=== PATIENT | female | born 1985 | race Two or more races ===

== ENCOUNTER 2017-01-25 22:26 | Emergency (ER) | payer OTHER ==
[2017-01-25 22:37] VITALS: BP 131/90
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
--- NOTE | 2017-01-26 09:15 | CR ---
Chest and left ribs: Frontal view of the chest was obtained as well as 2 views of the left ribs. Comparison: No previous study. Heart size and mediastinum are normal. Lungs are clear. No discrete rib abnormality is appreciated. Impression: 1. Nothing acute is seen on frontal chest x-ray. 2. No discrete left-sided rib abnormality is appreciated. Diagnostic code #1
== END 2017-01-26 00:55 | disposition home or self-care (01) ==
LOC: JD.ED 22:26
DX: S50.812A Abrasion of left forearm, initial encounter (principal); S29.9XXA Unspecified injury of thorax, initial encounter; V29.9XXA Motorcycle rider (driver) (passenger) injured in unspecified traffic accident, initial encounter; Y92.410 Unspecified street and highway as the place of occurrence of the external cause; F17.210 Nicotine dependence, cigarettes, uncomplicated; Z98.890 Other specified postprocedural states; Z88.0 Allergy status to penicillin; Z88.1 Allergy status to other antibiotic agents; Z88.5 Allergy status to narcotic agent
CPT/HCPCS: 71101-26-LT; 71101-LT; 99283; 99284

== ENCOUNTER 2018-04-10 22:02 | Emergency (ER) | payer SELFPAY ==
[2018-04-10 22:18] VITALS: BP 123/107
== END 2018-04-10 23:38 | disposition left against medical advice (07) ==
LOC: JD.ED 22:02
DX: Z53.21 Procedure and treatment not carried out due to patient leaving prior to being seen by health care provider (principal)
CPT/HCPCS: 36415; 80053; 83690; 84703; 85007; 85027; G0480

== ENCOUNTER 2018-12-23 12:37 | Emergency (ER) | payer BC ==
[2018-12-23 12:48] VITALS: BP 158/98
[2018-12-23] MEDS ORDERED: Ibuprofen 800 MG Tab PO ONE (13:00)
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
== END 2018-12-23 13:35 | disposition home or self-care (01) ==
LOC: JD.ED 12:37
DX: S83.412A Sprain of medial collateral ligament of left knee, initial encounter (principal); Z88.1 Allergy status to other antibiotic agents; Z88.0 Allergy status to penicillin; Z79.899 Other long term (current) drug therapy; Y04.0XXA Assault by unarmed brawl or fight, initial encounter
CPT/HCPCS: 99283; A9270; 99282

== ENCOUNTER 2019-02-18 15:30 | Emergency (ER) | payer BC ==
[2019-02-18] MEDS ORDERED: Ondansetron 4 MG/2 ML SDV IVPUSH ONE (16:03)
[2019-02-18] MEDS ORDERED: HYDROmorphone 1 MG/ML Syringe IVPUSH STA (16:03)
[2019-02-18 16:09] VITALS: BP 153/96
--- NOTE | 2019-02-18 16:10 | EDM.PDOC ---
ED HPI GENERAL MEDICAL PROBLEM - General Chief Complaint: Abdominal Pain Stated Complaint: LOWER ABD PAIN Time Seen by Provider: 02/18/19 15:51 Source of Information: Reports: Patient, RN Notes Reviewed History Limitations: Reports: No Limitations - History of Present Illness INITIAL COMMENTS - FREE TEXT/NARRATIVE: Patient is a 33-year-old female who presents to the ED for evaluation of lower abdominal pain. The patient notes that this pain started yesterday after dinner , however she did have diarrhea starting Monday. She states that she had more nausea/vomiting/diarrhea yesterday. She states that this turned into a stinging/burning pain yesterday. The patient states she vomited one time last night and once again this morning. She did go to see her doctor, Carly Person, and Dr. Person was concerned that she may have appendicitis, so she was sent here for further evaluation. Patient has not taken anything for pain, and would currently rates this at an 8 out of 10 today. She notes that even walking makes the pain hurt worse. The patient does not believe that she be as she just finished up her menstrual cycle. The patient notes that she does still retain her appendix. She states the last time she ate anything was roughly 10 AM this morning, and the last time she drank anything was around 2 PM this afternoon. The patient denies any other vaginal discharge or urinary symptoms. The patient states that she last had a normal bowel movement on Monday before the diarrhea. She states she is a sometime smoker, and she uses alcohol on the weekends. Right Lower Abdominal Pain Score (Numeric/FACES): 8 - Related Data Allergies Allergy/AdvReac Type Severity Reaction Status Date / Time amoxicillin Allergy Cannot Verified 02/18/19 15:46 Remember guaifenesin [From Robitussin] Allergy Cannot Verified 02/18/19 15:46 Remember Penicillins Allergy Cannot Verified 02/18/19 15:46 Remember tramadol Allergy Itching Verified 02/18/19 15:46 Home Meds: Home Meds Ranitidine [Zantac] 150 mg PO DAILY 04/10/18 [History] Ibuprofen [Motrin] 800 mg PO TID PRN 5 Days #30 tablet 12/23/18 [Rx] Dicyclomine [Bentyl] 20 mg PO QID #28 tablet 02/18/19 [Rx] Past Medical History - Past Health History Medical/Surgical History: Denies Medical/Surgical History Gastrointestinal History: Reports: Other (See Below) Other Gastrointestinal History: inguinal hernia Genitourinary History: Reports: Renal Calculus 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 , Neurological History: Reports: Migraines - Infectious Disease History Infectious Disease History: Reports: Meningitis, MRSA Other Infectious Disease History: MRSA in 2004, in blood stream - Past Surgical History HEENT Surgical History: Reports: Adenoidectomy, Tonsillectomy GI Surgical History: Reports: Hernia, Inguinal, Hernia Repair/Other Social & Family History - Family History Family Medical History: Noncontributory - Tobacco Use Smoking Status *Q: Current Every Day Smoker Years of Tobacco use: 20 Packs/Tins Daily: 0.3 Second Hand Smoke Exposure: No - Caffeine Use Caffeine Use: Reports: Energy Drinks - Recreational Drug Use Recreational Drug Use: No ED ROS GENERAL - Review of Systems Review Of Systems: See Below Constitutional: Denies: Fever, Chills HEENT: Reports: No Symptoms Respiratory: Reports: No Symptoms Cardiovascular: Reports: No Symptoms Endocrine: Reports: No Symptoms GI/Abdominal: Reports: Abdominal Pain (umbilical, RLQ), Diarrhea, Nausea, Vomiting : Denies: Discharge, Dysuria, Frequency, Urgency Musculoskeletal: Reports: No Symptoms Skin: Reports: No Symptoms Neurological: Reports: No Symptoms Psychiatric: Reports: No Symptoms Hematologic/Lymphatic: Reports: No Symptoms Immunologic: Reports: No Symptoms ED EXAM, GI/ABD - Physical Exam Exam: See Below Exam Limited By: No Limitations General Appearance: Alert, WD/WN, No Apparent Distress, Mild Distress (pt appears to be in pain at time of initial eval) Eyes: Bilateral: Normal Appearance Throat/Mouth: Normal Inspection, Normal Lips, Normal Teeth, Normal Gums, Normal Oropharynx, Normal Voice, No Airway Compromise Head: Atraumatic, Normocephalic Respiratory/Chest: No Respiratory Distress, Lungs Clear, Normal Breath Sounds, No Accessory Muscle Use, Chest Non-Tender Cardiovascular: Normal Peripheral Pulses, Regular Rate, Rhythm, No Murmur GI/Abdominal Exam: Normal Bowel Sounds, Soft, No Distention, No Mass, Rebound ( RLQ), Tender (RLQ and around umbilicus) Extremities: Normal Inspection, Normal Capillary Refill Neurological: Alert, Oriented, Normal Cognition, Normal Gait, No Motor/Sensory Deficits Psychiatric: Normal Affect, Normal Mood Skin Exam: Warm, Dry, Intact, Normal Color, No Rash Course - Vital Signs Last Recorded V/S: Last Vital Signs Temp 97.1 F 02/18/19 15:47 Pulse 88 02/18/19 15:47 Resp 20 02/18/19 15:47 BP 153/96 H 02/18/19 15:47 Pulse Ox 99 02/18/19 15:47 - Orders/Labs/Meds Orders: Active Orders 24 hr Category Date Time Status Peripheral IV Care [RC] . DIRECTED Care 02/18/19 16:04 Active Peripheral IV Insertion Adult [OM.PC] Routine Oth 02/18/19 16:04 Ordered Labs: Laboratory Tests 02/18/19 02/18/19 02/18/19 Range/Units 16:15 16:15 16:15 WBC 10.62 H (3.98-10.04) K/mm3 RBC 5.11 (3.98-5.22) M/mm3 Hgb 14.2 (11.2-15.7) gm/L Hct 42.5 (34.1-44.9) % MCV 83.2 (79.4-94.8) fl MCH 27.8 (25.6-32.2) pg MCHC 33.4 (32.2-35.5) g/dl RDW Std Deviation 44.4 (36.4-46.3) fL Plt Count 276 (182-369) K/mm3 MPV 10.2 (9.4-12.3) fl Neutrophils % (Manual) 70 H (40-60) % Band Neutrophils % 0 (0-10) % Lymphocytes % (Manual) 20 (20-40) % Atypical Lymphs % 0 % Monocytes % (Manual) 5 (2-10) % Eosinophils % (Manual) 4 (0.7-5.8) % Basophils % (Manual) 1 (0.1-1.2) Platelet Estimate Adequate RBC Morph Comment Normal Sodium 137 (136-145) mEq/L Potassium 4.0 (3.5-5.1) mEq/L Chloride 104 (98-107) mEq/L Carbon Dioxide 21 (21-32) mEq/L Anion Gap 16.0 H (5-15) BUN 13 (7-18) mg/dL Creatinine 0.8 (0.55-1.02) mg/dL Est Cr Clr Drug Dosing 90.00 mL/min Estimated GFR (MDRD) > 60 (>60) mL/min BUN/Creatinine Ratio 16.3 (14-18) Glucose 104 (74-106) mg/dL Calcium 9.0 (8.5-10.1) mg/dL Total Bilirubin 0.5 (0.2-1.0) mg/dL AST 161 H (15-37) U/L ALT 233 H (14-59) U/L Alkaline Phosphatase 143 H (46-116) U/L C-Reactive Protein (<1.0) mg/dL Total Protein 8.0 (6.4-8.2) g/dl Albumin 3.9 (3.4-5.0) g/dl Globulin 4.1 gm/dL Albumin/Globulin Ratio 1.0 (1-2) Lipase 78 (73-393) U/L HCG, Qual (NEGATIVE) Urine Color Yellow (Yellow) Urine Appearance Clear (Clear) Urine pH 6.0 (5.0-8.0) Ur Specific [place] > or = 1.030 (1.005-1.030) Urine Protein Trace H (Negative) Urine Glucose (UA) Negative (Negative) Urine Ketones Negative (Negative) Urine Occult Blood 2+ H (Negative) Urine Nitrite Negative (Negative) Urine Bilirubin Negative (Negative) Urine Urobilinogen 0.2 (0.2-1.0) Ur Leukocyte Esterase Negative (Negative) Urine RBC 0-5 (0-5) /hpf Urine WBC 0-5 (0-5) /hpf Ur Squamous Epith Cells 0-5 (0-5) /hpf Urine Bacteria Few (FEW) /hpf Urine Mucus Moderate H (FEW) /hpf 02/18/19 02/18/19 Range/Units 16:15 16:15 WBC (3.98-10.04) K/mm3 RBC (3.98-5.22) M/mm3 Hgb (11.2-15.7) gm/L Hct (34.1-44.9) % MCV (79.4-94.8) fl MCH (25.6-32.2) pg MCHC (32.2-35.5) g/dl RDW Std Deviation (36.4-46.3) fL Plt Count (182-369) K/mm3 MPV (9.4-12.3) fl Neutrophils % (Manual) (40-60) % Band Neutrophils % (0-10) % Lymphocytes % (Manual) (20-40) % Atypical Lymphs % % Monocytes % (Manual) (2-10) % Eosinophils % (Manual) (0.7-5.8) % Basophils % (Manual) (0.1-1.2) Platelet Estimate RBC Morph Comment Sodium (136-145) mEq/L Potassium (3.5-5.1) mEq/L Chloride (98-107) mEq/L Carbon Dioxide (21-32) mEq/L Anion Gap (5-15) BUN (7-18) mg/dL Creatinine (0.55-1.02) mg/dL Est Cr Clr Drug Dosing mL/min Estimated GFR (MDRD) (>60) mL/min BUN/Creatinine Ratio (14-18) Glucose (74-106) mg/dL Calcium (8.5-10.1) mg/dL Total Bilirubin (0.2-1.0) mg/dL AST (15-37) U/L ALT (14-59) U/L Alkaline Phosphatase (46-116) U/L C-Reactive Protein 1.1 H* (<1.0) mg/dL Total Protein (6.4-8.2) g/dl Albumin (3.4-5.0) g/dl Globulin gm/dL Albumin/Globulin Ratio (1-2) Lipase (73-393) U/L HCG, Qual Negative (NEGATIVE) Urine Color (Yellow) Urine Appearance (Clear) Urine pH (5.0-8.0) Ur Specific [place] (1.005-1.030) Urine Protein (Negative) Urine Glucose (UA) (Negative) Urine Ketones (Negative) Urine Occult Blood (Negative) Urine Nitrite (Negative) Urine Bilirubin (Negative) Urine Urobilinogen (0.2-1.0) Ur Leukocyte Esterase (Negative) Urine RBC (0-5) /hpf Urine WBC (0-5) /hpf Ur Squamous Epith Cells (0-5) /hpf Urine Bacteria (FEW) /hpf Urine Mucus (FEW) /hpf Meds: Medications Discontinued Medications Generic Name Dose Route Start Last Admin Trade Name Freq PRN Reason Stop Dose Admin Diatrizoate Meglum/Diatrizoate Sod 60 ml 02/18/19 17:20 02/18/19 17:43 Gastrografin 37% PO 02/18/19 17:21 60 ml ONETIME ONE Administration Hydromorphone HCl 1 mg 02/18/19 16:03 02/18/19 16:17 Dilaudid IVPUSH 02/18/19 16:04 1 mg ONETIME STA Administration Sodium Chloride 1,000 mls @ 999 mls/hr 02/18/19 16:15 02/18/19 16:17 Normal Saline IV 999 mls/hr ASDIRECTED LAURI Administration Iohexol 100 ml 02/18/19 17:21 02/18/19 17:44 Omnipaque-300 IVPUSH 02/18/19 17:22 100 ml ONETIME ONE Administration Ondansetron HCl 4 mg 02/18/19 16:03 02/18/19 16:17 Zofran IVPUSH 02/18/19 16:04 4 mg ONETIME ONE Administration Sodium Chloride 10 ml 02/18/19 16:04 02/18/19 17:44 Saline Flush FLUSH 10 ml ASDIRECTED PRN Administration Keep Vein Open - Re-Assessments/Exams Free Text/Narrative Re-Assessment/Exam: 02/18/19 16:12 Patient presents to the ED for evaluation of lower abdominal pain. She was previously evaluated by Dr. Carly Person, and she raised suspicion for appendicitis. The patient is mostly tender around her umbilicus and her right lower quadrant. I have ordered a CBC, CMP, lipase, serum qualitative hCG, CRP, UA, IV fluids, 1 mg IV Dilaudid, 4 mg Zofran, and an abdomen and pelvis CT with contrast for further evaluation of her symptoms today. 02/18/19 18:[address] and labs are done, her labs are essentially within normal limits her CRP is mildly elevated at 1.1 today. Her CBC is within normal limits. Her CT is read as fatty infiltration within the liver, other incidental findings but nothing acute is appreciated. She does not have appendicitis at this ED visit. Of note there was an increased amount of stool in her colon as well. Have recommended to the patient that she obtain some MiraLAX, and possibly magnesium citrate for a bowel cleanout, however the oral contrast will also help with a good cleanout. Departure - Departure Time of Disposition: 18:31 Disposition: Home, Self-Care 01 Condition: Fair Clinical Impression: Abdominal pain Qualifiers: Abdominal location: right lower quadrant Qualified Code(s): R10.31 - Right lower quadrant pain Constipation Qualifiers: Constipation type: unspecified constipation type Qualified Code(s): K59.00 - Constipation, unspecified - Discharge Information *PRESCRIPTION DRUG MONITORING PROGRAM REVIEWED*: No *COPY OF PRESCRIPTION DRUG MONITORING REPORT IN PATIENT SANAZ: No Prescriptions: Dicyclomine [Bentyl] 20 mg PO QID #28 tablet Instructions: Constipation, Adult, [id number]ufq, Abdominal Pain, Adult, Easy-to -Read Referrals: Carly Person MD [Primary Care Provider] - Forms: ED Department Discharge Additional Instructions: You have been evaluated in the ED today for your abdominal pain. Your lab work and CT were not suggestive of appendicitis at this time, it did show a fairly large amount of stool in your colon. Recommend that you obtain some MiraLAX, and mix this with Gatorade to soften your stool, and you may also take magnesium citrate to help pass the stool. If he wished to take the magnesium citrate, please obtain a bottle from any retail pharmacy or [employer], drink one half bottle wait one hour if no results repeat for the next half bottle. You may also increase her oral fluid intake as this will help constipation as well. Please take the dicyclomine, 4 times daily for abdominal cramping associated with constipation. This has been electronically prescribed to the [place] pharmacy located in the [facility] Please return to the ED if your symptoms should change or worsen. - My Orders Last 24 Hours: My Active Orders 02/18/19 16:04 Peripheral IV Care [RC] . DIRECTED Peripheral IV Insertion Adult [OM.PC] Routine - Assessment/Plan Last 24 Hours: My Active Orders 02/18/19 16:04 Peripheral IV Care [RC] . DIRECTED Peripheral IV Insertion Adult [OM.PC] Routine
[2019-02-18] MEDS ORDERED: Sodium Chloride 0.9% 1,000 ML IV SCH (16:15)
[2019-02-18] MEDS: Sodium Chloride 0.9% 10 ML Syringe FLUSH PRN ×2 (16:17→17:44)
[2019-02-18] MEDS ORDERED: Diatrizoate Meglumine/Diatrizoate Sodium 37% 120 ML Bottle PO ONE (17:20)
[2019-02-18] MEDS ORDERED: Iohexol 647 MG/ML 100 ML Bottle IVPUSH ONE (17:21)
--- NOTE | 2019-02-18 18:06 | CT ---
CT abdomen and pelvis Technique: Multiple axial sections were obtained from above the dome of the diaphragm inferiorly through the pubic symphysis. Intravenous and oral contrast was utilized. Delayed images were obtained through the bladder. Comparison: Prior CT abdomen and pelvis exam of 09/23/16. Findings: Small portion of the visualized lung bases are clear. Diffuse fatty infiltration is noted throughout the liver. Spleen appears normal. Adrenal glands show no nodule. Pancreas is within normal limits. Gallbladder contains no calcified gallstones. Kidneys show symmetric contrast enhancement without hydronephrosis or mass. Aorta shows no aneurysm. No retroperitoneal adenopathy or mesenteric abnormalities are seen. Appendix is seen which is normal in size. No pelvic mass or adenopathy is seen. No free fluid or inflammatory change is seen. No abdominal wall hernia is seen. Delayed images shows contrast within the distal ureters and within the bladder. Bone window settings were reviewed which shows a mild anterior wedge deformity within L1 which is stable from prior CT exam. Impression: 1. Fatty infiltration within the liver. 2. Other incidental findings. Nothing acute is appreciated. Diagnostic code #2
== END 2019-02-18 18:40 | disposition home or self-care (01) ==
LOC: JD.ED 15:30
DX: K59.00 Constipation, unspecified (principal); F17.210 Nicotine dependence, cigarettes, uncomplicated; Z79.899 Other long term (current) drug therapy; Z88.0 Allergy status to penicillin; Z88.6 Allergy status to analgesic agent; Z88.1 Allergy status to other antibiotic agents
CPT/HCPCS: 36415; 74177; 80053; 81001; 83690; 84703; 85007; 85027; 86140; 96361; 96374; 96375; 99284; J1170; J2405; J7040; Q9963; Q9967

== ENCOUNTER 2019-03-17 00:38 | Observation (INO) | payer BC, MEDICAID ==
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
[2019-03-17] MEDS ORDERED: Ibuprofen 600 MG Tab PO ONE (02:17)
[2019-03-17] MEDS ORDERED: Ibuprofen 600 MG Tab PO PRN (07:59)
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
[2019-03-17] MEDS: traMADol 50 MG Tab PO PRN ×2 (14:51→20:41)
[2019-03-17] MEDS: Ketorolac 30 MG/ML SDV IV PRN ×2 (15:13→21:40)
--- NOTE | 2019-03-17 19:35 | CR ---
Chest: Two views of the chest are obtained. Comparison: Prior chest x-ray of 01/25/17. Heart size and mediastinum are normal. Lungs are clear. Slight anterior wedging is noted at the thoracolumbar junction. This finding is noted on prior CT exam of 02/18/19 and is stable. Minimal scoliosis is noted. Impression: 1. Findings as noted above which are stable. 2. Nothing acute is appreciated. Diagnostic code #2
--- NOTE | 2019-03-17 19:35 | CR ---
Left elbow: Four views of the left elbow were obtained. Comparison: No previous study. Joint spaces are preserved. No acute fracture, dislocation or other bony abnormality is seen. Impression: 1. No abnormality is seen on left elbow study. Diagnostic code #1
--- NOTE | 2019-03-17 19:35 | CR ---
Left ankle: Four views of the left ankle were obtained. Comparison: No previous study. Small avulsion fracture is noted off the tip of the medial malleolus. Ankle mortise is symmetric. No additional fracture or other bony abnormality is identified. Impression: 1. Small avulsion fracture off the tip of the medial malleolus. Diagnostic code #3
[2019-03-18] MEDS: traMADol 50 MG Tab PO PRN ×2 (02:25→08:27)
[2019-03-18] MEDS: Ketorolac 30 MG/ML SDV IV PRN (04:21)
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
[2019-03-18 08:27] VITALS: BP 111/78
[2019-03-18] MEDS ORDERED: Enoxaparin 40 MG/0.4 ML Syringe SUBCUT SCH (09:00)
[2019-03-18] MEDS ORDERED: Famotidine 20 MG Tab PO SCH (21:00)
== END 2019-03-18 09:37 | disposition home or self-care (01) ==
LOC: JD.ED 00:38 → EEVIPCON 00:38 → JD.MS 06:42 → UNDOADMOB 06:47 → INTOOBSV 06:47 → OBSVTOIN 06:47
PROVIDERS: ADMIT Pediatrics; ATTEND Pediatrics
DX: S82.52XA Displaced fracture of medial malleolus of left tibia, initial encounter for closed fracture (principal); S00.83XA Contusion of other part of head, initial encounter; S10.83XA Contusion of other specified part of neck, initial encounter; S20.212A Contusion of left front wall of thorax, initial encounter; S20.211A Contusion of right front wall of thorax, initial encounter; K21.9 Gastro-esophageal reflux disease without esophagitis; R51 Headache; I10 Essential (primary) hypertension; F17.210 Nicotine dependence, cigarettes, uncomplicated; Y04.2XXA Assault by strike against or bumped into by another person, initial encounter; Z88.0 Allergy status to penicillin; Z88.8 Allergy status to other drugs, medicaments and biological substances; Z88.5 Allergy status to narcotic agent; Z79.899 Other long term (current) drug therapy
CPT/HCPCS: 36415; 71046; 73080; 73610; 80053; 80306; 84484; 85025; 86140; 87070; 87641; 93005; 96372; 96374; 96376; 99285; A9270; G0378; G0480; J1650; J1885; 29515; 99283

== ENCOUNTER 2019-07-31 15:40 | Emergency (ER) | payer BC, MEDICAID ==
[2019-07-31 16:04] VITALS: BP 139/84; PULSE 102
[2019-07-31] MEDS ORDERED: Sodium Chloride 0.9% 10 ML Syringe FLUSH PRN (16:33)
[2019-07-31] MEDS ORDERED: Sodium Chloride 0.9% 1,000 ML IV ONE (16:38)
[2019-07-31] MEDS ORDERED: HYDROmorphone 1 MG/ML Syringe IVPUSH ONE ×2 (16:39→19:24)
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
[2019-07-31] MEDS ORDERED: Metoclopramide 10 MG/2 ML SDV IVPUSH ONE (17:04)
[2019-07-31] MEDS ORDERED: Diatrizoate Meglumine/Diatrizoate Sodium 37% 120 ML Bottle PO ONE (17:06)
[2019-07-31] MEDS ORDERED: Iopamidol 612 MG/ML 100 ML Bottle IVPUSH ONE (17:06)
[2019-07-31] MEDS ORDERED: Pantoprazole 40 MG Vial IVPUSH ONE (17:20)
[2019-07-31] MEDS ORDERED: FLU Vacc QS2019-20(6MOS+)/PF 60 MCG/0.5 ML SYRINGE IM ONE (18:00)
[2019-07-31] MEDS ORDERED: Magnesium Citrate Solution 296 ML Bottle PO ONE (19:04)
--- NOTE | 2019-08-01 10:51 | CT ---
CT abdomen and pelvis Technique: Multiple axial sections were obtained from above the dome of the diaphragm inferiorly through the pubic symphysis. Intravenous and oral contrast was utilized. Comparison: Prior CT abdomen and pelvis exam of 02/18/19. Findings: Visualized lung bases show nothing acute. Fatty infiltration is seen within the liver. No focal abnormality is seen within the liver other than focal amount of fat next to the ligamentum teres fissure which is normal. Spleen appears within normal limits. Adrenal glands show no nodule. Pancreas is within normal limits. Gallbladder contains no calcified gallstones. Pancreas is within normal limits. Kidneys show symmetric contrast enhancement without hydronephrosis or mass. Aorta shows no aneurysm. No retroperitoneal adenopathy or mesenteric abnormalities are seen. No pelvic mass or adenopathy is noted. Appendix is visualized and is normal in size. No free fluid or inflammatory change is seen. Delayed images show contrast within the bladder. Bone window settings were reviewed which show a mild compression deformity with anterior wedging within L1. This appears stable from prior CT exam. Impression: 1. Fatty infiltration within the liver. 2. Other findings believed to be incidental. 3. Nothing acute is appreciated on CT study of the abdomen and pelvis. Diagnostic code #2 I agree with preliminary report from [facility], finalized on 07/31/19, 7:50 PM Central Time
== END 2019-07-31 19:48 | disposition home or self-care (01) ==
LOC: JD.ED 15:40
DX: R16.0 Hepatomegaly, not elsewhere classified (principal); K59.00 Constipation, unspecified; I10 Essential (primary) hypertension; F17.210 Nicotine dependence, cigarettes, uncomplicated; E66.9 Obesity, unspecified; Z68.38 Body mass index [BMI] 38.0-38.9, adult; Z88.8 Allergy status to other drugs, medicaments and biological substances; Z88.0 Allergy status to penicillin; Z88.5 Allergy status to narcotic agent; Z98.51 Tubal ligation status; Z23 Encounter for immunization
CPT/HCPCS: 74177; 90471; 90686; 96361; 96374; 96375; 96376; 99284; A9270; C9113; J1170; J2765; J7040; Q9963; Q9967; G0008

== ENCOUNTER → 2019-09-11 | Day surgery (SDC) | payer BC, MEDICAID ==
[~2019-09-11] MED LIST: Lactated Ringers 1,000 ML IV SCH; Lidocaine 1% 4 ML ONE; Lidocaine 1%/Sod Bicarbonate in NS 8.4% 1 ML Syringe IDERM PRN; Propofol 200 MG/20 ML SDV ONE; Sodium Chloride 0.9% 10 ML Syringe FLUSH PRN; fentaNYL 100 MCG/2 ML SDV ONE
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
--- NOTE | 2019-09-11 12:14 | PCM.PRNOTE ---
- Free Text/Narrative Note: Operative Report Date of Procedure: September 11, 2019 Pre Op Diagnosis: Abdominal pain, hematemesis, hematochezia Post-Op Diagnosis: Same Operative Procedures: 1. EGD with biopsy 2. Colonoscopy to the cecum with biopsy Primary Surgeon: Devi Rubio MD Seo Consultant: Matthieu Person MS 3 Anesthesia Provider: Sudhir Wilson CRNA Anesthesia Technique: MAC IV Fluid Replacement, Intraop: 1000cc crystalloid Output, Urine Amount: 0cc EBL in mLs: 0cc Findings: 1. Gastritis 2. Esophagitis 3. Hiatal hernia 4. Bile reflux 5. Proctitis 6. Colon polyps Specimens: 1. Gastric antrum for H. pylori 2. GE junction 3. Descending colon polyp 2 4. Transverse colon polyp 4 5. Descending colon polyp 6. Proctitis 7. Rectal polyp Drain/Tubes: None Indication: The patient is an 34-year-old lady who presented to the clinic with findings of hematemesis and hematochezia. The patient reported symptoms of terminal pain in addition. The patient was consented for a diagnostic EGD and colonoscopy. Risks of bleeding, and perforation were discussed, and the patient agreed to the risks and wished to proceed. Description of the procedure: The patient was taken back to the endoscopy suite, and placed in the left lateral decubitus position. A bite block was placed. The patient was sedated with MAC anesthesia. The Olympus video endoscope was inserted into the oropharynx and guided under direct vision into the esophagus, stomach, and duodenum. The gastric antrum was inspected and cold biopsy forceps were used to take tissue samples for H. pylori. The duodenal bulb and second portion of the duodenum were unremarkable. The scope was withdrawn to the stomach and retroflexed. There was bilious fluid noted pooling in the stomach. There was erythema consistent with gastritis throughout the stomach. No erosions or ulcers were noted. The scope was withdrawn to the esophagus. A this point we noted a small (approximately 1 cm) sliding hiatal hernia. No Barretts esophagus changes were noted. The GE junction did have an irregular appearance more consistent with esophagitis. This was biopsied with cold biopsy forceps. The endoscope was then withdrawn Next, anorectal examination was performed. No lesions, masses or hemorrhoids were noted externally or on palpation. The scope was placed into the rectum and advanced to cecum. Upon reaching the cecum, and the patients cecum was entered. There was mild tortuosity of the colon requiring the patient to be placed in supine position for portion of the procedure as well as manual pressure applied to the abdomen. The ileocecal valve was well visualized and the appendiceal orifice identified. At this point, the scope was slowly withdrawn, paying attention to the mucosa. The patient had good bowel prep, 85 -90% of the mucosa was visible. Multiple polyps were noted. There were 2 flat polyps noted in the ascending colon measuring 2-3 mm. These were removed using cold biopsy forceps. A 6 mm semi-pedunculated polyp was found in the proximal transverse colon was removed using the snare. 2 additional flat polyps measuring 2-3 mm were found in the transverse colon and removed with cold biopsy forceps the distal transverse colon also contained a 4 mm semi- pedunculated polyp removed with hot snare. A 3 mm semi-pedunculated polyp was noted in the descending colon and removed with cold biopsy forceps In the rectum , scope was retroflexed and some hemorrhoidal tissue was noted. There was evidence of petechia throughout the distal rectum. Biopsies were taken of the mucosa using cold biopsy forceps. We also noted scattered 1-2 mm flat polyps. One of these was removed in the rectum using cold biopsy forceps. The scope was removed. The patient tolerated the procedure very well. Complications: None apparent Condition: The patient was transported to PACU in stable condition. We'll the patient continue on PPI therapy. Follow-up in 2 weeks Devi Rubio MD General Surgery
--- NOTE | 2019-09-11 12:19 | PCM.OPNOTE ---
- General Post-Op/Procedure Note Date of Surgery/Procedure: 09/11/19 Operative Procedure(s): 1. EGD. 2. Colonoscopy Findings: 1. Gastritis 2. Esophagitis 3. Hiatal hernia 4. Proctitis 5. 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 Gastric antrum for H. pylori 2. GE junction 3. Descending colon polyp 2 4. Transverse colon polyp 4 5. Descending colon polyp 6. Proctitis 7. Rectal polyp Fluid Replacement, Intraop: 1,000 Output, Urine Amount: 0 EBL in mLs: 0 Complications: None apparent Condition: Good
--- NOTE | 2019-09-11 12:29 | PCM.POSTAN ---
POST ANESTHESIA ASSESSMENT - MENTAL STATUS Mental Status: Alert, Disoriented - VITAL SIGNS Vital Signs: Last Vital Signs Temp 36.2 C 09/11/19 10:05 Pulse 100 09/11/19 10:05 Resp 16 09/11/19 10:05 BP 119/76 09/11/19 10:05 Pulse Ox 95 09/11/19 10:05 - RESPIRATORY Respiratory Status: Respiratory Rate WNL, Airway Patent, O2 Saturation Stable ( 2L NC O2) - CARDIOVASCULAR CV Status: Pulse Rate WNL, Blood Pressure Stable - GASTROINTESTINAL Free Text/Narrative:: Abdominal pain related to gas retention. - POST OP HYDRATION Hydration Status: Adequate & Stable - OBSERVATIONS Free Text/Narrative:: No complications. No concerns at this time.
--- NOTE | 2019-09-11 12:43 | PCM48HPAN ---
Post Anesthesia Note - EVALUATION WITHIN 48HRS OF ANESTHETIC Vital Signs in Normal Range: Yes Patient Participated in Evaluation: Yes Respiratory Function Stable: Yes Airway Patent: Yes Cardiovascular Function Stable: Yes Hydration Status Stable: Yes Pain Control Satisfactory: Yes Nausea and Vomiting Control Satisfactory: Yes Mental Status Recovered: Yes Vital Signs: Last Vital Signs Temp 36.2 C 09/11/19 10:05 Pulse 100 09/11/19 10:05 Resp 16 09/11/19 10:05 BP 119/76 09/11/19 10:05 Pulse Ox 95 09/11/19 10:05 - COMMENTS/OBSERVATIONS Free Text/Narrative:: Patient recovering well. No complications. No concerns at this time.
[2019-09-11 13:14] VITALS: BP 125/82; PULSE 94
== END | disposition home or self-care (01) ==
LOC: JD.SDS 09:59
PROVIDERS: ATTEND Surgery
DX: K21.0 Gastro-esophageal reflux disease with esophagitis (principal); K29.71 Gastritis, unspecified, with bleeding; K44.9 Diaphragmatic hernia without obstruction or gangrene; K62.89 Other specified diseases of anus and rectum; K64.8 Other hemorrhoids; D12.2 Benign neoplasm of ascending colon; D12.3 Benign neoplasm of transverse colon; K63.5 Polyp of colon; K62.1 Rectal polyp; K92.1 Melena; I10 Essential (primary) hypertension; F17.210 Nicotine dependence, cigarettes, uncomplicated; Z88.0 Allergy status to penicillin; Z88.8 Allergy status to other drugs, medicaments and biological substances
CPT/HCPCS: 43239; 45380; 45385; J2001; J2704; J3010; J7120; 00813

== ENCOUNTER 2019-09-19 20:26 | Emergency (ER) | payer BC, MEDICAID ==
[2019-09-19 20:36] VITALS: BP 148/100; PULSE 103
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
[2019-09-19] MEDS ORDERED: Alum Hydrox/Mag Hydrox/Simeth 30 ML, Lidocaine 2% 15 ML PO ONE ×2 (21:15)
[2019-09-19] MEDS ORDERED: Ondansetron 4 MG Tab.DIS PO ONE (22:08)
[2019-09-19] MEDS ORDERED: HYDROmorphone 1 MG/ML Syringe IM ONE (22:22)
== END 2019-09-19 23:45 | disposition home or self-care (01) ==
LOC: JD.ED 20:26
DX: R10.13 Epigastric pain (principal); I10 Essential (primary) hypertension; F17.210 Nicotine dependence, cigarettes, uncomplicated; Z88.0 Allergy status to penicillin; Z88.8 Allergy status to other drugs, medicaments and biological substances
CPT/HCPCS: 36415; 80053; 83690; 85007; 85027; 96372; 99284; A9270; J1170; 99283

== ENCOUNTER 2019-10-22 11:43 | Emergency (ER) | payer BC, MEDICAID ==
[2019-10-22 11:57] VITALS: BP 136/93; PULSE 111
[2019-10-22] MEDS ORDERED: Codeine/Promethazine 10-6.25 MG/5 ML Syrup 5 ML UD Cup PO ONE (12:21)
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
--- NOTE | 2019-10-22 15:21 | CR ---
Chest: Two views of the chest were obtained. Comparison: Prior chest x-ray of 03/17/19. Heart size and mediastinum are normal. Lungs are clear. Bony structures are unremarkable. Impression: 1. Nothing acute is seen on two-view chest x-ray. Diagnostic code #1 This report was dictated in [place] Standard Time
== END 2019-10-22 14:13 | disposition home or self-care (01) ==
LOC: JD.ED 11:43
DX: J40 Bronchitis, not specified as acute or chronic (principal); I10 Essential (primary) hypertension; Z88.1 Allergy status to other antibiotic agents; Z88.0 Allergy status to penicillin; Z88.8 Allergy status to other drugs, medicaments and biological substances
CPT/HCPCS: 71046; 87804; 99285; A9270; 99283

== ENCOUNTER 2019-11-06 06:02 | Emergency (ER) | payer BC, MEDICAID ==
[2019-11-06 06:13] VITALS: BP 154/94; PULSE 118
[2019-11-06] MEDS ORDERED: Ondansetron 4 MG/2 ML SDV IVPUSH ONE (06:40)
[2019-11-06] MEDS ORDERED: HYDROmorphone 1 MG/ML Syringe IVPUSH ONE (06:43)
[2019-11-06] MEDS ORDERED: Sodium Chloride 0.9% 1,000 ML IV SCH (06:45)
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
[2019-11-06] MEDS: Sodium Chloride 0.9% 10 ML Syringe FLUSH PRN ×2 (06:53→08:11)
[2019-11-06] MEDS ORDERED: HYDROmorphone 0.5 MG/0.5 ML Syringe IVPUSH ONE (08:01)
[2019-11-06] MEDS ORDERED: Metoclopramide 10 MG/2 ML SDV IVPUSH ONE (08:01)
[2019-11-06] MEDS ORDERED: Lactated Ringers 1,000 ML IV SCH (08:30)
--- NOTE | 2019-11-06 09:07 | US ---
Limited abdominal ultrasound: Multiple real-time images of the upper right abdomen were obtained. Technologist's note: Difficult exam due to body habitus and patient difficulty breathing Liver is echogenic most likely due to fatty infiltration. Hypoechoic area is seen next to the gallbladder compatible with focal fatty sparing. No discrete abnormality is seen within the right kidney. Right kidney shows no hydronephrosis. Right kidney length is 13.2 cm. Gallbladder contains no shadowing gallstones. No gallbladder wall thickening is seen. No biliary duct dilatation is noted. Pancreas is mostly obscured from bowel gas. Visualized portions show no discrete abnormality. Impression: 1. Fatty infiltration within the liver with mild focal fatty sparing next to the gallbladder. 2. No additional abnormality is appreciated on right upper quadrant abdominal ultrasound. Diagnostic code #2 This report was dictated in [place] Standard Time
--- NOTE | 2019-11-06 09:48 | CR ---
Abdomen: Supine and upright views of the abdomen were obtained. Several loops of slightly prominent gas-filled small bowel are seen within the abdomen. No free air is identified. Calcification is noted within the left pelvis compatible with phlebolith. Bony structures appear within normal limits for the patient's age. Impression: 1. Several slightly prominent gas-filled loops of small bowel. Difficult at this time to exclude developing small bowel obstruction although findings may also represent gastroenteritis. Please correlate with the patient's symptoms. 2. Other findings believed to be incidental as noted above. Diagnostic code #3 This report was dictated in [place] Standard Time
== END 2019-11-06 11:41 | disposition home or self-care (01) ==
LOC: JD.ED 06:02
DX: K76.0 Fatty (change of) liver, not elsewhere classified (principal); R10.10 Upper abdominal pain, unspecified; R11.2 Nausea with vomiting, unspecified; I10 Essential (primary) hypertension; Z88.0 Allergy status to penicillin; Z88.8 Allergy status to other drugs, medicaments and biological substances; Z87.891 Personal history of nicotine dependence
CPT/HCPCS: 36415; 74019; 76705; 80053; 82140; 83690; 85025; 96361; 96374; 96375; 96376; 99284; J1170; J2405; J2765; J7030; J7120

== ENCOUNTER 2019-11-08 04:15 | Emergency (ER) | payer BC, MEDICAID ==
[2019-11-08 04:27] VITALS: BP 124/76; PULSE 114
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
[2019-11-08] MEDS ORDERED: Lactated Ringers 500 ML IV ONE (05:03)
[2019-11-08] MEDS ORDERED: HYDROmorphone 0.5 MG/0.5 ML Syringe IVPUSH ONE (05:03)
[2019-11-08] MEDS ORDERED: Ondansetron 4 MG/2 ML SDV IVPUSH ONE (05:03)
[2019-11-08] MEDS ORDERED: Lactated Ringers 1,000 ML IV SCH (05:15)
--- NOTE | 2019-11-08 07:15 | CT ---
CT abdomen and pelvis Technique: Multiple axial sections were obtained from above the dome of the diaphragm inferiorly through the pubic symphysis. Intravenous and oral contrast was utilized. Comparison: Previous limited right upper quadrant abdominal ultrasound 11/06/[address] abdomen and pelvis study of 08/21/19. Findings: Diffuse fatty infiltration is seen throughout the liver. Liver is also enlarged. Vague low density is seen next to the gallbladder most likely representing focal fatty sparing. Gallbladder shows no calcified gallstones. Visualized lung bases show nothing acute. Spleen appears within normal limits. Adrenal glands show no nodule. Kidneys show symmetric contrast enhancement without hydronephrosis or mass. Pancreas shows no abnormality. Aorta shows no aneurysm. No retroperitoneal adenopathy is seen. Mild diverticulosis is noted within the sigmoid colon without inflammatory change of diverticulitis. No free fluid or other inflammatory change is appreciated. Appendix not visualized with certainty. No bowel dilatation is seen. Bone window settings were reviewed which shows a mild anterior wedge deformity within the superior endplate of L1. This appears stable from previous exam. Impression: 1. Fatty infiltration within the liver with focal fatty sparing next of the gallbladder. Mild hepatomegaly also noted. 2. No acute abnormality is appreciated on CT study of the abdomen and pelvis. No etiology is identified to explain the patient's right lower quadrant abdominal pain. Diagnostic code #2 This report was dictated in [place] Standard Time
[2019-11-08] MEDS ORDERED: Acetaminophen/HYDROcodone 325-5 MG Tab PO ONE (08:22)
== END 2019-11-08 08:46 | disposition home or self-care (01) ==
LOC: JD.ED 04:15
DX: R10.31 Right lower quadrant pain (principal); R11.0 Nausea; I10 Essential (primary) hypertension; Z88.0 Allergy status to penicillin; Z88.8 Allergy status to other drugs, medicaments and biological substances
CPT/HCPCS: 36415; 74177; 80053; 81003; 83690; 84703; 85025; 96361; 96374; 96375; 99284; A9270; J1170; J2405; J7120

== ENCOUNTER 2019-11-20 07:03 | Emergency (ER) | payer BC, MEDICAID ==
[2019-11-20] MEDS ORDERED: Sodium Chloride 0.9% 10 ML Syringe FLUSH PRN (07:23)
[2019-11-20] MEDS ORDERED: Pantoprazole 40 MG Vial IVPUSH ONE (07:24)
[2019-11-20] MEDS ORDERED: Ondansetron 4 MG/2 ML SDV IVPUSH ONE ×2 (07:24→09:58)
[2019-11-20] MEDS ORDERED: HYDROmorphone 0.5 MG/0.5 ML Syringe IVPUSH ONE ×2 (07:24→08:56)
[2019-11-20] MEDS ORDERED: Sodium Chloride 0.9% 1,000 ML IV SCH ×2 (07:30→09:00)
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
[2019-11-20] MEDS ORDERED: Pantoprazole 80 MG in Sodium Chloride 0.9% 100 ML IV SCH (07:45)
[2019-11-20] MEDS: Potassium Chloride 10 MEQ in Premix Bag 1 BAG IV SCH ×2 (08:42→09:33)
[2019-11-20] MEDS ORDERED: Octreotide 500 MCG in Sodium Chloride 0.9% 499 ML IV SCH (08:45)
[2019-11-20] MEDS ORDERED: Ondansetron 4 MG/2 ML SDV ONE (09:59)
[2019-11-20 12:01] VITALS: BP 130/87; PULSE 112
== END 2019-11-20 10:00 ==
LOC: JD.ED 07:03
DX: K92.2 Gastrointestinal hemorrhage, unspecified (principal); I10 Essential (primary) hypertension; Z88.0 Allergy status to penicillin; Z88.8 Allergy status to other drugs, medicaments and biological substances
CPT/HCPCS: 36415; 80053; 82140; 82977; 85025; 86850; 86900; 86901; 96365; 96366; 96368; 96375; 96376; 99285; C9113; J1170; J2354; J2405; J3480; J7030; J7040; J7050

== ENCOUNTER 2019-12-10 15:52 | Emergency (ER) | payer BC, MEDICAID ==
[2019-12-10] MEDS ORDERED: HYDROmorphone 1 MG/ML Syringe IVPUSH ONE ×2 (18:16→21:00)
[2019-12-10] MEDS ORDERED: Sodium Chloride 0.9% 10 ML Syringe FLUSH PRN ×2 (18:16→19:26)
[2019-12-10] MEDS ORDERED: Metoclopramide 10 MG/2 ML SDV IVPUSH ONE (18:16)
[2019-12-10] MEDS ORDERED: Sodium Chloride 0.9% 1,000 ML IV ONE ×2 (18:17→22:08)
[2019-12-10] MEDS ORDERED: Alum Hydrox/Mag Hydrox/Simeth 30 ML, Lidocaine 2% 15 ML PO ONE ×2 (18:40)
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
[2019-12-10] MEDS ORDERED: Iopamidol 612 MG/ML 100 ML Bottle IVPUSH ONE (19:26)
[2019-12-10] MEDS ORDERED: Diatrizoate Meglumine/Diatrizoate Sodium 37% 120 ML Bottle PO ONE (19:26)
--- NOTE | 2019-12-10 20:43 | CT ---
CT abdomen and pelvis Technique: Multiple axial sections were obtained from above the dome of the diaphragm inferiorly to the pubic symphysis. Intravenous contrast and oral contrast has been given. Comparison: Prior CT abdomen and pelvis exam of 11/08/19. Findings: Visualized lung bases show nothing acute. Liver is enlarged and shows diffuse fatty infiltration. Focal fatty sparing is noted next to the gallbladder. Spleen is also mildly enlarged with length 15.5 cm. Spleen size is enlarged from previous exam of uncertain etiology. Small hiatal hernia is seen with gastroesophageal reflux of contrast. Adrenal glands show no nodule. Pancreas shows no discrete abnormality. Kidneys show symmetric contrast enhancement without hydronephrosis or mass. Aorta shows no aneurysm. Gallbladder is mildly distended showing no calcified gallstones. No retroperitoneal adenopathy is seen. No mesenteric abnormalities are appreciated. No pelvic mass or adenopathy is seen. Appendix is seen which is normal in size. No pelvic mass or adenopathy is seen. Bone window settings were reviewed which shows a mild anterior wedge deformity of L1 which appears stable from previous exam. No acute osseous finding is seen. Small fat-containing umbilical hernia is noted. Impression: 1. Increasing spleen size from prior study of uncertain etiology. In size currently measures 15.5 cm in length. 2. Diffuse fatty infiltration throughout the liver with hepatomegaly. Focal fatty sparing next to the gallbladder. 3. Other findings as noted above. Nothing acute is appreciated. Diagnostic code #3 Study was dictated in [place] Standard Time
[2019-12-10] MEDS ORDERED: Pantoprazole 40 MG Vial IVPUSH ONE (21:57)
[2019-12-10] MEDS ORDERED: Sucralfate 1 GM Tab PO ONE (21:57)
[2019-12-10] MEDS ORDERED: Lactulose Soln 10 GM/15 ML 30 ML UD Cup PO ONE (21:57)
[2019-12-10] MEDS ORDERED: Cefepime 2 GM in Premix Bag 1 BAG IV SCH (22:15)
[2019-12-10] MEDS ORDERED: metroNIDAZOLE/Normal Saline 500 MG in Premix Bag 1 BAG IV SCH (22:15)
[2019-12-10] MEDS: Metoclopramide 10 MG/2 ML SDV IVPUSH SCH (22:34)
[2019-12-10] MEDS ORDERED: Cefepime 2 GM Vial ONE (23:11)
[2019-12-10] MEDS ORDERED: Cefepime 50 ML ONE (23:12)
[2019-12-10] MEDS ORDERED: Sodium Chloride 0.9% 100 ML ONE (23:14)
[2019-12-10] MEDS ORDERED: Cefepime 2 GM Vial IV ONE (23:18)
[2019-12-10] MEDS: HYDROmorphone 1 MG/ML Syringe IVPUSH SCH (23:44)
[2019-12-11] MEDS: HYDROmorphone 1 MG/ML Syringe IVPUSH SCH ×4 (02:50→12:10)
[2019-12-11] MEDS: Metoclopramide 10 MG/2 ML SDV IVPUSH SCH ×2 (05:40→12:06)
[2019-12-11] MEDS ORDERED: Alum Hydrox/Mag Hydrox/Simeth 30 ML, Lidocaine 2% 15 ML PO ONE ×2 (11:09)
[2019-12-11] MEDS ORDERED: metroNIDAZOLE/Normal Saline 500 MG in Premix Bag 1 BAG IV SCH (13:00)
[2019-12-11] MEDS ORDERED: HYDROmorphone 1 MG/ML Syringe IVPUSH PRN (13:03)
[2019-12-11] MEDS ORDERED: Ondansetron 4 MG/2 ML SDV IVPUSH ONE (14:30)
[2019-12-11 14:41] VITALS: BP 111/75; PULSE 99
== END 2019-12-11 16:40 | disposition home or self-care (01) ==
LOC: JD.ED 15:52
DX: K81.0 Acute cholecystitis (principal); K72.00 Acute and subacute hepatic failure without coma; I10 Essential (primary) hypertension; Z88.1 Allergy status to other antibiotic agents; Z88.0 Allergy status to penicillin; Z88.8 Allergy status to other drugs, medicaments and biological substances; Z79.899 Other long term (current) drug therapy
CPT/HCPCS: 36415; 74177; 80053; 80307; 81001; 82977; 83690; 83735; 85025; 85610; 85730; 86140; 87641; 96361; 96365; 96367; 96375; 96376; 99284; A9270; C9113; J0692; J1170; J2405; J2765; J3490; J7030; J7050; Q9963; Q9967

== ENCOUNTER 2020-05-08 19:07 | Emergency (ER) | payer BC, MEDICAID ==
[2020-05-08 19:17] VITALS: BP 135/82; PULSE 87
[2020-05-08] MEDS ORDERED: HYDROmorphone 1 MG/ML Syringe IVPUSH STA (19:32)
[2020-05-08] MEDS ORDERED: Ondansetron 4 MG/2 ML SDV IVPUSH ONE (19:32)
[2020-05-08] MEDS ORDERED: Sodium Chloride 0.9% 1,000 ML IV SCH (19:45)
[2020-05-08] MEDS ORDERED: Alum Hydrox/Mag Hydrox/Simeth 30 ML, Lidocaine 2% 15 ML PO STA ×2 (19:47)
[2020-05-08] MEDS ORDERED: Pantoprazole 40 MG Vial IVPUSH ONE (19:47)
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
[2020-05-08] MEDS ORDERED: Iopamidol 612 MG/ML 100 ML Bottle IVPUSH ONE (20:13)
[2020-05-08] MEDS ORDERED: Sodium Chloride 0.9% 10 ML Syringe FLUSH PRN (20:13)
[2020-05-08] MEDS ORDERED: Diatrizoate Meglumine/Diatrizoate Sodium 37% 120 ML Bottle PO ONE (20:13)
--- NOTE | 2020-05-08 21:05 | CT ---
CT abdomen and pelvis Technique: Multiple axial sections were obtained from above the dome of the diaphragm inferiorly through the pubic symphysis. Intravenous and oral contrast was utilized. Delayed images were obtained through the bladder. Comparison: Prior CT abdomen and pelvis study of 09/10/16. Findings: Visualized lung bases show nothing acute. Liver contains no focal parenchymal abnormality. Spleen appears within normal limits. Adrenal glands show no nodule. Kidneys show symmetric contrast enhancement without hydronephrosis or mass. Pancreas shows no discrete abnormality. Prior cholecystectomy is noted with surgical clips being seen. Aorta shows no aneurysm. No retroperitoneal adenopathy is seen. No mesenteric abnormalities are seen. No pelvic mass or adenopathy is seen. No free fluid is seen. Appendix is seen which is normal in size. No inflammatory change is seen. Delayed images shows contrast within the distal ureters as well as within the bladder. No bowel dilatation is seen. Small amount of contrast is noted within the distal esophagus compatible with mild reflux. Bone window settings were reviewed which shows a slight superior endplate concavity and anterior wedge deformity of L1 which is stable from prior exam and therefore old. Impression: 1. Nothing acute is appreciated on CT study of the abdomen and pelvis. Other findings as noted above. Appendix appears normal. Diagnostic code #2 This report was dictated in MDT
[2020-05-08] MEDS ORDERED: Magnesium Sulfate/Water 2 GM in Premix Bag 1 BAG IV ONE (21:10)
[2020-05-08] MEDS ORDERED: Potassium Chloride 20 MEQ Tab.ER PO ONE (23:09)
== END 2020-05-08 23:29 | disposition home or self-care (01) ==
LOC: JD.ED 19:07
DX: K29.70 Gastritis, unspecified, without bleeding (principal); F10.20 Alcohol dependence, uncomplicated; K21.9 Gastro-esophageal reflux disease without esophagitis; F17.210 Nicotine dependence, cigarettes, uncomplicated; Z88.8 Allergy status to other drugs, medicaments and biological substances; Z88.0 Allergy status to penicillin; Z88.1 Allergy status to other antibiotic agents; Z88.5 Allergy status to narcotic agent; Z79.899 Other long term (current) drug therapy
CPT/HCPCS: 36415; 74177; 80053; 81001; 81025; 83690; 83735; 85007; 85027; 85610; 85730; 96361; 96365; 96366; 96375; 99284; A9270; C9113; J1170; J2405; J3475; J7030; Q9963; Q9967

== ENCOUNTER 2020-05-29 07:39 | Emergency (ER) | payer BC, MEDICAID ==
[2020-05-29 07:53] VITALS: BP 141/75; PULSE 106
[2020-05-29] MEDS ORDERED: Sodium Chloride 0.9% 10 ML Syringe FLUSH PRN (08:11)
[2020-05-29] MEDS ORDERED: Ondansetron 4 MG/2 ML SDV IVPUSH ONE ×2 (08:12→12:58)
[2020-05-29] MEDS ORDERED: Pantoprazole 40 MG Vial IVPUSH ONE ×2 (08:12→12:58)
[2020-05-29] MEDS ORDERED: Sodium Chloride 0.9% 1,000 ML IV SCH (08:15)
[2020-05-29] MEDS ORDERED: HYDROmorphone 0.5 MG/0.5 ML Syringe IVPUSH ONE ×2 (08:27→10:13)
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
[2020-05-29] MEDS ORDERED: Lactated Ringers 1,000 ML IV ONE (10:13)
[2020-05-29] MEDS ORDERED: Potassium Chloride 10 MEQ in Premix Bag 1 BAG IV SCH ×4 (10:45)
[2020-05-29] MEDS ORDERED: Metoclopramide 10 MG/2 ML SDV IVPUSH ONE (11:55)
== END 2020-05-29 14:20 | disposition home or self-care (01) ==
LOC: JD.ED 07:39
DX: E87.6 Hypokalemia (principal); R11.10 Vomiting, unspecified; R10.10 Upper abdominal pain, unspecified; F10.120 Alcohol abuse with intoxication, uncomplicated; I10 Essential (primary) hypertension; K21.9 Gastro-esophageal reflux disease without esophagitis; E66.9 Obesity, unspecified; Z68.28 Body mass index [BMI] 28.0-28.9, adult; F17.210 Nicotine dependence, cigarettes, uncomplicated; Z79.899 Other long term (current) drug therapy; Z98.890 Other specified postprocedural states; Z88.0 Allergy status to penicillin; Z88.1 Allergy status to other antibiotic agents; Z88.5 Allergy status to narcotic agent; Z88.8 Allergy status to other drugs, medicaments and biological substances
CPT/HCPCS: 36415; 80053; 80307; 83690; 85025; 85610; 86850; 86900; 86901; 96361; 96365; 96366; 96375; 96376; 99284; C9113; J1170; J2405; J2765; J3480; J7030; J7120

== ENCOUNTER 2020-06-15 17:49 | Emergency (ER) | payer BC ==
[2020-06-15 18:14] VITALS: BP 130/91; PULSE 96
[2020-06-15] MEDS ORDERED: Sodium Chloride 0.9% 10 ML Syringe FLUSH PRN (18:55)
[2020-06-15] MEDS ORDERED: Ondansetron 4 MG/2 ML SDV IVPUSH ONE (18:55)
[2020-06-15] MEDS ORDERED: HYDROmorphone 0.5 MG/0.5 ML Syringe IVPUSH ONE ×2 (18:56→20:37)
[2020-06-15] MEDS ORDERED: Sodium Chloride 0.9% 1,000 ML IV STA (18:57)
--- NOTE | 2020-06-15 18:59 | CR ---
Chest: 2 views of the chest were obtained. Comparison: Prior chest x-ray of 10/22/19. Heart size is mildly enlarged. Lungs are clear with no acute parenchymal change. Compression deformity noted within the lumbar spine which appears similar to prior study. Bony structures otherwise are within normal limits for the patient's age. Surgical clips are seen within the upper abdomen. Impression: 1. Findings as noted above. 2. Nothing acute is appreciated. Diagnostic code #3 This report was dictated in MDT
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
== END 2020-06-15 21:10 | disposition home or self-care (01) ==
LOC: JD.ED 17:49
DX: S00.511A Abrasion of lip, initial encounter (principal); R06.02 Shortness of breath; M54.9 Dorsalgia, unspecified; R10.816 Epigastric abdominal tenderness; I10 Essential (primary) hypertension; K21.9 Gastro-esophageal reflux disease without esophagitis; E66.9 Obesity, unspecified; Z88.5 Allergy status to narcotic agent; Z88.0 Allergy status to penicillin; Z88.1 Allergy status to other antibiotic agents; Z79.899 Other long term (current) drug therapy; Z68.28 Body mass index [BMI] 28.0-28.9, adult; Y04.0XXA Assault by unarmed brawl or fight, initial encounter
CPT/HCPCS: 36415; 71046; 80053; 85025; 87635; 96361; 96374; 96375; 96376; 99285; J1170; J2405; J7030; U0002

== ENCOUNTER 2020-07-20 21:50 | Emergency (ER) | payer BC ==
[2020-07-20 22:09] VITALS: BP 128/90; PULSE 138
[2020-07-20] MEDS ORDERED: HYDROmorphone 1 MG/ML Syringe IVPUSH STA (22:49)
[2020-07-20] MEDS ORDERED: Ondansetron 4 MG/2 ML SDV IVPUSH ONE ×2 (22:49→23:53)
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
[2020-07-20] MEDS ORDERED: Sodium Chloride 0.9% 1,000 ML IV SCH (23:00)
[2020-07-20] MEDS ORDERED: Sodium Chloride 0.9% 1,000 ML IV ONE (23:49)
[2020-07-20] MEDS ORDERED: HYDROmorphone 0.5 MG/0.5 ML Syringe IVPUSH ONE (23:53)
[2020-07-21] MEDS ORDERED: Potassium Chloride 20 MEQ Tab.ER PO ONE (03:18)
--- NOTE | 2020-08-10 13:54 | CT ---
"PROCEDURE INFORMATION: Exam: CT Abdomen And Pelvis With Contrast Exam date and time: 07/21/2020 1:00 AM Age: 35 years old Clinical indication: Localized; Right lower quadrant (rlq); Patient HX: Rlq abdominal pain TECHNIQUE: Imaging protocol: Computed tomography of the abdomen and pelvis with intravenous contrast. Radiation optimization: All CT scans at this facility use at least one of these dose optimization techniques: automated exposure control; mA and/or kV adjustment per patient size (includes targeted exams where dose is matched to clinical indication); or iterative reconstruction. Other contrast: Oral; COMPARISON: CT Abdomen Pelvis w Cont 05/08/2020 8:21 PM FINDINGS: Liver: No mass. Gallbladder and bile ducts: Cholecystectomy. No intrahepatic biliary ductal dilatation, common duct minimally prominent, a nonspecific finding. Pancreas: Minimal nonspecific stranding adjacent to the pancreatic head. No ductal dilatation or mass. Spleen: Normal. No splenomegaly. Adrenal glands: Normal. No mass. Kidneys and ureters: Normal. No hydronephrosis. Stomach and bowel: No obstruction. Possible minimal bowel wall thickening in the descending duodenum. Appendix: The appendix is not discretely identified but there is no acute appendicitis. Intraperitoneal space: Unremarkable. No free air. No significant fluid collection. Vasculature: No abdominal aortic aneurysm. Lymph nodes: No significant adenopathy. Urinary bladder: Unremarkable as visualized. Reproductive: Unremarkable as visualized. IN [facility] | Final Radiology Report CONFIDENTIALITY STATEMENT This report is intended only for use by the referring physician, and only in accordance with law. If you received this in error, call [phone]. Page 2 of 2 Bones/joints: No acute findings. Old L1 compression deformity. Soft tissues: Unremarkable. Other findings: . IMPRESSION: Findings consistent with minimal pancreatitis or duodenitis. Correlate with laboratory examinations. Thank you for allowing us to participate in the care of your patient. Dictated and Authenticated by: Edgar Reardon MD 08/10/2020 2:18 PM Central Time (US & Con) [facility]"
== END 2020-07-21 04:21 | disposition home or self-care (01) ==
LOC: JD.ED 21:50
DX: F10.220 Alcohol dependence with intoxication, uncomplicated (principal); E87.6 Hypokalemia; F50.81 Binge eating disorder; K21.9 Gastro-esophageal reflux disease without esophagitis; K70.30 Alcoholic cirrhosis of liver without ascites; D69.6 Thrombocytopenia, unspecified; R79.89 Other specified abnormal findings of blood chemistry; R74.01 Elevation of levels of liver transaminase levels; R74.8 Abnormal levels of other serum enzymes; F17.210 Nicotine dependence, cigarettes, uncomplicated; Z88.0 Allergy status to penicillin; Z88.1 Allergy status to other antibiotic agents; Z88.6 Allergy status to analgesic agent; Z90.49 Acquired absence of other specified parts of digestive tract; Z79.899 Other long term (current) drug therapy; Y90.0 Blood alcohol level of less than 20 mg/100 ml
CPT/HCPCS: 36415; 74177; 80053; 80306; 80307; 81001; 81025; 83690; 85007; 85027; 96374; 96375; 96376; 99285; A9270; J1170; J2405; J7030; 99284

== ENCOUNTER 2020-08-31 20:32 | Emergency (ER) | payer BC ==
[2020-08-31 20:54] VITALS: BP 133/106; PULSE 120
[2020-08-31] MEDS ORDERED: HYDROmorphone 1 MG/ML Syringe IM ONE (21:09)
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
== END 2020-08-31 21:25 | disposition home or self-care (01) ==
LOC: JD.ED 20:32
DX: H66.91 Otitis media, unspecified, right ear (principal); H60.501 Unspecified acute noninfective otitis externa, right ear; I10 Essential (primary) hypertension; F17.210 Nicotine dependence, cigarettes, uncomplicated; E66.9 Obesity, unspecified; Z68.33 Body mass index [BMI] 33.0-33.9, adult; Z88.8 Allergy status to other drugs, medicaments and biological substances; Z88.1 Allergy status to other antibiotic agents; Z88.0 Allergy status to penicillin; Z88.5 Allergy status to narcotic agent
CPT/HCPCS: 96372; 99282; J1170

== ENCOUNTER 2020-09-03 02:38 | Emergency (ER) | payer BC ==
[2020-09-03 02:49] VITALS: BP 143/87; PULSE 95
[2020-09-03] MEDS ORDERED: Sodium Chloride 0.9% 10 ML Syringe FLUSH PRN (03:04)
[2020-09-03] MEDS ORDERED: Ondansetron 4 MG/2 ML SDV IVPUSH ONE (03:05)
[2020-09-03] MEDS ORDERED: HYDROmorphone 1 MG/ML Syringe IVPUSH ONE (03:05)
[2020-09-03] MEDS ORDERED: Sodium Chloride 0.9% 1,000 ML IV SCH (03:15)
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
[2020-09-03] MEDS ORDERED: HYDROmorphone 0.5 MG/0.5 ML Syringe IVPUSH ONE (04:17)
== END 2020-09-03 04:40 | disposition home or self-care (01) ==
LOC: JD.ED 02:38
DX: R10.10 Upper abdominal pain, unspecified (principal); E87.6 Hypokalemia; R11.2 Nausea with vomiting, unspecified; I10 Essential (primary) hypertension; K21.9 Gastro-esophageal reflux disease without esophagitis; E66.9 Obesity, unspecified; F17.210 Nicotine dependence, cigarettes, uncomplicated; Z88.8 Allergy status to other drugs, medicaments and biological substances; Z88.0 Allergy status to penicillin; Z88.5 Allergy status to narcotic agent; Z79.899 Other long term (current) drug therapy
CPT/HCPCS: 36415; 80053; 83690; 85025; 96374; 96375; 96376; 99284; J1170; J2405; J7030

== ENCOUNTER 2020-09-03 09:58 | Emergency (ER) | payer BC ==
[2020-09-03] MEDS ORDERED: Potassium Chloride 10 MEQ in Premix Bag 1 BAG IV ONE (10:47)
[2020-09-03] MEDS ORDERED: HYDROmorphone 0.5 MG/0.5 ML Syringe IVPUSH ONE ×3 (10:47→14:29)
[2020-09-03] MEDS ORDERED: Ondansetron 4 MG/2 ML SDV IVPUSH ONE (10:47)
[2020-09-03] MEDS ORDERED: Sodium Chloride 0.9% 10 ML Syringe FLUSH PRN (10:47)
[2020-09-03] MEDS ORDERED: Famotidine 20 MG/2 ML SDV IVPUSH ONE (10:47)
[2020-09-03] MEDS ORDERED: Sodium Chloride 0.9% 1,000 ML IV SCH (11:00)
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
[2020-09-03] MEDS ORDERED: Metoclopramide 10 MG/2 ML SDV IVPUSH ONE (12:40)
[2020-09-03] MEDS ORDERED: Dextrose 5%-Lact Ringers w/KCl 1,000 ML IV SCH (13:15)
[2020-09-03 14:46] VITALS: BP 118/76; PULSE 94
== END 2020-09-03 15:17 | disposition home or self-care (01) ==
LOC: JD.ED 09:58
DX: R10.31 Right lower quadrant pain (principal); R11.10 Vomiting, unspecified; I10 Essential (primary) hypertension; K21.9 Gastro-esophageal reflux disease without esophagitis; E66.9 Obesity, unspecified; F17.210 Nicotine dependence, cigarettes, uncomplicated; Z68.28 Body mass index [BMI] 28.0-28.9, adult; Z88.0 Allergy status to penicillin; Z88.1 Allergy status to other antibiotic agents; Z88.5 Allergy status to narcotic agent; Z79.899 Other long term (current) drug therapy
CPT/HCPCS: 81001; 96374; 96375; 96376; 99284; J1170; J2405; J2765; J3480; J3490; J7030

== ENCOUNTER 2020-09-09 19:04 | Emergency (ER) | payer BC ==
[2020-09-09 19:41] VITALS: BP 129/83; PULSE 114
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
== END 2020-09-09 20:33 ==
LOC: JD.ED 19:04
DX: Z53.21 Procedure and treatment not carried out due to patient leaving prior to being seen by health care provider (principal)

== ENCOUNTER 2020-09-10 11:00 | Emergency (ER) | payer BC ==
[2020-09-10 11:21] VITALS: BP 142/76; PULSE 107
[2020-09-10] MEDS ORDERED: Acetaminophen/HYDROcodone 325-5 MG Tab PO ONE (11:49)
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
--- NOTE | 2020-09-10 14:05 | CR ---
Chest: Portable view of the chest was obtained. Comparison: Prior chest x-ray of 06/15/20. Findings: Heart and mediastinum: Heart and mediastinum are within normal limits for portable technique. Lungs: Lungs are clear with no acute parenchymal change. No pleural thickening is seen. Osseous: No discrete osseous abnormality is appreciated. Impression: 1. Nothing acute is seen on portable chest x-ray. Diagnostic code #1
== END 2020-09-10 14:14 | disposition home or self-care (01) ==
LOC: JD.ED 11:00
DX: R07.89 Other chest pain (principal); M79.602 Pain in left arm; I10 Essential (primary) hypertension; K21.9 Gastro-esophageal reflux disease without esophagitis; E66.9 Obesity, unspecified; Z68.26 Body mass index [BMI] 26.0-26.9, adult; Z88.8 Allergy status to other drugs, medicaments and biological substances; Z88.1 Allergy status to other antibiotic agents; Z88.0 Allergy status to penicillin; Z88.5 Allergy status to narcotic agent; Z79.899 Other long term (current) drug therapy
CPT/HCPCS: 36415; 71045; 80053; 84484; 85025; 93005; 99285; A9270; 93010; 99284

== ENCOUNTER 2020-11-27 01:42 | Emergency (ER) | payer BC ==
[2020-11-27 01:55] VITALS: BP 139/84; PULSE 101
== END 2020-11-27 02:26 ==
LOC: JD.ED 01:42
DX: Z53.21 Procedure and treatment not carried out due to patient leaving prior to being seen by health care provider (principal)

== ENCOUNTER 2020-11-28 10:37 | Emergency (ER) | payer BC, MEDICAID ==
[2020-11-28 10:58] VITALS: BP 133/79; PULSE 100
[2020-11-28] MEDS ORDERED: Sodium Chloride 0.9% 10 ML Syringe FLUSH PRN (11:14)
[2020-11-28] MEDS ORDERED: Ondansetron 4 MG/2 ML SDV IVPUSH ONE (11:16)
[2020-11-28] MEDS ORDERED: HYDROmorphone 0.5 MG/0.5 ML Syringe IVPUSH ONE (11:16)
[2020-11-28] MEDS ORDERED: Sodium Chloride 0.9% 1,000 ML IV ONE (11:17)
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
--- NOTE | 2020-11-29 10:23 | CT ---
CT cervical spine Technique: Multiple axial sections were obtained from above C1 inferiorly to the mid T4 level. Reconstructed coronal and sagittal images were obtained. Findings: Vertebral body heights and disc spaces are maintained. Vertebral bodies and posterior arches are intact. No bony central or bony neural foraminal stenosis is seen. Visualized lung apices are clear. No acute fracture is seen. No abnormal subluxation is appreciated. Impression: 1. Nothing acute is appreciated on CT study of the cervical spine. Diagnostic code #1 I agree with preliminary report from [facility], finalized on 11/28/20, 1:24 PM INFORMATICS SPEC
--- NOTE | 2020-11-29 11:42 | CT ---
CT chest Technique: Multiple axial sections through the chest were obtained. Intravenous contrast was not utilized. Reconstructed coronal and sagittal images were obtained. Comparison: Prior chest x-ray of 09/10/20. Findings: Thoracic aorta shows no aneurysm. Mediastinum and hilar regions show no adenopathy. No pericardial thickening is seen. Upper abdomen shows surgical clips from prior cholecystectomy. Lungs show no acute parenchymal change. No pleural effusions or pneumothorax is appreciated. Slight anterior wedging is seen within the superior endplate of L1 which is most likely old. Slight osteophytes are seen anteriorly. No definite acute osseous abnormality is otherwise seen. Impression: 1. Anterior wedging of L1 which is most likely old. 2. Nothing acute is appreciated on noncontrast CT study of the chest. 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
== END 2020-11-28 13:10 | disposition home or self-care (01) ==
LOC: JD.ED 10:37
DX: S00.11XA Contusion of right eyelid and periocular area, initial encounter (principal); R11.2 Nausea with vomiting, unspecified; I10 Essential (primary) hypertension; E66.9 Obesity, unspecified; Z68.30 Body mass index [BMI] 30.0-30.9, adult; Z79.899 Other long term (current) drug therapy; Y04.0XXA Assault by unarmed brawl or fight, initial encounter
CPT/HCPCS: 36415; 71250; 72125; 80053; 85025; 96374; 96375; 99285; J1170; J2405; J7030; 99284

== ENCOUNTER 2020-12-13 16:13 | Emergency (ER) | payer BC ==
[2020-12-13 16:33] VITALS: BP 134/83; PULSE 88
[2020-12-13] MEDS ORDERED: Sodium Chloride 0.9% 10 ML Syringe FLUSH PRN (16:51)
[2020-12-13] MEDS ORDERED: Sodium Chloride 0.9% 1,000 ML IV STA (16:52)
[2020-12-13] MEDS ORDERED: Dicyclomine 10 MG Cap PO ONE (16:52)
[2020-12-13] MEDS ORDERED: Ondansetron 4 MG/2 ML SDV IVPUSH ONE (16:52)
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
== END 2020-12-13 18:28 | disposition home or self-care (01) ==
LOC: JD.ED 16:13
DX: A08.4 Viral intestinal infection, unspecified (principal); I10 Essential (primary) hypertension; K21.9 Gastro-esophageal reflux disease without esophagitis; E66.9 Obesity, unspecified; Z68.29 Body mass index [BMI] 29.0-29.9, adult; Z88.8 Allergy status to other drugs, medicaments and biological substances; Z88.0 Allergy status to penicillin; Z88.5 Allergy status to narcotic agent; Z79.899 Other long term (current) drug therapy; Z72.0 Tobacco use
CPT/HCPCS: 36415; 80053; 83690; 85025; 86140; 96374; 99284; A9270; J2405; J7030; 99283

== ENCOUNTER 2021-01-25 11:30 | Emergency (ER) | payer BC ==
[2021-01-25] MEDS ORDERED: HYDROmorphone 0.5 MG/0.5 ML Syringe IVPUSH ONE (13:27)
[2021-01-25] MEDS ORDERED: Ondansetron 4 MG/2 ML SDV IVPUSH ONE (13:28)
[2021-01-25] MEDS ORDERED: Pantoprazole 40 MG Vial IVPUSH ONE (13:29)
[2021-01-25] MEDS ORDERED: Dextrose 5%-0.9% NaCl 1,000 ML IV SCH (13:30)
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
--- NOTE | 2021-01-25 14:24 | CT ---
CT abdomen and pelvis Technique: Multiple axial sections were obtained from above the dome of the diaphragm inferiorly through the pubic symphysis. Intravenous and oral contrast was not utilized. Reconstructed coronal and sagittal images were obtained. Comparison: Prior CT abdomen and pelvis exam of 05/08/20. Visualized lung bases show nothing acute. Surgical clips are noted from prior cholecystectomy. Liver shows no focal parenchymal abnormality. Spleen measures at the upper limits of normal at 13.2 cm. Adrenal glands show no nodule. Pancreas appears within normal limits. Kidneys show no abnormal calcifications. No hydronephrosis is seen. No ureteral stone is appreciated. Abdominal aorta shows no aneurysm. No retroperitoneal adenopathy or mesenteric abnormalities are seen. Appendix is not definitely visualized. No pelvic mass or adenopathy is seen. No free fluid or inflammatory change is appreciated. Bone window settings were reviewed which show a slight compression deformity within L1. This is stable from prior exam. No acute osseous abnormality is appreciated. Impression: 1. Previous cholecystectomy. 2. Spleen measures at the upper limits of normal at 13.2 cm. 3. Nothing acute is appreciated on noncontrast CT study of the abdomen and pelvis. Diagnostic code #2
[2021-01-25] MEDS ORDERED: HYDROmorphone 1 MG/ML Syringe IVPUSH ONE (15:22)
[2021-01-25 17:31] VITALS: BP 115/70; PULSE 106
== END 2021-01-25 17:30 | disposition home or self-care (01) ==
LOC: JD.ED 11:30
DX: K29.20 Alcoholic gastritis without bleeding (principal); K76.6 Portal hypertension; I85.10 Secondary esophageal varices without bleeding; K70.30 Alcoholic cirrhosis of liver without ascites; I10 Essential (primary) hypertension; K21.9 Gastro-esophageal reflux disease without esophagitis; E66.9 Obesity, unspecified; Z68.31 Body mass index [BMI] 31.0-31.9, adult; Z79.899 Other long term (current) drug therapy; Z88.8 Allergy status to other drugs, medicaments and biological substances; Z88.0 Allergy status to penicillin; Z88.5 Allergy status to narcotic agent
CPT/HCPCS: 36415; 74176; 80053; 80307; 82977; 83690; 83735; 85025; 85610; 85730; 96374; 96375; 96376; 99284; C9113; J1170; J2405; J7042

== ENCOUNTER 2021-02-05 07:17 | Emergency (ER) | payer BC ==
[2021-02-05] MEDS ORDERED: Pantoprazole 40 MG Vial IVPUSH ONE (07:40)
[2021-02-05] MEDS ORDERED: Metoclopramide 10 MG/2 ML SDV IVPUSH ONE (07:40)
[2021-02-05] MEDS ORDERED: HYDROmorphone 0.5 MG/0.5 ML Syringe IVPUSH ONE (07:42)
[2021-02-05] MEDS ORDERED: Dextrose 5%-0.9% NaCl 1,000 ML IV SCH (07:45)
--- NOTE | 2021-02-05 07:47 | EDM.PDOC ---
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 85 mg of MiraLAX powder in the ED which should get your bowels working within the next 3 to 8 hours and usually end up with 2 or 3 bowel movements. You should still take your second dose of lactulose tonight. Follow-up with sprue cutting press operator in [place] next week on as planned for upper GI endoscopy to check on the lining of the stomach and the first part of the small bowel and your esophagus. Sepsis Event Note (ED) - Evaluation Sepsis Screening Result: No Definite Risk - Focused Exam Vital Signs: Vital Signs Temp Pulse Resp BP Pulse Ox 02/05/21 10:12 75 130/76 97 02/05/21 08:32 75 148/89 H 95 02/05/21 07:27 36.8 C 88 12 148/92 H 100
[2021-02-05] MEDS ORDERED: Iopamidol 612 MG/ML 50 ML SDV IVPUSH ONE (07:53)
[2021-02-05] MEDS ORDERED: Sodium Chloride 0.9% 10 ML Syringe FLUSH PRN (07:53)
[2021-02-05] MEDS ORDERED: Iopamidol 612 MG/ML 100 ML Bottle IVPUSH ONE (07:53)
--- NOTE | 2021-02-05 08:32 | CT ---
CT abdomen and pelvis Technique: Multiple axial sections were obtained from above the dome of the diaphragm inferiorly through the pubic symphysis. Intravenous contrast was utilized. No oral contrast has been given. Comparison: Prior noncontrast CT study of 01/25/21. Findings: Visualized lung bases show nothing acute. Liver shows irregular fatty infiltration. Spleen size measures proximally 13.9 cm which is believed to be stable from prior study. Kidneys show symmetric contrast enhancement with no hydronephrosis or mass being seen. Pancreas shows no discrete abnormality. Surgical clips are seen from prior cholecystectomy. Abdominal aorta shows no aneurysm. No retroperitoneal adenopathy or mesenteric abnormalities are appreciated. No pelvic mass or adenopathy is appreciated. Appendix is not definitely visualized. No free fluid or inflammatory change is seen. Bone window settings were reviewed which show a slight anterior wedge deformity within L1 which is stable from prior CT exam. Impression: 1. Prior cholecystectomy. 2. Spleen is slightly enlarged at 13.9 cm believed to be stable from prior study when allowing for differences in measurement. 3. Irregular fatty infiltration within the liver. 4. No acute abnormality is otherwise seen. Diagnostic code #2
[2021-02-05 08:33] VITALS: PULSE 75
[2021-02-05] MEDS ORDERED: Polyethylene Glycol 3350 Powder 17 GM Packet PO ONE (09:15)
[2021-02-05] MEDS ORDERED: Dicyclomine 10 MG Cap PO ONE (10:11)
[2021-02-05 10:15] VITALS: BP 130/76
== END 2021-02-05 10:24 | disposition home or self-care (01) ==
LOC: JD.ED 07:17
DX: K92.0 Hematemesis (principal); K29.21 Alcoholic gastritis with bleeding; K70.30 Alcoholic cirrhosis of liver without ascites; I10 Essential (primary) hypertension; K21.9 Gastro-esophageal reflux disease without esophagitis; E66.9 Obesity, unspecified; Z72.0 Tobacco use; Z68.29 Body mass index [BMI] 29.0-29.9, adult; Z88.8 Allergy status to other drugs, medicaments and biological substances; Z88.0 Allergy status to penicillin; Z88.5 Allergy status to narcotic agent; Z79.899 Other long term (current) drug therapy
CPT/HCPCS: 36415; 74177; 80053; 80306; 80307; 81001; 82977; 83690; 83735; 85025; 85610; 85730; 86140; 86850; 86900; 86901; 96374; 96375; 99284; A9270; C9113; J1170; J2765; J7042; Q9967

== ENCOUNTER 2021-02-22 21:07 | Emergency (ER) | payer BC ==
[2021-02-22 21:27] VITALS: BP 123/93; PULSE 108
[2021-02-22] MEDS ORDERED: Ondansetron 4 MG/2 ML SDV IVPUSH ONE (22:35)
[2021-02-22] MEDS ORDERED: HYDROmorphone 1 MG/ML Syringe IVPUSH STA (22:35)
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
[2021-02-22] MEDS ORDERED: Sodium Chloride 0.9% 1,000 ML IV SCH (22:45)
[2021-02-23] MEDS ORDERED: Magnesium Sulfate/Water 2 GM in Premix Bag 1 BAG IV ONE (00:29)
[2021-02-23] MEDS ORDERED: Magnesium Sulfate/Water 2 GM/50 ML BAG ONE (00:58)
--- NOTE | 2021-02-23 06:56 | CT ---
CT abdomen and pelvis Technique: Multiple axial sections were obtained from above the dome of the diaphragm inferiorly through the pubic symphysis. Intravenous and oral contrast was utilized. Reconstructed coronal and sagittal images were obtained. Delayed images were also obtained through the abdomen and pelvis. Comparison: Prior CT abdomen and pelvis exam of 02/05/21. Findings: Slight atelectasis is likely present within the right lung base. Liver shows no focal parenchymal abnormality. Liver is slightly irregular in surface contour suspicious for early cirrhosis. Spleen size is enlarged on the reconstructed coronal images with AP dimension being 14.9 cm which is minimally increased from prior exam. Mild varicocele is seen around the spleen. Adrenal gland shows no nodules. Pancreas shows no discrete abnormality. Surgical clips are noted from prior cholecystectomy. Kidneys show symmetric contrast enhancement. Contrast excretion is noted into both ureters and the bladder. No ureteral dilatation is seen. Abdominal aorta shows no aneurysm. Minimal lymph nodes are seen scattered within the retroperitoneum which are felt to be within normal limits. Appendix is seen which is normal in size. No pelvic mass or adenopathy is appreciated. Bones window settings were reviewed which show a slight compression deformity within L1 which appears chronic. Impression: 1. Liver is suspicious for cirrhosis. Slight increased size of the spleen as noted above. Mild varicoceles are seen around the spleen. 2. Prior cholecystectomy. 3. Nothing acute is otherwise seen on CT study of the abdomen and pelvis. Diagnostic code #3 I agree with preliminary report from [facility], finalized on , 2:45 AM CDT, code 1
== END 2021-02-23 03:52 | disposition home or self-care (01) ==
LOC: JD.ED 21:07
DX: K70.30 Alcoholic cirrhosis of liver without ascites (principal); F10.229 Alcohol dependence with intoxication, unspecified; Y90.0 Blood alcohol level of less than 20 mg/100 ml; F15.10 Other stimulant abuse, uncomplicated; E83.42 Hypomagnesemia; I10 Essential (primary) hypertension; E66.9 Obesity, unspecified; Z68.30 Body mass index [BMI] 30.0-30.9, adult; K21.9 Gastro-esophageal reflux disease without esophagitis; Z79.899 Other long term (current) drug therapy; Z90.49 Acquired absence of other specified parts of digestive tract; Z72.0 Tobacco use; Z88.0 Allergy status to penicillin; Z88.5 Allergy status to narcotic agent; Z88.8 Allergy status to other drugs, medicaments and biological substances
CPT/HCPCS: 36415; 74177; 80053; 80306; 80307; 81001; 81025; 83690; 83735; 85007; 85027; 96365; 96366; 96375; 99284; J1170; J2405; J3475; J7030

== ENCOUNTER 2021-02-25 04:59 | Inpatient (IN) | payer BC ==
[2021-02-25] MEDS ORDERED: LORazepam 1 MG Tab PO ONE ×2 (05:50→13:20)
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
[2021-02-25] MEDS ORDERED: LORazepam 2 MG/ML SDV IM STA (05:55)
[2021-02-25] MEDS ORDERED: LORazepam 2 MG/ML SDV ONE (05:57)
[2021-02-25 06:58] LABS: ACETAMINOPHEN 0 ug/mL (10-30)
--- NOTE | 2021-02-25 07:41 | CR ---
Right first toe: 3 views centered to the right first toe were obtained. Comparison: No prior toe or foot exam is available. Joint spaces are preserved. Minimal cystic change is seen within the MTP joint which is most likely due to mild degenerative change. No acute fracture, dislocation or other bony abnormality is appreciated. Impression: 1. Minimal degenerative change. 2. No acute abnormality is appreciated on right first toe study. Diagnostic code #2
--- NOTE | 2021-02-25 10:01 | CR ---
Chest: Portable view of the chest was obtained. Comparison: Prior chest x-ray of 09/10/20. Heart is felt to be slightly enlarged. Poor inspiratory effort is seen. Slight bibasilar atelectasis is noted. Bony structures are grossly intact. Impression: 1. Heart is slightly enlarged. Difficult to exclude small pericardial effusion. 2. Mild bibasilar atelectasis with poor inspiratory effort. 3. Nothing acute is otherwise seen. Diagnostic code #3
[2021-02-25] MEDS ORDERED: Ketorolac 30 MG/ML SDV IVPUSH SCH (12:15)
[2021-02-25] MEDS ORDERED: Ketorolac 30 MG/ML SDV IM ONE (12:17)
[2021-02-25] MEDS ORDERED: LORazepam 2 MG/ML SDV IVPUSH ONE (15:32)
[2021-02-25] MEDS ORDERED: LORazepam 0.5 MG Tab PO ONE (16:15)
[2021-02-25] MEDS ORDERED: Sodium Chloride 0.9% 10 ML Syringe FLUSH PRN (17:58)
[2021-02-25] MEDS ORDERED: Multivitamin Tab PO ONE (17:58)
[2021-02-25] MEDS: Folic Acid 1 MG Tab PO SCH (19:05)
[2021-02-25] MEDS: Thiamine 100 MG Tab PO SCH (19:05)
[2021-02-25] MEDS: Pantoprazole 40 MG Tab.CR PO SCH (19:05)
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
[2021-02-25] MEDS ORDERED: Magnesium Oxide 400 MG Tab PO ONE (19:15)
[2021-02-25] MEDS: Acetaminophen/HYDROcodone 325-5 MG Tab PO PRN (19:42)
[2021-02-25] MEDS: chlordiazePOXIDE 25 MG Cap PO SCH (20:00)
[2021-02-26] MEDS: Acetaminophen/HYDROcodone 325-5 MG Tab PO PRN ×5 (01:40→20:10)
[2021-02-26] MEDS: chlordiazePOXIDE 25 MG Cap PO SCH ×3 (08:07→20:15)
[2021-02-26] MEDS: Pantoprazole 40 MG Tab.CR PO SCH (08:07)
[2021-02-26] MEDS: Folic Acid 1 MG Tab PO SCH (08:07)
[2021-02-26] MEDS: Thiamine 100 MG Tab PO SCH (08:08)
--- NOTE | 2021-02-26 09:18 | PCM.PN ---
<Paul Singh - Last Filed: 02/26/21 14:17> - General Info Date of Service: 02/26/21 Admission Dx/Problem (Free Text): Admission Diagnosis/Problem Admission Diagnosis/Problem Suicidal ideation Functional Status: Reports: Tolerating Diet, Ambulating, Urinating. Denies: Pain Controlled (Reports 10/10 lower back pain but looks comfortable and has difficulty keeping eyes open while talking with me ), New Symptoms - Review of Systems General: Reports: Weakness, Fatigue, Malaise. Denies: Fever, Chills HEENT: Reports: No Symptoms. Denies: Headaches, Sore Throat Pulmonary: Reports: No Symptoms. Denies: Shortness of Breath, Cough, Sputum, Wheezing Cardiovascular: Reports: No Symptoms. Denies: Chest Pain, Palpitations, Dyspnea on Exertion, Edema Gastrointestinal: Reports: No Symptoms. Denies: Abdominal Pain, Constipation, Diarrhea, Nausea, Vomiting Genitourinary: Reports: No Symptoms. Denies: Pain Musculoskeletal: Reports: Back Pain (lower ) Skin: Reports: No Symptoms. Denies: Cyanosis Neurological: Reports: No Symptoms. Denies: Confusion, Numbness, Pre-Existing Deficit, Tingling, Trouble Speaking, Difficulty Walking, Weakness, Gait Disturbance Psychiatric: Denies: Confusion, Mood Lability, Agitation, Cravings, Hallucinations, Suicidal Ideation, Homicidal Ideation - Patient Data Vitals - Most Recent: Last Vital Signs Temp 97.2 F 02/26/21 08:04 Pulse 73 02/26/21 08:04 Resp 16 02/26/21 08:04 BP 120/74 02/26/21 08:04 Pulse Ox 96 02/26/21 08:04 Weight - Most Recent: 78.653 kg I&O - Last 24 Hours: Intake & Output 02/25/21 02/26/21 02/26/21 22:59 06:59 14:59 Intake Total 1000 Balance 1000 Lab Results Last 24 Hours: Laboratory Results - last 24 hr 02/25/21 02/25/21 02/25/21 Range/Units 06:09 06:09 18:22 D-Dimer, Quantitative 1.34 H (0.19-0.50) mg/L Magnesium 1.5 L (1.8-2.4) mg/dL C-Reactive Protein 1.4 H* (<1.0) mg/dL Med Orders - Current: Current Medications Hydrocodone Bitart/Acetaminophen (Acetaminophen/Hydrocodone 325-5 Mg Tab) 1 tab PO Q4H PRN PRN Reason: Pain Last Admin: 02/26/21 05:40 Dose: 1 tab Documented by: Chlordiazepoxide HCl (Chlordiazepoxide 25 Mg Cap) 25 mg PO QID [facility] Last Admin: 02/26/21 08:07 Dose: 25 mg Documented by: Folic Acid (Folic Acid 1 Mg Tab) 1 mg PO DAILY LA[facility] Stop: 02/27/21 09:01 Last Admin: 02/26/21 08:07 Dose: 1 mg Documented by: Pantoprazole Sodium (Pantoprazole 40 Mg Tab.Cr) 40 mg PO DAILY [facility] Last Admin: 02/26/21 08:07 Dose: 40 mg Documented by: Sodium Chloride (Sodium Chloride 0.9% 10 Ml Syringe) 10 ml FLUSH ASDIRECTED PRN PRN Reason: Keep Vein Open Thiamine HCl (Thiamine 100 Mg Tab) 100 mg PO DAILY [facility] Last Admin: 02/26/21 08:08 Dose: 100 mg Documented by: Discontinued Medications Ketorolac Tromethamine (Ketorolac 30 Mg/Ml Sdv) 20 mg IVPUSH ONETIME LAURI Ketorolac Tromethamine (Ketorolac 30 Mg/Ml Sdv) 30 mg IM ONETIME ONE Stop: 02/25/21 12:18 Last Admin: 02/25/21 12:33 Dose: 30 mg Documented by: Lorazepam (Lorazepam 1 Mg Tab) 1 mg PO ONETIME ONE Stop: 02/25/21 05:51 Last Admin: 02/25/21 06:00 Dose: Not Given Documented by: Lorazepam (Lorazepam 2 Mg/Ml Sdv) 1 mg IM ONETIME STA Stop: 02/25/21 05:56 Last Admin: 02/25/21 05:59 Dose: 1 mg Documented by: Lorazepam (Lorazepam 2 Mg/Ml Sdv) Confirm Administered Dose 2 mg .ROUTE .STK-MED ONE Stop: 02/25/21 05:58 Last Admin: 02/25/21 06:09 Dose: Not Given Documented by: Lorazepam (Lorazepam 1 Mg Tab) 1 mg PO ONETIME ONE Stop: 02/25/21 13:21 Last Admin: 02/25/21 13:24 Dose: 1 mg Documented by: Lorazepam (Lorazepam 2 Mg/Ml Sdv) 0.5 mg IVPUSH ONETIME ONE Stop: 02/25/21 15:33 Last Admin: 02/25/21 16:48 Dose: Not Given Documented by: Lorazepam (Lorazepam 0.5 Mg Tab) 0.5 mg PO ONETIME ONE Stop: 02/25/21 16:16 Last Admin: 02/25/21 16:21 Dose: 0.5 mg Documented by: Magnesium Oxide (Magnesium Oxide 400 Mg Tab) 400 mg PO ONETIME ONE Stop: 02/25/21 19:16 Last Admin: 02/25/21 19:42 Dose: 400 mg Documented by: Multivitamins/Minerals/Vitamin C (Multivitamin Tab) 1 tab PO ONETIME ONE Stop: 02/25/21 17:59 Last Admin: 02/25/21 19:04 Dose: 1 tab Documented by: - Exam Quality Assessment: No: Supplemental Oxygen, Urine Catheter, DVT Prophylaxis (Not indicated ) General: Alert, Oriented, Cooperative, No Acute Distress, Sedated HEENT: Pupils Equal, Pupils Reactive, Mucous Membr. Moist/[place] Neck: Supple, Trachea Midline Lungs: Clear to Auscultation, Normal Respiratory Effort Cardiovascular: Regular Rate, Regular Rhythm GI/Abdominal Exam: Normal Bowel Sounds, Soft, Non-Tender, No Distention (Female) Exam: Deferred Back Exam: Normal Inspection, Full Range of Motion Extremities: Normal Inspection, Normal Range of Motion, Non-Tender, No Pedal Edema, Normal Capillary Refill Peripheral Pulses: 2+: Radial (L), Radial (R), Dorsalis Pedis (L), Dorsalis P blu (R) Skin: Warm, Dry, Intact, Ecchymosis (Scattered ) Neurological: No New Focal Deficit Psy/Mental Status: Alert, Normal Affect, Normal Mood - Patient Data Lab Results Last 24 hrs: Laboratory Results - last 24 hr 02/25/21 02/25/21 02/25/21 Range/Units 06:09 06:09 18:22 D-Dimer, Quantitative 1.34 H (0.19-0.50) mg/L Magnesium 1.5 L (1.8-2.4) mg/dL C-Reactive Protein 1.4 H* (<1.0) mg/dL Result Diagrams: 02/25/21 06:09 05/21/21 10:41 Sepsis Event Note - Evaluation Sepsis Screening Result: No Definite Risk - Focused Exam Vital Signs: Vital Signs Temp Pulse Resp BP Pulse Ox 02/26/21 08:04 97.2 F 73 16 120/74 96 02/26/21 04:00 97.2 F 80 16 115/70 99 02/25/21 21:58 97.6 F 83 14 131/64 99 - Problem List & Annotations (1) History of esophageal varices SNOMED Code(s): 26616577464402609 Code(s): Z87.19 - PERSONAL HISTORY OF OTHER DISEASES OF THE DIGESTIVE SYSTEM Status: Chronic Priority: Medium Current Visit: No (2) HTN (hypertension) SNOMED Code(s): 94147567 Code(s): I10 - ESSENTIAL (PRIMARY) HYPERTENSION Status: Chronic Priority: Low Current Visit: No Qualifiers: Hypertension type: unspecified Qualified Code(s): I10 - Essential (primary) hypertension (3) GERD (gastroesophageal reflux disease) SNOMED Code(s): 815919518 Code(s): K21.9 - GASTRO-ESOPHAGEAL REFLUX DISEASE WITHOUT ESOPHAGITIS Status: Chronic Priority: Medium Current Visit: No Qualifiers: Esophagitis presence: with esophagitis Esophagitis bleeding: unspecified whether hemorrhage Qualified Code(s): K21.00 - Gastro-esophageal reflux disease with esophagitis, without bleeding (4) History of GI bleed SNOMED Code(s): 042600178 Code(s): Z87.19 - PERSONAL HISTORY OF OTHER DISEASES OF THE DIGESTIVE SYSTEM Status: Chronic Priority: Medium Current Visit: No (5) History of tubal ligation SNOMED Code(s): 336870467, 231423611 Code(s): Z98.51 - TUBAL LIGATION STATUS Status: Chronic Priority: Low Current Visit: No (6) History of MRSA infection SNOMED Code(s): 359863952, 893830172 Code(s): Z86.14 - PERSONAL HISTORY OF METHICILLIN RESIS STAPH INFECTION Status: Chronic Priority: Low Current Visit: No (7) History of COVID-19 SNOMED Code(s): 688313452492734038, 776360688480223690 Code(s): Z86.16 - PERSONAL HISTORY OF COVID-19 Status: Chronic Priority: High Current Visit: Yes (8) Lab test positive for detection of COVID-19 virus SNOMED Code(s): 2855539717591013 Code(s): U07.1 - COVID-19 Status: Acute Priority: High Current Visit: Yes (9) Anemia SNOMED Code(s): 012938482 Code(s): D64.9 - ANEMIA, UNSPECIFIED Status: Chronic Priority: Medium Current Visit: Yes Qualifiers: Anemia type: iron deficiency Iron deficiency anemia type: unspecified iron deficiency Qualified Code(s): D50.9 - Iron deficiency anemia, unspecified (10) Alcohol abuse SNOMED Code(s): 51225598 Code(s): F10.10 - ALCOHOL ABUSE, UNCOMPLICATED Status: Chronic Priority: High Current Visit: Yes Annotation/Comment:: monitor for ETOH withdraw pt will receive thiamine, folate and multivitamin (11) Depression SNOMED Code(s): 51468100 Code(s): F32.9 - MAJOR DEPRESSIVE DISORDER, SINGLE EPISODE, UNSPECIFIED Status: Chronic Priority: High Current Visit: Yes Qualifiers: Depression Type: other depression Qualified Code(s): F32.89 - Other spe cified depressive episodes (12) Alcoholic cirrhosis SNOMED Code(s): 707596596 Code(s): K70.30 - ALCOHOLIC CIRRHOSIS OF LIVER WITHOUT ASCITES Status: Chronic Priority: Medium Current Visit: Yes Qualifiers: Ascites presence: unspecified Qualified Code(s): K70.30 - Alcoholic cirrhosis of liver without ascites (13) Fatty liver SNOMED Code(s): 356263461 Code(s): K76.0 - FATTY (CHANGE OF) LIVER, NOT ELSEWHERE CLASSIFIED Status: Chronic Priority: Medium Current Visit: Yes (14) Hypokalemia SNOMED Code(s): 66814471 Code(s): E87.6 - HYPOKALEMIA Status: Acute Priority: High Current Visit: Yes (15) Hypomagnesemia SNOMED Code(s): 095770938 Code(s): E83.42 - HYPOMAGNESEMIA Status: Acute Priority: High Current Visit: Yes (16) Alcohol intoxication SNOMED Code(s): 32072439 Code(s): F10.929 - ALCOHOL USE, UNSPECIFIED WITH INTOXICATION, UNSPECIFIED Status: Acute Priority: High Current Visit: Yes Qualifiers: Complication of substance-induced condition: with unspecified complication Qualified Code(s): F10.929 - Alcohol use, unspecified with intoxication, unspecified (17) Suicidal ideation SNOMED Code(s): 7623889 Code(s): R45.851 - SUICIDAL IDEATIONS Status: Acute Priority: High Current Visit: Yes Annotation/Comment:: Admit under observation status 1: 1 suicide precautions mental health to follow in am. Pt has an incidental covid 19 positive PCR without any signs and symptoms of infection. (18) Elevated d-dimer SNOMED Code(s): 501118939 Code(s): R79.89 - OTHER SPECIFIED ABNORMAL FINDINGS OF BLOOD CHEMISTRY Status: Acute Priority: Medium Current Visit: Yes (19) Elevated AST (SGOT) SNOMED Code(s): 214643353 Code(s): R74.01 - ELEVATION OF LEVELS OF LIVER TRANSAMINASE LEVELS Status: Chronic Priority: Low Current Visit: Yes (20) Elevated alkaline phosphatase level SNOMED Code(s): 508062563 Code(s): R74.8 - ABNORMAL LEVELS OF OTHER SERUM ENZYMES Status: Chronic Priority: Low Current Visit: Yes (21) Hyperbilirubinemia SNOMED Code(s): 58374814 Code(s): E80.6 - OTHER DISORDERS OF BILIRUBIN METABOLISM Status: Chronic Priority: Low Current Visit: Yes (22) Hypoalbuminemia SNOMED Code(s): 589470302 Code(s): E88.09 - OTH DISORDERS OF PLASMA-PROTEIN METABOLISM, NEC Status: Chronic Priority: Medium Current Visit: Yes (23) Marijuana use SNOMED Code(s): 497812176 Code(s): F12.90 - CANNABIS USE, UNSPECIFIED, UNCOMPLICATED Status: Chronic Priority: Medium Current Visit: Yes (24) Polysubstance abuse SNOMED Code(s): 008353639 Code(s): F19.10 - OTHER PSYCHOACTIVE SUBSTANCE ABUSE, UNCOMPLICATED Status: Chronic Priority: High Current Visit: Yes (25) Chronic back pain SNOMED Code(s): 288397826 Code(s): M54.9 - DORSALGIA, UNSPECIFIED; G89.29 - OTHER CHRONIC PAIN Status: Chronic Priority: Medium Current Visit: No Qualifiers: Back pain location: low back pain Back pain laterality: unspecified Sciatica presence: unspecified whether sciatica present Qualified Code(s): M54.5 - Low back pain; G89.29 - Other chronic pain (26) Smokes tobacco daily SNOMED Code(s): 010404166 Code(s): F17.200 - NICOTINE DEPENDENCE, UNSPECIFIED, UNCOMPLICATED Status: Chronic Priority: Medium Current Visit: Yes - Problem List Review Problem List Initiated/Reviewed/Updated: Yes - Assessment Assessment:: 02/26/2021 * Patient remains in ICU with suicide precautions and one-to-one nursing. Airborne and contact isolation remain in place. * Patient continues to report 10 out of 10 back pain although patient looks comf ortable in room. * Patient denies any current suicidal ideations. * Dr. Koch consulted today for chronic EtOH use and suicidal ideations. * Labs today: * Sodium 141. * Potassium 3.5. * Chloride 108. * Carbon oxide 24. * Anion gap 12.5. * BUN 8, creatinine 0.9, GFR greater than 60. * Glucose 103. * Calcium 7.6. * Magnesium 1.5. * Will supplement potassium and magnesium. * CIWA score has been 0-1. Will increase the duration of checks to every 4 hours. Discussed with nursing ability to increase frequency if needed. * Reviewed home medications. We will continue chronic potassium and magnesium supplementation tomorrow. * Patient is quite sedated. Will decrease Librium to BID and Zearing to Q6hr. * Plan for discharge Monday to [facility] pending continued improvement and bed availability. - Plan Plan:: Alcohol abuse Depression Alcohol intoxication Marijuana use Polysubstance abuse Suicidal ideation Daily smoker * 1:1 care * Suicide precautions * Patient admits to methamphetamine and marijuana abuse * History of failed outpatient treatment. Was reportedly in detox center in [place] for sometime. * Dr. Koch psychiatric consultation * consultation * CIWA protocol * Scheduled Librium * Daily folic acid x3 doses total * Daily thiamine supplementation * Plan for placement once discharged * Nicotine patches * Cessation counseling * Offer nicotine patches at discharge History of MRSA infection History of COVID-19 Lab test positive for detection of COVID-19 virus * No active signs of COVID-19 infection - CXR negative, Has received 2 doses of vaccine several months ago and reportedly had COVID * Will not initiate COVID treatment * Continue Isolation (airborne/contact precautions) per hospital protocol HTN (hypertension) * Reportedly "white coat syndrome" * Not on any home BP meds * Monitor vital signs - BP has been well controlled GERD (gastroesophageal reflux disease) History of esophageal varices History of GI bleed * Protonix daily * No acute concerns * Monitor Hypokalemia Hypomagnesemia Hypoalbuminemia * Acute on chronic * Supplement magnesium and potassium today and then resume home supplementation tomorrow * Monitor labs * Patient Support Partner consult Alcoholic cirrhosis Fatty liver Elevated AST (SGOT) Elevated alkaline phosphatase level Hyperbilirubinemia * Currently stable when compared to prior labs * Monitor daily lab * Caution with Tylenol * Counseled on importance of stopping ETOH use History of tubal ligation * No acute concerns Anemia * Acute on chronic * Continue home iron supplementation * Monitor labs * Currently on menses Elevated d-dimer * No acute respiratory symptoms or concerns for clotting. No leg pain, swelling, or signs of DVT. * Continue to monitor Chronic back pain * Pain medications as ordered * Heating pad PRN Code status: Full Code PCP: Dr. Person DVT prophylaxis: VTE score 0 with history of ETOH abuse, esophageal varices requiring banding - not indicated Social: Patient resides with Disposition: Patient admitted to ICU as MSP status for continued monitoring due to suicidal ideations and alcohol intoxication. Monitoring for signs of detox. Likely discharge on Monday pending continued improvement. <Tien Corona - Last Filed: 02/26/21 15:19> - Patient Data Vitals - Most Recent: Last Vital Signs Temp 36.1 C 02/26/21 14:07 Pulse 72 02/26/21 14:07 Resp 16 02/26/21 14:07 BP 106/55 L 02/26/21 14:07 Pulse Ox 97 02/26/21 14:07 I&O - Last 24 Hours: Intake & Output 02/26/21 02/26/21 02/26/21 06:59 14:59 22:59 Intake Total 1000 Balance 1000 Lab Results Last 24 Hours: Laboratory Results - last 24 hr 02/25/21 02/26/21 Range/Units 18:22 10:41 Sodium 141 (136-145) mEq/L Potassium 3.5 (3.5-5.1) mEq/L Chloride 108 H (98-107) mEq/L Carbon Dioxide 24 (21-32) mEq/L Anion Gap 12.5 (5-15) BUN 8 (7-18) mg/dL Creatinine 0.6 (0.55-1.02) mg/dL Est Cr Clr Drug Dosing 114.29 mL/min Estimated GFR (MDRD) > 60 (>60) mL/min BUN/Creatinine Ratio 13.3 L (14-18) Glucose 103 H (70-99) mg/dL Calcium 7.6 L (8.5-10.1) mg/dL Magnesium 1.5 L 1.5 L (1.8-2.4) mg/dL Med Orders - Current: Current Medications Acetaminophen (Acetaminophen 325 Mg Tab) 650 mg PO Q4H PRN PRN Reason: Pain (Mild 1-3)/fever Hydrocodone Bitart/Acetaminophen (Acetaminophen/Hydrocodone 325-5 Mg Tab) 1 tab PO Q6H PRN PRN Reason: Pain Chlordiazepoxide HCl (Chlordiazepoxide 25 Mg Cap) 25 mg PO BID [facility] Folic Acid (Folic Acid 1 Mg Tab) 1 mg PO DAILY [facility] Stop: 02/27/21 09:01 Last Admin: 02/26/21 08:07 Dose: 1 mg Documented by: Promethazine HCl 12.5 mg/ (Sodium Chloride) 50.5 mls @ 100 mls/hr IV Q6H PRN PRN Reason: Nausea/Vomiting Last Admin: 02/26/21 11:32 Dose: 100 mls/hr Documented by: Lorazepam (Lorazepam 2 Mg/Ml Sdv) 0 mg IVPUSH ASDIRECTED PRN; Protocol PRN Reason: withdrawl Magnesium Oxide (Magnesium Oxide 400 Mg Tab) 200 mg PO DAILY [facility] Miscellaneous Information (Remove Patch) 0 ea TRDERM Q24H [facility] Nicotine (Nicotine 14 Mg/24 Hr Patch) 14 mg TRDERM Q24H [facility] Last Admin: 02/26/21 12:43 Dose: 14 mg Documented by: Pantoprazole Sodium (Pantoprazole 40 Mg Tab.Cr) 40 mg PO DAILY [facility] Last Admin: 02/26/21 08:07 Dose: 40 mg Documented by: Potassium Chloride (Potassium Chloride 20 Meq Tab.Er) 40 meq PO BID [facility] Stop: 02/26/21 21:01 Last Admin: 02/26/21 11:32 Dose: 40 meq Documented by: Potassium Chloride (Potassium Chloride 20 Meq Tab.Er) 20 meq PO DAILY [facility] Sodium Chloride (Sodium Chloride 0.9% 10 Ml Syringe) 10 ml FLUSH ASDIRECTED PRN PRN Reason: Keep Vein Open Thiamine HCl (Thiamine 100 Mg Tab) 100 mg PO DAILY [facility] Last Admin: 02/26/21 08:08 Dose: 100 mg Documented by: Discontinued Medications Hydrocodone Bitart/Acetaminophen (Acetaminophen/Hydrocodone 325-5 Mg Tab) 1 tab PO Q4H PRN PRN Reason: Pain Last Admin: 02/26/21 14:01 Dose: 1 tab Documented by: Chlordiazepoxide HCl (Chlordiazepoxide 25 Mg Cap) 25 mg PO QID [facility] Last Admin: 02/26/21 12:43 Dose: 25 mg Documented by: Magnesium Sulfate 4 gm/ Premix 50 mls @ 12.5 mls/hr IV ONETIME ONE Stop: 02/26/21 15:17 Last Admin: 02/26/21 11:32 Dose: 12.5 mls/hr Documented by: Ketorolac Tromethamine (Ketorolac 30 Mg/Ml Sdv) 20 mg IVPUSH ONETIME [facility] Ketorolac Tromethamine (Ketorolac 30 Mg/Ml Sdv) 30 mg IM ONETIME ONE Stop: 02/25/21 12:18 Last Admin: 02/25/21 12:33 Dose: 30 mg Documented by: Lorazepam (Lorazepam 1 Mg Tab) 1 mg PO ONETIME ONE Stop: 02/25/21 05:51 Last Admin: 02/25/21 06:00 Dose: Not Given Documented by: Lorazepam (Lorazepam 2 Mg/Ml Sdv) 1 mg IM ONETIME STA Stop: 02/25/21 05:56 Last Admin: 02/25/21 05:59 Dose: 1 mg Documented by: Lorazepam (Lorazepam 2 Mg/Ml Sdv) Confirm Administered Dose 2 mg .ROUTE .STK-MED ONE Stop: 02/25/21 05:58 Last Admin: 02/25/21 06:09 Dose: Not Given Documented by: Lorazepam (Lorazepam 1 Mg Tab) 1 mg PO ONETIME ONE Stop: 02/25/21 13:21 Last Admin: 02/25/21 13:24 Dose: 1 mg Documented by: Lorazepam (Lorazepam 2 Mg/Ml Sdv) 0.5 mg IVPUSH ONETIME ONE Stop: 02/25/21 15:33 Last Admin: 02/25/21 16:48 Dose: Not Given Documented by: Lorazepam (Lorazepam 0.5 Mg Tab) 0.5 mg PO ONETIME ONE Stop: 02/25/21 16:16 Last Admin: 02/25/21 16:21 Dose: 0.5 mg Documented by: Magnesium Oxide (Magnesium Oxide 400 Mg Tab) 400 mg PO ONETIME ONE Stop: 02/25/21 19:16 Last Admin: 02/25/21 19:42 Dose: 400 mg Documented by: Multivitamins/Minerals/Vitamin C (Multivitamin Tab) 1 tab PO ONETIME ONE Stop: 02/25/21 17:59 Last Admin: 02/25/21 19:04 Dose: 1 tab Documented by: - Patient Data Lab Results Last 24 hrs: Laboratory Results - last 24 hr 02/25/21 02/26/21 Range/Units 18:22 10:41 Sodium 141 (136-145) mEq/L Potassium 3.5 (3.5-5.1) mEq/L Chloride 108 H (98-107) mEq/L Carbon Dioxide 24 (21-32) mEq/L Anion Gap 12.5 (5-15) BUN 8 (7-18) mg/dL Creatinine 0.6 (0.55-1.02) mg/dL Est Cr Clr Drug Dosing 114.29 mL/min Estimated GFR (MDRD) > 60 (>60) mL/min BUN/Creatinine Ratio 13.3 L (14-18) Glucose 103 H (70-99) mg/dL Calcium 7.6 L (8.5-10.1) mg/dL Magnesium 1.5 L 1.5 L (1.8-2.4) mg/dL Result Diagrams: 02/25/21 06:09 02/26/21 10:41 Sepsis Event Note - Focused Exam Vital Signs: Vital Signs Temp Pulse Resp BP Pulse Ox 02/26/21 14:07 36.1 C 72 16 106/55 L 97 02/26/21 08:04 36.2 C 73 16 120/74 96 02/26/21 04:00 36.2 C 80 16 115/70 99 - Assessment Assessment:: I have seen and evaluated the patient independently of Paul Singh PA-C, I have discussed the case with him. I have reviewed and agree with the assessment and plan. Please see orders.
[2021-02-26] MEDS ORDERED: Magnesium Sulfate/Water 4 GM in Premix Bag 1 BAG IV ONE (11:18)
[2021-02-26] MEDS ORDERED: Acetaminophen 325 MG Tab PO PRN (11:21)
[2021-02-26] MEDS: Potassium Chloride 20 MEQ Tab.ER PO SCH ×2 (11:32→20:09)
[2021-02-26] MEDS: Promethazine 12.5 MG in Sodium Chloride 0.9% 50 ML IV PRN ×2 (11:32→20:31)
[2021-02-26] MEDS: Nicotine 14 MG/24 Hr Patch TRDERM SCH (12:43)
[2021-02-27] MEDS: Acetaminophen/HYDROcodone 325-5 MG Tab PO PRN ×4 (02:08→20:15)
[2021-02-27] MEDS: LORazepam 2 MG/ML SDV IVPUSH PRN ×5 (02:09→19:43)
--- NOTE | 2021-02-27 07:09 | PCM.PN ---
- General Info Date of Service: 02/27/21 Admission Dx/Problem (Free Text): Admission Diagnosis/Problem Admission Diagnosis/Problem Suicidal ideation Subjective Update: The patient is a 36-year-old lady who was admitted to acute hospitalization on February 25, 2021 due to acute alcohol intoxication as well as suicidal ideation. The patient had been kept on telemetry and monitored for acute withdrawal symptoms. The patient today says that she has severe pain and has been wanting narcotic medication for this. Patient says that she has tremors. Interestingly, the patient had COVID-19 in October 2020 and subsequent vaccination. Her rapid test was positive for COVID-19. The patient has denied any respiratory symptoms. She has been tolerating diet. Functional Status: Reports: Pain Controlled, Tolerating Diet - Review of Systems General: Reports: No Symptoms HEENT: Reports: No Symptoms Pulmonary: Reports: No Symptoms Cardiovascular: Reports: No Symptoms Gastrointestinal: Reports: No Symptoms Genitourinary: Reports: No Symptoms Musculoskeletal: Reports: No Symptoms Skin: Reports: No Symptoms Neurological: Reports: Tremors Psychiatric: Reports: No Symptoms - Patient Data Vitals - Most Recent: Last Vital Signs Temp 36.3 C 02/27/21 04:00 Pulse 72 02/26/21 14:07 Resp 14 02/27/21 04:00 BP 105/64 02/27/21 04:00 Pulse Ox 98 02/27/21 04:00 Weight - Most Recent: 80.739 kg I&O - Last 24 Hours: Intake & Output 02/26/21 02/27/21 02/27/21 22:59 06:59 14:59 Intake Total 1415 1000 Balance 1415 1000 Lab Results Last 24 Hours: Laboratory Results - last 24 hr 02/26/21 02/27/21 02/27/21 Range/Units 10:41 05:49 05:50 WBC 4.48 (3.98-10.04) K/mm3 RBC 3.74 L (3.98-5.22) M/mm3 Hgb 9.7 L (11.2-15.7) gm/dl Hct 31.5 L (34.1-44.9) % MCV 84.2 (79.4-94.8) fl MCH 25.9 (25.6-32.2) pg MCHC 30.8 L (32.2-35.5) g/dl RDW Std Deviation 59.0 H (36.4-46.3) fL Plt Count 131 L (182-369) K/mm3 MPV 9.7 (9.4-12.3) fl Neut % (Auto) 47.3 (34.0-71.1) % Lymph % (Auto) 35.0 (19.3-51.7) % Clay % (Auto) 9.8 (4.7-12.5) % Eos % (Auto) 6.3 H (0.7-5.8) Baso % (Auto) 1.6 H (0.1-1.2) % Neut # (Auto) 2.12 (1.56-6.13) K/mm3 Lymph # (Auto) 1.57 (1.18-3.74) K/mm3 Clay # (Auto) 0.44 H (0.24-0.36) K/mm3 Eos # (Auto) 0.28 (0.04-0.36) K/mm3 Baso # (Auto) 0.07 (0.01-0.08) K/mm3 Sodium 141 (136-145) mEq/L Potassium 3.5 (3.5-5.1) mEq/L Chloride 108 H (98-107) mEq/L Carbon Dioxide 24 (21-32) mEq/L Anion Gap 12.5 (5-15) BUN 8 (7-18) mg/dL Creatinine 0.6 (0.55-1.02) mg/dL Est Cr Clr Drug Dosing 114.29 mL/min Estimated GFR (MDRD) > 60 (>60) mL/min BUN/Creatinine Ratio 13.3 L (14-18) Glucose 103 H (70-99) mg/dL POC Glucose 84 (70-99) mg/dL Calcium 7.6 L (8.5-10.1) mg/dL Magnesium 1.5 L (1.8-2.4) mg/dL Total Bilirubin (0.2-1.0) mg/dL AST (15-37) U/L ALT (14-59) U/L Alkaline Phosphatase (46-116) U/L Total Protein (6.4-8.2) g/dl Albumin (3.4-5.0) g/dl Globulin gm/dL Albumin/Globulin Ratio (1-2) 05// Range/Units 05:50 WBC (3.98-10.04) K/mm3 RBC (3.98-5.22) M/mm3 Hgb (11.2-15.7) gm/dl Hct (34.1-44.9) % MCV (79.4-94.8) fl MCH (25.6-32.2) pg MCHC (32.2-35.5) g/dl RDW Std Deviation (36.4-46.3) fL Plt Count (182-369) K/mm3 MPV (9.4-12.3) fl Neut % (Auto) (34.0-71.1) % Lymph % (Auto) (19.3-51.7) % Clay % (Auto) (4.7-12.5) % Eos % (Auto) (0.7-5.8) Baso % (Auto) (0.1-1.2) % Neut # (Auto) (1.56-6.13) K/mm3 Lymph # (Auto) (1.18-3.74) K/mm3 Clay # (Auto) (0.24-0.36) K/mm3 Eos # (Auto) (0.04-0.36) K/mm3 Baso # (Auto) (0.01-0.08) K/mm3 Sodium 141 (136-145) mEq/L Potassium 4.4 (3.5-5.1) mEq/L Chloride 110 H (98-107) mEq/L Carbon Dioxide 23 (21-32) mEq/L Anion Gap 12.4 (5-15) BUN 8 (7-18) mg/dL Creatinine 0.6 (0.55-1.02) mg/dL Est Cr Clr Drug Dosing 114.29 mL/min Estimated GFR (MDRD) > 60 (>60) mL/min BUN/Creatinine Ratio 13.3 L (14-18) Glucose 90 (70-99) mg/dL POC Glucose (70-99) mg/dL Calcium 7.6 L (8.5-10.1) mg/dL Magnesium 1.8 (1.8-2.4) mg/dL Total Bilirubin 1.3 H (0.2-1.0) mg/dL AST 90 H (15-37) U/L ALT 43 (14-59) U/L Alkaline Phosphatase 255 H (46-116) U/L Total Protein 6.1 L (6.4-8.2) g/dl Albumin 2.5 L (3.4-5.0) g/dl Globulin 3.6 gm/dL Albumin/Globulin Ratio 0.7 L (1-2) Med Orders - Current: Current Medications Acetaminophen (Acetaminophen 325 Mg Tab) 650 mg PO Q4H PRN PRN Reason: Pain (Mild 1-3)/fever Hydrocodone Bitart/Acetaminophen (Acetaminophen/Hydrocodone 325-5 Mg Tab) 1 tab PO Q6H PRN PRN Reason: Pain Last Admin: 02/27/21 02:08 Dose: 1 tab Documented by: Chlordiazepoxide HCl (Chlordiazepoxide 25 Mg Cap) 25 mg PO BID [facility] Last Admin: 02/26/21 20:15 Dose: 25 mg Documented by: Folic Acid (Folic Acid 1 Mg Tab) 1 mg PO DAILY [facility] Stop: 02/27/21 09:01 Last Admin: 02/26/21 08:07 Dose: 1 mg Documented by: Promethazine HCl 12.5 mg/ (Sodium Chloride) 50.5 mls @ 100 mls/hr IV Q6H PRN PRN Reason: Nausea/Vomiting Last Admin: 02/26/21 20:31 Dose: 100 mls/hr Documented by: Lorazepam (Lorazepam 2 Mg/Ml Sdv) 0 mg IVPUSH ASDIRECTED PRN; Protocol PRN Reason: withdrawl Last Admin: 02/27/21 06:15 Dose: 1 mg Documented by: Magnesium Oxide (Magnesium Oxide 400 Mg Tab) 200 mg PO DAILY [facility] Miscellaneous Information (Remove Patch) 0 ea TRDERM Q24H [facility] Nicotine (Nicotine 14 Mg/24 Hr Patch) 14 mg TRDERM Q24H [facility] Last Admin: 02/26/21 12:43 Dose: 14 mg Documented by: Pantoprazole Sodium (Pantoprazole 40 Mg Tab.Cr) 40 mg PO DAILY [facility] Last Admin: 02/26/21 08:07 Dose: 40 mg Documented by: Potassium Chloride (Potassium Chloride 20 Meq Tab.Er) 20 meq PO DAILY [facility] Sodium Chloride (Sodium Chloride 0.9% 10 Ml Syringe) 10 ml FLUSH ASDIRECTED PRN PRN Reason: Keep Vein Open Last Admin: 02/26/21 20:35 Dose: 10 ml Documented by: Thiamine HCl (Thiamine 100 Mg Tab) 100 mg PO DAILY [facility] Last Admin: 02/26/21 08:08 Dose: 100 mg Documented by: Discontinued Medications Hydrocodone Bitart/Acetaminophen (Acetaminophen/Hydrocodone 325-5 Mg Tab) 1 tab PO Q4H PRN PRN Reason: Pain Last Admin: 02/26/21 14:01 Dose: 1 tab Documented by: Chlordiazepoxide HCl (Chlordiazepoxide 25 Mg Cap) 25 mg PO QID [facility] Last Admin: 02/26/21 12:43 Dose: 25 mg Documented by: Magnesium Sulfate 4 gm/ Premix 50 mls @ 12.5 mls/hr IV ONETIME ONE Stop: 02/26/21 15:17 Last Admin: 02/26/21 11:32 Dose: 12.5 mls/hr Documented by: Ketorolac Tromethamine (Ketorolac 30 Mg/Ml Sdv) 20 mg IVPUSH ONETIME [facility] Ketorolac Tromethamine (Ketorolac 30 Mg/Ml Sdv) 30 mg IM ONETIME ONE Stop: 02/25/21 12:18 Last Admin: 02/25/21 12:33 Dose: 30 mg Documented by: Lorazepam (Lorazepam 1 Mg Tab) 1 mg PO ONETIME ONE Stop: 02/25/21 05:51 Last Admin: 02/25/21 06:00 Dose: Not Given Documented by: Lorazepam (Lorazepam 2 Mg/Ml Sdv) 1 mg IM ONETIME STA Stop: 02/25/21 05:56 Last Admin: 02/25/21 05:59 Dose: 1 mg Documented by: Lorazepam (Lorazepam 2 Mg/Ml Sdv) Confirm Administered Dose 2 mg .ROUTE .STK-MED ONE Stop: 02/25/21 05:58 Last Admin: 02/25/21 06:09 Dose: Not Given Documented by: Lorazepam (Lorazepam 1 Mg Tab) 1 mg PO ONETIME ONE Stop: 02/25/21 13:21 Last Admin: 02/25/21 13:24 Dose: 1 mg Documented by: Lorazepam (Lorazepam 2 Mg/Ml Sdv) 0.5 mg IVPUSH ONETIME ONE Stop: 02/25/21 15:33 Last Admin: 02/25/21 16:48 Dose: Not Given Documented by: Lorazepam (Lorazepam 0.5 Mg Tab) 0.5 mg PO ONETIME ONE Stop: 02/25/21 16:16 Last Admin: 02/25/21 16:21 Dose: 0.5 mg Documented by: Magnesium Oxide (Magnesium Oxide 400 Mg Tab) 400 mg PO ONETIME ONE Stop: 02/25/21 19:16 Last Admin: 02/25/21 19:42 Dose: 400 mg Documented by: Multivitamins/Minerals/Vitamin C (Multivitamin Tab) 1 tab PO ONETIME ONE Stop: 02/25/21 17:59 Last Admin: 02/25/21 19:04 Dose: 1 tab Documented by: Potassium Chloride (Potassium Chloride 20 Meq Tab.Er) 40 meq PO BID [facility] Stop: 02/26/21 21:01 Last Admin: 02/26/21 20:09 Dose: 40 meq Documented by: - Exam Quality Assessment: DVT Prophylaxis. No: Supplemental Oxygen, Central Line/PICC General: Alert, Oriented, Cooperative HEENT: Pupils Equal, Pupils Reactive, EOMI. No: Mucous Membr. Moist/[place] (Dry) Neck: Supple, Trachea Midline Lungs: Clear to Auscultation, Normal Respiratory Effort Cardiovascular: Regular Rate, Murmurs (III/ systolic left sternal borders) GI/Abdominal Exam: Normal Bowel Sounds, Soft, No Distention (Female) Exam: Deferred Back Exam: Normal Inspection, Full Range of Motion Extremities: Normal Inspection, No Pedal Edema Skin: Warm, Dry, Intact Wound/Incisions: Healing Well Neurological: No New Focal Deficit Psy/Mental Status: Alert, Normal Affect, Normal Mood - Patient Data Lab Results Last 24 hrs: Laboratory Results - last 24 hr 02/26/21 02/27/21 02/27/21 Range/Units 10:41 05:49 05:50 WBC 4.48 (3.98-10.04) K/mm3 RBC 3.74 L (3.98-5.22) M/mm3 Hgb 9.7 L (11.2-15.7) gm/dl Hct 31.5 L (34.1-44.9) % MCV 84.2 (79.4-94.8) fl MCH 25.9 (25.6-32.2) pg MCHC 30.8 L (32.2-35.5) g/dl RDW Std Deviation 59.0 H (36.4-46.3) fL Plt Count 131 L (182-369) K/mm3 MPV 9.7 (9.4-12.3) fl Neut % (Auto) 47.3 (34.0-71.1) % Lymph % (Auto) 35.0 (19.3-51.7) % Clay % (Auto) 9.8 (4.7-12.5) % Eos % (Auto) 6.3 H (0.7-5.8) Baso % (Auto) 1.6 H (0.1-1.2) % Neut # (Auto) 2.12 (1.56-6.13) K/mm3 Lymph # (Auto) 1.57 (1.18-3.74) K/mm3 Clay # (Auto) 0.44 H (0.24-0.36) K/mm3 Eos # (Auto) 0.28 (0.04-0.36) K/mm3 Baso # (Auto) 0.07 (0.01-0.08) K/mm3 Sodium 141 (136-145) mEq/L Potassium 3.5 (3.5-5.1) mEq/L Chloride 108 H (98-107) mEq/L Carbon Dioxide 24 (21-32) mEq/L Anion Gap 12.5 (5-15) BUN 8 (7-18) mg/dL Creatinine 0.6 (0.55-1.02) mg/dL Est Cr Clr Drug Dosing 114.29 mL/min Estimated GFR (MDRD) > 60 (>60) mL/min BUN/Creatinine Ratio 13.3 L (14-18) Glucose 103 H (70-99) mg/dL POC Glucose 84 (70-99) mg/dL Calcium 7.6 L (8.5-10.1) mg/dL Magnesium 1.5 L (1.8-2.4) mg/dL Total Bilirubin (0.2-1.0) mg/dL AST (15-37) U/L ALT (14-59) U/L Alkaline Phosphatase (46-116) U/L Total Protein (6.4-8.2) g/dl Albumin (3.4-5.0) g/dl Globulin gm/dL Albumin/Globulin Ratio (1-2) 05/22/21 Range/Units 05:50 WBC (3.98-10.04) K/mm3 RBC (3.98-5.22) M/mm3 Hgb (11.2-15.7) gm/dl Hct (34.1-44.9) % MCV (79.4-94.8) fl MCH (25.6-32.2) pg MCHC (32.2-35.5) g/dl RDW Std Deviation (36.4-46.3) fL Plt Count (182-369) K/mm3 MPV (9.4-12.3) fl Neut % (Auto) (34.0-71.1) % Lymph % (Auto) (19.3-51.7) % Clay % (Auto) (4.7-12.5) % Eos % (Auto) (0.7-5.8) Baso % (Auto) (0.1-1.2) % Neut # (Auto) (1.56-6.13) K/mm3 Lymph # (Auto) (1.18-3.74) K/mm3 Clay # (Auto) (0.24-0.36) K/mm3 Eos # (Auto) (0.04-0.36) K/mm3 Baso # (Auto) (0.01-0.08) K/mm3 Sodium 141 (136-145) mEq/L Potassium 4.4 (3.5-5.1) mEq/L Chloride 110 H (98-107) mEq/L Carbon Dioxide 23 (21-32) mEq/L Anion Gap 12.4 (5-15) BUN 8 (7-18) mg/dL Creatinine 0.6 (0.55-1.02) mg/dL Est Cr Clr Drug Dosing 114.29 mL/min Estimated GFR (MDRD) > 60 (>60) mL/min BUN/Creatinine Ratio 13.3 L (14-18) Glucose 90 (70-99) mg/dL POC Glucose (70-99) mg/dL Calcium 7.6 L (8.5-10.1) mg/dL Magnesium 1.8 (1.8-2.4) mg/dL Total Bilirubin 1.3 H (0.2-1.0) mg/dL AST 90 H (15-37) U/L ALT 43 (14-59) U/L Alkaline Phosphatase 255 H (46-116) U/L Total Protein 6.1 L (6.4-8.2) g/dl Albumin 2.5 L (3.4-5.0) g/dl Globulin 3.6 gm/dL Albumin/Globulin Ratio 0.7 L (1-2) Result Diagrams: 02/27/21 05:50 02/27/21 05:50 Sepsis Event Note - Evaluation Sepsis Screening Result: No Definite Risk - Focused Exam Vital Signs: Vital Signs Temp Resp BP Pulse Ox 02/27/21 04:00 36.3 C 14 105/64 98 02/26/21 20:54 36.4 C 14 115/65 100 - Problem List & Annotations (1) Alcohol withdrawal SNOMED Code(s): 270348476 Code(s): F10.239 - ALCOHOL DEPENDENCE WITH WITHDRAWAL, UNSPECIFIED Status: Acute Priority: High Current Visit: Yes Qualifiers: Complication of substance-induced condition: uncomplicated Qualified Code(s): F10.230 - Alcohol dependence with withdrawal, uncomplicated (2) Alcohol dependency SNOMED Code(s): 31531068 Code(s): F10.20 - ALCOHOL DEPENDENCE, UNCOMPLICATED Status: Chronic Priority: Medium Current Visit: Yes Qualifiers: Substance use status: with intoxication Complication of substance-induced condition: uncomplicated Qualified Code(s): F10.220 - Alcohol dependence with intoxication, uncomplicated (3) Hypokalemia SNOMED Code(s): 60229820 Code(s): E87.6 - HYPOKALEMIA Status: Resolved Priority: High Current Visit: Yes (4) Hypomagnesemia SNOMED Code(s): 783274706 Code(s): E83.42 - HYPOMAGNESEMIA Status: Resolved Priority: High Current Visit: Yes - Problem List Review Problem List Initiated/Reviewed/Updated: Yes - Assessment Assessment:: I have seen and evaluated the patient independently of Paul Singh PA-C, I have discussed the case with him. I have reviewed and agree with the assessment and plan. Please see orders. - Plan Plan:: Alcohol abuse Depression Alcohol intoxication Marijuana use Polysubstance abuse Suicidal ideation Daily smoker * 1:1 care * Suicide precautions * Patient admits to methamphetamine and marijuana abuse * History of failed outpatient treatment. Was reportedly in detox center in [place] for sometime. * Dr. Koch psychiatric consultation * consultation * [facility] protocol * Scheduled Librium * Daily folic acid x3 doses total * Daily thiamine supplementation * Plan for placement once discharged * Nicotine patches * Cessation counseling * Offer nicotine patches at discharge History of MRSA infection History of COVID-19 Lab test positive for detection of COVID-19 virus * No active signs of COVID-19 infection - CXR negative, Has received 2 doses of vaccine several months ago and reportedly had COVID * Will not initiate COVID treatment * Continue Isolation (airborne/contact precautions) per hospital protocol HTN (hypertension) * Reportedly "white coat syndrome" * Not on any home BP meds * Monitor vital signs - BP has been well controlled GERD (gastroesophageal reflux disease) History of esophageal varices History of GI bleed * Protonix daily * No acute concerns * Monitor Hypokalemia Hypomagnesemia Hypoalbuminemia * Acute on chronic * Supplement magnesium and potassium today and then resume home supplementation tomorrow * Monitor labs * [employer] consult Alcoholic cirrhosis Fatty liver Elevated AST (SGOT) Elevated alkaline phosphatase level Hyperbilirubinemia * Currently stable when compared to prior labs * Monitor daily lab * Caution with Tylenol * Counseled on importance of stopping ETOH use History of tubal ligation * No acute concerns Anemia * Acute on chronic * Continue home iron supplementation * Monitor labs * Currently on menses Elevated d-dimer * No acute respiratory symptoms or concerns for clotting. No leg pain, swelling, or signs of DVT. * Continue to monitor Chronic back pain * Pain medications as ordered * Heating pad PRN Code status: Full Code PCP: Dr. Person DVT prophylaxis: VTE score 0 with history of ETOH abuse, esophageal varices requiring banding - not indicated Social: Patient resides with Disposition: Patient admitted to ICU as MSP status for continued monitoring due to suicidal ideations and alcohol intoxication. Monitoring for signs of detox. Likely discharge on Monday pending continued improvement. 02/27/2021 The patient is a 36-year-old lady who will be retained in hospitalization secondary to alcohol withdrawal. The patient is currently under [facility] protocol with Ativan. The patient is having some tremors and she is currently in danger zone for withdrawal activity. Patient's magnesium and hypokalemia have been resolved. Repeat laboratory studies have been ordered. She will continue with a regular diet as tolerated. I have encouraged patient to ambulate to help with her lower back pain as opposed to narcotic medications. The patient is scheduled to have a consultation with Dr. Koch psychiatry via telemedicine today. I recommend strongly that the patient have inpatient treatment for her acute alcohol issues. She is noted to have cirrhosis with a history of esop hageal bleeding. Because of the patient's past history I suspect that the patient's prospects for continued sobriety are poor.
[2021-02-27] MEDS: Enoxaparin 30 MG/0.3 ML Syringe SUBCUT SCH (08:01)
[2021-02-27] MEDS: Folic Acid 1 MG Tab PO SCH (08:02)
[2021-02-27] MEDS: Magnesium Oxide 400 MG Tab PO SCH (08:02)
[2021-02-27] MEDS: Thiamine 100 MG Tab PO SCH (08:02)
[2021-02-27] MEDS: chlordiazePOXIDE 25 MG Cap PO SCH ×2 (08:02→20:16)
[2021-02-27] MEDS: Potassium Chloride 20 MEQ Tab.ER PO SCH (08:03)
[2021-02-27] MEDS: Pantoprazole 40 MG Tab.CR PO SCH (08:03)
[2021-02-27] MEDS: Nicotine 14 MG/24 Hr Patch TRDERM SCH (11:50)
[2021-02-27] MEDS: Promethazine 12.5 MG in Sodium Chloride 0.9% 50 ML IV PRN ×2 (11:51→22:35)
[2021-02-27] MEDS: Topiramate 25 MG Tab PO SCH (20:17)
[2021-02-28] MEDS: Acetaminophen/HYDROcodone 325-5 MG Tab PO PRN ×2 (02:01→08:07)
--- NOTE | 2021-02-28 07:01 | PCM.PN ---
- General Info Date of Service: 02/28/21 Admission Dx/Problem (Free Text): Admission Diagnosis/Problem Admission Diagnosis/Problem Suicidal ideation Subjective Update: The patient is a 36-year-old lady who was admitted to acute hospitalization secondary to alcohol intoxication and suicidal ideation. The patient was admitted and observed for problems associated with alcohol withdrawal. The patient is still showing high CIWA scores and the concern for continued w ithdrawal is high. The patient has said that she wants to follow as an outpatient for her alcohol treatment and she wants to call her and she has decided to go home AGAINST MEDICAL ADVICE. The patient has been tolerating her diet. Functional Status: Reports: Pain Controlled, Tolerating Diet - Review of Systems General: Reports: No Symptoms HEENT: Reports: No Symptoms Pulmonary: Reports: No Symptoms Cardiovascular: Reports: No Symptoms Gastrointestinal: Reports: No Symptoms Genitourinary: Reports: No Symptoms Musculoskeletal: Reports: No Symptoms Skin: Reports: No Symptoms Neurological: Reports: No Symptoms Psychiatric: Reports: No Symptoms - Patient Data Vitals - Most Recent: Last Vital Signs Temp 36.4 C 02/28/21 04:00 Pulse 93 02/27/21 19:51 Resp 16 02/28/21 04:00 BP 119/75 02/28/21 04:00 Pulse Ox 97 02/28/21 04:00 Weight - Most Recent: 81.193 kg I&O - Last 24 Hours: Intake & Output 02/27/21 02/28/21 02/28/21 22:59 06:59 14:59 Intake Total 1200 1660 Balance 1200 1660 Med Orders - Current: Current Medications Acetaminophen (Acetaminophen 325 Mg Tab) 650 mg PO Q4H PRN PRN Reason: Pain (Mild 1-3)/fever Hydrocodone Bitart/Acetaminophen (Acetaminophen/Hydrocodone 325-5 Mg Tab) 1 tab PO Q6H PRN PRN Reason: Pain Last Admin: 02/28/21 02:01 Dose: 1 tab Documented by: Chlordiazepoxide HCl (Chlordiazepoxide 25 Mg Cap) 25 mg PO BID [facility] Last Admin: 02/27/21 20:16 Dose: 25 mg Documented by: Enoxaparin Sodium (Enoxaparin 30 Mg/0.3 Ml Syringe) 30 mg SUBCUT Q24H [facility] Last Admin: 02/27/21 08:01 Dose: 30 mg Documented by: Fluoxetine HCl (Fluoxetine 10 Mg Cap) 10 mg PO DAILY [facility] Promethazine HCl 12.5 mg/ (Sodium Chloride) 50.5 mls @ 100 mls/hr IV Q6H PRN PRN Reason: Nausea/Vomiting Last Admin: 02/27/21 22:35 Dose: 100 mls/hr Documented by: Lorazepam (Lorazepam 2 Mg/Ml Sdv) 0 mg IVPUSH ASDIRECTED PRN; Protocol PRN Reason: withdrawl Last Admin: 02/27/21 19:43 Dose: 1 mg Documented by: Magnesium Oxide (Magnesium Oxide 400 Mg Tab) 200 mg PO DAILY [facility] Last Admin: 02/27/21 08:02 Dose: 200 mg Documented by: Miscellaneous Information (Remove Patch) 0 ea TRDERM Q24H [facility] Last Admin: 02/27/21 11:51 Dose: 1 ea Documented by: Nicotine (Nicotine 14 Mg/24 Hr Patch) 14 mg TRDERM Q24H [facility] Last Admin: 02/27/21 11:50 Dose: 14 mg Documented by: Pantoprazole Sodium (Pantoprazole 40 Mg Tab.Cr) 40 mg PO DAILY [facility] Last Admin: 02/27/21 08:03 Dose: 40 mg Documented by: Potassium Chloride (Potassium Chloride 20 Meq Tab.Er) 20 meq PO DAILY [facility] Last Admin: 02/27/21 08:03 Dose: 20 meq Documented by: Sodium Chloride (Sodium Chloride 0.9% 10 Ml Syringe) 10 ml FLUSH ASDIRECTED PRN PRN Reason: Keep Vein Open Last Admin: 02/26/21 20:35 Dose: 10 ml Documented by: Thiamine HCl (Thiamine 100 Mg Tab) 100 mg PO DAILY [facility] Last Admin: 02/27/21 08:02 Dose: 100 mg Documented by: Topiramate (Topiramate 25 Mg Tab) 25 mg PO BID [facility] Last Admin: 02/27/21 20:17 Dose: 25 mg Documented by: Discontinued Medications Hydrocodone Bitart/Acetaminophen (Acetaminophen/Hydrocodone 325-5 Mg Tab) 1 tab PO Q4H PRN PRN Reason: Pain Last Admin: 02/26/21 14:01 Dose: 1 tab Documented by: Chlordiazepoxide HCl (Chlordiazepoxide 25 Mg Cap) 25 mg PO QID [facility] Last Admin: 02/26/21 12:43 Dose: 25 mg Documented by: Folic Acid (Folic Acid 1 Mg Tab) 1 mg PO DAILY [facility] Stop: 02/27/21 09:01 Last Admin: 02/27/21 08:02 Dose: 1 mg Documented by: Magnesium Sulfate 4 gm/ Premix 50 mls @ 12.5 mls/hr IV ONETIME ONE Stop: 02/26/21 15:17 Last Admin: 02/26/21 11:32 Dose: 12.5 mls/hr Documented by: Ketorolac Tromethamine (Ketorolac 30 Mg/Ml Sdv) 20 mg IVPUSH ONETIME [facility] Ketorolac Tromethamine (Ketorolac 30 Mg/Ml Sdv) 30 mg IM ONETIME ONE Stop: 02/25/21 12:18 Last Admin: 02/25/21 12:33 Dose: 30 mg Documented by: Lorazepam (Lorazepam 1 Mg Tab) 1 mg PO ONETIME ONE Stop: 02/25/21 05:51 Last Admin: 02/25/21 06:00 Dose: Not Given Documented by: Lorazepam (Lorazepam 2 Mg/Ml Sdv) 1 mg IM ONETIME [facility] Stop: 02/25/21 05:56 Last Admin: 02/25/21 05:59 Dose: 1 mg Documented by: Lorazepam (Lorazepam 2 Mg/Ml Sdv) Confirm Administered Dose 2 mg .ROUTE .STK-MED ONE Stop: 02/25/21 05:58 Last Admin: 02/25/21 06:09 Dose: Not Given Documented by: Lorazepam (Lorazepam 1 Mg Tab) 1 mg PO ONETIME ONE Stop: 02/25/21 13:21 Last Admin: 02/25/21 13:24 Dose: 1 mg Documented by: Lorazepam (Lorazepam 2 Mg/Ml Sdv) 0.5 mg IVPUSH ONETIME ONE Stop: 02/25/21 15:33 Last Admin: 02/25/21 16:48 Dose: Not Given Documented by: Lorazepam (Lorazepam 0.5 Mg Tab) 0.5 mg PO ONETIME ONE Stop: 02/25/21 16:16 Last Admin: 02/25/21 16:21 Dose: 0.5 mg Documented by: Magnesium Oxide (Magnesium Oxide 400 Mg Tab) 400 mg PO ONETIME ONE Stop: 02/25/21 19:16 Last Admin: 02/25/21 19:42 Dose: 400 mg Documented by: Multivitamins/Minerals/Vitamin C (Multivitamin Tab) 1 tab PO ONETIME ONE Stop: 02/25/21 17:59 Last Admin: 02/25/21 19:04 Dose: 1 tab Documented by: Potassium Chloride (Potassium Chloride 20 Meq Tab.Er) 40 meq PO BID [facility] Stop: 02/26/21 21:01 Last Admin: 02/26/21 20:09 Dose: 40 meq Documented by: - Exam Quality Assessment: No: Supplemental Oxygen General: Alert, Oriented, Cooperative HEENT: Pupils Equal, Pupils Reactive Neck: Supple, Trachea Midline Lungs: Clear to Auscultation, Normal Respiratory Effort Cardiovascular: Regular Rate, Regular Rhythm GI/Abdominal Exam: Normal Bowel Sounds, Soft, Non-Tender, No Distention (Female) Exam: Deferred Back Exam: Normal Inspection, Full Range of Motion Extremities: Normal Inspection, Normal Range of Motion, No Pedal Edema Skin: Warm, Dry, Intact Neurological: No New Focal Deficit Psy/Mental Status: Alert, Normal Affect, Normal Mood - Patient Data Result Diagrams: 02/28/21 06:58 02/28/21 06:58 Sepsis Event Note - Evaluation Sepsis Screening Result: No Definite Risk - Focused Exam Vital Signs: Vital Signs Temp Pulse Resp BP Pulse Ox 02/28/21 04:00 36.4 C 16 119/75 97 02/27/21 19:51 36.7 C 93 14 118/65 95 - Problem List & Annotations (1) Alcohol withdrawal SNOMED Code(s): 820555501 Code(s): F10.239 - ALCOHOL DEPENDENCE WITH WITHDRAWAL, UNSPECIFIED Status: Acute Priority: High Qualifiers: Complication of substance-induced condition: uncomplicated Qualified Code(s): F10.230 - Alcohol dependence with withdrawal, uncomplicated (2) Alcohol dependency SNOMED Code(s): 17478325 Code(s): F10.20 - ALCOHOL DEPENDENCE, UNCOMPLICATED Status: Chronic Priority: Medium Qualifiers: Substance use status: with intoxication Complication of substance-induced condition: uncomplicated Qualified Code(s): F10.220 - Alcohol dependence with intoxication, uncomplicated (3) Hypokalemia SNOMED Code(s): 24662003 Code(s): E87.6 - HYPOKALEMIA Status: Resolved Priority: High (4) Hypomagnesemia SNOMED Code(s): 178101380 Code(s): E83.42 - HYPOMAGNESEMIA Status: Resolved Priority: High - Problem List Review Problem List Initiated/Reviewed/Updated: Yes - My Orders Last 24 Hours: My Active Orders 02/27/21 09:00 Enoxaparin [Lovenox] 30 mg SUBCUT Q24H 02/27/21 16:30 Consult to Spiritual Care [CONS] Routine 02/27/21 16:32 Communication Order [RC] ROUTINE 02/27/21 21:00 Topiramate [Topamax] 25 mg PO BID 02/28/21 09:00 FLUoxetine [PROzac] 10 mg PO DAILY - Assessment Assessment:: I have seen and evaluated the patient independently of Paul Singh PA-C, I have discussed the case with him. I have reviewed and agree with the assessment and plan. Please see orders. - Plan Plan:: Alcohol abuse Depression Alcohol intoxication Marijuana use Polysubstance abuse Suicidal ideation Daily smoker * 1:1 care * Suicide precautions * Patient admits to methamphetamine and marijuana abuse * History of failed outpatient treatment. Was reportedly in detox center in [place] for sometime. * Dr. Koch psychiatric consultation * SW consultation * [facility] protocol * Scheduled Librium * Daily folic acid x3 doses total * Daily thiamine supplementation * Plan for placement once discharged * Nicotine patches * Cessation counseling * Offer nicotine patches at discharge History of MRSA infection History of COVID-19 Lab test positive for detection of COVID-19 virus * No active signs of COVID-19 infection - CXR negative, Has received 2 doses of vaccine several months ago and reportedly had COVID * Will not initiate COVID treatment * Continue Isolation (airborne/contact precautions) per hospital protocol HTN (hypertension) * Reportedly "white coat syndrome" * Not on any home BP meds * Monitor vital signs - BP has been well controlled GERD (gastroesophageal reflux disease) History of esophageal varices History of GI bleed * Protonix daily * No acute concerns * Monitor Hypokalemia Hypomagnesemia Hypoalbuminemia * Acute on chronic * Supplement magnesium and potassium today and then resume home supplementation tomorrow * Monitor labs * Electrotype Servicer consult Alcoholic cirrhosis Fatty liver Elevated AST (SGOT) Elevated alkaline phosphatase level Hyperbilirubinemia * Currently stable when compared to prior labs * Monitor daily lab * Caution with Tylenol * Counseled on importance of stopping ETOH use History of tubal ligation * No acute concerns Anemia * Acute on chronic * Continue home iron supplementation * Monitor labs * Currently on menses Elevated d-dimer * No acute respiratory symptoms or concerns for clotting. No leg pain, swelling, or signs of DVT. * Continue to monitor Chronic back pain * Pain medications as ordered * Heating pad PRN Code status: Full Code PCP: Dr. Person DVT prophylaxis: VTE score 0 with history of ETOH abuse, esophageal varices requiring banding - not indicated Social: Patient resides with Disposition: Patient admitted to ICU as MSP status for continued monitoring due to suicidal ideations and alcohol intoxication. Monitoring for signs of detox. Likely discharge on Monday pending continued improvement. 02/27/2021 The patient is a 36-year-old lady who will be retained in hospitalization secondary to alcohol withdrawal. The patient is currently under CIWA protocol with Ativan. The patient is having some tremors and she is currently in danger zone for withdrawal activity. Patient's magnesium and hypokalemia have been r esolved. Repeat laboratory studies have been ordered. She will continue with a regular diet as tolerated. I have encouraged patient to ambulate to help with her lower back pain as opposed to narcotic medications. The patient is scheduled to have a consultation with Dr. Koch psychiatry via telemedicine today. I recommend strongly that the patient have inpatient treatment for her acute alcohol issues. She is noted to have cirrhosis with a history of esophageal bleeding. Because of the patient's past history I suspect that the patient's prospects for continued sobriety are poor. 02/28/2021 The patient is a 36-year-old lady who is decided to leave AGAINST MEDICAL ADVICE. She had been evaluated via telemedicine by Dr. Koch, psychiatry. She was started on new medications to help with her depression and her anger issues. The patient had been recommended for intensive inpatient therapy to help her recover from alcohol dependency. I had a discussion with the patient with nurse present and relayed my recommendations. The patient has still decided to sign out AGAINST MEDICAL ADVICE. Based on the patient's previous history of alcohol abuse and dependency along with cirrhosis and esophageal bleeding and her multiple episodes of intoxication that her prospects of maintaining any sobriety are poor at this time. The patient has denied any suicidal ideation or intention at this time.
[2021-02-28] MEDS: Thiamine 100 MG Tab PO SCH (08:31)
[2021-02-28] MEDS: Magnesium Oxide 400 MG Tab PO SCH (08:31)
[2021-02-28] MEDS: Potassium Chloride 20 MEQ Tab.ER PO SCH (08:31)
[2021-02-28] MEDS: Topiramate 25 MG Tab PO SCH (08:32)
[2021-02-28] MEDS: chlordiazePOXIDE 25 MG Cap PO SCH (08:32)
[2021-02-28] MEDS: Pantoprazole 40 MG Tab.CR PO SCH (08:32)
[2021-02-28] MEDS: LORazepam 2 MG/ML SDV IVPUSH PRN (08:35)
[2021-02-28] MEDS: Enoxaparin 30 MG/0.3 ML Syringe SUBCUT SCH (08:43)
[2021-02-28] MEDS ORDERED: FLUoxetine 10 MG Cap PO SCH (09:00)
[2021-02-28 10:18] VITALS: BP 129/72; PULSE 79
--- NOTE | 2021-03-01 09:06 | PCM.DCSUM1 ---
Discharge Summary - Hospital Course Free Text/Narrative:: Admitted for acute alcohol withdrawal symptoms Diagnosis: Stroke: No - Discharge Data Discharge Date: 02/28/21 Discharge Disposition: Against Medical Advice 07 Condition: Fair - Referral to Home Health Primary Care Physician: Carly Person MD - Discharge Diagnosis/Problem(s) (1) Alcohol withdrawal SNOMED Code(s): 140319156 ICD Code: F10.239 - ALCOHOL DEPENDENCE WITH WITHDRAWAL, UNSPECIFIED Status: Acute Priority: High Qualifiers: Complication of substance-induced condition: uncomplicated Qualified Code(s): F10.230 - Alcohol dependence with withdrawal, uncomplicated (2) Alcohol dependency SNOMED Code(s): 24221149 ICD Code: F10.20 - ALCOHOL DEPENDENCE, UNCOMPLICATED Status: Chronic Priority: Medium Qualifiers: Substance use status: with intoxication Complication of substance-induced condition: uncomplicated Qualified Code(s): F10.220 - Alcohol dependence with intoxication, uncomplicated (3) Hypokalemia SNOMED Code(s): 50864413 ICD Code: E87.6 - HYPOKALEMIA Status: Resolved Priority: High (4) Hypomagnesemia SNOMED Code(s): 943120892 ICD Code: E83.42 - HYPOMAGNESEMIA Status: Resolved Priority: High - Patient Summary/Data Consults: Consultations 02/26/21 10:25 Consult to Case Management/Yarn Sorter [CONS] Routine 02/26/21 10:26 Consult to Physician [CONS] Routine 02/26/21 11:53 Consult to Food Chemist [CONS] Routine 02/27/21 16:30 Consult to Spiritual Care [CONS] Routine Hospital Course: The patient is a 36-year-old lady who was admitted to acute hospitalization secondary to alcohol intoxication and suicidal ideation. The patient was admitted and observed for problems associated with alcohol withdrawal. She reports that she thinks she can stop drinking on her own. The patient is still showing high CIWA scores and the concern for continued withdrawal is high. Overall, because of the patient's past history as well as refusal to go to inpatient rehabilitation the patient's prospects for continued sobriety are considered to be poor. The patient has said that she wants to follow as an outpatient for her alcohol treatment and she wants to call her and she has decided to go home AGAINST MEDICAL ADVICE. - Discharge Plan *PRESCRIPTION DRUG MONITORING PROGRAM REVIEWED*: No *COPY OF PRESCRIPTION DRUG MONITORING REPORT IN PATIENT SANAZ: No Home Medications: Home Meds Iron,Carbonyl/Ascorbic Acid [Iron 100-Vitamin C Tablet] 325 mg PO DAILY 12/10/19 [History] Pantoprazole [ProTONIX] 40 mg PO DAILY 12/10/19 [History] Potassium Chloride 20 meq PO DAILY 12/10/19 [History] Thiamine [Vitamin B-1] 1 tab PO DAILY 07/20/20 [History] Folic Acid 40 mg PO DAILY 01/25/21 [History] Magnesium Amino Acid Chelate [Magnesium] 200 mg PO DAILY 01/25/21 [History] Promethazine [Phenergan] 25 mg PO TID PRN 01/25/21 [History] Dicyclomine [Bentyl] 20 mg PO Q6H PRN #15 tablet 02/05/21 [Rx] Ondansetron [Zofran] 4 mg BUCCAL Q6H PRN #12 tab 02/05/21 [Rx] Patient Handouts: Steps to Quit Smoking Forms: ED Department Discharge Referrals: Carly Person MD [Primary Care Provider] - - Discharge Summary/Plan Comment DC Time >30 min.: Yes - Patient Data Vitals - Most Recent: Last Vital Signs Temp 36.3 C 02/28/21 09:30 Pulse 79 02/28/21 09:30 Resp 18 02/28/21 09:30 BP 129/72 02/28/21 09:30 Pulse Ox 99 02/28/21 09:30 Weight - Most Recent: 81.193 kg Med Orders - Current: Current Medications Discontinued Medications Acetaminophen (Acetaminophen 325 Mg Tab) 650 mg PO Q4H PRN PRN Reason: Pain (Mild 1-3)/fever Hydrocodone Bitart/Acetaminophen (Acetaminophen/Hydrocodone 325-5 Mg Tab) 1 tab PO Q4H PRN PRN Reason: Pain Last Admin: 02/26/21 14:01 Dose: 1 tab Documented by: Hydrocodone Bitart/Acetaminophen (Acetaminophen/Hydrocodone 325-5 Mg Tab) 1 tab PO Q6H PRN PRN Reason: Pain Last Admin: 02/28/21 08:07 Dose: 1 tab Documented by: Chlordiazepoxide HCl (Chlordiazepoxide 25 Mg Cap) 25 mg PO QID [facility] Last Admin: 02/26/21 12:43 Dose: 25 mg Documented by: Chlordiazepoxide HCl (Chlordiazepoxide 25 Mg Cap) 25 mg PO BID [facility] Last Admin: 02/28/21 08:32 Dose: 25 mg Documented by: Enoxaparin Sodium (Enoxaparin 30 Mg/0.3 Ml Syringe) 30 mg SUBCUT Q24H [facility] Last Admin: 02/28/21 08:43 Dose: 30 mg Documented by: Fluoxetine HCl (Fluoxetine 10 Mg Cap) 10 mg PO DAILY [facility] Last Admin: 02/28/21 08:31 Dose: 10 mg Documented by: Folic Acid (Folic Acid 1 Mg Tab) 1 mg PO DAILY [facility] Stop: 02/27/21 09:01 Last Admin: 02/27/21 08:02 Dose: 1 mg Documented by: Magnesium Sulfate 4 gm/ Premix 50 mls @ 12.5 mls/hr IV ONETIME ONE Stop: 02/26/21 15:17 Last Admin: 02/26/21 11:32 Dose: 12.5 mls/hr Documented by: Promethazine HCl 12.5 mg/ (Sodium Chloride) 50.5 mls @ 100 mls/hr IV Q6H PRN PRN Reason: Nausea/Vomiting Last Admin: 02/27/21 22:35 Dose: 100 mls/hr Documented by: Ketorolac Tromethamine (Ketorolac 30 Mg/Ml Sdv) 20 mg IVPUSH ONETIME [facility] Ketorolac Tromethamine (Ketorolac 30 Mg/Ml Sdv) 30 mg IM ONETIME ONE Stop: 02/25/21 12:18 Last Admin: 02/25/21 12:33 Dose: 30 mg Documented by: Lorazepam (Lorazepam 1 Mg Tab) 1 mg PO ONETIME ONE Stop: 02/25/21 05:51 Last Admin: 02/25/21 06:00 Dose: Not Given Documented by: Lorazepam (Lorazepam 2 Mg/Ml Sdv) 1 mg IM ONETIME [facility] Stop: 02/25/21 05:56 Last Admin: 02/25/21 05:59 Dose: 1 mg Documented by: Lorazepam (Lorazepam 2 Mg/Ml Sdv) Confirm Administered Dose 2 mg .ROUTE .STK-MED ONE Stop: 02/25/21 05:58 Last Admin: 02/25/21 06:09 Dose: Not Given Documented by: Lorazepam (Lorazepam 1 Mg Tab) 1 mg PO ONETIME ONE Stop: 02/25/21 13:21 Last Admin: 02/25/21 13:24 Dose: 1 mg Documented by: Lorazepam (Lorazepam 2 Mg/Ml Sdv) 0.5 mg IVPUSH ONETIME ONE Stop: 02/25/21 15:33 Last Admin: 02/25/21 16:48 Dose: Not Given Documented by: Lorazepam (Lorazepam 0.5 Mg Tab) 0.5 mg PO ONETIME ONE Stop: 02/25/21 16:16 Last Admin: 02/25/21 16:21 Dose: 0.5 mg Documented by: Lorazepam (Lorazepam 2 Mg/Ml Sdv) 0 mg IVPUSH ASDIRECTED PRN; Protocol PRN Reason: withdrawl Last Admin: 02/28/21 08:35 Dose: 2 mg Documented by: Magnesium Oxide (Magnesium Oxide 400 Mg Tab) 400 mg PO ONETIME ONE Stop: 02/25/21 19:16 Last Admin: 02/25/21 19:42 Dose: 400 mg Documented by: Magnesium Oxide (Magnesium Oxide 400 Mg Tab) 200 mg PO DAILY [facility] Last Admin: 02/28/21 08:31 Dose: 200 mg Documented by: Miscellaneous Information (Remove Patch) 0 ea TRDERM Q24H [facility] Last Admin: 02/27/21 11:51 Dose: 1 ea Documented by: Multivitamins/Minerals/Vitamin C (Multivitamin Tab) 1 tab PO ONETIME ONE Stop: 02/25/21 17:59 Last Admin: 02/25/21 19:04 Dose: 1 tab Documented by: Nicotine (Nicotine 14 Mg/24 Hr Patch) 14 mg TRDERM Q24H [facility] Last Admin: 02/27/21 11:50 Dose: 14 mg Documented by: Pantoprazole Sodium (Pantoprazole 40 Mg Tab.Cr) 40 mg PO DAILY [facility] Last Admin: 02/28/21 08:32 Dose: 40 mg Documented by: Potassium Chloride (Potassium Chloride 20 Meq Tab.Er) 40 meq PO BID [facility] Stop: 02/26/21 21:01 Last Admin: 02/26/21 20:09 Dose: 40 meq Documented by: Potassium Chloride (Potassium Chloride 20 Meq Tab.Er) 20 meq PO DAILY [facility] Last Admin: 02/28/21 08:31 Dose: 20 meq Documented by: Sodium Chloride (Sodium Chloride 0.9% 10 Ml Syringe) 10 ml FLUSH ASDIRECTED PRN PRN Reason: Keep Vein Open Last Admin: 02/26/21 20:35 Dose: 10 ml Documented by: Thiamine HCl (Thiamine 100 Mg Tab) 100 mg PO DAILY [facility] Last Admin: 02/28/21 08:31 Dose: 100 mg Documented by: Topiramate (Topiramate 25 Mg Tab) 25 mg PO BID [facility] Last Admin: 02/28/21 08:32 Dose: 25 mg Documented by:
--- NOTE | 2021-03-03 06:13 | CONS ---
CONSULTING PHYSICIAN: Rajendra Koch MD DATE OF CONSULTATION: 02/27/2021 This is a 60-minute inpatient clinical event. Site where the services are provided, [facility] in [place], [place]. Site where the services are provided from our office is in [facility]. Length of service for this 60-minute inpatient telemedicine event is 60 minutes. IDENTIFICATION: The patient is a 36-year-old female, who was admitted to the inpatient MICU at [facility] in [place], [place] on 02/25/2021. She is seen for psychiatric consultation per the request of staff attending, Dr. Corona and the treatment team. CHIEF COMPLAINT: "I was suicidal. Emotionally and mentally. I have lost so many people. It drained me." HISTORY OF PRESENT ILLNESS: The patient is a 36-year-old female, who reports that she was suicidal and she was stating that she was going to cut her wrists on face of positive cannabis and meth findings as well as a BAL of 0.28, although the patient states that she did not actually go through with the suicide attempt and she is denying any suicidal or homicidal ideation at this point in time. She does endorse symptoms of depression, however, "since October." She states also "I have a lot of anxiety." She does complicate her clinical situation by drinking about 3 days a week per her estimation and she will drink up to "5 shots of [place]" at a time. The patient denies being treated for depression in the past or anxiety and she states that she would be open to trying something to see if that will help her mood and she does state that she knows that she needs to stop drinking because that does not helping the matters. She states she has been to AA in the past and that had helped her. She is denying any psychotic, delusional, or paranoid symptoms. She is cognitively oriented x3 on interview. MEDICATIONS: At time of presentation, none. ALLERGIES: 1. Guanfacine. 2. Penicillin. 3. Amoxicillin. 4. Tramadol. PAST MEDICAL HISTORY: 1. The patient is COVID-19 positive presently and this is in the face of receiving the COVID vaccine and also reporting that she tested positive for COVID in the past. Elevated D-dimer level of 1.34. 2. History of cirrhosis. 3. History of hypertension. 4. History of heart murmur. REVIEW OF SYSTEMS: Aside from immune, hepatic, and cardiovascular, all other major organ systems are negative at this point in time for acute difficulties or complications. FAMILY PSYCHIATRIC AND CD HISTORY: The history reports she has a grandmother, who has a history of dementia. PAST PSYCHIATRIC AND CD HISTORY: The patient denies any previous psychiatric hospitalizations. She does report 1 court-ordered CD treatment in the past, she got a DWI. She attended AA during that period of time and it did help her. She denies any previous suicide attempts or self-injurious behaviors. She reports no eating disorder history. Reports no abuse issues. Staff is reporting that she attested to past diagnosis of IED, but on interview, she is denying any previous psychiatric diagnosis. She denies any past psychiatric medication history. SOCIAL HISTORY: The patient was born and raised in [place], [place]. She is a member of the [employer]. She is the second of 3 siblings and 1 brother and 1 sister. She was raised by her maternal grandmother. Her grandmother was a pole incisor operator and caregiver. Patient's highest level of education is a high school diploma. She has been x1 for 4 years. Her works in [employer]. [place] . She does state that she has children, but the children are not with her at the time. She is trying to get 1 of the children back. She denies any legal difficulties. She is an [employer] in terms of her isaac formation. MENTAL STATUS EXAM: The patient is a 36-year-old female, in no apparent distress. Speech is of regular rate and rhythm. The patient is cognitively oriented x3. Psychomotor activity is within normal limits. There is no abnormal motor movements or tics observed. Gait and station are not observed. This patient was lying in bed during the interview. Mood is depressed and anxious. Affect is consistent with stated mood restricted, but cooperative overall for the purposes of the intake interview. There is no behavioral or stated evidence of acute suicidal or homicidal ideation or acute psychotic, delusional, or paranoid symptoms. Thought processes are organized overall. There are no acute manic symptoms, loose associations evident. Judgment and insight appear unimpaired at this point in time. Motivation for help appears fair to good. VITALS: 106/55, 72, 16, 97 degrees. IMPRESSION: Cropsey I: 1. Alcohol dependence of 10.20. 2. Major depressive disorder, F32.2. 3. Anxiety disorder, not otherwise specified, F41.9. 4. Rule out post-traumatic stress disorder. 5. Rule out bipolar affective disease, mixed type. 6. Cannabis abuse versus dependence. 7. Methamphetamine abuse versus dependence. Cropsey II: None. Cropsey III: 1. COVID positive status in face of receiving COVID vaccine and having tested positive for COVID-19 in the past. 2. History of cirrhosis. 3. History of hypertension. 4. History of heart murmur. Cropsey IV: Severe. Cropsey V: 55. PLAN: 1. Sobriety. 2. Begin trial of Topamax 25 mg b.i.d. for anxiety reduction, mood stability, and seizure prophylaxis in the face of potential alcohol withdrawal. 3. Begin trial of Prozac 10 mg q.a.m. for symptoms of depression. 4. Folic acid supplementation. 5. Thiamine supplementation. 6. Ativan per CIWA protocol. 7. Librium p.r.n. as scheduled. 8. AA rep to visit the patient while on unit. 9. Pastoral guidance. 10.Recommend inpatient CD treatment. The patient is able to maintain sobriety on her own, but from a psychiatric standpoint, the patient appears stable, not a danger to herself or others and may be discharged back to the community after being medically stabilized. 11.Recommended the patient follow up with outpatient psychiatry upon discharge back to community to assess overall function and efficacy of her newly initiated psychiatric medication regimen. 12.We will follow up with the patient on an as-needed basis while she remains on the inpatient MICU at [facility] in [place], [place] .. 13.We will follow up with the patient sooner if any complications in the interim. 14.Crisis plan is in place. TRENT /[id number]
== END 2021-02-28 10:10 | disposition left against medical advice (07) | DRG 770 ==
LOC: JD.ED 04:59 → JD.ICU 18:04
PROVIDERS: ADMIT Hospitalist; ATTEND Hospitalist
PROC: 8E0ZXY6 Isolation (ICD-10-PCS; principal; 2021-02-25)
DX: F10.239 Alcohol dependence with withdrawal, unspecified (principal); F10.220 Alcohol dependence with intoxication, uncomplicated; E87.6 Hypokalemia; E83.42 Hypomagnesemia; R45.851 Suicidal ideations; I10 Essential (primary) hypertension; K21.9 Gastro-esophageal reflux disease without esophagitis; Z87.442 Personal history of urinary calculi; Z86.010 Personal history of colon polyps; D64.9 Anemia, unspecified; Z90.49 Acquired absence of other specified parts of digestive tract; F19.10 Other psychoactive substance abuse, uncomplicated; F32.9 Major depressive disorder, single episode, unspecified; E66.9 Obesity, unspecified; Z68.30 Body mass index [BMI] 30.0-30.9, adult; Z86.16 Personal history of COVID-19; U07.1 COVID-19; E88.09 Other disorders of plasma-protein metabolism, not elsewhere classified; K70.30 Alcoholic cirrhosis of liver without ascites
CPT/HCPCS: 36415; 71045; 71045-26; 73660-26-T5; 73660-T5; 80048; 80053; 80143; 80179; 80306; 80307; 81025; 82947; 83735; 84443; 85007; 85025; 85027; 85379; 86140; 93005; 93010; 96372; 99221; 99233; 99239; 99285; 99285-25; A9270-GY; J1650; J1885; J2060; J2550; J3475; Q3014; U0002

== ENCOUNTER 2021-03-02 02:20 | Emergency (ER) | payer BC ==
[2021-03-02] MEDS ORDERED: Metoclopramide 10 MG/2 ML SDV IVPUSH ONE (02:27)
[2021-03-02 02:28] VITALS: BP 127/85; PULSE 113
[2021-03-02] MEDS ORDERED: LORazepam 2 MG/ML SDV IVPUSH ONE (02:28)
[2021-03-02] MEDS ORDERED: Sodium Chloride 0.9% 1,000 ML IV SCH (02:30)
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
--- NOTE | 2021-03-02 07:59 | CR ---
Left hand: 4 views of the left hand were obtained. Comparison: No prior hand exam is available. No acute fracture, dislocation or other bony abnormality is appreciated. Soft tissue swelling appears to be present dorsally. Impression: 1. Soft tissue swelling. 2. No acute osseous abnormality is appreciated on left hand exam. Diagnostic code #2
--- NOTE | 2021-03-02 07:59 | CT ---
CT cervical spine Comparison: No previous study. Findings: Degenerative change is noted within both temporomandibular joints. Vertebral body heights and disc spaces are maintained. No acute fracture or subluxation is seen. No bony central canal stenosis or neural foraminal stenosis is seen. No acute fracture or other bony abnormality is appreciated. Impression: 1. Degenerative change within both temporomandibular joints. 2. CT study of the cervical spine is otherwise unremarkable. Diagnostic code #2 I agree with preliminary report from [facility] finalized on 03/02/21, 4:56 AM CDT, code 1
--- NOTE | 2021-03-02 08:00 | CT ---
Head CT Technique: Multiple axial sections through the brain were obtained. Intravenous contrast was not utilized. No previous intracranial imaging is available. Findings: Ventricles along with basal cisterns and sulci over the convexities are within normal limits for the patient's age. No abnormal parenchymal densities are seen. No evidence of intracranial hemorrhage. No midline shift or mass-effect is seen. Bone window settings were reviewed. Slight mucosal thickening is seen within the maxillary and ethmoid sinuses which is most likely chronic. No acute abnormality is seen within the mastoid sinuses. No acute calvarial abnormality is appreciated. Impression: 1. Slight sinus findings which are most likely chronic. 2. Nothing acute is identified on noncontrast head CT study. Diagnostic code #2 I agree with preliminary report from [facility] finalized on 03/02/21, 4:54 AM CDT, code 1
--- NOTE | 2021-03-02 08:01 | CT ---
CT lumbar spine Technique: Multiple axial sections were obtained from above the T11 vertebral body inferiorly through the L5-S1 disc. Reconstructed coronal and sagittal images were obtained. Comparison: Reconstructed sagittal views from CT abdomen and pelvis study of 02/23/21. Findings: L1: Mild anterior wedging is seen. This finding is stable from prior CT abdomen and pelvis exam. No acute fracture lines are seen within this vertebral body. Other vertebral body heights are maintained. Disc heights are also preserved. No central canal stenosis or neural foraminal stenosis is seen. Surgical clips are seen from prior cholecystectomy. Impression: 1. Anterior wedging of L1 which is felt to be chronic. 2. Nothing acute is otherwise seen on CT study of the lumbar spine. Diagnostic code #2 I minimally disagree with preliminary report from [facility] finalized on 03/02/21, 4:57 AM CDT, code 2
== END 2021-03-02 08:15 | disposition home or self-care (01) ==
LOC: JD.ED 02:20
DX: S39.012A Strain of muscle, fascia and tendon of lower back, initial encounter (principal); S16.1XXA Strain of muscle, fascia and tendon at neck level, initial encounter; F10.220 Alcohol dependence with intoxication, uncomplicated; S00.03XA Contusion of scalp, initial encounter; I10 Essential (primary) hypertension; K21.9 Gastro-esophageal reflux disease without esophagitis; E66.9 Obesity, unspecified; Z88.8 Allergy status to other drugs, medicaments and biological substances; Z88.0 Allergy status to penicillin; Z88.5 Allergy status to narcotic agent; Z79.899 Other long term (current) drug therapy; Y04.0XXA Assault by unarmed brawl or fight, initial encounter
CPT/HCPCS: 36415; 70450; 72125; 72131; 73130; 80053; 80307; 83690; 83735; 85025; 85610; 85730; 96374; 96375; 99284; J2060; J2765; J7030

== ENCOUNTER 2021-03-17 09:38 | Emergency (ER) | payer BC ==
[2021-03-17 10:03] VITALS: BP 137/81; PULSE 84
[2021-03-17] MEDS ORDERED: Pantoprazole 40 MG Vial IVPUSH ONE (10:23)
[2021-03-17] MEDS ORDERED: Ondansetron 4 MG/2 ML SDV IVPUSH ONE (10:23)
[2021-03-17] MEDS ORDERED: Sodium Chloride 0.9% 1,000 ML IV ONE (10:23)
[2021-03-17] MEDS ORDERED: Sodium Chloride 0.9% 10 ML Syringe FLUSH PRN ×2 (10:23→11:16)
[2021-03-17] MEDS ORDERED: HYDROmorphone 0.5 MG/0.5 ML Syringe IVPUSH ONE ×2 (10:23→11:18)
[2021-03-17] MEDS ORDERED: Diatrizoate Meglumine/Diatrizoate Sodium 37% 120 ML Bottle PO ONE (11:16)
[2021-03-17] MEDS ORDERED: Iopamidol 612 MG/ML 100 ML Bottle IVPUSH ONE (11:16)
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
--- NOTE | 2021-03-17 12:25 | CT ---
CT abdomen and pelvis Technique: Multiple axial sections were obtained from above the dome of the diaphragm inferiorly through the pubic symphysis. Intravenous contrast and oral contrast was utilized. Delayed images were obtained through the bladder. Comparison: Previous CT abdomen and pelvis exam of 02/05/21. Findings: Visualized lung bases show nothing acute. Liver shows slight findings suggesting cirrhosis. There appears to be enhancing varicosities medial to the spleen. Spleen measures at the upper limits of normal at 12.7 cm. Minimal contrast is seen within the distal esophagus compatible with slight reflux. Pancreas shows no discrete abnormality. Surgical clips are noted from prior cholecystectomy. Kidneys show symmetric contrast enhancement without hydronephrosis. No renal mass is seen. Abdominal aorta shows no aneurysm. No retroperitoneal adenopathy or mesenteric abnormalities are seen. No pelvic mass or adenopathy is seen. Appendix is not definitely visualized. Delayed images show contrast within the distal ureters and within the bladder. Bone window settings were reviewed which show no acute osseous finding. Minimal anterior wedging is noted of L1 which appears to be stable. Impression: 1. Probable early cirrhosis with varicosities medial to the spleen. Spleen size measures at the upper limits of normal. These findings are felt to be present on prior exam but are better seen currently due to better contrast enhancement. 2. No other acute abnormality is appreciated on CT study of the abdomen and pelvis. Diagnostic code #3
[2021-03-17] MEDS ORDERED: Sucralfate Suspension 1 GM/10 ML Cup PO ONE (12:32)
== END 2021-03-17 13:08 | disposition home or self-care (01) ==
LOC: JD.ED 09:38
DX: K70.30 Alcoholic cirrhosis of liver without ascites (principal); K29.21 Alcoholic gastritis with bleeding; I10 Essential (primary) hypertension; K21.9 Gastro-esophageal reflux disease without esophagitis; E66.9 Obesity, unspecified; Z68.30 Body mass index [BMI] 30.0-30.9, adult; Z79.899 Other long term (current) drug therapy; Z88.0 Allergy status to penicillin; Z88.8 Allergy status to other drugs, medicaments and biological substances; Z88.5 Allergy status to narcotic agent; Z72.0 Tobacco use
CPT/HCPCS: 36415; 74177; 80053; 80306; 80307; 81003; 82150; 83690; 83735; 85025; 86140; 96374; 96375; 96376; 99284; A9270; C9113; J1170; J2405; J7030; Q9963; Q9967

== ENCOUNTER 2021-03-17 18:30 | Emergency (ER) | payer BC ==
[2021-03-17 18:45] VITALS: BP 132/88; PULSE 87
[2021-03-17] MEDS ORDERED: Metoclopramide 10 MG/2 ML SDV IM ONE (19:53)
--- NOTE | 2021-03-17 19:58 | EDM.PDOC ---
ED HPI GENERAL MEDICAL PROBLEM - General Chief Complaint: Abdominal Pain Stated Complaint: ABDOMINAL PAIN/CHEST PAIN Time Seen by Provider: 03/17/21 19:06 Source of Information: Reports: Patient, Family (), Old Records (ED visit earlier today) History Limitations: Reports: No Limitations - History of Present Illness INITIAL COMMENTS - FREE TEXT/NARRATIVE: Mrs. Pérez is a pleasant 36-year-old woman who, medical records indicate, was seen in this ED earlier today with a complaint of abdominal pain, vomiting, and headache. These are chronic issues for the patient, who has a history of chronic daily alcoholism. She was found to be hemodynamically stable, afebrile, saturating 99% on room air. On examination, she was found to have tenderness to her upper abdomen. Work-up included a CBC, CMP, magnesium level, amylase level, lipase level, CRP, EtOH level, a urinalysis, a urine drug screen, and a CT of the abdomen and pelvis with oral and IV contrast. Her work-up was grossly unremarkable, finding only an alkaline phosphatase level elevated at 270, and benzodiazepines being found in her urine, although she is prescribed lorazepam. The CT scan found evidence for early cirrhosis with varix callosities medial to the spleen and spleen size at the upper limits of normal, also seen on prior CT scans. Of note, the patient has a known history of alcoholic cirrhosis. She was treated with IV Dilaudid, IV Zofran, IV pantoprazole, and oral sucralfate before being discharged home with a prescription for sucralfate. The patient now returns, stating that while she had some relief while in the ED, her symptoms returned. She reports pain radiating up her chest from her epigastrium. She reports having some nausea. She states that she often feels lightheaded when she stands up. She states that the lactulose she is on ordinarily gives her loose bowel movements, and whenever she has oral contrast, that usually gives her diarrhea, however, she states that she has not had a bowel movement today despite having oral contrast earlier today. The patient states that she has been going to [facility], and that she has been sober for about 2 weeks. Here in the ED, the patient is found to be hemodynamically stable, afebrile, saturating 97% on room air. She appears to be comfortable, in no acute distress. The patient denies having a recent fever, chills, sore throat, ear pain, nasal or sinus congestion, cough, dyspnea, chest pain, palpitations, urinary symptoms, recent weight gain or weight loss, recent bloody bowel movements or black bowel movements, recent joint aches, headaches, or rashes. The patient's PCP is Carly Person. Abdominal Pain Score (Numeric/FACES): 10 - Related Data Allergies Allergy/AdvReac Type Severity Reaction Status Date / Time amoxicillin Allergy Severe Cannot Verified 03/17/21 18:45 Remember guaifenesin [From Robitussin] Allergy Severe Airway Verified 03/17/21 18:45 Tightness Penicillins Allergy Severe Anaphylactic Verified 03/17/21 18:45 Shock tramadol AdvReac Severe Tachycardia Verified 03/17/21 18:45 Home Meds: Home Meds Pantoprazole [ProTONIX] 40 mg PO DAILY 12/10/19 [History] Thiamine [Vitamin B-1] 1 tab PO DAILY 07/20/20 [History] Folic Acid 40 mg PO DAILY 01/25/21 [History] Magnesium Amino Acid Chelate [Magnesium] 200 mg PO DAILY 01/25/21 [History] Dicyclomine [Bentyl] 20 mg PO Q6H PRN #15 tablet 02/05/21 [Rx] Ondansetron [Zofran] 4 mg BUCCAL Q6H PRN #12 tab 02/05/21 [Rx] Sucralfate [Carafate] 0.1 gm PO QIDACANDBED #28 cup 03/17/21 [Rx] Past Medical History Gastrointestinal History: Reports: Cirrhosis (alcoholic), Colon Polyp, GERD, GI Bleed (esophageal varicesalcoholic), Hiatal Hernia Genitourinary History: Reports: Renal Calculus [employer] History: Reports: Ectopic , Endometriosis Musculoskeletal History: Reports: Fracture (C3, L1) Psychiatric History: Reports: Addiction (alcohol) Endocrine/Metabolic History: Reports: Obesity/BMI 30+ Hematologic History: Reports: Anemia - Infectious Disease History Infectious Disease History: Reports: MRSA (2004), Novel Coronavirus - Past Surgical History HEENT Surgical History: Reports: Adenoidectomy, Tonsillectomy GI Surgical History: Reports: Cholecystectomy, Colonoscopy, EGD (banding of esophageal varices), Hernia, Inguinal Female Surgical History: Reports: Section, Tubal Ligation Social & Family History - Tobacco Use Tobacco Use Status *Q: Current Every Day Tobacco User Years of Tobacco use: 16 Packs/Tins Daily: 0.5 - Caffeine Use Caffeine Use: Reports: None - Alcohol Use Alcohol Use History: Yes Alcohol Use Frequency: Daily - Recreational Drug Use Recreational Drug Use: Yes Drug Use in Last 12 Months: Yes Recreational Drug Type: Reports: Marijuana/Hashish, Methamphetamine - Living Situation & Occupation Living situation: Reports: , with Spouse Occupation: Unemployed ED ROS GENERAL - Review of Systems Review Of Systems: Comprehensive ROS is negative, except as noted in HPI. ED EXAM, GI/ABD - Physical Exam Exam: See Below Exam Limited By: No Limitations General Appearance: Alert, WD/WN, No Apparent Distress Eyes: Bilateral: Normal Appearance, EOMI Ears: Normal External Exam, Hearing Grossly Normal Nose: Normal Inspection Throat/Mouth: Normal Inspection, Normal Lips, Normal Voice, No Airway Compromise Head: Atraumatic, Normocephalic Neck: Normal Inspection, Full Range of Motion Respiratory/Chest: No Respiratory Distress, Lungs Clear, Normal Breath Sounds, No Accessory Muscle Use Cardiovascular: Normal Peripheral Pulses, Regular Rate, Rhythm, No Edema, No Gallop, No JVD, No Murmur, No Rub GI/Abdominal Exam: Normal Bowel Sounds, Soft, No Organomegaly, No Distention, No Abnormal Bruit, No Mass, Tender (generalized, non-focal) Back Exam: Normal Inspection, Full Range of Motion, NT Extremities: Normal Inspection, Normal Range of Motion, No Pedal Edema, Normal Capillary Refill Neurological: Alert, Oriented, Normal Cognition, No Motor/Sensory Deficits Psychiatric: Normal Affect Skin Exam: Warm, Dry, Intact, Normal Color, No Rash Course - Vital Signs Last Recorded V/S: Last Vital Signs Temp 36.6 C 03/17/21 18:42 Pulse 87 03/17/21 18:42 Resp 18 03/17/21 18:42 BP 132/88 03/17/21 18:42 Pulse Ox 97 03/17/21 18:42 - Orders/Labs/Meds Meds: Medications Discontinued Medications Generic Name Dose Route Start Last Admin Trade Name Freq PRN Reason Stop Dose Admin Metoclopramide HCl 10 mg 03/17/21 19:53 03/17/21 20:12 Metoclopramide 10 Mg/2 Ml Sdv IM 03/17/21 19:54 10 mg ONETIME ONE Administration - Re-Assessments/Exams Free Text/Narrative Re-Assessment/Exam: 03/17/21 19:55 As above, the patient was seen in this ED earlier today for abdominal pain, vomiting, and headache. She had an extensive work-up, all of which was unremarkable. She was discharged home with a prescription for sucralfate. She now returns with continued abdominal pain and reflux symptoms. We discussed a number of issues at length - please see the discharge instructions for a summary. For today's purposes, the patient will be given a single IM injection of Reglan, to help with her nausea. She is to follow-up with Dr. Person, who can arrange for the patient to undergo an EGD and colonoscopy, likely in [place], as she has cirrhosis with esophageal varices. Departure - Departure Time of Disposition: 19:57 Disposition: Home, Self-Care 01 Condition: Good Clinical Impression: Alcoholic cirrhosis, Gastritis, GERD (gastroesophageal reflux disease) - Discharge Information *PRESCRIPTION DRUG MONITORING PROGRAM REVIEWED*: Not Applicable *COPY OF PRESCRIPTION DRUG MONITORING REPORT IN PATIENT SANAZ: Not Applicable Instructions: Cirrhosis Referrals: Carly Person MD [Primary Care Provider] - Forms: ED Department Discharge Additional Instructions: You were seen in the emergency room for continued abdominal pain radiating up into your chest, along with nausea and dry heaves. You were treated with an injection of the antinausea medicine Reglan. A number of issues were discussed: Look into a Mediterranean diet, the healthiest diet in the world, which includes mostly vegetables, with fruits, seeds, nuts, legumes, and seafood, with sparing meats. Extra virgin olive oil is a prominent feature of this diet, which is good for your heart. The increased roughage in your diet is beneficial to your colon, including diverticular disease and the development of colon cancer. Over time, your bowel movements will become more regular. It is perfectly fine for you to eat seeds, nuts, and popcorn with your divertic ular disease, in fact, it is encouraged. Your abdominal pain is most likely due to gastritis caused by erosion of the protective lining of your stomach due to prolonged drinking of alcohol. In order to repair it, it is essential that you strictly abstain from alcohol. You should continue to take pantoprazole. The pain in your chest is most likely due to GERD = acid reflux. There is no way to stop reflux itself, but you can diminish your symptoms by eating small meals more frequently throughout the day, and making sure that you do not eat anything for 2 hours prior to going to bed. Consider elevating the head of your bed a few degrees, as well. The Carafate (sucralfate) that was prescribed for you earlier today is intended to coat your esophagus somewhat to protect against acid. We recommend that you take 1 g 4 times a day, as prescribed. We recommend that you begin exercising by walking, perhaps 1 hour/day. Be aware that exercise may temporarily make your acid reflux symptoms worse, therefore consider taking Carafate (sucralfate) prior to exercising. 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 You are not dehydrated. There is no way to reverse the AV malformations that have already formed in your body, however, you can prevent the condition from getting worse by maintaining strict sobriety. We recommend that you follow-up with your PCP, Dr. Carly Person, at the next available appointment. She can arrange for you to undergo an EGD (scope of the stomach) and colonoscopy, which will likely need to be done in [place], due to your esophageal varices. If any other problems, please do not hesitate to return to the ER. Sepsis Event Note (ED) - Evaluation Sepsis Screening Result: No Definite Risk - Focused Exam Vital Signs: Vital Signs Temp Pulse Resp BP Pulse Ox 03/17/21 18:42 36.6 C 87 18 132/88 97
== END 2021-03-17 20:31 | disposition home or self-care (01) ==
LOC: JD.ED 18:30
DX: K70.30 Alcoholic cirrhosis of liver without ascites (principal); K29.70 Gastritis, unspecified, without bleeding; K21.9 Gastro-esophageal reflux disease without esophagitis; E66.9 Obesity, unspecified; Z68.30 Body mass index [BMI] 30.0-30.9, adult; Z72.0 Tobacco use; Z88.0 Allergy status to penicillin; Z88.5 Allergy status to narcotic agent; Z88.8 Allergy status to other drugs, medicaments and biological substances
CPT/HCPCS: 96372; 99283; J2765

== ENCOUNTER 2021-04-14 08:53 | Emergency (ER) | payer BC ==
[2021-04-14 09:45] VITALS: BP 139/86; PULSE 84
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
[2021-04-14] MEDS ORDERED: HYDROmorphone 0.5 MG/0.5 ML Syringe IVPUSH ONE (09:54)
[2021-04-14] MEDS ORDERED: Metoclopramide 10 MG/2 ML SDV IVPUSH ONE (09:55)
[2021-04-14] MEDS ORDERED: Dextrose 5%-0.9% NaCl 1,000 ML IV SCH (10:00)
[2021-04-14] MEDS ORDERED: Ketorolac 30 MG/ML SDV IVPUSH SCH (10:00)
--- NOTE | 2021-04-14 10:32 | CR ---
Chest: Portable view of the chest was obtained. Comparison: Prior chest x-ray on 02/25/21. Heart size is mildly enlarged. Upper mediastinum is within normal limits. Lungs are clear with no acute parenchymal change. No acute osseous abnormality is appreciated. Impression: 1. Cardiomegaly either real or due to pericardial effusion. 2. Nothing acute is otherwise seen on frontal chest x-ray. Diagnostic code #2
[2021-04-14] MEDS ORDERED: methylPREDNISolone Sodium Succinate 125 MG/2 ML SDV IVPUSH ONE (11:39)
== END 2021-04-14 11:59 | disposition home or self-care (01) ==
LOC: JD.ED 08:53
DX: R07.89 Other chest pain (principal); I10 Essential (primary) hypertension; K21.9 Gastro-esophageal reflux disease without esophagitis; E66.9 Obesity, unspecified; Z86.16 Personal history of COVID-19; Z88.0 Allergy status to penicillin; Z88.5 Allergy status to narcotic agent; Z79.899 Other long term (current) drug therapy; Z68.30 Body mass index [BMI] 30.0-30.9, adult
CPT/HCPCS: 36415; 71045; 80053; 80307; 82553; 83690; 83735; 83880; 84484; 85025; 85610; 85730; 86140; 93005; 96374; 96375; 99285; J1170; J1885; J2765; J2930; J7042; 93010; 99284

== ENCOUNTER 2021-04-26 13:31 | Emergency (ER) | payer BC ==
[2021-04-26 13:50] VITALS: BP 149/97; PULSE 125
== END 2021-04-26 14:45 ==
LOC: JD.ED 13:31
DX: H57.89 Other specified disorders of eye and adnexa (principal); Z53.21 Procedure and treatment not carried out due to patient leaving prior to being seen by health care provider

== ENCOUNTER 2021-04-27 02:53 | Emergency (ER) | payer BC ==
[2021-04-27 03:23] VITALS: BP 129/80; PULSE 91
--- NOTE | 2021-04-27 03:55 | EDM.PDOC ---
ED HPI GENERAL MEDICAL PROBLEM - General Chief Complaint: Respiratory Problem Stated Complaint: CHEST TIGHTNESS Time Seen by Provider: 04/27/21 03:17 Source of Information: Reports: Patient History Limitations: Reports: No Limitations - History of Present Illness INITIAL COMMENTS - FREE TEXT/NARRATIVE: Mrs. Pérez is a pleasant 36-year-old woman who now presents the ED st ating that she developed pain to the right side of her face and neck, extending to her posterior upper right upper extremity yesterday, 04/26/2021. She states that her pain is made better if she turns her head to the left, but worse if she turns her to the right, tilts her chin to her chest, or extends her neck. She denies injury to her neck or arm. She also reports dyspnea if she lies f lat. No prior similar symptoms. The patient states that she came to the ED to be evaluated last night, but left without being seen when she noticed that the ED was busy (of note, the recorded complaint was "Blood in eyes, ears, and nose"). She states that she went home and took 1/4 of 1 tablet of Flexeril around 21:00. She states that the Flexeril did not help, and that she was having difficulty sleeping, therefore came to the ED this morning for evaluation. No prior similar symptoms. Here in the ED tonight, the this morning, the patient is found to be hemodynamically stable, afebrile, saturating 100% on room air. She appears comfortable, in no acute distress. The patient denies having a recent fever, chills, sore throat, ear pain, nasal or sinus congestion, cough, chest pain, palpitations, nausea, vomiting, constipation, diarrhea, abdominal pain, urinary symptoms, recent weight gain or weight loss, recent bloody bowel movements or black bowel movements, recent joint aches, headaches, or rashes. The patient's PCP is Dr. Carly Person. Neck Pain Score (Numeric/FACES): 10 - Related Data Allergies Allergy/AdvReac Type Severity Reaction Status Date / Time amoxicillin Allergy Severe Cannot Verified 04/27/21 03:16 Remember guaifenesin [From Robitussin] Allergy Severe Airway Verified 04/27/21 03:16 Tightness Penicillins Allergy Severe Cannot Verified 04/27/21 03:16 Remember tramadol AdvReac Severe Tachycardia Verified 04/27/21 03:16 Home Meds: Home Meds Pantoprazole [ProTONIX] 40 mg PO DAILY 12/10/19 [History] Thiamine [Vitamin B-1] 1 tab PO DAILY 07/20/20 [History] Folic Acid 40 mg PO DAILY 01/25/21 [History] Magnesium Amino Acid Chelate [Magnesium] 200 mg PO DAILY 01/25/21 [History] Ondansetron [Zofran] 4 mg BUCCAL Q6H PRN #12 tab 02/05/21 [Rx] Sucralfate [Carafate] 0.1 gm PO QIDACANDBED #28 cup 03/17/21 [Rx] oxyCODONE HCl [Roxicodone] 5 mg PO Q6H PRN #12 tablet 04/14/21 [Rx] predniSONE [Prednisone] 20 mg PO BID #18 tablet 04/14/21 [Rx] Past Medical History Gastrointestinal History: Reports: Cirrhosis (alcoholic), Colon Polyp, GERD, GI Bleed (esophageal varices), Hiatal Hernia Genitourinary History: Reports: Renal Calculus 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 , Endometriosis Musculoskeletal History: Reports: Fracture (C3, L1) Psychiatric History: Reports: Addiction (alcohol) Endocrine/Metabolic History: Reports: Obesity/BMI 30+ - Infectious Disease History Infectious Disease History: Reports: MRSA (2004), Novel Coronavirus (Aug 2020) - Past Surgical History HEENT Surgical History: Reports: Adenoidectomy, Tonsillectomy GI Surgical History: Reports: Cholecystectomy, Colonoscopy, EGD (banding of popliteal varices), Hernia, Inguinal Female Surgical History: Reports: Section, Tubal Ligation - Past Imaging History Past Imaging History: Reports: CAT Scan Social & Family History - Tobacco Use Tobacco Use Status *Q: Current Every Day Tobacco User Years of Tobacco use: 16 Packs/Tins Daily: 0.5 - Caffeine Use Caffeine Use: Reports: None - Alcohol Use Alcohol Use History: Yes Alcohol Use Frequency: Daily - Recreational Drug Use Recreational Drug Use: Yes Drug Use in Last 12 Months: Yes Recreational Drug Type: Reports: Marijuana/Hashish, Methamphetamine - Living Situation & Occupation Living situation: Reports: , with Spouse Occupation: Unemployed ED ROS GENERAL - Review of Systems Review Of Systems: Comprehensive ROS is negative, except as noted in HPI. ED EXAM, GENERAL - Physical Exam Exam: See Below Exam Limited By: No Limitations General Appearance: Alert, WD/WN, No Apparent Distress Eye Exam: Bilateral Eye: EOMI, Normal Inspection Ears: Normal External Exam, Hearing Grossly Normal Nose: Normal Inspection Throat/Mouth: Normal Inspection, Normal Lips, Normal Voice, No Airway Compromise Head: Atraumatic, Normocephalic Neck: Limited Range of Motion, Tender Midline, Other (The patient reports increased right face/neck/right upper extremity pain with turning her head to the right, tipping her chin to her chest, or extending her neck. Pain is improved with turning her head to the left. Pain increased with neck compression.) Respiratory/Chest: No Respiratory Distress, Lungs Clear, Normal Breath Sounds, No Accessory Muscle Use. No: Decreased Breath Sounds, Crackles, Rhonchi, Wheezing, Stridor, Prolonged Expiration Cardiovascular: Normal Peripheral Pulses, Regular Rate, Rhythm, No Edema, No Gallop, No JVD, No Murmur, No Rub Peripheral Pulses: 3+: Radial (L), Radial (R) GI/Abdominal: Normal Bowel Sounds, Soft, Non-Tender, No Organomegaly, No Distention, No Abnormal Bruit, No Mass Back Exam: Other (Reproducible tenderness to palpation of the right parascapular musculature) Extremities: Normal Range of Motion, No Pedal Edema, Normal Capillary Refill, Other (Reproducible tenderness to palpation of the upper right arm) Neurological: Alert, Oriented, Normal Cognition, No Motor/Sensory Deficits Psychiatric: Normal Affect Skin Exam: Warm, Dry, Intact, Normal Color, No Rash Course - Vital Signs Last Recorded V/S: Last Vital Signs Temp 36.7 C 04/27/21 03:17 Pulse 91 04/27/21 03:17 Resp 18 04/27/21 03:17 BP 129/80 04/27/21 03:17 Pulse Ox 100 04/27/21 03:17 - Orders/Labs/Meds Orders: Active Orders 24 hr Category Date Time Status Chest 2V [CR] Stat Exams 04/27/21 03:46 Taken FOLIC ACID [CHEM] Stat Lab 04/27/21 04:10 Received VITAMIN B12 [CHEM] Stat Lab 04/27/21 04:10 Received Labs: Laboratory Tests 04/27/21 04/27/21 04/27/21 Range/Units 04:10 04:10 04:10 WBC 8.98 (3.98-10.04) K/mm3 RBC 4.37 (3.98-5.22) M/mm3 Hgb 11.5 (11.2-15.7) gm/dl Hct 36.4 (34.1-44.9) % MCV 83.3 (79.4-94.8) fl MCH 26.3 (25.6-32.2) pg MCHC 31.6 L (32.2-35.5) g/dl RDW Std Deviation 60.8 H (36.4-46.3) fL Plt Count 108 L (182-369) K/mm3 MPV 9.9 (9.4-12.3) fl Neutrophils % (Manual) 55 (40-60) % Band Neutrophils % 0 (0-10) % Lymphocytes % (Manual) 37 (20-40) % Atypical Lymphs % 0 % Monocytes % (Manual) 2 (2-10) % Eosinophils % (Manual) 5 (0.7-5.8) % Basophils % (Manual) 1 (0.1-1.2) Platelet Estimate Decreased Hypochromasia 1+ slight Anisocytosis 1+ slight Ovalocytes 1+ slight D-Dimer, Quantitative 0.84 H (0.19-0.50) mg/L Sodium 142 (136-145) mEq/L Potassium 3.5 (3.5-5.1) mEq/L Chloride 106 (98-107) mEq/L Carbon Dioxide 23 (21-32) mEq/L Anion Gap 16.5 H (5-15) BUN 8 (7-18) mg/dL Creatinine 0.6 (0.55-1.02) mg/dL Est Cr Clr Drug Dosing TNP Estimated GFR (MDRD) > 60 (>60) mL/min BUN/Creatinine Ratio 13.3 L (14-18) Glucose 93 (70-99) mg/dL Calcium 8.3 L (8.5-10.1) mg/dL Magnesium 1.8 (1.8-2.4) mg/dL Total Bilirubin 2.1 H (0.2-1.0) mg/dL AST 97 H (15-37) U/L ALT 50 (14-59) U/L Alkaline Phosphatase 211 H (46-116) U/L NT-Pro-B Natriuret Pep (0-125) pg/mL Total Protein 7.4 (6.4-8.2) g/dl Albumin 3.4 (3.4-5.0) g/dl Globulin 4.0 gm/dL Albumin/Globulin Ratio 0.9 L (1-2) 04/27/21 Range/Units 04:10 WBC (3.98-10.04) K/mm3 RBC (3.98-5.22) M/mm3 Hgb (11.2-15.7) gm/dl Hct (34.1-44.9) % MCV (79.4-94.8) fl MCH (25.6-32.2) pg MCHC (32.2-35.5) g/dl RDW Std Deviation (36.4-46.3) fL Plt Count (182-369) K/mm3 MPV (9.4-12.3) fl Neutrophils % (Manual) (40-60) % Band Neutrophils % (0-10) % Lymphocytes % (Manual) (20-40) % Atypical Lymphs % % Monocytes % (Manual) (2-10) % Eosinophils % (Manual) (0.7-5.8) % Basophils % (Manual) (0.1-1.2) Platelet Estimate Hypochromasia Anisocytosis Ovalocytes D-Dimer, Quantitative (0.19-0.50) mg/L Sodium (136-145) mEq/L Potassium (3.5-5.1) mEq/L Chloride (98-107) mEq/L Carbon Dioxide (21-32) mEq/L Anion Gap (5-15) BUN (7-18) mg/dL Creatinine (0.55-1.02) mg/dL Est Cr Clr Drug Dosing Estimated GFR (MDRD) (>60) mL/min BUN/Creatinine Ratio (14-18) Glucose (70-99) mg/dL Calcium (8.5-10.1) mg/dL Magnesium (1.8-2.4) mg/dL Total Bilirubin (0.2-1.0) mg/dL AST (15-37) U/L ALT (14-59) U/L Alkaline Phosphatase (46-116) U/L NT-Pro-B Natriuret Pep 24 (0-125) pg/mL Total Protein (6.4-8.2) g/dl Albumin (3.4-5.0) g/dl Globulin gm/dL Albumin/Globulin Ratio (1-2) - Re-Assessments/Exams Free Text/Narrative Re-Assessment/Exam: 04/27/21 03:50 As above, the patient reports that she has had pain to the right side of her face and neck, extending to the posterior aspect of the upper most portion of her right upper extremity since yesterday morning. No injury to the area. She states that her pain is better if her head is turned to the left, worse if it is turned to the right, or with her chin tipped to her chest or neck extended. She also reports dyspnea if she lies flat. She took 1/4 of one tablet of cyclobenzaprine around 21:00 last night, which did not help. On examination, she reports tenderness to her cervical spine, but also reports tenderness to palpation of her upper right arm. I suspect that the patient is suffering from right cervical radiculopathy, but she is her own worst enemy by reporting tenderness to her upper right arm, which would not be present with cervical radiculopathy. For today's purposes, I have ordered a work-up that includes numerous blood tests, including a folic acid level and vitamin B12 level, and a chest x-ray. 04/27/21 04:46 Two-view chest radiograph appears to be grossly normal. The cardiac silhouette is within normal limits. No pulmonary vascular congestion. No pleural effusions. No focal infiltrate. No pneumothorax. Formal read per the Radiologist pending. 04/27/21 05:16 Notified by Velvet MUNGUIA that the patient reported that the muscle relaxant that she took last night seemed to have kicked in, and that she was feeling much better. She elected to leave the ED without waiting for her test results or discharge instructions, stating that we could call her with them. Departure - Departure Time of Disposition: 05:16 Disposition: Home, Self-Care 01 Condition: Good Clinical Impression: Neck pain - Discharge Information *PRESCRIPTION DRUG MONITORING PROGRAM REVIEWED*: No *COPY OF PRESCRIPTION DRUG MONITORING REPORT IN PATIENT SANAZ: No Referrals: Carly Person MD [Primary Care Provider] - Forms: ED Department Discharge Sepsis Event Note (ED) - Evaluation Sepsis Screening Result: No Definite Risk - Focused Exam Vital Signs: Vital Signs Temp Pulse Resp BP Pulse Ox 04/27/21 03:17 36.7 C 91 18 129/80 100 - My Orders Last 24 Hours: My Active Orders 04/27/21 03:46 Chest 2V [CR] Stat 04/27/21 04:10 FOLIC ACID [CHEM] Stat VITAMIN B12 [CHEM] Stat - Assessment/Plan Last 24 Hours: My Active Orders 04/27/21 03:46 Chest 2V [CR] Stat 04/27/21 04:10 FOLIC ACID [CHEM] Stat VITAMIN B12 [CHEM] Stat
--- NOTE | 2021-04-27 07:50 | CR ---
Chest: 2 views of the chest were obtained. Comparison: Prior chest x-ray of 04/14/21. Heart size is at the upper limits of normal. Lungs are clear with no acute parenchymal change. Bony structure shows nothing acute. Impression: 1. Heart size at the upper limits of normal. 2. Nothing acute is identified on 2 view chest x-ray. Diagnostic code #2
== END 2021-04-27 05:18 | disposition home or self-care (01) ==
LOC: JD.ED 02:53
DX: M54.2 Cervicalgia (principal); K21.9 Gastro-esophageal reflux disease without esophagitis; E66.9 Obesity, unspecified; Z68.30 Body mass index [BMI] 30.0-30.9, adult; Z79.899 Other long term (current) drug therapy; Z88.8 Allergy status to other drugs, medicaments and biological substances; Z88.5 Allergy status to narcotic agent; Z88.1 Allergy status to other antibiotic agents; Z72.0 Tobacco use
CPT/HCPCS: 36415; 71046; 71046-26; 80053; 82607; 82746; 83735; 83880; 85007; 85027; 85379; 99282; 99283-25

== ENCOUNTER 2021-06-11 06:04 | Emergency (ER) | payer BC ==
[2021-06-11 06:14] VITALS: BP 123/83; PULSE 92
[2021-06-11] MEDS ORDERED: Morphine 4 MG/ML Syringe IVPUSH ONE (06:29)
[2021-06-11] MEDS ORDERED: Sodium Chloride 0.9% 10 ML Syringe FLUSH PRN (06:29)
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
[2021-06-11] MEDS ORDERED: Lactated Ringers 1,000 ML IV SCH (06:45)
[2021-06-11] MEDS ORDERED: Ketorolac 30 MG/ML SDV IVPUSH ONE (08:00)
--- NOTE | 2021-06-11 10:31 | CR ---
Chest: Portable view of the chest was obtained. Comparison: Prior chest x-ray of 04/27/21. Heart size and mediastinum are within normal limits for portable technique. Lungs are clear with no acute parenchymal change. Bony structures show nothing acute. Impression: 1. Nothing acute is seen on portable chest x-ray. Diagnostic code #1
== END 2021-06-11 08:22 | disposition home or self-care (01) ==
LOC: JD.ED 06:04
DX: R07.89 Other chest pain (principal); F10.129 Alcohol abuse with intoxication, unspecified; I10 Essential (primary) hypertension; E66.9 Obesity, unspecified; Z68.21 Body mass index [BMI] 21.0-21.9, adult; Z20.822 Contact with and (suspected) exposure to COVID-19; Z88.0 Allergy status to penicillin; Z88.5 Allergy status to narcotic agent; Z88.8 Allergy status to other drugs, medicaments and biological substances
CPT/HCPCS: 36415; 71045; 80053; 80307; 84484; 85025; 85379; 87040; 87635; 87651; 87804; 93005; 96374; 96375; 99285; J1885; J2270; J7120; 93010; 99284; U0002

== ENCOUNTER 2021-06-28 20:49 | Emergency (ER) | payer BC | END 2021-06-28 20:54 | disposition left against medical advice (07) | LOC: JD.ED 20:49 | DX: R10.9 Unspecified abdominal pain (principal); Z53.21 Procedure and treatment not carried out due to patient leaving prior to being seen by health care provider ==

== ENCOUNTER 2021-08-04 10:46 | Emergency (ER) | payer BC ==
[2021-08-04] MEDS ORDERED: Pantoprazole 40 MG Vial IVPUSH ONE (11:15)
[2021-08-04] MEDS ORDERED: Sodium Chloride 0.9% 10 ML Syringe FLUSH PRN (11:15)
[2021-08-04] MEDS ORDERED: Ondansetron 4 MG/2 ML SDV IVPUSH ONE (11:15)
[2021-08-04] MEDS ORDERED: Sodium Chloride 0.9% 1,000 ML IV STA (11:15)
[2021-08-04] MEDS ORDERED: LORazepam 2 MG/ML SDV IVPUSH ONE (11:16)
[2021-08-04] MEDS ORDERED: HYDROmorphone 0.5 MG/0.5 ML Syringe IVPUSH ONE (11:16)
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
[2021-08-04 13:59] VITALS: BP 115/70; PULSE 110
== END 2021-08-04 13:45 | disposition home or self-care (01) ==
LOC: JD.ED 10:46
DX: K92.2 Gastrointestinal hemorrhage, unspecified (principal); I10 Essential (primary) hypertension; K21.9 Gastro-esophageal reflux disease without esophagitis; E66.9 Obesity, unspecified; Z68.29 Body mass index [BMI] 29.0-29.9, adult; Z72.0 Tobacco use; Z88.8 Allergy status to other drugs, medicaments and biological substances; Z88.0 Allergy status to penicillin; Z88.5 Allergy status to narcotic agent; Z79.899 Other long term (current) drug therapy
CPT/HCPCS: 36415; 80053; 82977; 83690; 85025; 86140; 96374; 96375; 99284; C9113; J1170; J2060; J2405; J7030

== ENCOUNTER 2021-08-04 23:26 | Emergency (ER) | payer BC ==
[2021-08-05 01:00] VITALS: BP 133/82; PULSE 107
[2021-08-05 01:29] LABS: CORONAVIRUS COVID-19 NAA NEGATIVE (NEGATIVE)
[2021-08-05] MEDS ORDERED: Ondansetron 4 MG/2 ML SDV IVPUSH ONE (01:38)
[2021-08-05] MEDS ORDERED: Ondansetron 4 MG Tab.DIS PO ONE (01:48)
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
[2021-08-05] MEDS ORDERED: Nitrofurantoin Monohydrate/Macrocrystalline 100 MG Cap PO ONE (02:34)
== END 2021-08-05 02:45 | disposition home or self-care (01) ==
LOC: JD.ED 23:26
DX: N39.0 Urinary tract infection, site not specified (principal); R11.2 Nausea with vomiting, unspecified; I10 Essential (primary) hypertension; K21.9 Gastro-esophageal reflux disease without esophagitis; E66.9 Obesity, unspecified; Z68.28 Body mass index [BMI] 28.0-28.9, adult; Z79.899 Other long term (current) drug therapy; Z72.0 Tobacco use; Z88.0 Allergy status to penicillin; Z88.8 Allergy status to other drugs, medicaments and biological substances; Z88.5 Allergy status to narcotic agent; Z20.822 Contact with and (suspected) exposure to COVID-19
CPT/HCPCS: 0240U; 36415; 80053; 80307; 81001; 84484; 85025; 93005; 99285; A9270

== ENCOUNTER 2021-09-09 15:24 | Emergency (ER) | payer BC ==
[2021-09-09 16:20] VITALS: BP 140/92; PULSE 114
[2021-09-09] MEDS ORDERED: Ondansetron 4 MG/2 ML SDV IVPUSH ONE (16:22)
[2021-09-09] MEDS ORDERED: Sodium Chloride 0.9% 10 ML Syringe FLUSH PRN (16:22)
[2021-09-09] MEDS ORDERED: Sodium Chloride 0.9% 1,000 ML IV SCH ×2 (16:30→22:05)
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
[2021-09-09] MEDS ORDERED: Lactated Ringers 1,000 ML IV ONE (19:57)
[2021-09-09] MEDS ORDERED: Magnesium Sulfate/Water 2 GM in Premix Bag 1 BAG IV ONE (19:58)
[2021-09-09] MEDS ORDERED: Potassium Chloride 20 MEQ Tab.ER PO ONE (19:59)
[2021-09-09] MEDS ORDERED: Pantoprazole 40 MG Vial IVPUSH ONE (20:01)
[2021-09-09] MEDS: Potassium Chloride 10 MEQ in Premix Bag 1 BAG IV SCH ×3 (20:17→22:45)
[2021-09-09] MEDS ORDERED: cefTRIAXone 1 GM in Sodium Chloride 0.9% 100 ML IV ONE (20:54)
[2021-09-09] MEDS: Sodium Chloride 0.9% 1,000 ML ONE ×2 (21:45→23:57)
[2021-09-09] MEDS ORDERED: Sodium Chloride 0.9% 100 ML ONE (21:45)
[2021-09-09] MEDS ORDERED: Octreotide 500 MCG in Sodium Chloride 0.9% 499 ML IV SCH (21:45)
[2021-09-09] MEDS ORDERED: Morphine 4 MG/ML VIAL IVPUSH ONE (22:30)
[2021-09-09] MEDS ORDERED: Morphine 4 MG/ML Syringe ONE (22:37)
[2021-09-10] MEDS ORDERED: Morphine 4 MG/ML Syringe IVPUSH ONE (00:03)
== END 2021-09-10 00:45 ==
LOC: JD.ED 15:24
DX: K92.2 Gastrointestinal hemorrhage, unspecified (principal); K70.30 Alcoholic cirrhosis of liver without ascites; D50.9 Iron deficiency anemia, unspecified; I10 Essential (primary) hypertension; K21.9 Gastro-esophageal reflux disease without esophagitis; E66.9 Obesity, unspecified; Z68.30 Body mass index [BMI] 30.0-30.9, adult; Z88.0 Allergy status to penicillin; Z88.5 Allergy status to narcotic agent; Z88.8 Allergy status to other drugs, medicaments and biological substances; Z79.899 Other long term (current) drug therapy; Z72.0 Tobacco use; Z20.822 Contact with and (suspected) exposure to COVID-19
CPT/HCPCS: 36415; 80053; 80307; 82140; 82248; 82977; 83690; 83735; 84702; 85025; 85610; 86140; 86850; 86900; 86901; 86922; 87635; 96365; 96366; 96367; 96368; 96375; 96376; 99285; A9270; C9113; J0696; J2270; J2354; J3475; J3480; J7030; J7040; J7120; U0002

== ENCOUNTER 2021-09-15 06:00 | Emergency (ER) | payer BC ==
[2021-09-15 06:20] VITALS: BP 133/69; PULSE 85
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
== END 2021-09-15 07:09 | disposition home or self-care (01) ==
LOC: JD.ED 06:00
DX: R00.2 Palpitations (principal); K21.9 Gastro-esophageal reflux disease without esophagitis; E66.9 Obesity, unspecified; Z87.891 Personal history of nicotine dependence; Z68.31 Body mass index [BMI] 31.0-31.9, adult; Z88.8 Allergy status to other drugs, medicaments and biological substances; Z88.0 Allergy status to penicillin; Z88.5 Allergy status to narcotic agent; Z79.899 Other long term (current) drug therapy
CPT/HCPCS: 93005; 99284-25

== ENCOUNTER 2021-09-22 17:23 | Inpatient (IN) | payer BC, OTHER ==
[2021-09-22] MEDS ORDERED: HYDROmorphone 1 MG/ML Syringe IVPUSH ONE (18:14)
[2021-09-22] MEDS ORDERED: Metoclopramide 10 MG/2 ML SDV IVPUSH ONE (18:14)
[2021-09-22] MEDS ORDERED: Sodium Chloride 0.9% 1,000 ML IV SCH (18:15)
[2021-09-22] MEDS ORDERED: cefTRIAXone 2 GM in Sodium Chloride 0.9% 100 ML IV ONE (18:18)
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
[2021-09-22] MEDS ORDERED: Iopamidol 612 MG/ML 50 ML SDV IVPUSH ONE (20:14)
[2021-09-22] MEDS ORDERED: Iopamidol 612 MG/ML 100 ML Bottle IVPUSH ONE (20:14)
[2021-09-22] MEDS ORDERED: Sodium Chloride 0.9% 10 ML Syringe FLUSH ONE (20:14)
--- NOTE | 2021-09-22 20:51 | CT ---
CT abdomen and pelvis Technique: Multiple axial sections were obtained from above the dome of the diaphragm inferiorly through the pubic symphysis. Intravenous contrast was utilized. Oral contrast has also been given. Delayed images were also obtained through the bladder. Comparison: Prior CT abdomen and pelvis study of 03/17/21. Findings: Visualized lung bases show nothing acute. Liver shows findings of cirrhosis. Surgical clips are noted from prior cholecystectomy. Spleen is enlarged to 15.5 cm. Stable varicosities are seen within the upper abdomen. Adrenal glands show no nodule. Kidneys show symmetric contrast enhancement without hydronephrosis or mass. Abdominal aorta shows no aneurysm. No retroperitoneal adenopathy is seen. No pelvic mass or adenopathy is noted. Appendix is not visualized. Ascites is seen surrounding the liver and spleen and within the paracolic gutters and becoming confluent within the pelvis. Diffuse body wall edema is also noted. Delayed images show contrast within the ureters as well as within the bladder. Bone window settings were reviewed which show mild anterior wedging within L1 which is stable. No acute osseous finding is seen. Impression: 1. Findings of cirrhosis with splenomegaly and varicosities. 2. Ascites is seen which is an interval change from prior exam. 3. Diffuse body wall edema is seen. 4. Other findings believed to be incidental. Diagnostic code #3
[2021-09-22] MEDS ORDERED: HYDROmorphone 0.5 MG/0.5 ML Syringe IVPUSH ONE (22:16)
[2021-09-22] MEDS ORDERED: Lactulose Soln 10 GM/15 ML 30 ML UD Cup PO ONE (22:16)
[2021-09-22] MEDS ORDERED: Pantoprazole 40 MG Tab.CR PO ONE (23:45)
[2021-09-23] MEDS ORDERED: Ondansetron 4 MG/2 ML SDV IVPUSH PRN (00:18)
[2021-09-23] MEDS ORDERED: Sodium Chloride 0.9% 1,000 ML IV SCH (00:30)
[2021-09-23] MEDS: HYDROmorphone 0.5 MG/0.5 ML Syringe IVPUSH PRN (06:47)
--- NOTE | 2021-09-23 07:06 | CR ---
Chest: Portable view of the chest was obtained. Comparison: Prior chest x-ray of 06/11/21. Heart size and mediastinum are within normal limits for portable technique. Lungs show no acute parenchymal change. Bony structures show nothing acute. Impression: 1. Nothing acute is seen on portable chest x-ray. Diagnostic code #1
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
[2021-09-23] MEDS ORDERED: Non-Formulary Medication 1 Each (Oxycodone Hcl [Oxycodone Hcl] 5 MG Capsule) PO PRN (08:07)
[2021-09-23] MEDS ORDERED: Dicyclomine 10 MG Cap PO PRN (08:07)
[2021-09-23] MEDS ORDERED: Ondansetron 4 MG/2 ML SDV IV PRN (08:08)
[2021-09-23] MEDS ORDERED: oxyCODONE 5 MG Tab PO PRN (08:13)
[2021-09-23] MEDS: Meropenem Premix 500 MG in Premix Bag 1 BAG IV SCH ×3 (08:20→20:19)
[2021-09-23] MEDS ORDERED: Potassium Chloride 20 MEQ Tab.ER PO SCH (09:00)
[2021-09-23] MEDS: Albumin 25% 12.5 GM in Premix Bag 1 BAG IV SCH ×8 (09:05→14:43)
[2021-09-23] MEDS: Lactulose Soln 10 GM/15 ML 30 ML UD Cup PO SCH ×2 (09:41→20:19)
[2021-09-23] MEDS: Folic Acid 1 MG Tab PO SCH (09:41)
[2021-09-23] MEDS: Thiamine 100 MG Tab PO SCH (09:41)
[2021-09-23] MEDS: Spironolactone 25 MG Tab PO SCH (09:42)
[2021-09-23] MEDS: Magnesium Oxide 400 MG Tab PO SCH (09:42)
[2021-09-23] MEDS: Pantoprazole 40 MG Tab.CR PO SCH (09:42)
[2021-09-23] MEDS: Multivitamin Tab PO SCH (09:42)
[2021-09-23] MEDS ORDERED: Potassium Chloride 20 MEQ Tab.ER PO ONE (10:00)
[2021-09-23] MEDS ORDERED: Albumin 25% 0 ML ONE (10:50)
[2021-09-23] MEDS ORDERED: Furosemide 40 MG/4 ML VIAL IVPUSH ONE (11:46)
[2021-09-23] MEDS: oxyCODONE 5 MG Tab PO PRN ×2 (15:39→21:53)
[2021-09-23] MEDS: Potassium Chloride 20 MEQ Tab.ER PO SCH (20:19)
[2021-09-23] MEDS: Metoclopramide 10 MG/2 ML SDV IVPUSH PRN (20:20)
[2021-09-23] MEDS ORDERED: Pantoprazole 40 MG Tab.CR PO ONE (22:18)
[2021-09-24] MEDS: Meropenem Premix 500 MG in Premix Bag 1 BAG IV SCH ×4 (02:02→20:11)
[2021-09-24] MEDS: oxyCODONE 5 MG Tab PO PRN ×4 (04:12→22:25)
--- NOTE | 2021-09-24 07:14 | PCM.PN ---
- General Info Date of Service: 09/24/21 Admission Dx/Problem (Free Text): Admission Diagnosis/Problem Admission Diagnosis/Problem Liver failure Functional Status: Reports: Pain Controlled, Tolerating Diet, Ambulating, Urinating. Denies: New Symptoms - Review of Systems General: Reports: No Symptoms. Denies: Fever, Weakness, Fatigue, Malaise, Chills HEENT: Reports: No Symptoms. Denies: Headaches, Sore Throat Pulmonary: Reports: No Symptoms. Denies: Shortness of Breath, Cough, Sputum, Wheezing Cardiovascular: Reports: Dyspnea on Exertion, Edema. Denies: Chest Pain, Palpitations Gastrointestinal: Reports: Abdominal Pain (Upper quadrants ), Hematochezia (Reported by patient). Denies: Constipation, Diarrhea, Nausea, Vomiting Genitourinary: Reports: No Symptoms. Denies: Pain Musculoskeletal: Reports: No Symptoms Skin: Reports: Jaundice. Denies: Cyanosis Neurological: Reports: No Symptoms. Denies: Confusion, Dizziness, Headache, Numbness, Pre-Existing Deficit, Tingling, Difficulty Walking, Weakness, Gait Disturbance Psychiatric: Reports: No Symptoms - Patient Data Vitals - Most Recent: Last Vital Signs Temp 98.4 F 09/24/21 04:16 Pulse 101 H 09/24/21 04:16 Resp 16 09/24/21 04:16 BP 127/63 09/24/21 04:16 Pulse Ox 100 09/24/21 04:16 Weight - Most Recent: 190 lb 6.4 oz I&O - Last 24 Hours: Intake & Output 09/23/21 09/24/21 09/24/21 22:59 06:59 14:59 Intake Total 4410 1100 Output Total 1400 2000 Balance 3010 -900 Lab Results Last 24 Hours: Laboratory Results - last 24 hr 09/23/21 09/23/21 09/23/21 Range/Units 08:04 08:04 08:04 WBC 18.12 H (3.98-10.04) K/mm3 RBC 3.44 L (3.98-5.22) M/mm3 Hgb 10.7 L (11.2-15.7) gm/dl Hct 33.7 L (34.1-44.9) % MCV 98.0 H (79.4-94.8) fl MCH 31.1 (25.6-32.2) pg MCHC 31.8 L (32.2-35.5) g/dl RDW Std Deviation 75.3 H (36.4-46.3) fL Plt Count 108 L (182-369) K/mm3 MPV 9.8 (9.4-12.3) fl Neut % (Auto) 83.7 H (34.0-71.1) % Lymph % (Auto) 6.7 L (19.3-51.7) % [place] % (Auto) 8.2 (4.7-12.5) % Eos % (Auto) 0.4 L (0.7-5.8) Baso % (Auto) 0.2 (0.1-1.2) % Neut # (Auto) 15.15 H (1.56-6.13) K/mm3 Lymph # (Auto) 1.21 (1.18-3.74) K/mm3 [place] # (Auto) 1.49 H (0.24-0.36) K/mm3 Eos # (Auto) 0.08 (0.04-0.36) K/mm3 Baso # (Auto) 0.04 (0.01-0.08) K/mm3 Manual Slide Review Sodium 136 (136-145) mEq/L Potassium 3.4 L (3.5-5.1) mEq/L Chloride 101 (98-107) mEq/L Carbon Dioxide 23 (21-32) mEq/L Anion Gap 15.4 H (5-15) BUN 8 (7-18) mg/dL Creatinine 0.6 (0.55-1.02) mg/dL Est Cr Clr Drug Dosing 111.93 mL/min Estimated GFR (MDRD) > 60 (>60) mL/min BUN/Creatinine Ratio 13.3 L (14-18) Glucose 80 (70-99) mg/dL Calcium 7.8 L (8.5-10.1) mg/dL Phosphorus 2.9 (2.6-4.7) mg/dL Magnesium 2.0 (1.8-2.4) mg/dL Total Bilirubin 26.4 H (0.2-1.0) mg/dL AST 101 H (15-37) U/L ALT 56 (14-59) U/L Alkaline Phosphatase 252 H (46-116) U/L Ammonia (11-32) umol/L C-Reactive Protein 4.3 H* (<1.0) mg/dL Total Protein 5.8 L (6.4-8.2) g/dl Albumin 1.5 L (3.4-5.0) g/dl Globulin 4.3 gm/dL Albumin/Globulin Ratio 0.4 L (1-2) Procalcitonin 0.75 H ng/mL 09/23/21 09/24/21 09/24/21 Range/Units 09:59 05:10 05:10 WBC 12.90 H (3.98-10.04) K/mm3 RBC 2.74 L (3.98-5.22) M/mm3 Hgb 8.4 L D (11.2-15.7) gm/dl Hct 27.8 L (34.1-44.9) % MCV 101.5 H D (79.4-94.8) fl MCH 30.7 (25.6-32.2) pg MCHC 30.2 L (32.2-35.5) g/dl RDW Std Deviation 75.6 H (36.4-46.3) fL Plt Count 84 L (182-369) K/mm3 MPV 10.3 (9.4-12.3) fl Neut % (Auto) 74.7 H (34.0-71.1) % Lymph % (Auto) 12.0 L (19.3-51.7) % [place] % (Auto) 8.7 (4.7-12.5) % Eos % (Auto) 2.6 (0.7-5.8) Baso % (Auto) 0.5 (0.1-1.2) % Neut # (Auto) 9.63 H (1.56-6.13) K/mm3 Lymph # (Auto) 1.55 (1.18-3.74) K/mm3 [place] # (Auto) 1.12 H (0.24-0.36) K/mm3 Eos # (Auto) 0.34 (0.04-0.36) K/mm3 Baso # (Auto) 0.07 (0.01-0.08) K/mm3 Manual Slide Review Abnormal smear Sodium 135 L (136-145) mEq/L Potassium 3.5 (3.5-5.1) mEq/L Chloride 100 (98-107) mEq/L Carbon Dioxide 24 (21-32) mEq/L Anion Gap 14.5 (5-15) BUN 9 (7-18) mg/dL Creatinine 0.6 (0.55-1.02) mg/dL Est Cr Clr Drug Dosing 112.75 mL/min Estimated GFR (MDRD) > 60 (>60) mL/min BUN/Creatinine Ratio 15.0 (14-18) Glucose 105 H (70-99) mg/dL Calcium 7.8 L (8.5-10.1) mg/dL Phosphorus (2.6-4.7) mg/dL Magnesium (1.8-2.4) mg/dL Total Bilirubin 27.5 H (0.2-1.0) mg/dL AST 108 H (15-37) U/L ALT 38 (14-59) U/L Alkaline Phosphatase 187 H (46-116) U/L Ammonia 43 H (11-32) umol/L C-Reactive Protein 3.1 H* (<1.0) mg/dL Total Protein 5.3 L (6.4-8.2) g/dl Albumin 2.4 L (3.4-5.0) g/dl Globulin 2.9 gm/dL Albumin/Globulin Ratio 0.8 L (1-2) Procalcitonin ng/mL Med Orders - Current: Current Medications Dicyclomine HCl (Dicyclomine 10 Mg Cap) 10 mg PO DAILY PRN PRN Reason: abdominal cramp Folic Acid (Folic Acid 1 Mg Tab) 1 mg PO DAILY [facility] Last Admin: 09/23/21 09:41 Dose: 1 mg Documented by: Hydromorphone HCl (Hydromorphone 0.5 Mg/0.5 Ml Syringe) 0.5 mg IVPUSH Q4H PRN PRN Reason: Pain Last Admin: 09/23/21 06:47 Dose: 0.5 mg Documented by: Meropenem/Sodium Chloride 500 (mg/ Premix) 50 mls @ 100 mls/hr IV Q6H [facility] Last Admin: 09/24/21 02:02 Dose: 100 mls/hr Documented by: Albumin Human 12.5 gm/ Premix 50 mls @ 100 mls/hr IV Q1H [facility] Stop: 09/25/21 15:29 Lactulose (Lactulose Soln 10 Gm/15 Ml 30 Ml Ud Cup) 15 gm PO BID [facility] Last Admin: 09/23/21 20:19 Dose: 15 gm Documented by: Magnesium Oxide (Magnesium Oxide 400 Mg Tab) 400 mg PO DAILY [facility] Last Admin: 09/23/21 09:42 Dose: 400 mg Documented by: Metoclopramide HCl (Metoclopramide 10 Mg/2 Ml Sdv) 10 mg IVPUSH Q6H PRN PRN Reason: Nausea Last Admin: 09/23/21 20:20 Dose: 10 mg Documented by: Multivitamins/Minerals/Vitamin C (Multivitamin Tab) 1 tab PO DAILY [facility] Last Admin: 09/23/21 09:42 Dose: 1 tab Documented by: Oxycodone HCl (Oxycodone 5 Mg Tab) 10 mg PO Q6H PRN PRN Reason: Pain (moderate 4-6) Last Admin: 09/24/21 04:12 Dose: 10 mg Documented by: Pantoprazole Sodium (Pantoprazole 40 Mg Tab.Cr) 40 mg PO DAILY [facility] Last Admin: 09/23/21 09:42 Dose: 40 mg Documented by: Potassium Chloride (Potassium Chloride 20 Meq Tab.Er) 40 meq PO BID [facility] Last Admin: 09/23/21 20:19 Dose: 40 meq Documented by: Spironolactone (Spironolactone 25 Mg Tab) 25 mg PO DAILY [facility] Last Admin: 09/23/21 09:42 Dose: 25 mg Documented by: Thiamine HCl (Thiamine 100 Mg Tab) 100 mg PO DAILY [facility] Last Admin: 09/23/21 09:41 Dose: 100 mg Documented by: Discontinued Medications Furosemide (Furosemide 40 Mg/4 Ml Vial) 40 mg IVPUSH NOW ONE Stop: 09/23/21 11:47 Last Admin: 09/23/21 12:50 Dose: 40 mg Documented by: Hydromorphone HCl (Hydromorphone 1 Mg/Ml Syringe) 1 mg IVPUSH ONETIME ONE Stop: 09/22/21 18:15 Last Admin: 09/22/21 18:23 Dose: 1 mg Documented by: Hydromorphone HCl (Hydromorphone 0.5 Mg/0.5 Ml Syringe) 0.5 mg IVPUSH ONETIME ONE Stop: 09/22/21 22:17 Last Admin: 09/22/21 23:46 Dose: 0.5 mg Documented by: Sodium Chloride (Normal Saline) 1,000 mls @ 125 mls/hr IV ASDIRECTED [facility] Last Admin: 09/22/21 18:23 Dose: 125 mls/hr Documented by: Ceftriaxone Sodium 2 gm/ (Sodium Chloride) 100 mls @ 200 mls/hr IV ONETIME ONE Stop: 09/22/21 18:47 Last Admin: 09/22/21 19:21 Dose: 200 mls/hr Documented by: Sodium Chloride (Normal Saline) 1,000 mls @ 75 mls/hr IV ASDIRECTED [facility] Last Admin: 09/23/21 00:26 Dose: 75 mls/hr Documented by: Albumin Human 12.5 gm/ Premix 50 mls @ 100 mls/hr IV Q1H [facility] Stop: 09/23/21 15:59 Last Admin: 09/23/21 14:43 Dose: 100 mls/hr Documented by: Albumin Human (Flexbumin 25%) Confirm Administered Dose 50 mls @ as directed .ROUTE .STK-MED ONE Stop: 09/23/21 10:51 Last Admin: 09/23/21 12:40 Dose: Not Given Documented by: Iopamidol (Iopamidol 612 Mg/Ml 100 Ml Bottle) 100 ml IVPUSH ONETIME ONE Stop: 09/22/21 20:15 Last Admin: 09/22/21 20:54 Dose: 100 ml Documented by: Iopamidol (Iopamidol 612 Mg/Ml 50 Ml Sdv) 50 ml IVPUSH ONETIME ONE Stop: 09/22/21 20:15 Last Admin: 09/22/21 20:54 Dose: 50 ml Documented by: Lactulose (Lactulose Soln 10 Gm/15 Ml 30 Ml Ud Cup) 15 gm PO ONETIME ONE Stop: 09/22/21 22:17 Last Admin: 09/22/21 23:46 Dose: 15 gm Documented by: Metoclopramide HCl (Metoclopramide 10 Mg/2 Ml Sdv) 10 mg IVPUSH ONETIME ONE Stop: 09/22/21 18:15 Last Admin: 09/22/21 18:23 Dose: 10 mg Documented by: Non-Formulary Medication (Oxycodone Hcl [Oxycodone Hcl]) 5 mg PO Q6H PRN PRN Reason: Pain Ondansetron HCl (Ondansetron 4 Mg/2 Ml Sdv) 4 mg IVPUSH Q6H PRN PRN Reason: Nausea Ondansetron HCl (Ondansetron 4 Mg/2 Ml Sdv) 4 mg IV Q6H PRN PRN Reason: Nausea/Vomiting Oxycodone HCl (Oxycodone 5 Mg Tab) 5 mg PO Q6H PRN PRN Reason: Pain (moderate 4-6) Last Admin: 09/23/21 09:41 Dose: 5 mg Documented by: Pantoprazole Sodium (Pantoprazole 40 Mg Tab.Cr) 40 mg PO ONETIME ONE Stop: 09/23/21 22:19 Pantoprazole Sodium (Pantoprazole 40 Mg Tab.Cr) 40 mg PO ONETIME ONE Stop: 09/22/21 23:46 Last Admin: 09/22/21 23:46 Dose: 40 mg Documented by: Potassium Chloride (Potassium Chloride 20 Meq Tab.Er) 20 meq PO BID [facility] Last Admin: 09/23/21 09:42 Dose: 20 meq Documented by: Potassium Chloride (Potassium Chloride 20 Meq Tab.Er) 20 meq PO ONETIME ONE Stop: 09/23/21 10:01 Last Admin: 09/23/21 12:00 Dose: 20 meq Documented by: Sodium Chloride (Sodium Chloride 0.9% 10 Ml Syringe) 10 ml FLUSH ONETIME ONE Stop: 09/22/21 20:15 Last Admin: 09/22/21 20:54 Dose: 10 ml Documented by: - Exam Quality Assessment: DVT Prophylaxis. No: Supplemental Oxygen, Urine Catheter General: Alert, Oriented, Cooperative, No Acute Distress HEENT: Pupils Equal, Pupils Reactive, Mucous Membr. Moist/[place], Scleral Icterus Neck: Supple, Trachea Midline Lungs: Clear to Auscultation, Normal Respiratory Effort Cardiovascular: Regular Rate, Regular Rhythm GI/Abdominal Exam: Normal Bowel Sounds, Soft, Non-Tender, Distended, Tender (Upper quadrants and arround umbilicus ), Hepatomegaly, Splenomegaly (Female) Exam: Deferred Back Exam: Normal Inspection, Full Range of Motion Extremities: Normal Inspection, Normal Range of Motion, Non-Tender, Normal Capillary Refill, Pedal Edema (2-3+ up in the thighs) Skin: Warm, Dry, Intact, Other (Significant jaundice) Neurological: No New Focal Deficit Psy/Mental Status: Alert, Normal Affect, Normal Mood - Patient Data Lab Results Last 24 hrs: Laboratory Results - last 24 hr 09/23/21 09/23/21 09/23/21 Range/Units 08:04 08:04 08:04 WBC 18.12 H (3.98-10.04) K/mm3 RBC 3.44 L (3.98-5.22) M/mm3 Hgb 10.7 L (11.2-15.7) gm/dl Hct 33.7 L (34.1-44.9) % MCV 98.0 H (79.4-94.8) fl MCH 31.1 (25.6-32.2) pg MCHC 31.8 L (32.2-35.5) g/dl RDW Std Deviation 75.3 H (36.4-46.3) fL Plt Count 108 L (182-369) K/mm3 MPV 9.8 (9.4-12.3) fl Neut % (Auto) 83.7 H (34.0-71.1) % Lymph % (Auto) 6.7 L (19.3-51.7) % [place] % (Auto) 8.2 (4.7-12.5) % Eos % (Auto) 0.4 L (0.7-5.8) Baso % (Auto) 0.2 (0.1-1.2) % Neut # (Auto) 15.15 H (1.56-6.13) K/mm3 Lymph # (Auto) 1.21 (1.18-3.74) K/mm3 [place] # (Auto) 1.49 H (0.24-0.36) K/mm3 Eos # (Auto) 0.08 (0.04-0.36) K/mm3 Baso # (Auto) 0.04 (0.01-0.08) K/mm3 Manual Slide Review Sodium 136 (136-145) mEq/L Potassium 3.4 L (3.5-5.1) mEq/L Chloride 101 (98-107) mEq/L Carbon Dioxide 23 (21-32) mEq/L Anion Gap 15.4 H (5-15) BUN 8 (7-18) mg/dL Creatinine 0.6 (0.55-1.02) mg/dL Est Cr Clr Drug Dosing 111.93 mL/min Estimated GFR (MDRD) > 60 (>60) mL/min BUN/Creatinine Ratio 13.3 L (14-18) Glucose 80 (70-99) mg/dL Calcium 7.8 L (8.5-10.1) mg/dL Phosphorus 2.9 (2.6-4.7) mg/dL Magnesium 2.0 (1.8-2.4) mg/dL Total Bilirubin 26.4 H (0.2-1.0) mg/dL AST 101 H (15-37) U/L ALT 56 (14-59) U/L Alkaline Phosphatase 252 H (46-116) U/L Ammonia (11-32) umol/L C-Reactive Protein 4.3 H* (<1.0) mg/dL Total Protein 5.8 L (6.4-8.2) g/dl Albumin 1.5 L (3.4-5.0) g/dl Globulin 4.3 gm/dL Albumin/Globulin Ratio 0.4 L (1-2) Procalcitonin 0.75 H ng/mL 09/23/21 09/24/21 09/24/21 Range/Units 09:59 05:10 05:10 WBC 12.90 H (3.98-10.04) K/mm3 RBC 2.74 L (3.98-5.22) M/mm3 Hgb 8.4 L D (11.2-15.7) gm/dl Hct 27.8 L (34.1-44.9) % MCV 101.5 H D (79.4-94.8) fl MCH 30.7 (25.6-32.2) pg MCHC 30.2 L (32.2-35.5) g/dl RDW Std Deviation 75.6 H (36.4-46.3) fL Plt Count 84 L (182-369) K/mm3 MPV 10.3 (9.4-12.3) fl Neut % (Auto) 74.7 H (34.0-71.1) % Lymph % (Auto) 12.0 L (19.3-51.7) % [place] % (Auto) 8.7 (4.7-12.5) % Eos % (Auto) 2.6 (0.7-5.8) Baso % (Auto) 0.5 (0.1-1.2) % Neut # (Auto) 9.63 H (1.56-6.13) K/mm3 Lymph # (Auto) 1.55 (1.18-3.74) K/mm3 [place] # (Auto) 1.12 H (0.24-0.36) K/mm3 Eos # (Auto) 0.34 (0.04-0.36) K/mm3 Baso # (Auto) 0.07 (0.01-0.08) K/mm3 Manual Slide Review Abnormal smear Sodium 135 L (136-145) mEq/L Potassium 3.5 (3.5-5.1) mEq/L Chloride 100 (98-107) mEq/L Carbon Dioxide 24 (21-32) mEq/L Anion Gap 14.5 (5-15) BUN 9 (7-18) mg/dL Creatinine 0.6 (0.55-1.02) mg/dL Est Cr Clr Drug Dosing 112.75 mL/min Estimated GFR (MDRD) > 60 (>60) mL/min BUN/Creatinine Ratio 15.0 (14-18) Glucose 105 H (70-99) mg/dL Calcium 7.8 L (8.5-10.1) mg/dL Phosphorus (2.6-4.7) mg/dL Magnesium (1.8-2.4) mg/dL Total Bilirubin 27.5 H (0.2-1.0) mg/dL AST 108 H (15-37) U/L ALT 38 (14-59) U/L Alkaline Phosphatase 187 H (46-116) U/L Ammonia 43 H (11-32) umol/L C-Reactive Protein 3.1 H* (<1.0) mg/dL Total Protein 5.3 L (6.4-8.2) g/dl Albumin 2.4 L (3.4-5.0) g/dl Globulin 2.9 gm/dL Albumin/Globulin Ratio 0.8 L (1-2) Procalcitonin ng/mL Result Diagrams: 09/24/21 05:10 09/24/21 05:10 Sepsis Event Note - Evaluation Sepsis Screening Result: No Definite Risk - Focused Exam Vital Signs: Vital Signs Temp Pulse Resp BP Pulse Ox 09/24/21 04:16 98.4 F 101 H 16 127/63 100 09/23/21 23:51 98.8 F 98 14 107/54 L 98 09/23/21 19:32 98.6 F 95 16 118/59 L 100 - Problem List & Annotations (1) History of alcohol abuse SNOMED Code(s): 004147701 Code(s): F10.11 - ALCOHOL ABUSE, IN REMISSION Status: Chronic Priority: Medium Current Visit: No (2) Spontaneous bacterial peritonitis SNOMED Code(s): 46772329 Code(s): K65.2 - SPONTANEOUS BACTERIAL PERITONITIS Status: Suspected Priority: High Current Visit: Yes (3) Abdominal pain SNOMED Code(s): 28449638 Code(s): R10.9 - UNSPECIFIED ABDOMINAL PAIN Status: Acute Priority: High Current Visit: Yes Qualifiers: Abdominal location: generalized Qualified Code(s): R10.84 - Generalized abdominal pain (4) Cirrhosis of liver SNOMED Code(s): 67018106 Code(s): K74.60 - UNSPECIFIED CIRRHOSIS OF LIVER Status: Chronic Priority: High Current Visit: Yes Qualifiers: Hepatic cirrhosis type: alcoholic cirrhosis Ascites presence: with ascites Qualified Code(s): K70.31 - Alcoholic cirrhosis of liver with ascites (5) Obesity (BMI 30-39.9) SNOMED Code(s): 694970349, 223220043 Code(s): E66.9 - OBESITY, UNSPECIFIED Status: Chronic Priority: Low Current Visit: No (6) GERD (gastroesophageal reflux disease) SNOMED Code(s): 624926127 Code(s): K21.9 - GASTRO-ESOPHAGEAL REFLUX DISEASE WITHOUT ESOPHAGITIS Status: Chronic Priority: Medium Current Visit: No Qualifiers: Esophagitis presence: esophagitis presence not specified Qualified Code(s): K21.9 - Gastro-esophageal reflux disease without esophagitis (7) History of COVID-19 SNOMED Code(s): 709555654504570871, 713277956086960270 Code(s): Z86.16 - PERSONAL HISTORY OF COVID-19 Status: Chronic Priority: Low Current Visit: No (8) History of GI bleed SNOMED Code(s): 581741086 Code(s): Z87.19 - PERSONAL HISTORY OF OTHER DISEASES OF THE DIGESTIVE SYSTEM Status: Chronic Priority: Medium Current Visit: No (9) History of MRSA infection SNOMED Code(s): 932164062, 245887456 Code(s): Z86.14 - PERSONAL HISTORY OF METHICILLIN RESIS STAPH INFECTION Status: Chronic Priority: Low Current Visit: No (10) History of esophageal varices SNOMED Code(s): 20677248432011113 Code(s): Z87.19 - PERSONAL HISTORY OF OTHER DISEASES OF THE DIGESTIVE SYSTEM Status: Chronic Priority: Medium Current Visit: No (11) Hyperbilirubinemia SNOMED Code(s): 85401820 Code(s): E80.6 - OTHER DISORDERS OF BILIRUBIN METABOLISM Status: Chronic Priority: High Current Visit: Yes (12) Hypoalbuminemia SNOMED Code(s): 106070346 Code(s): E88.09 - OTH DISORDERS OF PLASMA-PROTEIN METABOLISM, NEC Status: Chronic Priority: High Current Visit: Yes (13) Elevated INR SNOMED Code(s): 633911215 Code(s): R79.1 - ABNORMAL COAGULATION PROFILE Status: Chronic Priority: Medium Current Visit: Yes (14) Pedal edema SNOMED Code(s): 682824804 Code(s): R60.0 - LOCALIZED EDEMA Status: Chronic Priority: Medium Current Visit: Yes - Problem List Review Problem List Initiated/Reviewed/Updated: Yes - My Orders Last 24 Hours: My Active Orders 09/23/21 08:07 Dicyclomine [Bentyl] 10 mg PO DAILY PRN 09/23/21 08:08 Height and Weight [RC] 06 Consult to Salesperson Women'S Dresses [CONS] Routine VTE Pharmacological Contraindications [AST] Per Unit Routine 09/23/21 08:09 Intake and Output [RC] 04,16 Oxygen Therapy [RC] ASDIRECTED Vital Signs [RC] Q6HR 09/23/21 09:00 Folic Acid 1 mg PO DAILY Magnesium Oxide 400 mg PO DAILY Multivitamins [Tab-A-Mable] 1 tab PO DAILY Pantoprazole [ProTONIX] 40 mg PO DAILY Spironolactone [Aldactone] 25 mg PO DAILY Thiamine [Vitamin B-1] 100 mg PO DAILY 09/23/21 11:45 Antiembolic Devices [RC] PER UNIT ROUTINE Elevate Extremity [RC] BID RENZO Hose [Antiembolic Hose] [OM.PC] Routine 09/23/21 13:48 Metoclopramide [Reglan] 10 mg IVPUSH Q6H PRN 09/23/21 15:40 oxyCODONE 10 mg PO Q6H PRN 09/23/21 21:00 Potassium Chloride [Klor-Con M20] 40 meq PO BID 09/25/21 05:11 CBC WITH AUTO DIFF [HEME] AM CMP [COMPREHENSIVE METABOLIC PN,CMP] [CHEM] AM CRP [C-REACTIVE PROTEIN] [CHEM] AM 09/26/21 05:11 CBC WITH AUTO DIFF [HEME] AM CMP [COMPREHENSIVE METABOLIC PN,CMP] [CHEM] AM CRP [C-REACTIVE PROTEIN] [CHEM] AM 09/27/21 05:11 CBC WITH AUTO DIFF [HEME] AM CRP [C-REACTIVE PROTEIN] [CHEM] AM - Assessment Assessment:: 09/24/2021 36-year-old female with a history of severe liver cirrhosis and liver failure admitted to the floor for suspected SBP. She is on meropenem. Blood cultures are pending. Labs today show WBC of 12.9. Hemoglobin 8.4. Platelet 84,000. Neutrophils are 74.7. Slide shows thrombopenia sodium is 135. Potassium 3.5. Chloride 100. Anion gap 14.5. BUN is 9. Creatinine 0.6. GFR greater than 60. Glucose is 105. Calcium 7.8. Bilirubin is up to 27.5. AST is 108. ALT 38. Alkaline phosphatase is 187. CRP is down to 3.1. Albumin is up to 2.4. Pro calcitonin from yesterday was 0.75. We will continue current treatment plans. We will recheck hemoglobin this afternoon. Patient did note some blood in her stool which is not surprising given her elevated INR and history of varicosities. Unknown length of stay at this time. - Plan Plan:: Spontaneous bacterial peritonitis, suspected Abdominal pain Cirrhosis of liver Obesity (BMI 30-39.9) History of alcohol abuse Hyperbilirubinemia Hypoalbuminemia Pedal edema * Given Rocephin 2 g in the EDswitched to meropenem on floor * Albumin as ordered * Lactulose as ordered * Pain medications as ordered * Unfortunately per general surgeon unable to obtain paracentesis. Will monitor * Blood cultures pending * Home medications as ordered * Lasix as ordered * RENZO stockings for pedal edema * Avoid hepatotoxic medications if possible * Daily labs * Dietitian consultation GERD (gastroesophageal reflux disease) * No acute concerns * Continue home Protonix History of COVID-19 * No acute concerns History of GI bleed History of esophageal varices Elevated INR * No acute concerns * Patient is auto anticoagulated * High risk of bleeding * Pharmacological VTE prophylaxis contraindicated History of MRSA infection * No acute concerns * Follow institutional protocol Code status: Full code PCP: Lynn Olivares NP DVT prophylaxis: RENZO martinez (pharmacological prophylaxis contraindicated) Disposition: Patient admitted to the floor for management of suspected SBP. Length of stay likely 4 to 5 days total. Overall patient prognosis is very poor: MELD-Na score of 30 with a 27-32% 90- day mortality risk. TAN-C ACLF score of 42 with a 40.1% 1 year mortality risk.
[2021-09-24] MEDS ORDERED: Furosemide 40 MG/4 ML VIAL IVPUSH ONE (09:31)
[2021-09-24] MEDS: Pantoprazole 40 MG Tab.CR PO SCH (09:33)
[2021-09-24] MEDS: Potassium Chloride 20 MEQ Tab.ER PO SCH ×2 (09:33→20:11)
[2021-09-24] MEDS: Thiamine 100 MG Tab PO SCH (09:33)
[2021-09-24] MEDS: Spironolactone 25 MG Tab PO SCH (09:33)
[2021-09-24] MEDS: Multivitamin Tab PO SCH (09:33)
[2021-09-24] MEDS: Lactulose Soln 10 GM/15 ML 30 ML UD Cup PO SCH ×2 (09:33→20:11)
[2021-09-24] MEDS: Folic Acid 1 MG Tab PO SCH (09:33)
[2021-09-24] MEDS: Magnesium Oxide 400 MG Tab PO SCH (09:34)
[2021-09-24] MEDS ORDERED: Furosemide 40 MG/4 ML VIAL IVPUSH SCH (14:00)
[2021-09-25] MEDS: Meropenem Premix 500 MG in Premix Bag 1 BAG IV SCH ×4 (02:13→20:54)
[2021-09-25] MEDS: oxyCODONE 5 MG Tab PO PRN ×4 (04:30→23:39)
[2021-09-25] MEDS: Furosemide 40 MG/4 ML VIAL IVPUSH SCH ×3 (08:22→20:54)
[2021-09-25] MEDS: Albumin 25% 12.5 GM in Premix Bag 1 BAG IV SCH ×8 (08:23→14:00)
--- NOTE | 2021-09-25 08:53 | PCM.PN ---
- General Info Date of Service: 09/25/21 Admission Dx/Problem (Free Text): Admission Diagnosis/Problem Admission Diagnosis/Problem Liver failure Subjective Update: Patient states that she continues to have abdominal pain just over her umbilicus. Pain is burning in nature. It is moderate to severe. It has not improved with antibiotics. She put me on the speaker phone with her mother today and I explained the patient's condition. I explained to her and her mother that her mortality over the next 90 days is between 20 and 30% and her risk for mortality within 1 year is essentially 50-50. I also explained that we are empirically treating her for spontaneous bacterial peritonitis, but we do not have ascitic fluid for analysis which limits our therapeutic options. I also explained that she has to remain alcohol free to be able to be placed on a liver transplant list. She is currently 2 weeks without alcohol. Finally, I did paint a very bleak picture considering all of the above findings. Patient and her mother voiced understanding and appreciation for the information. No further hematochezia noted. Functional Status: Denies: Pain Controlled - Review of Systems General: Reports: No Symptoms HEENT: Reports: No Symptoms Pulmonary: Reports: No Symptoms Cardiovascular: Reports: No Symptoms Gastrointestinal: Reports: Abdominal Pain, Diarrhea - Patient Data Vitals - Most Recent: Last Vital Signs Temp 98.4 F 09/25/21 04:33 Pulse 98 09/25/21 04:33 Resp 14 09/25/21 04:33 BP 109/61 09/25/21 04:33 Pulse Ox 98 09/25/21 04:33 Weight - Most Recent: 183 lb 3.2 oz I&O - Last 24 Hours: Intake & Output 09/24/21 09/25/21 09/25/21 22:59 06:59 14:59 Intake Total 5075 1100 Output Total 5700 3400 Balance -625 -2300 Lab Results Last 24 Hours: Laboratory Results - last 24 hr 09/24/21 09/25/21 09/25/21 Range/Units 13:21 04:44 04:44 WBC 15.50 H (3.98-10.04) K/mm3 RBC 2.90 L (3.98-5.22) M/mm3 Hgb 9.1 L 9.0 L (11.2-15.7) gm/dl Hct 29.2 L 29.4 L (34.1-44.9) % MCV 101.4 H (79.4-94.8) fl MCH 31.0 (25.6-32.2) pg MCHC 30.6 L (32.2-35.5) g/dl RDW Std Deviation 74.4 H (36.4-46.3) fL Plt Count 91 L (182-369) K/mm3 MPV 9.8 (9.4-12.3) fl Neut % (Auto) 72.2 H (34.0-71.1) % Lymph % (Auto) 13.6 L (19.3-51.7) % [place] % (Auto) 8.8 (4.7-12.5) % Eos % (Auto) 2.7 (0.7-5.8) Baso % (Auto) 1.0 (0.1-1.2) % Neut # (Auto) 11.18 H (1.56-6.13) K/mm3 Lymph # (Auto) 2.11 (1.18-3.74) K/mm3 [place] # (Auto) 1.37 H (0.24-0.36) K/mm3 Eos # (Auto) 0.42 H (0.04-0.36) K/mm3 Baso # (Auto) 0.16 H (0.01-0.08) K/mm3 Manual Slide Review Abnormal smear Sodium 133 L (136-145) mEq/L Potassium 3.9 (3.5-5.1) mEq/L Chloride 99 (98-107) mEq/L Carbon Dioxide 27 (21-32) mEq/L Anion Gap 10.9 (5-15) BUN 11 (7-18) mg/dL Creatinine 0.5 L (0.55-1.02) mg/dL Est Cr Clr Drug Dosing 135.30 mL/min Estimated GFR (MDRD) > 60 (>60) mL/min BUN/Creatinine Ratio 22.0 H (14-18) Glucose 98 (70-99) mg/dL Calcium 7.6 L (8.5-10.1) mg/dL Total Bilirubin 31.7 H (0.2-1.0) mg/dL AST 168 H (15-37) U/L ALT 50 (14-59) U/L Alkaline Phosphatase 209 H (46-116) U/L Ammonia (11-32) umol/L C-Reactive Protein 5.5 H* (<1.0) mg/dL Total Protein 5.7 L (6.4-8.2) g/dl Albumin 2.5 L (3.4-5.0) g/dl Globulin 3.2 gm/dL Albumin/Globulin Ratio 0.8 L (1-2) 09/25/21 Range/Units 04:44 WBC (3.98-10.04) K/mm3 RBC (3.98-5.22) M/mm3 Hgb (11.2-15.7) gm/dl Hct (34.1-44.9) % MCV (79.4-94.8) fl MCH (25.6-32.2) pg MCHC (32.2-35.5) g/dl RDW Std Deviation (36.4-46.3) fL Plt Count (182-369) K/mm3 MPV (9.4-12.3) fl Neut % (Auto) (34.0-71.1) % Lymph % (Auto) (19.3-51.7) % [place] % (Auto) (4.7-12.5) % Eos % (Auto) (0.7-5.8) Baso % (Auto) (0.1-1.2) % Neut # (Auto) (1.56-6.13) K/mm3 Lymph # (Auto) (1.18-3.74) K/mm3 [place] # (Auto) (0.24-0.36) K/mm3 Eos # (Auto) (0.04-0.36) K/mm3 Baso # (Auto) (0.01-0.08) K/mm3 Manual Slide Review Sodium (136-145) mEq/L Potassium (3.5-5.1) mEq/L Chloride (98-107) mEq/L Carbon Dioxide (21-32) mEq/L Anion Gap (5-15) BUN (7-18) mg/dL Creatinine (0.55-1.02) mg/dL Est Cr Clr Drug Dosing mL/min Estimated GFR (MDRD) (>60) mL/min BUN/Creatinine Ratio (14-18) Glucose (70-99) mg/dL Calcium (8.5-10.1) mg/dL Total Bilirubin (0.2-1.0) mg/dL AST (15-37) U/L ALT (14-59) U/L Alkaline Phosphatase (46-116) U/L Ammonia 51 H (11-32) umol/L C-Reactive Protein (<1.0) mg/dL Total Protein (6.4-8.2) g/dl Albumin (3.4-5.0) g/dl Globulin gm/dL Albumin/Globulin Ratio (1-2) Sebastian Results Last 24 Hours: Microbiology 09/22/21 18:50 Blood Culture - Preliminary Blood - Venous Med Orders - Current: Current Medications Dicyclomine HCl (Dicyclomine 10 Mg Cap) 10 mg PO DAILY PRN PRN Reason: abdominal cramp Folic Acid (Folic Acid 1 Mg Tab) 1 mg PO DAILY [facility] Last Admin: 09/24/21 09:33 Dose: 1 mg Documented by: Furosemide (Furosemide 40 Mg/4 Ml Vial) 40 mg IVPUSH BID [facility] Last Admin: 09/25/21 08:49 Dose: Not Given Documented by: Hydromorphone HCl (Hydromorphone 0.5 Mg/0.5 Ml Syringe) 0.5 mg IVPUSH Q4H PRN PRN Reason: Pain Last Admin: 09/23/21 06:47 Dose: 0.5 mg Documented by: Meropenem/Sodium Chloride 500 (mg/ Premix) 50 mls @ 100 mls/hr IV Q6H [facility] Last Admin: 09/25/21 07:42 Dose: 100 mls/hr Documented by: Albumin Human 12.5 gm/ Premix 50 mls @ 100 mls/hr IV Q1H [facility] Stop: 09/25/21 15:29 Last Admin: 09/25/21 08:23 Dose: 100 mls/hr Documented by: Lactulose (Lactulose Soln 10 Gm/15 Ml 30 Ml Ud Cup) 15 gm PO BID [facility] Last Admin: 09/24/21 20:11 Dose: 15 gm Documented by: Magnesium Oxide (Magnesium Oxide 400 Mg Tab) 400 mg PO DAILY [facility] Last Admin: 09/24/21 09:34 Dose: 400 mg Documented by: Metoclopramide HCl (Metoclopramide 10 Mg/2 Ml Sdv) 10 mg IVPUSH Q6H PRN PRN Reason: Nausea Last Admin: 09/23/21 20:20 Dose: 10 mg Documented by: Multivitamins/Minerals/Vitamin C (Multivitamin Tab) 1 tab PO DAILY [facility] Last Admin: 09/24/21 09:33 Dose: 1 tab Documented by: Oxycodone HCl (Oxycodone 5 Mg Tab) 10 mg PO Q6H PRN PRN Reason: Pain (moderate 4-6) Last Admin: 09/25/21 04:30 Dose: 10 mg Documented by: Pantoprazole Sodium (Pantoprazole 40 Mg Tab.Cr) 40 mg PO DAILY [facility] Last Admin: 09/24/21 09:33 Dose: 40 mg Documented by: Potassium Chloride (Potassium Chloride 20 Meq Tab.Er) 40 meq PO BID [facility] Last Admin: 09/24/21 20:11 Dose: 40 meq Documented by: Spironolactone (Spironolactone 100 Mg Tab) 100 mg PO DAILY [facility] Thiamine HCl (Thiamine 100 Mg Tab) 100 mg PO DAILY [facility] Last Admin: 09/24/21 09:33 Dose: 100 mg Documented by: Discontinued Medications Furosemide (Furosemide 40 Mg/4 Ml Vial) 40 mg IVPUSH NOW ONE Stop: 09/24/21 09:32 Last Admin: 09/24/21 10:50 Dose: 40 mg Documented by: Furosemide (Furosemide 40 Mg/4 Ml Vial) 40 mg IVPUSH BIDDIURETIC [facility] Last Admin: 09/24/21 13:12 Dose: 40 mg Documented by: Furosemide (Furosemide 40 Mg/4 Ml Vial) 40 mg IVPUSH NOW ONE Stop: 09/23/21 11:47 Last Admin: 09/23/21 12:50 Dose: 40 mg Documented by: Hydromorphone HCl (Hydromorphone 1 Mg/Ml Syringe) 1 mg IVPUSH ONETIME ONE Stop: 09/22/21 18:15 Last Admin: 09/22/21 18:23 Dose: 1 mg Documented by: Hydromorphone HCl (Hydromorphone 0.5 Mg/0.5 Ml Syringe) 0.5 mg IVPUSH ONETIME ONE Stop: 09/22/21 22:17 Last Admin: 09/22/21 23:46 Dose: 0.5 mg Documented by: Sodium Chloride (Normal Saline) 1,000 mls @ 125 mls/hr IV ASDIRECTED [facility] Last Admin: 09/22/21 18:23 Dose: 125 mls/hr Documented by: Ceftriaxone Sodium 2 gm/ (Sodium Chloride) 100 mls @ 200 mls/hr IV ONETIME ONE Stop: 09/22/21 18:47 Last Admin: 09/22/21 19:21 Dose: 200 mls/hr Documented by: Sodium Chloride (Normal Saline) 1,000 mls @ 75 mls/hr IV ASDIRECTED [facility] Last Admin: 09/23/21 00:26 Dose: 75 mls/hr Documented by: Albumin Human 12.5 gm/ Premix 50 mls @ 100 mls/hr IV Q1H [facility] Stop: 09/23/21 15:59 Last Admin: 09/23/21 14:43 Dose: 100 mls/hr Documented by: Albumin Human (Flexbumin 25%) Confirm Administered Dose 50 mls @ as directed .ROUTE .STK-MED ONE Stop: 09/23/21 10:51 Last Admin: 09/23/21 12:40 Dose: Not Given Documented by: Iopamidol (Iopamidol 612 Mg/Ml 100 Ml Bottle) 100 ml IVPUSH ONETIME ONE Stop: 09/22/21 20:15 Last Admin: 09/22/21 20:54 Dose: 100 ml Documented by: Iopamidol (Iopamidol 612 Mg/Ml 50 Ml Sdv) 50 ml IVPUSH ONETIME ONE Stop: 09/22/21 20:15 Last Admin: 09/22/21 20:54 Dose: 50 ml Documented by: Lactulose (Lactulose Soln 10 Gm/15 Ml 30 Ml Ud Cup) 15 gm PO ONETIME ONE Stop: 09/22/21 22:17 Last Admin: 09/22/21 23:46 Dose: 15 gm Documented by: Metoclopramide HCl (Metoclopramide 10 Mg/2 Ml Sdv) 10 mg IVPUSH ONETIME ONE Stop: 09/22/21 18:15 Last Admin: 09/22/21 18:23 Dose: 10 mg Documented by: Non-Formulary Medication (Oxycodone Hcl [Oxycodone Hcl]) 5 mg PO Q6H PRN PRN Reason: Pain Ondansetron HCl (Ondansetron 4 Mg/2 Ml Sdv) 4 mg IVPUSH Q6H PRN PRN Reason: Nausea Ondansetron HCl (Ondansetron 4 Mg/2 Ml Sdv) 4 mg IV Q6H PRN PRN Reason: Nausea/Vomiting Oxycodone HCl (Oxycodone 5 Mg Tab) 5 mg PO Q6H PRN PRN Reason: Pain (moderate 4-6) Last Admin: 09/23/21 09:41 Dose: 5 mg Documented by: Pantoprazole Sodium (Pantoprazole 40 Mg Tab.Cr) 40 mg PO ONETIME ONE Stop: 09/23/21 22:19 Pantoprazole Sodium (Pantoprazole 40 Mg Tab.Cr) 40 mg PO ONETIME ONE Stop: 09/22/21 23:46 Last Admin: 09/22/21 23:46 Dose: 40 mg Documented by: Potassium Chloride (Potassium Chloride 20 Meq Tab.Er) 20 meq PO BID [facility] Last Admin: 09/23/21 09:42 Dose: 20 meq Documented by: Potassium Chloride (Potassium Chloride 20 Meq Tab.Er) 20 meq PO ONETIME ONE Stop: 09/23/21 10:01 Last Admin: 09/23/21 12:00 Dose: 20 meq Documented by: Sodium Chloride (Sodium Chloride 0.9% 10 Ml Syringe) 10 ml FLUSH ONETIME ONE Stop: 09/22/21 20:15 Last Admin: 09/22/21 20:54 Dose: 10 ml Documented by: Spironolactone (Spironolactone 25 Mg Tab) 25 mg PO DAILY [facility] Last Admin: 09/24/21 09:33 Dose: 25 mg Documented by: - Exam Quality Assessment: No: Supplemental Oxygen General: Alert, Oriented HEENT: Pupils Equal, Mucous Membr. Moist/[place] Neck: Supple Lungs: Clear to Auscultation, Normal Respiratory Effort Cardiovascular: Regular Rate, Regular Rhythm GI/Abdominal Exam: Distended, Tender. No: Guarding, Rigid, Rebound Extremities: Normal Inspection, Normal Range of Motion, No Pedal Edema, Normal Capillary Refill Skin: Warm, Dry, Intact Neurological: No New Focal Deficit Psy/Mental Status: Alert, Normal Affect, Normal Mood - Patient Data Lab Results Last 24 hrs: Laboratory Results - last 24 hr 09/24/21 09/25/21 09/25/21 Range/Units 13:21 04:44 04:44 WBC 15.50 H (3.98-10.04) K/mm3 RBC 2.90 L (3.98-5.22) M/mm3 Hgb 9.1 L 9.0 L (11.2-15.7) gm/dl Hct 29.2 L 29.4 L (34.1-44.9) % MCV 101.4 H (79.4-94.8) fl MCH 31.0 (25.6-32.2) pg MCHC 30.6 L (32.2-35.5) g/dl RDW Std Deviation 74.4 H (36.4-46.3) fL Plt Count 91 L (182-369) K/mm3 MPV 9.8 (9.4-12.3) fl Neut % (Auto) 72.2 H (34.0-71.1) % Lymph % (Auto) 13.6 L (19.3-51.7) % [place] % (Auto) 8.8 (4.7-12.5) % Eos % (Auto) 2.7 (0.7-5.8) Baso % (Auto) 1.0 (0.1-1.2) % Neut # (Auto) 11.18 H (1.56-6.13) K/mm3 Lymph # (Auto) 2.11 (1.18-3.74) K/mm3 [place] # (Auto) 1.37 H (0.24-0.36) K/mm3 Eos # (Auto) 0.42 H (0.04-0.36) K/mm3 Baso # (Auto) 0.16 H (0.01-0.08) K/mm3 Manual Slide Review Abnormal smear Sodium 133 L (136-145) mEq/L Potassium 3.9 (3.5-5.1) mEq/L Chloride 99 (98-107) mEq/L Carbon Dioxide 27 (21-32) mEq/L Anion Gap 10.9 (5-15) BUN 11 (7-18) mg/dL Creatinine 0.5 L (0.55-1.02) mg/dL Est Cr Clr Drug Dosing 135.30 mL/min Estimated GFR (MDRD) > 60 (>60) mL/min BUN/Creatinine Ratio 22.0 H (14-18) Glucose 98 (70-99) mg/dL Calcium 7.6 L (8.5-10.1) mg/dL Total Bilirubin 31.7 H (0.2-1.0) mg/dL AST 168 H (15-37) U/L ALT 50 (14-59) U/L Alkaline Phosphatase 209 H (46-116) U/L Ammonia (11-32) umol/L C-Reactive Protein 5.5 H* (<1.0) mg/dL Total Protein 5.7 L (6.4-8.2) g/dl Albumin 2.5 L (3.4-5.0) g/dl Globulin 3.2 gm/dL Albumin/Globulin Ratio 0.8 L (1-2) 09/25/21 Range/Units 04:44 WBC (3.98-10.04) K/mm3 RBC (3.98-5.22) M/mm3 Hgb (11.2-15.7) gm/dl Hct (34.1-44.9) % MCV (79.4-94.8) fl MCH (25.6-32.2) pg MCHC (32.2-35.5) g/dl RDW Std Deviation (36.4-46.3) fL Plt Count (182-369) K/mm3 MPV (9.4-12.3) fl Neut % (Auto) (34.0-71.1) % Lymph % (Auto) (19.3-51.7) % [place] % (Auto) (4.7-12.5) % Eos % (Auto) (0.7-5.8) Baso % (Auto) (0.1-1.2) % Neut # (Auto) (1.56-6.13) K/mm3 Lymph # (Auto) (1.18-3.74) K/mm3 [place] # (Auto) (0.24-0.36) K/mm3 Eos # (Auto) (0.04-0.36) K/mm3 Baso # (Auto) (0.01-0.08) K/mm3 Manual Slide Review Sodium (136-145) mEq/L Potassium (3.5-5.1) mEq/L Chloride (98-107) mEq/L Carbon Dioxide (21-32) mEq/L Anion Gap (5-15) BUN (7-18) mg/dL Creatinine (0.55-1.02) mg/dL Est Cr Clr Drug Dosing mL/min Estimated GFR (MDRD) (>60) mL/min BUN/Creatinine Ratio (14-18) Glucose (70-99) mg/dL Calcium (8.5-10.1) mg/dL Total Bilirubin (0.2-1.0) mg/dL AST (15-37) U/L ALT (14-59) U/L Alkaline Phosphatase (46-116) U/L Ammonia 51 H (11-32) umol/L C-Reactive Protein (<1.0) mg/dL Total Protein (6.4-8.2) g/dl Albumin (3.4-5.0) g/dl Globulin gm/dL Albumin/Globulin Ratio (1-2) Result Diagrams: 09/25/21 04:44 09/25/21 04:44 Sebastian Results Last 24 hrs: Microbiology 09/22/21 18:50 Blood Culture - Preliminary Blood - Venous Sepsis Event Note - Evaluation Sepsis Screening Result: Severe Sepsis Risk - Focused Exam Vital Signs: Vital Signs Temp Pulse Resp BP Pulse Ox 09/25/21 04:33 98.4 F 98 14 109/61 98 09/24/21 23:52 98.4 F 97 12 106/51 L 97 - Problem List & Annotations (1) Abdominal pain SNOMED Code(s): 80985961 Code(s): R10.9 - UNSPECIFIED ABDOMINAL PAIN Status: Acute Priority: High Current Visit: Yes Qualifiers: Abdominal location: generalized Qualified Code(s): R10.84 - Generalized abdominal pain (2) Liver failure SNOMED Code(s): 08711741 Code(s): K72.90 - HEPATIC FAILURE, UNSPECIFIED WITHOUT COMA Status: Acute Current Visit: Yes Qualifiers: Liver failure chronicity: subacute Hepatic coma status: without hepatic coma Qualified Code(s): K72.00 - Acute and subacute hepatic failure without coma (3) Cirrhosis of liver SNOMED Code(s): 72882342 Code(s): K74.60 - UNSPECIFIED CIRRHOSIS OF LIVER Status: Chronic Priority: High Current Visit: Yes Qualifiers: Hepatic cirrhosis type: alcoholic cirrhosis Ascites presence: with ascites Qualified Code(s): K70.31 - Alcoholic cirrhosis of liver with ascites (4) Elevated INR SNOMED Code(s): 328961129 Code(s): R79.1 - ABNORMAL COAGULATION PROFILE Status: Chronic Priority: Medium Current Visit: Yes (5) Hyperbilirubinemia SNOMED Code(s): 36153619 Code(s): E80.6 - OTHER DISORDERS OF BILIRUBIN METABOLISM Status: Chronic Priority: High Current Visit: Yes (6) Spontaneous bacterial peritonitis SNOMED Code(s): 63772241 Code(s): K65.2 - SPONTANEOUS BACTERIAL PERITONITIS Status: Suspected Priority: High Current Visit: Yes - Problem List Review Problem List Initiated/Reviewed/Updated: Yes - My Orders Last 24 Hours: My Active Orders 09/25/21 04:44 PROCALCITONIN [REF] Routine 09/25/21 08:00 Albumin 25% [Flexbumin 25%] 12.5 gm Premix Bag 1 bag IV Q1H Furosemide [Lasix] 40 mg IVPUSH BID 09/25/21 09:00 Spironolactone [Aldactone] 100 mg PO DAILY - Assessment Assessment:: 09/24/2021 36-year-old female with a history of severe liver cirrhosis and liver failure admitted to the floor for suspected SBP. She is on meropenem. Blood cultures are pending. Labs today show WBC of 12.9. Hemoglobin 8.4. Platelet 84,000. N eutrophils are 74.7. Slide shows thrombopenia sodium is 135. Potassium 3.5. Chloride 100. Anion gap 14.5. BUN is 9. Creatinine 0.6. GFR greater than 60. Glucose is 105. Calcium 7.8. Bilirubin is up to 27.5. AST is 108. ALT 38. Alkaline phosphatase is 187. CRP is down to 3.1. Albumin is up to 2.4. Procalcitonin from yesterday was 0.75. We will continue current treatment plans. We will recheck hemoglobin this afternoon. Patient did note some blood in her stool which is not surprising given her elevated INR and history of varicosities. Unknown length of stay at this time. 09/25/2021 36-year-old female with end-stage liver disease admitted with abdominal pain and suspected SBP. Patient is on meropenem and getting infusions of albumin. Lab work shows an increasing WBC of 15.5 and increasing CRP of 5.5. Procalcitonin was only minimally elevated at 0.75. Renal function continues to be good with a creatinine of 0.5. Patient lost 7 pounds of weight after starting Lasix yesterday. Unfortunately platelets are still low at 91,000. Hemoglobin has been stable at 9.0, up from yesterday's 8.4. Patient's long-term prognosis is very poor and we discussed that today. Her spironolactone will be increased to 100 mg daily. We will follow her potassium closely since she is on potassium supplementation. - Plan Plan:: Spontaneous bacterial peritonitis, suspected Abdominal pain Cirrhosis of liver Obesity (BMI 30-39.9) History of alcohol abuse Hyperbilirubinemia Hypoalbuminemia Pedal edema * Given Rocephin 2 g in the EDswitched to meropenem on floor * Last dose of albumin today * Lactulose as ordered * Pain medications as ordered. Patient states that oxycodone at 10 and 4 are appropriate for her pain. * Unfortunately per general surgeon unable to obtain paracentesis. Will monitor * Blood cultures pending * Home medications as ordered * Lasix as ordered * RENZO stockings for pedal edema * Avoid hepatotoxic medications if possible * Daily labs * Dietitian consultation GERD (gastroesophageal reflux disease) * No acute concerns * Continue home Protonix History of COVID-19 * No acute concerns History of GI bleed History of esophageal varices Elevated INR * No acute concerns * Patient is auto anticoagulated * High risk of bleeding * Pharmacological VTE prophylaxis contraindicated History of MRSA infection * No acute concerns * Follow institutional protocol Code status: Full code PCP: Lynn Olivares NP DVT prophylaxis: RENZO hose (pharmacological prophylaxis contraindicated) Disposition: Patient admitted to the floor for management of suspected SBP. Length of stay likely 4 to 5 days total. Overall patient prognosis is very poor: MELD-Na score of 30 with a 27-32% 90- day mortality risk. TAN-C ACLF score of 42 with a 40.1% 1 year mortality risk.
[2021-09-25] MEDS: Folic Acid 1 MG Tab PO SCH (08:59)
[2021-09-25] MEDS: Thiamine 100 MG Tab PO SCH (08:59)
[2021-09-25] MEDS: Spironolactone 100 MG Tab PO SCH (09:00)
[2021-09-25] MEDS: Potassium Chloride 20 MEQ Tab.ER PO SCH ×2 (09:00→20:54)
[2021-09-25] MEDS: Pantoprazole 40 MG Tab.CR PO SCH (09:00)
[2021-09-25] MEDS: Multivitamin Tab PO SCH (09:00)
[2021-09-25] MEDS: Magnesium Oxide 400 MG Tab PO SCH (09:00)
[2021-09-25] MEDS: Lactulose Soln 10 GM/15 ML 30 ML UD Cup PO SCH ×2 (09:01→20:53)
[2021-09-25] MEDS: Metoclopramide 10 MG/2 ML SDV IVPUSH PRN (13:20)
[2021-09-26] MEDS: Meropenem Premix 500 MG in Premix Bag 1 BAG IV SCH ×4 (02:02→19:51)
[2021-09-26] MEDS: oxyCODONE 5 MG Tab PO PRN ×4 (05:41→22:50)
[2021-09-26] MEDS: Metoclopramide 10 MG/2 ML SDV IVPUSH PRN (07:54)
[2021-09-26] MEDS: HYDROmorphone 0.5 MG/0.5 ML Syringe IVPUSH PRN ×3 (08:08→19:44)
[2021-09-26] MEDS: Spironolactone 100 MG Tab PO SCH (08:31)
[2021-09-26] MEDS: Lactulose Soln 10 GM/15 ML 30 ML UD Cup PO SCH ×3 (08:32→20:02)
[2021-09-26] MEDS: Potassium Chloride 20 MEQ Tab.ER PO SCH ×3 (08:33→20:02)
[2021-09-26] MEDS: Folic Acid 1 MG Tab PO SCH (08:33)
[2021-09-26] MEDS: Magnesium Oxide 400 MG Tab PO SCH (08:33)
[2021-09-26] MEDS: Furosemide 40 MG Tab PO SCH (08:33)
[2021-09-26] MEDS: Thiamine 100 MG Tab PO SCH (08:34)
[2021-09-26] MEDS: Multivitamin Tab PO SCH (08:34)
[2021-09-26] MEDS: Pantoprazole 40 MG Tab.CR PO SCH (08:34)
--- NOTE | 2021-09-26 11:11 | PCM.PN ---
- General Info Date of Service: 09/26/21 Admission Dx/Problem (Free Text): Admission Diagnosis/Problem Admission Diagnosis/Problem Liver failure Subjective Update: Patient continues to complain of abdominal pain. She states it is in the shape of a #7 starting mid epigastrium, going to the left upper quadrant and then over the umbilicus. Pain is more of a burning sensation now. She did have another 1 pound weight loss overnight. Functional Status: Reports: Pain Controlled - Review of Systems General: Reports: No Symptoms HEENT: Reports: No Symptoms Pulmonary: Reports: No Symptoms Cardiovascular: Reports: No Symptoms Gastrointestinal: Reports: Abdominal Pain Musculoskeletal: Reports: No Symptoms Neurological: Reports: No Symptoms Psychiatric: Reports: No Symptoms - Patient Data Vitals - Most Recent: Last Vital Signs Temp 98.2 F 09/26/21 07:38 Pulse 94 09/26/21 07:38 Resp 18 09/26/21 07:38 BP 112/61 09/26/21 07:38 Pulse Ox 100 09/26/21 07:38 Weight - Most Recent: 182 lb 1.6 oz I&O - Last 24 Hours: Intake & Output 09/25/21 09/26/21 09/26/21 22:59 06:59 14:59 Intake Total 2659 1600 Output Total 3500 3275 Balance -841 -1675 Lab Results Last 24 Hours: Laboratory Results - last 24 hr 09/26/21 09/26/21 Range/Units 05:45 05:45 WBC 12.87 H (3.98-10.04) K/mm3 RBC 2.68 L (3.98-5.22) M/mm3 Hgb 8.4 L (11.2-15.7) gm/dl Hct 27.4 L (34.1-44.9) % MCV 102.2 H (79.4-94.8) fl MCH 31.3 (25.6-32.2) pg MCHC 30.7 L (32.2-35.5) g/dl RDW Std Deviation 74.0 H (36.4-46.3) fL Plt Count 85 L (182-369) K/mm3 MPV 10.5 (9.4-12.3) fl Neut % (Auto) 75.4 H (34.0-71.1) % Lymph % (Auto) 13.3 L (19.3-51.7) % Waldo % (Auto) 6.8 (4.7-12.5) % Eos % (Auto) 2.3 (0.7-5.8) Baso % (Auto) 0.7 (0.1-1.2) % Neut # (Auto) 9.70 H (1.56-6.13) K/mm3 Lymph # (Auto) 1.71 (1.18-3.74) K/mm3 Waldo # (Auto) 0.88 H (0.24-0.36) K/mm3 Eos # (Auto) 0.30 (0.04-0.36) K/mm3 Baso # (Auto) 0.09 H (0.01-0.08) K/mm3 Manual Slide Review Abnormal smear Sodium 131 L (136-145) mEq/L Potassium 3.8 (3.5-5.1) mEq/L Chloride 94 L (98-107) mEq/L Carbon Dioxide 28 (21-32) mEq/L Anion Gap 12.8 (5-15) BUN 9 (7-18) mg/dL Creatinine 0.6 (0.55-1.02) mg/dL Est Cr Clr Drug Dosing 112.75 mL/min Estimated GFR (MDRD) > 60 (>60) mL/min BUN/Creatinine Ratio 15.0 (14-18) Glucose 89 (70-99) mg/dL Calcium 7.9 L (8.5-10.1) mg/dL Total Bilirubin 29.5 H (0.2-1.0) mg/dL AST 136 H (15-37) U/L ALT 43 (14-59) U/L Alkaline Phosphatase 191 H (46-116) U/L C-Reactive Protein 4.9 H* (<1.0) mg/dL Total Protein 5.9 L (6.4-8.2) g/dl Albumin 3.1 L (3.4-5.0) g/dl Globulin 2.8 gm/dL Albumin/Globulin Ratio 1.1 (1-2) Med Orders - Current: Current Medications Dicyclomine HCl (Dicyclomine 10 Mg Cap) 10 mg PO DAILY PRN PRN Reason: abdominal cramp Folic Acid (Folic Acid 1 Mg Tab) 1 mg PO DAILY [facility] Last Admin: 09/26/21 08:33 Dose: 1 mg Documented by: Furosemide (Furosemide 40 Mg Tab) 40 mg PO DAILY [facility] Last Admin: 09/26/21 08:33 Dose: 40 mg Documented by: Hydromorphone HCl (Hydromorphone 0.5 Mg/0.5 Ml Syringe) 0.5 mg IVPUSH Q2H PRN PRN Reason: Pain (severe 7-10) Meropenem/Sodium Chloride 500 (mg/ Premix) 50 mls @ 100 mls/hr IV Q6H [facility] Last Admin: 09/26/21 07:59 Dose: 100 mls/hr Documented by: Lactulose (Lactulose Soln 10 Gm/15 Ml 30 Ml Ud Cup) 15 gm PO BID [facility] Last Admin: 09/26/21 08:32 Dose: 15 gm Documented by: Magnesium Oxide (Magnesium Oxide 400 Mg Tab) 400 mg PO DAILY [facility] Last Admin: 09/26/21 08:33 Dose: 400 mg Documented by: Metoclopramide HCl (Metoclopramide 10 Mg/2 Ml Sdv) 10 mg IVPUSH Q6H PRN PRN Reason: Nausea Last Admin: 09/26/21 07:54 Dose: 10 mg Documented by: Multivitamins/Minerals/Vitamin C (Multivitamin Tab) 1 tab PO DAILY [facility] Last Admin: 09/26/21 08:34 Dose: 1 tab Documented by: Oxycodone HCl (Oxycodone 5 Mg Tab) 10 mg PO Q4H PRN PRN Reason: Pain (moderate 4-6) Pantoprazole Sodium (Pantoprazole 40 Mg Tab.Cr) 40 mg PO DAILY [facility] Last Admin: 09/26/21 08:34 Dose: 40 mg Documented by: Potassium Chloride (Potassium Chloride 20 Meq Tab.Er) 40 meq PO BID [facility] Last Admin: 09/26/21 08:33 Dose: 40 meq Documented by: Spironolactone (Spironolactone 100 Mg Tab) 100 mg PO DAILY [facility] Last Admin: 09/26/21 08:31 Dose: 100 mg Documented by: Thiamine HCl (Thiamine 100 Mg Tab) 100 mg PO DAILY [facility] Last Admin: 09/26/21 08:34 Dose: 100 mg Documented by: Discontinued Medications Furosemide (Furosemide 40 Mg/4 Ml Vial) 40 mg IVPUSH NOW ONE Stop: 09/24/21 09:32 Last Admin: 09/24/21 10:50 Dose: 40 mg Documented by: Furosemide (Furosemide 40 Mg/4 Ml Vial) 40 mg IVPUSH BIDDIURETIC [facility] Last Admin: 09/24/21 13:12 Dose: 40 mg Documented by: Furosemide (Furosemide 40 Mg/4 Ml Vial) 40 mg IVPUSH BID [facility] Last Admin: 09/25/21 20:54 Dose: 40 mg Documented by: Furosemide (Furosemide 40 Mg/4 Ml Vial) 40 mg IVPUSH NOW ONE Stop: 09/23/21 11:47 Last Admin: 09/23/21 12:50 Dose: 40 mg Documented by: Hydromorphone HCl (Hydromorphone 1 Mg/Ml Syringe) 1 mg IVPUSH ONETIME ONE Stop: 09/22/21 18:15 Last Admin: 09/22/21 18:23 Dose: 1 mg Documented by: Hydromorphone HCl (Hydromorphone 0.5 Mg/0.5 Ml Syringe) 0.5 mg IVPUSH ONETIME ONE Stop: 09/22/21 22:17 Last Admin: 09/22/21 23:46 Dose: 0.5 mg Documented by: Hydromorphone HCl (Hydromorphone 0.5 Mg/0.5 Ml Syringe) 0.5 mg IVPUSH Q4H PRN PRN Reason: Pain Last Admin: 09/26/21 08:08 Dose: 0.5 mg Documented by: Sodium Chloride (Normal Saline) 1,000 mls @ 125 mls/hr IV ASDIRECTED [facility] Last Admin: 09/22/21 18:23 Dose: 125 mls/hr Documented by: Ceftriaxone Sodium 2 gm/ (Sodium Chloride) 100 mls @ 200 mls/hr IV ONETIME ONE Stop: 09/22/21 18:47 Last Admin: 09/22/21 19:21 Dose: 200 mls/hr Documented by: Sodium Chloride (Normal Saline) 1,000 mls @ 75 mls/hr IV ASDIRECTED [facility] Last Admin: 09/23/21 00:26 Dose: 75 mls/hr Documented by: Albumin Human 12.5 gm/ Premix 50 mls @ 100 mls/hr IV Q1H [facility] Stop: 09/23/21 15:59 Last Admin: 09/23/21 14:43 Dose: 100 mls/hr Documented by: Albumin Human 12.5 gm/ Premix 50 mls @ 100 mls/hr IV Q1H [facility] Stop: 09/25/21 15:29 Last Admin: 09/25/21 14:00 Dose: 100 mls/hr Documented by: Albumin Human (Flexbumin 25%) Confirm Administered Dose 50 mls @ as directed .ROUTE .STK-MED ONE Stop: 09/23/21 10:51 Last Admin: 09/23/21 12:40 Dose: Not Given Documented by: Iopamidol (Iopamidol 612 Mg/Ml 100 Ml Bottle) 100 ml IVPUSH ONETIME ONE Stop: 09/22/21 20:15 Last Admin: 09/22/21 20:54 Dose: 100 ml Documented by: Iopamidol (Iopamidol 612 Mg/Ml 50 Ml Sdv) 50 ml IVPUSH ONETIME ONE Stop: 09/22/21 20:15 Last Admin: 09/22/21 20:54 Dose: 50 ml Documented by: Lactulose (Lactulose Soln 10 Gm/15 Ml 30 Ml Ud Cup) 15 gm PO ONETIME ONE Stop: 09/22/21 22:17 Last Admin: 09/22/21 23:46 Dose: 15 gm Documented by: Metoclopramide HCl (Metoclopramide 10 Mg/2 Ml Sdv) 10 mg IVPUSH ONETIME ONE Stop: 09/22/21 18:15 Last Admin: 09/22/21 18:23 Dose: 10 mg Documented by: Non-Formulary Medication (Oxycodone Hcl [Oxycodone Hcl]) 5 mg PO Q6H PRN PRN Reason: Pain Ondansetron HCl (Ondansetron 4 Mg/2 Ml Sdv) 4 mg IVPUSH Q6H PRN PRN Reason: Nausea Ondansetron HCl (Ondansetron 4 Mg/2 Ml Sdv) 4 mg IV Q6H PRN PRN Reason: Nausea/Vomiting Oxycodone HCl (Oxycodone 5 Mg Tab) 5 mg PO Q6H PRN PRN Reason: Pain (moderate 4-6) Last Admin: 09/23/21 09:41 Dose: 5 mg Documented by: Oxycodone HCl (Oxycodone 5 Mg Tab) 10 mg PO Q6H PRN PRN Reason: Pain (moderate 4-6) Last Admin: 09/26/21 05:41 Dose: 10 mg Documented by: Pantoprazole Sodium (Pantoprazole 40 Mg Tab.Cr) 40 mg PO ONETIME ONE Stop: 09/23/21 22:19 Pantoprazole Sodium (Pantoprazole 40 Mg Tab.Cr) 40 mg PO ONETIME ONE Stop: 09/22/21 23:46 Last Admin: 09/22/21 23:46 Dose: 40 mg Documented by: Potassium Chloride (Potassium Chloride 20 Meq Tab.Er) 20 meq PO BID [facility] Last Admin: 09/23/21 09:42 Dose: 20 meq Documented by: Potassium Chloride (Potassium Chloride 20 Meq Tab.Er) 20 meq PO ONETIME ONE Stop: 09/23/21 10:01 Last Admin: 09/23/21 12:00 Dose: 20 meq Documented by: Sodium Chloride (Sodium Chloride 0.9% 10 Ml Syringe) 10 ml FLUSH ONETIME ONE Stop: 09/22/21 20:15 Last Admin: 09/22/21 20:54 Dose: 10 ml Documented by: Spironolactone (Spironolactone 25 Mg Tab) 25 mg PO DAILY [facility] Last Admin: 09/24/21 09:33 Dose: 25 mg Documented by: - Exam Quality Assessment: No: Supplemental Oxygen General: Alert, Oriented HEENT: Scleral Icterus Neck: Supple Lungs: Clear to Auscultation, Normal Respiratory Effort Cardiovascular: Regular Rate, Regular Rhythm GI/Abdominal Exam: Normal Bowel Sounds, Tender (epigastrium) Extremities: Normal Inspection, No Pedal Edema, Normal Capillary Refill Skin: Warm, Dry, Intact Psy/Mental Status: Alert, Normal Affect, Normal Mood - Patient Data Lab Results Last 24 hrs: Laboratory Results - last 24 hr 09/26/21 09/26/21 Range/Units 05:45 05:45 WBC 12.87 H (3.98-10.04) K/mm3 RBC 2.68 L (3.98-5.22) M/mm3 Hgb 8.4 L (11.2-15.7) gm/dl Hct 27.4 L (34.1-44.9) % MCV 102.2 H (79.4-94.8) fl MCH 31.3 (25.6-32.2) pg MCHC 30.7 L (32.2-35.5) g/dl RDW Std Deviation 74.0 H (36.4-46.3) fL Plt Count 85 L (182-369) K/mm3 MPV 10.5 (9.4-12.3) fl Neut % (Auto) 75.4 H (34.0-71.1) % Lymph % (Auto) 13.3 L (19.3-51.7) % Waldo % (Auto) 6.8 (4.7-12.5) % Eos % (Auto) 2.3 (0.7-5.8) Baso % (Auto) 0.7 (0.1-1.2) % Neut # (Auto) 9.70 H (1.56-6.13) K/mm3 Lymph # (Auto) 1.71 (1.18-3.74) K/mm3 Waldo # (Auto) 0.88 H (0.24-0.36) K/mm3 Eos # (Auto) 0.30 (0.04-0.36) K/mm3 Baso # (Auto) 0.09 H (0.01-0.08) K/mm3 Manual Slide Review Abnormal smear Sodium 131 L (136-145) mEq/L Potassium 3.8 (3.5-5.1) mEq/L Chloride 94 L (98-107) mEq/L Carbon Dioxide 28 (21-32) mEq/L Anion Gap 12.8 (5-15) BUN 9 (7-18) mg/dL Creatinine 0.6 (0.55-1.02) mg/dL Est Cr Clr Drug Dosing 112.75 mL/min Estimated GFR (MDRD) > 60 (>60) mL/min BUN/Creatinine Ratio 15.0 (14-18) Glucose 89 (70-99) mg/dL Calcium 7.9 L (8.5-10.1) mg/dL Total Bilirubin 29.5 H (0.2-1.0) mg/dL AST 136 H (15-37) U/L ALT 43 (14-59) U/L Alkaline Phosphatase 191 H (46-116) U/L C-Reactive Protein 4.9 H* (<1.0) mg/dL Total Protein 5.9 L (6.4-8.2) g/dl Albumin 3.1 L (3.4-5.0) g/dl Globulin 2.8 gm/dL Albumin/Globulin Ratio 1.1 (1-2) Result Diagrams: 09/26/21 05:45 09/26/21 05:45 Sepsis Event Note - Evaluation Sepsis Screening Result: Severe Sepsis Risk - Focused Exam Vital Signs: Vital Signs Temp Pulse Resp BP Pulse Ox 09/26/21 07:38 98.2 F 94 18 112/61 100 09/26/21 04:48 98.4 F 93 14 117/53 L 100 09/26/21 00:03 98.2 F 96 14 104/49 L 100 - Problem List & Annotations (1) Abdominal pain SNOMED Code(s): 18017142 Code(s): R10.9 - UNSPECIFIED ABDOMINAL PAIN Status: Acute Priority: High Current Visit: Yes Qualifiers: Abdominal location: generalized Qualified Code(s): R10.84 - Generalized abdominal pain (2) Liver failure SNOMED Code(s): 50001001 Code(s): K72.90 - HEPATIC FAILURE, UNSPECIFIED WITHOUT COMA Status: Acute Current Visit: Yes Qualifiers: Liver failure chronicity: subacute Hepatic coma status: without hepatic coma Qualified Code(s): K72.00 - Acute and subacute hepatic failure without coma (3) Cirrhosis of liver SNOMED Code(s): 49097150 Code(s): K74.60 - UNSPECIFIED CIRRHOSIS OF LIVER Status: Chronic Priority: High Current Visit: Yes Qualifiers: Hepatic cirrhosis type: alcoholic cirrhosis Ascites presence: with ascites Qualified Code(s): K70.31 - Alcoholic cirrhosis of liver with ascites (4) Elevated INR SNOMED Code(s): 115414683 Code(s): R79.1 - ABNORMAL COAGULATION PROFILE Status: Chronic Priority: Medium Current Visit: Yes (5) Hyperbilirubinemia SNOMED Code(s): 53669240 Code(s): E80.6 - OTHER DISORDERS OF BILIRUBIN METABOLISM Status: Chronic Priority: High Current Visit: Yes (6) Spontaneous bacterial peritonitis SNOMED Code(s): 21929521 Code(s): K65.2 - SPONTANEOUS BACTERIAL PERITONITIS Status: Suspected Priority: High Current Visit: Yes - Problem List Review Problem List Initiated/Reviewed/Updated: Yes - My Orders Last 24 Hours: My Active Orders 09/26/21 09:00 Furosemide [Lasix] 40 mg PO DAILY 09/26/21 10:04 oxyCODONE 10 mg PO Q4H PRN 09/26/21 10:25 HYDROmorphone [Dilaudid] 0.5 mg IVPUSH Q2H PRN - Assessment Assessment:: 09/24/2021 36-year-old female with a history of severe liver cirrhosis and liver failure admitted to the floor for suspected SBP. She is on meropenem. Blood cultures are pending. Labs today show WBC of 12.9. Hemoglobin 8.4. Platelet 84,000. Neutrophils are 74.7. Slide shows thrombopenia sodium is 135. Potassium 3.5. Chloride 100. Anion gap 14.5. BUN is 9. Creatinine 0.6. GFR greater than 60. Glucose is 105. Calcium 7.8. Bilirubin is up to 27.5. AST is 108. ALT 38. Alkaline phosphatase is 187. CRP is down to 3.1. Albumin is up to 2.4. Procalcitonin from yesterday was 0.75. We will continue current treatment plans. We will recheck hemoglobin this afternoon. Patient did note some blood in her stool which is not surprising given her elevated INR and history of jose alfredo icosities. Unknown length of stay at this time. 09/25/2021 36-year-old female with end-stage liver disease admitted with abdominal pain and suspected SBP. Patient is on meropenem and getting infusions of albumin. Lab work shows an increasing WBC of 15.5 and increasing CRP of 5.5. Procalcitonin was only minimally elevated at 0.75. Renal function continues to be good with a creatinine of 0.5. Patient lost 7 pounds of weight after starting Lasix yesterday. Unfortunately platelets are still low at 91,000. Hemoglobin has been stable at 9.0, up from yesterday's 8.4. Patient's long-term prognosis is very poor and we discussed that today. Her spironolactone will be increased to 100 mg daily. We will follow her potassium closely since she is on potassium supplementation. 09/26/2021 36-year-old female with end-stage liver disease with abdominal pain and suspected SBP. On CT of her abdomen at admission she did have splenomegaly whic h could be partly contributing to the pain she is identifying. Ascites was seen surrounding the liver and spleen and within the paracolic gutters which was new finding. She has had an 8 pound weight loss with diuresis. Lasix was switched to 40 mg p.o. in the morning and she continues on her spironolactone at 100 mg daily. She is on meropenem for suspected SBP. Last dose of albumin given yeste rday. No signs of bleeding, but her hemoglobin did drop to 8.4. White count is 12.87 which is down from yesterday. CRP is also come down slightly to 4.9. 09/25's procalcitonin is pending. Bilirubin is 29.5. Renal function continues to be good with an estimated GFR of greater than 60. Patient really has not had any significant changes since admission. - Plan Plan:: Spontaneous bacterial peritonitis, suspected Abdominal pain Cirrhosis of liver Obesity (BMI 30-39.9) History of alcohol abuse Hyperbilirubinemia Hypoalbuminemia Pedal edema * Given Rocephin 2 g in the EDswitched to meropenem on floor * Given 2 doses of albumin 1.5 g/kg * Lactulose as ordered * Pain medications adjusted. Dilaudid 0.5 mg every 2 hours for severe pain and oxycodone 10 mg every 4 hours as needed. * Unfortunately per general surgeon unable to obtain paracentesis. Will monitor * Blood cultures pending * Home medications as ordered * Lasix 40 mg daily * Spironolactone 100 mg daily * RENZO stockings for pedal edema * Avoid hepatotoxic medications if possible * Daily labs * Dietitian consultation GERD (gastroesophageal reflux disease) * No acute concerns * Continue home Protonix History of COVID-19 * No acute concerns History of GI bleed History of esophageal varices Elevated INR * No acute concerns * Patient is auto anticoagulated * High risk of bleeding * Pharmacological VTE prophylaxis contraindicated History of MRSA infection * No acute concerns * Follow institutional protocol Code status: Full code PCP: Lynn Olivares NP DVT prophylaxis: RENZO hose (pharmacological prophylaxis contraindicated) Disposition: Patient admitted to the floor for management of suspected SBP. Length of stay likely 4 to 5 days total. Overall patient prognosis is very poor: MELD-Na score of 30 with a 27-32% 90- day mortality risk. TAN-C ACLF score of 42 with a 40.1% 1 year mortality risk.
[2021-09-27] MEDS: Meropenem Premix 500 MG in Premix Bag 1 BAG IV SCH ×4 (01:10→20:32)
[2021-09-27] MEDS: HYDROmorphone 0.5 MG/0.5 ML Syringe IVPUSH PRN ×5 (01:49→22:25)
[2021-09-27] MEDS: oxyCODONE 5 MG Tab PO PRN ×5 (04:12→20:32)
--- NOTE | 2021-09-27 05:55 | PCM.PN ---
- General Info Date of Service: 09/27/21 Admission Dx/Problem (Free Text): Admission Diagnosis/Problem Admission Diagnosis/Problem Liver failure - Patient Data Vitals - Most Recent: Last Vital Signs Temp 98.4 F 09/27/21 02:14 Pulse 92 09/27/21 02:14 Resp 16 09/27/21 02:14 BP 97/46 L 09/27/21 02:14 Pulse Ox 95 09/27/21 02:14 Weight - Most Recent: 183 lb 12.8 oz I&O - Last 24 Hours: Intake & Output 09/26/21 09/26/21 09/27/21 14:59 22:59 06:59 Intake Total 148 2141 Output Total 3000 1350 Balance -2852 791 Lab Results Last 24 Hours: Laboratory Results - last 24 hr 09/25/21 09/26/21 09/26/21 Range/Units 04:44 05:45 05:45 WBC 12.87 H (3.98-10.04) K/mm3 RBC 2.68 L (3.98-5.22) M/mm3 Hgb 8.4 L (11.2-15.7) gm/dl Hct 27.4 L (34.1-44.9) % MCV 102.2 H (79.4-94.8) fl MCH 31.3 (25.6-32.2) pg MCHC 30.7 L (32.2-35.5) g/dl RDW Std Deviation 74.0 H (36.4-46.3) fL Plt Count 85 L (182-369) K/mm3 MPV 10.5 (9.4-12.3) fl Neut % (Auto) 75.4 H (34.0-71.1) % Lymph % (Auto) 13.3 L (19.3-51.7) % [place] % (Auto) 6.8 (4.7-12.5) % Eos % (Auto) 2.3 (0.7-5.8) Baso % (Auto) 0.7 (0.1-1.2) % Neut # (Auto) 9.70 H (1.56-6.13) K/mm3 Lymph # (Auto) 1.71 (1.18-3.74) K/mm3 [place] # (Auto) 0.88 H (0.24-0.36) K/mm3 Eos # (Auto) 0.30 (0.04-0.36) K/mm3 Baso # (Auto) 0.09 H (0.01-0.08) K/mm3 Manual Slide Review Abnormal smear Sodium 131 L (136-145) mEq/L Potassium 3.8 (3.5-5.1) mEq/L Chloride 94 L (98-107) mEq/L Carbon Dioxide 28 (21-32) mEq/L Anion Gap 12.8 (5-15) BUN 9 (7-18) mg/dL Creatinine 0.6 (0.55-1.02) mg/dL Est Cr Clr Drug Dosing 112.75 mL/min Estimated GFR (MDRD) > 60 (>60) mL/min BUN/Creatinine Ratio 15.0 (14-18) Glucose 89 (70-99) mg/dL Calcium 7.9 L (8.5-10.1) mg/dL Total Bilirubin 29.5 H (0.2-1.0) mg/dL AST 136 H (15-37) U/L ALT 43 (14-59) U/L Alkaline Phosphatase 191 H (46-116) U/L C-Reactive Protein 4.9 H* (<1.0) mg/dL Total Protein 5.9 L (6.4-8.2) g/dl Albumin 3.1 L (3.4-5.0) g/dl Globulin 2.8 gm/dL Albumin/Globulin Ratio 1.1 (1-2) Procalcitonin 1.40 H ng/mL Med Orders - Current: Current Medications Dicyclomine HCl (Dicyclomine 10 Mg Cap) 10 mg PO DAILY PRN PRN Reason: abdominal cramp Folic Acid (Folic Acid 1 Mg Tab) 1 mg PO DAILY [facility] Last Admin: 09/26/21 08:33 Dose: 1 mg Documented by: Furosemide (Furosemide 40 Mg Tab) 40 mg PO DAILY [facility] Last Admin: 09/26/21 08:33 Dose: 40 mg Documented by: Hydromorphone HCl (Hydromorphone 0.5 Mg/0.5 Ml Syringe) 0.5 mg IVPUSH Q2H PRN PRN Reason: Pain (severe 7-10) Last Admin: 09/27/21 01:49 Dose: 0.5 mg Documented by: Meropenem/Sodium Chloride 500 (mg/ Premix) 50 mls @ 100 mls/hr IV Q6H [facility] Last Admin: 09/27/21 01:10 Dose: 100 mls/hr Documented by: Lactulose (Lactulose Soln 10 Gm/15 Ml 30 Ml Ud Cup) 15 gm PO BID [facility] Last Admin: 09/26/21 20:02 Dose: Not Given Documented by: Magnesium Oxide (Magnesium Oxide 400 Mg Tab) 400 mg PO DAILY [facility] Last Admin: 09/26/21 08:33 Dose: 400 mg Documented by: Metoclopramide HCl (Metoclopramide 10 Mg/2 Ml Sdv) 10 mg IVPUSH Q6H PRN PRN Reason: Nausea Last Admin: 09/26/21 07:54 Dose: 10 mg Documented by: Multivitamins/Minerals/Vitamin C (Multivitamin Tab) 1 tab PO DAILY [facility] Last Admin: 09/26/21 08:34 Dose: 1 tab Documented by: Oxycodone HCl (Oxycodone 5 Mg Tab) 10 mg PO Q4H PRN PRN Reason: Pain (moderate 4-6) Last Admin: 09/27/21 04:12 Dose: 10 mg Documented by: Pantoprazole Sodium (Pantoprazole 40 Mg Tab.Cr) 40 mg PO DAILY [facility] Last Admin: 09/26/21 08:34 Dose: 40 mg Documented by: Potassium Chloride (Potassium Chloride 20 Meq Tab.Er) 40 meq PO BID [facility] Last Admin: 09/26/21 20:02 Dose: Not Given Documented by: Spironolactone (Spironolactone 100 Mg Tab) 100 mg PO DAILY [facility] Last Admin: 09/26/21 08:31 Dose: 100 mg Documented by: Thiamine HCl (Thiamine 100 Mg Tab) 100 mg PO DAILY [facility] Last Admin: 09/26/21 08:34 Dose: 100 mg Documented by: Discontinued Medications Furosemide (Furosemide 40 Mg/4 Ml Vial) 40 mg IVPUSH NOW ONE Stop: 09/24/21 09:32 Last Admin: 09/24/21 10:50 Dose: 40 mg Documented by: Furosemide (Furosemide 40 Mg/4 Ml Vial) 40 mg IVPUSH BIDDIURETIC [facility] Last Admin: 09/24/21 13:12 Dose: 40 mg Documented by: Furosemide (Furosemide 40 Mg/4 Ml Vial) 40 mg IVPUSH BID [facility] Last Admin: 12/18/21 20:54 Dose: 40 mg Documented by: Furosemide (Furosemide 40 Mg/4 Ml Vial) 40 mg IVPUSH NOW ONE Stop: 09/23/21 11:47 Last Admin: 09/23/21 12:50 Dose: 40 mg Documented by: Hydromorphone HCl (Hydromorphone 1 Mg/Ml Syringe) 1 mg IVPUSH ONETIME ONE Stop: 09/22/21 18:15 Last Admin: 09/22/21 18:23 Dose: 1 mg Documented by: Hydromorphone HCl (Hydromorphone 0.5 Mg/0.5 Ml Syringe) 0.5 mg IVPUSH ONETIME ONE Stop: 09/22/21 22:17 Last Admin: 09/22/21 23:46 Dose: 0.5 mg Documented by: Hydromorphone HCl (Hydromorphone 0.5 Mg/0.5 Ml Syringe) 0.5 mg IVPUSH Q4H PRN PRN Reason: Pain Last Admin: 09/26/21 08:08 Dose: 0.5 mg Documented by: Sodium Chloride (Normal Saline) 1,000 mls @ 125 mls/hr IV ASDIRECTED [facility] Last Admin: 09/22/21 18:23 Dose: 125 mls/hr Documented by: Ceftriaxone Sodium 2 gm/ (Sodium Chloride) 100 mls @ 200 mls/hr IV ONETIME ONE Stop: 09/22/21 18:47 Last Admin: 09/22/21 19:21 Dose: 200 mls/hr Documented by: Sodium Chloride (Normal Saline) 1,000 mls @ 75 mls/hr IV ASDIRECTED [facility] Last Admin: 09/23/21 00:26 Dose: 75 mls/hr Documented by: Albumin Human 12.5 gm/ Premix 50 mls @ 100 mls/hr IV Q1H [facility] Stop: 09/23/21 15:59 Last Admin: 09/23/21 14:43 Dose: 100 mls/hr Documented by: Albumin Human 12.5 gm/ Premix 50 mls @ 100 mls/hr IV Q1H [facility] Stop: 09/25/21 15:29 Last Admin: 09/25/21 14:00 Dose: 100 mls/hr Documented by: Albumin Human (Flexbumin 25%) Confirm Administered Dose 50 mls @ as directed .ROUTE .STK-MED ONE Stop: 09/23/21 10:51 Last Admin: 09/23/21 12:40 Dose: Not Given Documented by: Iopamidol (Iopamidol 612 Mg/Ml 100 Ml Bottle) 100 ml IVPUSH ONETIME ONE Stop: 09/22/21 20:15 Last Admin: 09/22/21 20:54 Dose: 100 ml Documented by: Iopamidol (Iopamidol 612 Mg/Ml 50 Ml Sdv) 50 ml IVPUSH ONETIME ONE Stop: 09/22/21 20:15 Last Admin: 09/22/21 20:54 Dose: 50 ml Documented by: Lactulose (Lactulose Soln 10 Gm/15 Ml 30 Ml Ud Cup) 15 gm PO ONETIME ONE Stop: 09/22/21 22:17 Last Admin: 09/22/21 23:46 Dose: 15 gm Documented by: Metoclopramide HCl (Metoclopramide 10 Mg/2 Ml Sdv) 10 mg IVPUSH ONETIME ONE Stop: 09/22/21 18:15 Last Admin: 09/22/21 18:23 Dose: 10 mg Documented by: Non-Formulary Medication (Oxycodone Hcl [Oxycodone Hcl]) 5 mg PO Q6H PRN PRN Reason: Pain Ondansetron HCl (Ondansetron 4 Mg/2 Ml Sdv) 4 mg IVPUSH Q6H PRN PRN Reason: Nausea Ondansetron HCl (Ondansetron 4 Mg/2 Ml Sdv) 4 mg IV Q6H PRN PRN Reason: Nausea/Vomiting Oxycodone HCl (Oxycodone 5 Mg Tab) 5 mg PO Q6H PRN PRN Reason: Pain (moderate 4-6) Last Admin: 09/23/21 09:41 Dose: 5 mg Documented by: Oxycodone HCl (Oxycodone 5 Mg Tab) 10 mg PO Q6H PRN PRN Reason: Pain (moderate 4-6) Last Admin: 09/26/21 05:41 Dose: 10 mg Documented by: Pantoprazole Sodium (Pantoprazole 40 Mg Tab.Cr) 40 mg PO ONETIME ONE Stop: 09/23/21 22:19 Pantoprazole Sodium (Pantoprazole 40 Mg Tab.Cr) 40 mg PO ONETIME ONE Stop: 09/22/21 23:46 Last Admin: 09/22/21 23:46 Dose: 40 mg Documented by: Potassium Chloride (Potassium Chloride 20 Meq Tab.Er) 20 meq PO BID [facility] Last Admin: 09/23/21 09:42 Dose: 20 meq Documented by: Potassium Chloride (Potassium Chloride 20 Meq Tab.Er) 20 meq PO ONETIME ONE Stop: 09/23/21 10:01 Last Admin: 09/23/21 12:00 Dose: 20 meq Documented by: Sodium Chloride (Sodium Chloride 0.9% 10 Ml Syringe) 10 ml FLUSH ONETIME ONE Stop: 09/22/21 20:15 Last Admin: 09/22/21 20:54 Dose: 10 ml Documented by: Spironolactone (Spironolactone 25 Mg Tab) 25 mg PO DAILY [facility] Last Admin: 09/24/21 09:33 Dose: 25 mg Documented by: - Patient Data Lab Results Last 24 hrs: Laboratory Results - last 24 hr 09/25/21 09/26/21 09/26/21 Range/Units 04:44 05:45 05:45 WBC 12.87 H (3.98-10.04) K/mm3 RBC 2.68 L (3.98-5.22) M/mm3 Hgb 8.4 L (11.2-15.7) gm/dl Hct 27.4 L (34.1-44.9) % MCV 102.2 H (79.4-94.8) fl MCH 31.3 (25.6-32.2) pg MCHC 30.7 L (32.2-35.5) g/dl RDW Std Deviation 74.0 H (36.4-46.3) fL Plt Count 85 L (182-369) K/mm3 MPV 10.5 (9.4-12.3) fl Neut % (Auto) 75.4 H (34.0-71.1) % Lymph % (Auto) 13.3 L (19.3-51.7) % [place] % (Auto) 6.8 (4.7-12.5) % Eos % (Auto) 2.3 (0.7-5.8) Baso % (Auto) 0.7 (0.1-1.2) % Neut # (Auto) 9.70 H (1.56-6.13) K/mm3 Lymph # (Auto) 1.71 (1.18-3.74) K/mm3 [place] # (Auto) 0.88 H (0.24-0.36) K/mm3 Eos # (Auto) 0.30 (0.04-0.36) K/mm3 Baso # (Auto) 0.09 H (0.01-0.08) K/mm3 Manual Slide Review Abnormal smear Sodium 131 L (136-145) mEq/L Potassium 3.8 (3.5-5.1) mEq/L Chloride 94 L (98-107) mEq/L Carbon Dioxide 28 (21-32) mEq/L Anion Gap 12.8 (5-15) BUN 9 (7-18) mg/dL Creatinine 0.6 (0.55-1.02) mg/dL Est Cr Clr Drug Dosing 112.75 mL/min Estimated GFR (MDRD) > 60 (>60) mL/min BUN/Creatinine Ratio 15.0 (14-18) Glucose 89 (70-99) mg/dL Calcium 7.9 L (8.5-10.1) mg/dL Total Bilirubin 29.5 H (0.2-1.0) mg/dL AST 136 H (15-37) U/L ALT 43 (14-59) U/L Alkaline Phosphatase 191 H (46-116) U/L C-Reactive Protein 4.9 H* (<1.0) mg/dL Total Protein 5.9 L (6.4-8.2) g/dl Albumin 3.1 L (3.4-5.0) g/dl Globulin 2.8 gm/dL Albumin/Globulin Ratio 1.1 (1-2) Procalcitonin 1.40 H ng/mL Result Diagrams: 09/26/21 05:45 09/26/21 05:45 Sepsis Event Note - Evaluation Sepsis Screening Result: No Definite Risk - Focused Exam Vital Signs: Vital Signs Temp Pulse Resp BP Pulse Ox 09/27/21 02:14 98.4 F 92 16 97/46 L 95 09/26/21 20:32 98.8 F 88 18 123/58 L 100 - Problem List & Annotations (1) History of alcohol abuse SNOMED Code(s): 370054014 Code(s): F10.11 - ALCOHOL ABUSE, IN REMISSION Status: Chronic Priority: Medium Current Visit: No (2) Spontaneous bacterial peritonitis SNOMED Code(s): 83632114 Code(s): K65.2 - SPONTANEOUS BACTERIAL PERITONITIS Status: Suspected Priority: High Current Visit: Yes (3) Abdominal pain SNOMED Code(s): 17657582 Code(s): R10.9 - UNSPECIFIED ABDOMINAL PAIN Status: Acute Priority: High Current Visit: Yes Qualifiers: Abdominal location: generalized Qualified Code(s): R10.84 - Generalized abdominal pain (4) Cirrhosis of liver SNOMED Code(s): 36213256 Code(s): K74.60 - UNSPECIFIED CIRRHOSIS OF LIVER Status: Chronic Priority: High Current Visit: Yes Qualifiers: Hepatic cirrhosis type: alcoholic cirrhosis Ascites presence: with ascites Qualified Code(s): K70.31 - Alcoholic cirrhosis of liver with ascites (5) Obesity (BMI 30-39.9) SNOMED Code(s): 021695896, 392548028 Code(s): E66.9 - OBESITY, UNSPECIFIED Status: Chronic Priority: Low Current Visit: No (6) GERD (gastroesophageal reflux disease) SNOMED Code(s): 107608142 Code(s): K21.9 - GASTRO-ESOPHAGEAL REFLUX DISEASE WITHOUT ESOPHAGITIS Status: Chronic Priority: Medium Current Visit: No Qualifiers: Esophagitis presence: esophagitis presence not specified Qualified Code(s): K21.9 - Gastro-esophageal reflux disease without esophagitis (7) History of COVID-19 SNOMED Code(s): 133934537633813709, 648567613288909257 Code(s): Z86.16 - PERSONAL HISTORY OF COVID-19 Status: Chronic Priority: Low Current Visit: No (8) History of GI bleed SNOMED Code(s): 767958333 Code(s): Z87.19 - PERSONAL HISTORY OF OTHER DISEASES OF THE DIGESTIVE SYSTEM Status: Chronic Priority: Medium Current Visit: No (9) History of MRSA infection SNOMED Code(s): 247972825, 308917424 Code(s): Z86.14 - PERSONAL HISTORY OF METHICILLIN RESIS STAPH INFECTION Status: Chronic Priority: Low Current Visit: No (10) History of esophageal varices SNOMED Code(s): 25758306019708092 Code(s): Z87.19 - PERSONAL HISTORY OF OTHER DISEASES OF THE DIGESTIVE SYSTEM Status: Chronic Priority: Medium Current Visit: No (11) Hyperbilirubinemia SNOMED Code(s): 42685892 Code(s): E80.6 - OTHER DISORDERS OF BILIRUBIN METABOLISM Status: Chronic Priority: High Current Visit: Yes (12) Hypoalbuminemia SNOMED Code(s): 736345258 Code(s): E88.09 - OTH DISORDERS OF PLASMA-PROTEIN METABOLISM, NEC Status: Chronic Priority: High Current Visit: Yes (13) Elevated INR SNOMED Code(s): 058107417 Code(s): R79.1 - ABNORMAL COAGULATION PROFILE Status: Chronic Priority: Medium Current Visit: Yes (14) Pedal edema SNOMED Code(s): 126637443 Code(s): R60.0 - LOCALIZED EDEMA Status: Chronic Priority: Medium Current Visit: Yes - My Orders Last 24 Hours: My Active Orders 09/27/21 05:10 CBC WITH AUTO DIFF [HEME] AM CRP [C-REACTIVE PROTEIN] [CHEM] AM - Assessment Assessment:: 09/24/2021 36-year-old female with a history of severe liver cirrhosis and liver failure admitted to the floor for suspected SBP. She is on meropenem. Blood cultures are pending. Labs today show WBC of 12.9. Hemoglobin 8.4. Platelet 84,000. Neutrophils are 74.7. Slide shows thrombopenia sodium is 135. Potassium 3.5. Chloride 100. Anion gap 14.5. BUN is 9. Creatinine 0.6. GFR greater than 60. Glucose is 105. Calcium 7.8. Bilirubin is up to 27.5. AST is 108. ALT 38. Alkaline phosphatase is 187. CRP is down to 3.1. Albumin is up to 2.4. Procalcitonin from yesterday was 0.75. We will continue current treatment plans. We will recheck hemoglobin this afternoon. Patient did note some blood in her stool which is not surprising given her elevated INR and history of varicosities. Unknown length of stay at this time. 09/25/2021 36-year-old female with end-stage liver disease admitted with abdominal pain and suspected SBP. Patient is on meropenem and getting infusions of albumin. Lab work shows an increasing WBC of 15.5 and increasing CRP of 5.5. Procalcitonin was only minimally elevated at 0.75. Renal function continues to be good with a creatinine of 0.5. Patient lost 7 pounds of weight after starting Lasix yesterday. Unfortunately platelets are still low at 91,000. Hemoglobin has been stable at 9.0, up from yesterday's 8.4. Patient's long-term prognosis is very poor and we discussed that today. Her spironolactone will be increased to 100 mg daily. We will follow her potassium closely since she is on potassium supplementation. 09/26/2021 36-year-old female with end-stage liver disease with abdominal pain and suspected SBP. On CT of her abdomen at admission she did have splenomegaly which could be partly contributing to the pain she is identifying. Ascites was seen surrounding the liver and spleen and within the paracolic gutters which was new finding. She has had an 8 pound weight loss with diuresis. Lasix was s witched to 40 mg p.o. in the morning and she continues on her spironolactone at 100 mg daily. She is on meropenem for suspected SBP. Last dose of albumin given yesterday. No signs of bleeding, but her hemoglobin did drop to 8.4. White count is 12.87 which is down from yesterday. CRP is also come down slightly to 4.9. 09/25's procalcitonin is pending. Bilirubin is 29.5. Renal function continues to be good with an estimated GFR of greater than 60. Patient really has not had any significant changes since admission. - Plan Plan:: Spontaneous bacterial peritonitis, suspected Abdominal pain Cirrhosis of liver Obesity (BMI 30-39.9) History of alcohol abuse Hyperbilirubinemia Hypoalbuminemia Pedal edema * Given Rocephin 2 g in the EDswitched to meropenem on floor * Given 2 doses of albumin 1.5 g/kg * Lactulose as ordered * Pain medications adjusted. Dilaudid 0.5 mg every 2 hours for severe pain and oxycodone 10 mg every 4 hours as needed. * Unfortunately per general surgeon unable to obtain paracentesis. Will monitor * Blood cultures pending * Home medications as ordered * Lasix 40 mg daily * Spironolactone 100 mg daily * RENZO stockings for pedal edema * Avoid hepatotoxic medications if possible * Daily labs * Dietitian consultation GERD (gastroesophageal reflux disease) * No acute concerns * Continue home Protonix History of COVID-19 * No acute concerns History of GI bleed History of esophageal varices Elevated INR * No acute concerns * Patient is auto anticoagulated * High risk of bleeding * Pharmacological VTE prophylaxis contraindicated History of MRSA infection * No acute concerns * Follow institutional protocol Code status: Full code PCP: Lynn Olivares NP DVT prophylaxis: RENZO martinez (pharmacological prophylaxis contraindicated) Disposition: Patient admitted to the floor for management of suspected SBP. Length of stay likely 4 to 5 days total. Overall patient prognosis is very poor: MELD-Na score of 30 with a 27-32% 90- day mortality risk. TAN-C ACLF score of 42 with a 40.1% 1 year mortality risk.
[2021-09-27] MEDS: Furosemide 40 MG Tab PO SCH (08:09)
[2021-09-27] MEDS: Thiamine 100 MG Tab PO SCH (08:09)
[2021-09-27] MEDS: Folic Acid 1 MG Tab PO SCH (08:09)
[2021-09-27] MEDS: Multivitamin Tab PO SCH (08:09)
[2021-09-27] MEDS: Magnesium Oxide 400 MG Tab PO SCH (08:10)
[2021-09-27] MEDS: Lactulose Soln 10 GM/15 ML 30 ML UD Cup PO SCH ×2 (08:10→20:32)
[2021-09-27] MEDS: Pantoprazole 40 MG Tab.CR PO SCH (08:10)
[2021-09-27] MEDS: Spironolactone 100 MG Tab PO SCH (08:10)
[2021-09-27] MEDS: Potassium Chloride 20 MEQ Tab.ER PO SCH ×2 (08:10→20:33)
--- NOTE | 2021-09-27 09:54 | PCM.PN ---
- General Info Date of Service: 09/27/21 Admission Dx/Problem (Free Text): Liver failure Subjective Update: That pain is worse today. She continues to point to her left upper quadrant radiating just above her bellybutton. Denies any fever. Functional Status: Denies: Pain Controlled - Review of Systems General: Reports: No Symptoms HEENT: Reports: No Symptoms Pulmonary: Reports: No Symptoms Cardiovascular: Reports: No Symptoms Gastrointestinal: Reports: No Symptoms Musculoskeletal: Reports: No Symptoms Neurological: Reports: No Symptoms - Patient Data Vitals - Most Recent: Last Vital Signs Temp 98.4 F 09/27/21 08:05 Pulse 94 09/27/21 08:05 Resp 16 09/27/21 08:05 BP 117/55 L 09/27/21 08:05 Pulse Ox 99 09/27/21 08:05 Weight - Most Recent: 183 lb 12.8 oz I&O - Last 24 Hours: Intake & Output 09/26/21 09/27/21 09/27/21 22:59 06:59 14:59 Intake Total 148 2141 Output Total 3000 1350 Balance -2852 791 Lab Results Last 24 Hours: Laboratory Results - last 24 hr 09/25/21 09/27/21 09/27/21 Range/Units 04:44 05:10 05:10 WBC 13.22 H (3.98-10.04) K/mm3 RBC 2.68 L (3.98-5.22) M/mm3 Hgb 8.4 L (11.2-15.7) gm/dl Hct 27.9 L (34.1-44.9) % MCV 104.1 H (79.4-94.8) fl MCH 31.3 (25.6-32.2) pg MCHC 30.1 L (32.2-35.5) g/dl RDW Std Deviation 75.8 H (36.4-46.3) fL Plt Count 86 L (182-369) K/mm3 MPV 10.1 (9.4-12.3) fl Neut % (Auto) 74.1 H (34.0-71.1) % Lymph % (Auto) 12.4 L (19.3-51.7) % [place] % (Auto) 9.1 (4.7-12.5) % Eos % (Auto) 2.2 (0.7-5.8) Baso % (Auto) 0.8 (0.1-1.2) % Neut # (Auto) 9.80 H (1.56-6.13) K/mm3 Lymph # (Auto) 1.64 (1.18-3.74) K/mm3 [place] # (Auto) 1.20 H (0.24-0.36) K/mm3 Eos # (Auto) 0.29 (0.04-0.36) K/mm3 Baso # (Auto) 0.11 H (0.01-0.08) K/mm3 Manual Slide Review Abnormal smear Sodium (136-145) mEq/L Potassium (3.5-5.1) mEq/L Chloride (98-107) mEq/L Carbon Dioxide (21-32) mEq/L Anion Gap (5-15) BUN (7-18) mg/dL Creatinine (0.55-1.02) mg/dL Est Cr Clr Drug Dosing mL/min Estimated GFR (MDRD) (>60) mL/min BUN/Creatinine Ratio (14-18) Glucose (70-99) mg/dL Calcium (8.5-10.1) mg/dL Total Bilirubin (0.2-1.0) mg/dL AST (15-37) U/L ALT (14-59) U/L Alkaline Phosphatase (46-116) U/L C-Reactive Protein 5.1 H* (<1.0) mg/dL Total Protein (6.4-8.2) g/dl Albumin (3.4-5.0) g/dl Globulin gm/dL Albumin/Globulin Ratio (1-2) Procalcitonin 1.40 H ng/mL 09/27/21 Range/Units 05:10 WBC (3.98-10.04) K/mm3 RBC (3.98-5.22) M/mm3 Hgb (11.2-15.7) gm/dl Hct (34.1-44.9) % MCV (79.4-94.8) fl MCH (25.6-32.2) pg MCHC (32.2-35.5) g/dl RDW Std Deviation (36.4-46.3) fL Plt Count (182-369) K/mm3 MPV (9.4-12.3) fl Neut % (Auto) (34.0-71.1) % Lymph % (Auto) (19.3-51.7) % [place] % (Auto) (4.7-12.5) % Eos % (Auto) (0.7-5.8) Baso % (Auto) (0.1-1.2) % Neut # (Auto) (1.56-6.13) K/mm3 Lymph # (Auto) (1.18-3.74) K/mm3 [place] # (Auto) (0.24-0.36) K/mm3 Eos # (Auto) (0.04-0.36) K/mm3 Baso # (Auto) (0.01-0.08) K/mm3 Manual Slide Review Sodium 132 L (136-145) mEq/L Potassium 4.2 (3.5-5.1) mEq/L Chloride 97 L (98-107) mEq/L Carbon Dioxide 25 (21-32) mEq/L Anion Gap 14.2 (5-15) BUN 9 (7-18) mg/dL Creatinine 0.5 L (0.55-1.02) mg/dL Est Cr Clr Drug Dosing 135.30 mL/min Estimated GFR (MDRD) > 60 (>60) mL/min BUN/Creatinine Ratio 18.0 (14-18) Glucose 86 (70-99) mg/dL Calcium 7.8 L (8.5-10.1) mg/dL Total Bilirubin 31.3 H (0.2-1.0) mg/dL AST 154 H (15-37) U/L ALT 32 (14-59) U/L Alkaline Phosphatase 198 H (46-116) U/L C-Reactive Protein (<1.0) mg/dL Total Protein 5.8 L (6.4-8.2) g/dl Albumin 2.9 L (3.4-5.0) g/dl Globulin 2.9 gm/dL Albumin/Globulin Ratio 1.0 (1-2) Procalcitonin ng/mL Med Orders - Current: Current Medications Dicyclomine HCl (Dicyclomine 10 Mg Cap) 10 mg PO DAILY PRN PRN Reason: abdominal cramp Folic Acid (Folic Acid 1 Mg Tab) 1 mg PO DAILY [facility] Last Admin: 09/27/21 08:09 Dose: 1 mg Documented by: Furosemide (Furosemide 40 Mg Tab) 40 mg PO DAILY [facility] Last Admin: 09/27/21 08:09 Dose: 40 mg Documented by: Hydromorphone HCl (Hydromorphone 0.5 Mg/0.5 Ml Syringe) 0.5 mg IVPUSH Q2H PRN PRN Reason: Pain (severe 7-10) Last Admin: 09/27/21 01:49 Dose: 0.5 mg Documented by: Meropenem/Sodium Chloride 500 (mg/ Premix) 50 mls @ 100 mls/hr IV Q6H [facility] Last Admin: 09/27/21 08:13 Dose: 100 mls/hr Documented by: Lactulose (Lactulose Soln 10 Gm/15 Ml 30 Ml Ud Cup) 15 gm PO BID [facility] Last Admin: 09/27/21 08:10 Dose: 15 gm Documented by: Magnesium Oxide (Magnesium Oxide 400 Mg Tab) 400 mg PO DAILY [facility] Last Admin: 09/27/21 08:10 Dose: 400 mg Documented by: Metoclopramide HCl (Metoclopramide 10 Mg/2 Ml Sdv) 10 mg IVPUSH Q6H PRN PRN Reason: Nausea Last Admin: 09/26/21 07:54 Dose: 10 mg Documented by: Multivitamins/Minerals/Vitamin C (Multivitamin Tab) 1 tab PO DAILY [facility] Last Admin: 09/27/21 08:09 Dose: 1 tab Documented by: Oxycodone HCl (Oxycodone 5 Mg Tab) 10 mg PO Q4H PRN PRN Reason: Pain (moderate 4-6) Last Admin: 09/27/21 08:11 Dose: 10 mg Documented by: Pantoprazole Sodium (Pantoprazole 40 Mg Tab.Cr) 40 mg PO DAILY [facility] Last Admin: 09/27/21 08:10 Dose: 40 mg Documented by: Potassium Chloride (Potassium Chloride 20 Meq Tab.Er) 40 meq PO BID [facility] Last Admin: 09/27/21 08:10 Dose: 40 meq Documented by: Spironolactone (Spironolactone 100 Mg Tab) 100 mg PO DAILY [facility] Last Admin: 09/27/21 08:10 Dose: 100 mg Documented by: Thiamine HCl (Thiamine 100 Mg Tab) 100 mg PO DAILY [facility] Last Admin: 09/27/21 08:09 Dose: 100 mg Documented by: Discontinued Medications Furosemide (Furosemide 40 Mg/4 Ml Vial) 40 mg IVPUSH NOW ONE Stop: 09/24/21 09:32 Last Admin: 09/24/21 10:50 Dose: 40 mg Documented by: Furosemide (Furosemide 40 Mg/4 Ml Vial) 40 mg IVPUSH BIDDIURETIC [facility] Last Admin: 09/24/21 13:12 Dose: 40 mg Documented by: Furosemide (Furosemide 40 Mg/4 Ml Vial) 40 mg IVPUSH BID [facility] Last Admin: 09/25/21 20:54 Dose: 40 mg Documented by: Furosemide (Furosemide 40 Mg/4 Ml Vial) 40 mg IVPUSH NOW ONE Stop: 09/23/21 11:47 Last Admin: 09/23/21 12:50 Dose: 40 mg Documented by: Hydromorphone HCl (Hydromorphone 1 Mg/Ml Syringe) 1 mg IVPUSH ONETIME ONE Stop: 09/22/21 18:15 Last Admin: 09/22/21 18:23 Dose: 1 mg Documented by: Hydromorphone HCl (Hydromorphone 0.5 Mg/0.5 Ml Syringe) 0.5 mg IVPUSH ONETIME ONE Stop: 09/22/21 22:17 Last Admin: 09/22/21 23:46 Dose: 0.5 mg Documented by: Hydromorphone HCl (Hydromorphone 0.5 Mg/0.5 Ml Syringe) 0.5 mg IVPUSH Q4H PRN PRN Reason: Pain Last Admin: 09/26/21 08:08 Dose: 0.5 mg Documented by: Sodium Chloride (Normal Saline) 1,000 mls @ 125 mls/hr IV ASDIRECTED [facility] Last Admin: 09/22/21 18:23 Dose: 125 mls/hr Documented by: Ceftriaxone Sodium 2 gm/ (Sodium Chloride) 100 mls @ 200 mls/hr IV ONETIME ONE Stop: 09/22/21 18:47 Last Admin: 09/22/21 19:21 Dose: 200 mls/hr Documented by: Sodium Chloride (Normal Saline) 1,000 mls @ 75 mls/hr IV ASDIRECTED [facility] Last Admin: 09/23/21 00:26 Dose: 75 mls/hr Documented by: Albumin Human 12.5 gm/ Premix 50 mls @ 100 mls/hr IV Q1H [facility] Stop: 09/23/21 15:59 Last Admin: 09/23/21 14:43 Dose: 100 mls/hr Documented by: Albumin Human 12.5 gm/ Premix 50 mls @ 100 mls/hr IV Q1H [facility] Stop: 09/25/21 15:29 Last Admin: 09/25/21 14:00 Dose: 100 mls/hr Documented by: Albumin Human (Flexbumin 25%) Confirm Administered Dose 50 mls @ as directed .ROUTE .STK-MED ONE Stop: 09/23/21 10:51 Last Admin: 09/23/21 12:40 Dose: Not Given Documented by: Iopamidol (Iopamidol 612 Mg/Ml 100 Ml Bottle) 100 ml IVPUSH ONETIME ONE Stop: 09/22/21 20:15 Last Admin: 09/22/21 20:54 Dose: 100 ml Documented by: Iopamidol (Iopamidol 612 Mg/Ml 50 Ml Sdv) 50 ml IVPUSH ONETIME ONE Stop: 09/22/21 20:15 Last Admin: 09/22/21 20:54 Dose: 50 ml Documented by: Lactulose (Lactulose Soln 10 Gm/15 Ml 30 Ml Ud Cup) 15 gm PO ONETIME ONE Stop: 09/22/21 22:17 Last Admin: 09/22/21 23:46 Dose: 15 gm Documented by: Metoclopramide HCl (Metoclopramide 10 Mg/2 Ml Sdv) 10 mg IVPUSH ONETIME ONE Stop: 09/22/21 18:15 Last Admin: 09/22/21 18:23 Dose: 10 mg Documented by: Non-Formulary Medication (Oxycodone Hcl [Oxycodone Hcl]) 5 mg PO Q6H PRN PRN Reason: Pain Ondansetron HCl (Ondansetron 4 Mg/2 Ml Sdv) 4 mg IVPUSH Q6H PRN PRN Reason: Nausea Ondansetron HCl (Ondansetron 4 Mg/2 Ml Sdv) 4 mg IV Q6H PRN PRN Reason: Nausea/Vomiting Oxycodone HCl (Oxycodone 5 Mg Tab) 5 mg PO Q6H PRN PRN Reason: Pain (moderate 4-6) Last Admin: 09/23/21 09:41 Dose: 5 mg Documented by: Oxycodone HCl (Oxycodone 5 Mg Tab) 10 mg PO Q6H PRN PRN Reason: Pain (moderate 4-6) Last Admin: 09/26/21 05:41 Dose: 10 mg Documented by: Pantoprazole Sodium (Pantoprazole 40 Mg Tab.Cr) 40 mg PO ONETIME ONE Stop: 09/23/21 22:19 Pantoprazole Sodium (Pantoprazole 40 Mg Tab.Cr) 40 mg PO ONETIME ONE Stop: 09/22/21 23:46 Last Admin: 09/22/21 23:46 Dose: 40 mg Documented by: Potassium Chloride (Potassium Chloride 20 Meq Tab.Er) 20 meq PO BID [facility] Last Admin: 09/23/21 09:42 Dose: 20 meq Documented by: Potassium Chloride (Potassium Chloride 20 Meq Tab.Er) 20 meq PO ONETIME ONE Stop: 09/23/21 10:01 Last Admin: 09/23/21 12:00 Dose: 20 meq Documented by: Sodium Chloride (Sodium Chloride 0.9% 10 Ml Syringe) 10 ml FLUSH ONETIME ONE Stop: 09/22/21 20:15 Last Admin: 09/22/21 20:54 Dose: 10 ml Documented by: Spironolactone (Spironolactone 25 Mg Tab) 25 mg PO DAILY [facility] Last Admin: 09/24/21 09:33 Dose: 25 mg Documented by: - Exam Quality Assessment: No: Supplemental Oxygen General: Alert, Oriented HEENT: Pupils Equal, Mucous Membr. Moist/[place] Neck: Supple Lungs: Clear to Auscultation, Normal Respiratory Effort Cardiovascular: Regular Rate, Regular Rhythm GI/Abdominal Exam: Normal Bowel Sounds, Distended, Tender (Left upper quadrant) Extremities: Normal Inspection, Non-Tender, No Pedal Edema, Normal Capillary Refill Skin: Warm, Dry, Intact Psy/Mental Status: Alert, Normal Affect, Normal Mood - Patient Data Lab Results Last 24 hrs: Laboratory Results - last 24 hr 09/25/21 09/27/21 09/27/21 Range/Units 04:44 05:10 05:10 WBC 13.22 H (3.98-10.04) K/mm3 RBC 2.68 L (3.98-5.22) M/mm3 Hgb 8.4 L (11.2-15.7) gm/dl Hct 27.9 L (34.1-44.9) % MCV 104.1 H (79.4-94.8) fl MCH 31.3 (25.6-32.2) pg MCHC 30.1 L (32.2-35.5) g/dl RDW Std Deviation 75.8 H (36.4-46.3) fL Plt Count 86 L (182-369) K/mm3 MPV 10.1 (9.4-12.3) fl Neut % (Auto) 74.1 H (34.0-71.1) % Lymph % (Auto) 12.4 L (19.3-51.7) % [place] % (Auto) 9.1 (4.7-12.5) % Eos % (Auto) 2.2 (0.7-5.8) Baso % (Auto) 0.8 (0.1-1.2) % Neut # (Auto) 9.80 H (1.56-6.13) K/mm3 Lymph # (Auto) 1.64 (1.18-3.74) K/mm3 [place] # (Auto) 1.20 H (0.24-0.36) K/mm3 Eos # (Auto) 0.29 (0.04-0.36) K/mm3 Baso # (Auto) 0.11 H (0.01-0.08) K/mm3 Manual Slide Review Abnormal smear Sodium (136-145) mEq/L Potassium (3.5-5.1) mEq/L Chloride (98-107) mEq/L Carbon Dioxide (21-32) mEq/L Anion Gap (5-15) BUN (7-18) mg/dL Creatinine (0.55-1.02) mg/dL Est Cr Clr Drug Dosing mL/min Estimated GFR (MDRD) (>60) mL/min BUN/Creatinine Ratio (14-18) Glucose (70-99) mg/dL Calcium (8.5-10.1) mg/dL Total Bilirubin (0.2-1.0) mg/dL AST (15-37) U/L ALT (14-59) U/L Alkaline Phosphatase (46-116) U/L C-Reactive Protein 5.1 H* (<1.0) mg/dL Total Protein (6.4-8.2) g/dl Albumin (3.4-5.0) g/dl Globulin gm/dL Albumin/Globulin Ratio (1-2) Procalcitonin 1.40 H ng/mL 09/27/21 Range/Units 05:10 WBC (3.98-10.04) K/mm3 RBC (3.98-5.22) M/mm3 Hgb (11.2-15.7) gm/dl Hct (34.1-44.9) % MCV (79.4-94.8) fl MCH (25.6-32.2) pg MCHC (32.2-35.5) g/dl RDW Std Deviation (36.4-46.3) fL Plt Count (182-369) K/mm3 MPV (9.4-12.3) fl Neut % (Auto) (34.0-71.1) % Lymph % (Auto) (19.3-51.7) % [place] % (Auto) (4.7-12.5) % Eos % (Auto) (0.7-5.8) Baso % (Auto) (0.1-1.2) % Neut # (Auto) (1.56-6.13) K/mm3 Lymph # (Auto) (1.18-3.74) K/mm3 [place] # (Auto) (0.24-0.36) K/mm3 Eos # (Auto) (0.04-0.36) K/mm3 Baso # (Auto) (0.01-0.08) K/mm3 Manual Slide Review Sodium 132 L (136-145) mEq/L Potassium 4.2 (3.5-5.1) mEq/L Chloride 97 L (98-107) mEq/L Carbon Dioxide 25 (21-32) mEq/L Anion Gap 14.2 (5-15) BUN 9 (7-18) mg/dL Creatinine 0.5 L (0.55-1.02) mg/dL Est Cr Clr Drug Dosing 135.30 mL/min Estimated GFR (MDRD) > 60 (>60) mL/min BUN/Creatinine Ratio 18.0 (14-18) Glucose 86 (70-99) mg/dL Calcium 7.8 L (8.5-10.1) mg/dL Total Bilirubin 31.3 H (0.2-1.0) mg/dL AST 154 H (15-37) U/L ALT 32 (14-59) U/L Alkaline Phosphatase 198 H (46-116) U/L C-Reactive Protein (<1.0) mg/dL Total Protein 5.8 L (6.4-8.2) g/dl Albumin 2.9 L (3.4-5.0) g/dl Globulin 2.9 gm/dL Albumin/Globulin Ratio 1.0 (1-2) Procalcitonin ng/mL Result Diagrams: 09/27/21 05:10 09/27/21 05:10 Sepsis Event Note - Evaluation Sepsis Screening Result: Possible Sepsis Risk - Focused Exam Vital Signs: Vital Signs Temp Pulse Resp BP Pulse Ox 09/27/21 08:05 98.4 F 94 16 117/55 L 99 09/27/21 04:16 16 122/61 09/27/21 02:14 98.4 F 92 16 97/46 L 95 - Problem List & Annotations (1) Abdominal pain SNOMED Code(s): 62123683 Code(s): R10.9 - UNSPECIFIED ABDOMINAL PAIN Status: Acute Priority: High Current Visit: Yes Qualifiers: Abdominal location: generalized Qualified Code(s): R10.84 - Generalized abdominal pain (2) Liver failure SNOMED Code(s): 63082834 Code(s): K72.90 - HEPATIC FAILURE, UNSPECIFIED WITHOUT COMA Status: Acute Current Visit: Yes Qualifiers: Liver failure chronicity: subacute Hepatic coma status: without hepatic coma Qualified Code(s): K72.00 - Acute and subacute hepatic failure without coma (3) Cirrhosis of liver SNOMED Code(s): 73790713 Code(s): K74.60 - UNSPECIFIED CIRRHOSIS OF LIVER Status: Chronic Priority: High Current Visit: Yes Qualifiers: Hepatic cirrhosis type: alcoholic cirrhosis Ascites presence: with ascites Qualified Code(s): K70.31 - Alcoholic cirrhosis of liver with ascites (4) Elevated INR SNOMED Code(s): 592660991 Code(s): R79.1 - ABNORMAL COAGULATION PROFILE Status: Chronic Priority: Medium Current Visit: Yes (5) Hyperbilirubinemia SNOMED Code(s): 73650012 Code(s): E80.6 - OTHER DISORDERS OF BILIRUBIN METABOLISM Status: Chronic Priority: High Current Visit: Yes (6) Spontaneous bacterial peritonitis SNOMED Code(s): 91317605 Code(s): K65.2 - SPONTANEOUS BACTERIAL PERITONITIS Status: Suspected Priority: High Current Visit: Yes - Problem List Review Problem List Initiated/Reviewed/Updated: Yes - My Orders Last 24 Hours: My Active Orders 09/26/21 09:00 Furosemide [Lasix] 40 mg PO DAILY 09/26/21 10:04 oxyCODONE 10 mg PO Q4H PRN 09/26/21 10:25 HYDROmorphone [Dilaudid] 0.5 mg IVPUSH Q2H PRN - Plan Plan:: Assessment:: 09/24/2021 36-year-old female with a history of severe liver cirrhosis and liver failure admitted to the floor for suspected SBP. She is on meropenem. Blood cultures are pending. Labs today show WBC of 12.9. Hemoglobin 8.4. Platelet 84,000. Neutrophils are 74.7. Slide shows thrombopenia sodium is 135. Potassium 3.5. Chloride 100. Anion gap 14.5. BUN is 9. Creatinine 0.6. GFR greater than 60. Glucose is 105. Calcium 7.8. Bilirubin is up to 27.5. AST is 108. ALT 38. Alkaline phosphatase is 187. CRP is down to 3.1. Albumin is up to 2.4. Procalcitonin from yesterday was 0.75. We will continue current treatment plans. We will recheck hemoglobin this afternoon. Patient did note some blood in her stool which is not surprising given her elevated INR and history of varicosities. Unknown length of stay at this time. 09/25/2021 36-year-old female with end-stage liver disease admitted with abdominal pain and suspected SBP. Patient is on meropenem and getting infusions of albumin. Lab work shows an increasing WBC of 15.5 and increasing CRP of 5.5. Procalcitonin was only minimally elevated at 0.75. Renal function continues to be good with a creatinine of 0.5. Patient lost 7 pounds of weight after starting Lasix yesterday. Unfortunately platelets are still low at 91,000. Hemoglobin has been stable at 9.0, up from yesterday's 8.4. Patient's long-term prognosis is very poor and we discussed that today. Her spironolactone will be increased to 100 mg daily. We will follow her potassium closely since she is on potassium supplementation. 09/26/2021 36-year-old female with end-stage liver disease with abdominal pain and suspected SBP. On CT of her abdomen at admission she did have splenomegaly which could be partly contributing to the pain she is identifying. Ascites was seen surrounding the liver and spleen and within the paracolic gutters which was new finding. She has had an 8 pound weight loss with diuresis. Lasix was switched to 40 mg p.o. in the morning and she continues on her spironolactone at 100 mg daily. She is on meropenem for suspected SBP. Last dose of albumin given yesterday. No signs of bleeding, but her hemoglobin did drop to 8.4. White count is 12.87 which is down from yesterday. CRP is also come down slightly to 4.9. 09/25's procalcitonin is pending. Bilirubin is 29.5. Renal function continues to be good with an estimated GFR of greater than 60. Patient really has not had any significant changes since admission. 09/27/2021 36-year-old female with end-stage liver disease and worsening abdominal pain admitted with suspected SBP. Currently on meropenem and white count remains elevated at 13.2, but stable. - Plan Plan:: Spontaneous bacterial peritonitis, suspected Abdominal pain Cirrhosis of liver Obesity (BMI 30-39.9) History of alcohol abuse Hyperbilirubinemia Hypoalbuminemia Pedal edema * Given Rocephin 2 g in the EDswitched to meropenem on floor * Given 2 doses of albumin 1.5 g/kg * Lactulose as ordered * Pain medications adjusted. Dilaudid 0.5 mg every 2 hours for severe pain and oxycodone 10 mg every 4 hours as needed. * Unfortunately per general surgeon unable to obtain paracentesis. Will monitor * Blood cultures pending * Home medications as ordered * Lasix 40 mg daily * Spironolactone 100 mg daily * RENZO stockings for pedal edema * Avoid hepatotoxic medications if possible * Daily labs * Dietitian consultation * Repeat CTA of the abdomen shows no changes except fluid adjacent to the liver and spleen are not currently visible on the study. There is a mild amount of ascites seen within the pelvis which has diminished since prior exam. GERD (gastroesophageal reflux disease) * No acute concerns * Continue home Protonix History of COVID-19 * No acute concerns History of GI bleed History of esophageal varices Elevated INR * No acute concerns * Patient is auto anticoagulated * High risk of bleeding * Pharmacological VTE prophylaxis contraindicated History of MRSA infection * No acute concerns * Follow institutional protocol Code status: Full code PCP: Lynn Olivares NP DVT prophylaxis: RENZO martinez (pharmacological prophylaxis contraindicated) Disposition: Patient admitted to the floor for management of suspected SBP. Length of stay likely 4 to 5 days total. Overall patient prognosis is very poor: MELD-Na score of 30 with a 27-32% 90- day mortality risk. TAN-C ACLF score of 42 with a 40.1% 1 year mortality risk.
[2021-09-27] MEDS ORDERED: Sodium Chloride 0.9% 10 ML Syringe FLUSH PRN (10:31)
[2021-09-27] MEDS ORDERED: Iopamidol 612 MG/ML 100 ML Bottle IVPUSH ONE (10:31)
[2021-09-27] MEDS ORDERED: Iopamidol 612 MG/ML 50 ML SDV IVPUSH ONE (10:31)
[2021-09-27] MEDS ORDERED: Diatrizoate Meglumine/Diatrizoate Sodium 37% 120 ML Bottle PO ONE (10:31)
--- NOTE | 2021-09-27 13:05 | CT ---
CT abdomen and pelvis Technique: Multiple axial sections were obtained from above the dome of the diaphragm inferiorly through the pubic symphysis. Intravenous contrast and oral contrast were utilized. Reconstructed coronal and sagittal images were obtained. Comparison: Prior CT abdomen and pelvis study of 09/22/21. Findings: Visualized lung bases show nothing acute. Nodular contour is seen within the liver compatible with cirrhosis. Spleen is enlarged with a length of 16.4 cm. Numerous varicosities are noted within the upper abdomen. Pancreas shows no discrete abnormality. Surgical clips are seen from prior cholecystectomy. Adrenal glands show no nodule. Kidneys show symmetric contrast enhancement without hydronephrosis or mass. Diminished ascites around the liver and spleen is seen compared to previous exam. Abdominal aorta shows no aneurysm. Diffuse body wall edema is seen which is similar to prior study. Small amount of ascites is seen within the pelvis which is improved from prior study. No pelvic mass or adenopathy is seen. Appendix is seen which is normal in size. Bone window settings were reviewed which show a mild compression deformity within L1 which appears stable. No acute osseous finding is seen. Impression: 1. Cirrhosis within the liver. Splenomegaly is noted. Varicosities are seen within the upper abdomen. These findings are fairly stable from previous exam. 2. Previous study showed fluid adjacent to the liver and spleen which are not seen on current study. Mild amount of ascites is seen within the pelvis which has diminished from prior exam. 3. Diffuse body wall edema is seen. 4. No other acute abnormality is appreciated on CT study of the abdomen and pelvis. Diagnostic code #3
[2021-09-28] MEDS: oxyCODONE 5 MG Tab PO PRN ×6 (00:19→21:00)
[2021-09-28] MEDS: Meropenem Premix 500 MG in Premix Bag 1 BAG IV SCH ×4 (01:13→21:00)
[2021-09-28] MEDS: Multivitamin Tab PO SCH (08:09)
[2021-09-28] MEDS: Folic Acid 1 MG Tab PO SCH (08:09)
[2021-09-28] MEDS: Potassium Chloride 20 MEQ Tab.ER PO SCH ×2 (08:09→21:01)
[2021-09-28] MEDS: Thiamine 100 MG Tab PO SCH (08:09)
[2021-09-28] MEDS: Pantoprazole 40 MG Tab.CR PO SCH (08:09)
[2021-09-28] MEDS: Lactulose Soln 10 GM/15 ML 30 ML UD Cup PO SCH ×2 (08:09→21:01)
[2021-09-28] MEDS: Magnesium Oxide 400 MG Tab PO SCH (08:09)
[2021-09-28] MEDS: Spironolactone 100 MG Tab PO SCH (08:09)
[2021-09-28] MEDS: Furosemide 40 MG Tab PO SCH (08:09)
[2021-09-28] MEDS: HYDROmorphone 0.5 MG/0.5 ML Syringe IVPUSH PRN ×3 (09:56→18:34)
--- NOTE | 2021-09-28 10:25 | PCM.PN ---
- General Info Date of Service: 09/28/21 Admission Dx/Problem (Free Text): Liver failure Subjective Update: Patient states that her abdominal pain is better than yesterday. Yesterday CT scan showed no significant change from prior except less ascites. Unfortunately, patient drank almost 8 L of fluid overnight and has gained 2 pounds. I discussed this with the patient and she stated that her mouth is very dry. Functional Status: Reports: Pain Controlled - Review of Systems General: Reports: No Symptoms HEENT: Reports: No Symptoms Pulmonary: Reports: No Symptoms Cardiovascular: Reports: No Symptoms Gastrointestinal: Reports: Abdominal Pain - Patient Data Vitals - Most Recent: Last Vital Signs Temp 98.1 F 09/28/21 07:27 Pulse 89 09/28/21 07:27 Resp 16 09/28/21 07:27 BP 118/68 09/28/21 07:27 Pulse Ox 99 09/28/21 07:27 Weight - Most Recent: 185 lb 1.6 oz I&O - Last 24 Hours: Intake & Output 09/27/21 09/28/21 09/28/21 22:59 06:59 14:59 Intake Total 4665 3620 Output Total 3800 3975 Balance 865 -355 Lab Results Last 24 Hours: Laboratory Results - last 24 hr 09/28/21 09/28/21 Range/Units 05:08 05:08 WBC 17.09 H (3.98-10.04) K/mm3 RBC 2.98 L (3.98-5.22) M/mm3 Hgb 9.5 L (11.2-15.7) gm/dl Hct 30.7 L (34.1-44.9) % MCV 103.0 H (79.4-94.8) fl MCH 31.9 (25.6-32.2) pg MCHC 30.9 L (32.2-35.5) g/dl RDW Std Deviation 75.1 H (36.4-46.3) fL Plt Count 100 L (182-369) K/mm3 MPV 10.8 (9.4-12.3) fl Neut % (Auto) 74.9 H (34.0-71.1) % Lymph % (Auto) 12.9 L (19.3-51.7) % [place] % (Auto) 9.0 (4.7-12.5) % Eos % (Auto) 1.5 (0.7-5.8) Baso % (Auto) 0.7 (0.1-1.2) % Neut # (Auto) 12.79 H (1.56-6.13) K/mm3 Lymph # (Auto) 2.21 (1.18-3.74) K/mm3 [place] # (Auto) 1.54 H (0.24-0.36) K/mm3 Eos # (Auto) 0.26 (0.04-0.36) K/mm3 Baso # (Auto) 0.12 H (0.01-0.08) K/mm3 Manual Slide Review Abnormal smear Sodium 133 L (136-145) mEq/L Potassium 4.3 (3.5-5.1) mEq/L Chloride 97 L (98-107) mEq/L Carbon Dioxide 26 (21-32) mEq/L Anion Gap 14.3 (5-15) BUN 11 (7-18) mg/dL Creatinine 0.5 L (0.55-1.02) mg/dL Est Cr Clr Drug Dosing 135.27 mL/min Estimated GFR (MDRD) > 60 (>60) mL/min BUN/Creatinine Ratio 22.0 H (14-18) Glucose 77 (70-99) mg/dL Calcium 8.4 L (8.5-10.1) mg/dL Magnesium 2.0 (1.8-2.4) mg/dL Total Bilirubin 34.3 H (0.2-1.0) mg/dL AST 177 H (15-37) U/L ALT 49 (14-59) U/L Alkaline Phosphatase 212 H (46-116) U/L Total Protein 6.4 (6.4-8.2) g/dl Albumin 3.1 L (3.4-5.0) g/dl Globulin 3.3 gm/dL Albumin/Globulin Ratio 0.9 L (1-2) Med Orders - Current: Current Medications Dicyclomine HCl (Dicyclomine 10 Mg Cap) 10 mg PO DAILY PRN PRN Reason: abdominal cramp Folic Acid (Folic Acid 1 Mg Tab) 1 mg PO DAILY [facility] Last Admin: 09/28/21 08:09 Dose: 1 mg Documented by: Furosemide (Furosemide 40 Mg Tab) 40 mg PO DAILY [facility] Last Admin: 09/28/21 08:09 Dose: 40 mg Documented by: Hydromorphone HCl (Hydromorphone 0.5 Mg/0.5 Ml Syringe) 0.5 mg IVPUSH Q2H PRN PRN Reason: Pain (severe 7-10) Last Admin: 09/28/21 09:56 Dose: 0.5 mg Documented by: Meropenem/Sodium Chloride 500 (mg/ Premix) 50 mls @ 100 mls/hr IV Q6H [facility] Last Admin: 09/28/21 08:01 Dose: 100 mls/hr Documented by: Lactulose (Lactulose Soln 10 Gm/15 Ml 30 Ml Ud Cup) 15 gm PO BID [facility] Last Admin: 09/28/21 08:09 Dose: 15 gm Documented by: Magnesium Oxide (Magnesium Oxide 400 Mg Tab) 400 mg PO DAILY [facility] Last Admin: 09/28/21 08:09 Dose: 400 mg Documented by: Metoclopramide HCl (Metoclopramide 10 Mg/2 Ml Sdv) 10 mg IVPUSH Q6H PRN PRN Reason: Nausea Last Admin: 09/26/21 07:54 Dose: 10 mg Documented by: Multivitamins/Minerals/Vitamin C (Multivitamin Tab) 1 tab PO DAILY [facility] Last Admin: 09/28/21 08:09 Dose: 1 tab Documented by: Oxycodone HCl (Oxycodone 5 Mg Tab) 10 mg PO Q4H PRN PRN Reason: Pain (moderate 4-6) Last Admin: 09/28/21 08:29 Dose: 10 mg Documented by: Pantoprazole Sodium (Pantoprazole 40 Mg Tab.Cr) 40 mg PO DAILY [facility] Last Admin: 09/28/21 08:09 Dose: 40 mg Documented by: Potassium Chloride (Potassium Chloride 20 Meq Tab.Er) 40 meq PO BID [facility] Last Admin: 09/28/21 08:09 Dose: 40 meq Documented by: Spironolactone (Spironolactone 100 Mg Tab) 100 mg PO DAILY [facility] Last Admin: 09/28/21 08:09 Dose: 100 mg Documented by: Thiamine HCl (Thiamine 100 Mg Tab) 100 mg PO DAILY [facility] Last Admin: 09/28/21 08:09 Dose: 100 mg Documented by: Discontinued Medications Diatrizoate Meglum/Diatrizoate Sod (Diatrizoate Meglumine/Diatrizoate Sodium 37% 120 Ml Bottle) 120 ml PO ONETIME ONE Stop: 09/27/21 10:32 Last Admin: 09/27/21 12:40 Dose: 45 ml Documented by: Furosemide (Furosemide 40 Mg/4 Ml Vial) 40 mg IVPUSH NOW ONE Stop: 09/24/21 09:32 Last Admin: 09/24/21 10:50 Dose: 40 mg Documented by: Furosemide (Furosemide 40 Mg/4 Ml Vial) 40 mg IVPUSH BIDDIURETIC [facility] Last Admin: 09/24/21 13:12 Dose: 40 mg Documented by: Furosemide (Furosemide 40 Mg/4 Ml Vial) 40 mg IVPUSH BID [facility] Last Admin: 09/25/21 20:54 Dose: 40 mg Documented by: Furosemide (Furosemide 40 Mg/4 Ml Vial) 40 mg IVPUSH NOW ONE Stop: 09/23/21 11:47 Last Admin: 09/23/21 12:50 Dose: 40 mg Documented by: Hydromorphone HCl (Hydromorphone 1 Mg/Ml Syringe) 1 mg IVPUSH ONETIME ONE Stop: 09/22/21 18:15 Last Admin: 09/22/21 18:23 Dose: 1 mg Documented by: Hydromorphone HCl (Hydromorphone 0.5 Mg/0.5 Ml Syringe) 0.5 mg IVPUSH ONETIME ONE Stop: 09/22/21 22:17 Last Admin: 09/22/21 23:46 Dose: 0.5 mg Documented by: Hydromorphone HCl (Hydromorphone 0.5 Mg/0.5 Ml Syringe) 0.5 mg IVPUSH Q4H PRN PRN Reason: Pain Last Admin: 09/26/21 08:08 Dose: 0.5 mg Documented by: Sodium Chloride (Normal Saline) 1,000 mls @ 125 mls/hr IV ASDIRECTED [facility] Last Admin: 09/22/21 18:23 Dose: 125 mls/hr Documented by: Ceftriaxone Sodium 2 gm/ (Sodium Chloride) 100 mls @ 200 mls/hr IV ONETIME ONE Stop: 09/22/21 18:47 Last Admin: 09/22/21 19:21 Dose: 200 mls/hr Documented by: Sodium Chloride (Normal Saline) 1,000 mls @ 75 mls/hr IV ASDIRECTED [facility] Last Admin: 09/23/21 00:26 Dose: 75 mls/hr Documented by: Albumin Human 12.5 gm/ Premix 50 mls @ 100 mls/hr IV Q1H [facility] Stop: 09/23/21 15:59 Last Admin: 09/23/21 14:43 Dose: 100 mls/hr Documented by: Albumin Human 12.5 gm/ Premix 50 mls @ 100 mls/hr IV Q1H [facility] Stop: 09/25/21 15:29 Last Admin: 09/25/21 14:00 Dose: 100 mls/hr Documented by: Albumin Human (Flexbumin 25%) Confirm Administered Dose 50 mls @ as directed .ROUTE .STK-MED ONE Stop: 09/23/21 10:51 Last Admin: 09/23/21 12:40 Dose: Not Given Documented by: Iopamidol (Iopamidol 612 Mg/Ml 100 Ml Bottle) 100 ml IVPUSH ONETIME ONE Stop: 09/27/21 10:32 Last Admin: 09/27/21 12:40 Dose: 100 ml Documented by: Iopamidol (Iopamidol 612 Mg/Ml 50 Ml Sdv) 50 ml IVPUSH ONETIME ONE Stop: 09/27/21 10:32 Last Admin: 09/27/21 12:40 Dose: 50 ml Documented by: Iopamidol (Iopamidol 612 Mg/Ml 100 Ml Bottle) 100 ml IVPUSH ONETIME ONE Stop: 09/22/21 20:15 Last Admin: 09/22/21 20:54 Dose: 100 ml Documented by: Iopamidol (Iopamidol 612 Mg/Ml 50 Ml Sdv) 50 ml IVPUSH ONETIME ONE Stop: 09/22/21 20:15 Last Admin: 09/22/21 20:54 Dose: 50 ml Documented by: Lactulose (Lactulose Soln 10 Gm/15 Ml 30 Ml Ud Cup) 15 gm PO ONETIME ONE Stop: 09/22/21 22:17 Last Admin: 09/22/21 23:46 Dose: 15 gm Documented by: Metoclopramide HCl (Metoclopramide 10 Mg/2 Ml Sdv) 10 mg IVPUSH ONETIME ONE Stop: 09/22/21 18:15 Last Admin: 09/22/21 18:23 Dose: 10 mg Documented by: Non-Formulary Medication (Oxycodone Hcl [Oxycodone Hcl]) 5 mg PO Q6H PRN PRN Reason: Pain Ondansetron HCl (Ondansetron 4 Mg/2 Ml Sdv) 4 mg IVPUSH Q6H PRN PRN Reason: Nausea Ondansetron HCl (Ondansetron 4 Mg/2 Ml Sdv) 4 mg IV Q6H PRN PRN Reason: Nausea/Vomiting Oxycodone HCl (Oxycodone 5 Mg Tab) 5 mg PO Q6H PRN PRN Reason: Pain (moderate 4-6) Last Admin: 09/23/21 09:41 Dose: 5 mg Documented by: Oxycodone HCl (Oxycodone 5 Mg Tab) 10 mg PO Q6H PRN PRN Reason: Pain (moderate 4-6) Last Admin: 09/26/21 05:41 Dose: 10 mg Documented by: Pantoprazole Sodium (Pantoprazole 40 Mg Tab.Cr) 40 mg PO ONETIME ONE Stop: 09/23/21 22:19 Pantoprazole Sodium (Pantoprazole 40 Mg Tab.Cr) 40 mg PO ONETIME ONE Stop: 09/22/21 23:46 Last Admin: 09/22/21 23:46 Dose: 40 mg Documented by: Potassium Chloride (Potassium Chloride 20 Meq Tab.Er) 20 meq PO BID [facility] Last Admin: 09/23/21 09:42 Dose: 20 meq Documented by: Potassium Chloride (Potassium Chloride 20 Meq Tab.Er) 20 meq PO ONETIME ONE Stop: 09/23/21 10:01 Last Admin: 09/23/21 12:00 Dose: 20 meq Documented by: Sodium Chloride (Sodium Chloride 0.9% 10 Ml Syringe) 10 ml FLUSH ONETIME PRN PRN Reason: IV FLUSH Stop: 09/27/21 12:00 Sodium Chloride (Sodium Chloride 0.9% 10 Ml Syringe) 10 ml FLUSH ONETIME ONE Stop: 09/22/21 20:15 Last Admin: 09/22/21 20:54 Dose: 10 ml Documented by: Spironolactone (Spironolactone 25 Mg Tab) 25 mg PO DAILY [facility] Last Admin: 09/24/21 09:33 Dose: 25 mg Documented by: - Exam Quality Assessment: No: Supplemental Oxygen General: Alert, Oriented HEENT: Pupils Equal, Mucous Membr. Moist/Glide Neck: Supple Lungs: Clear to Auscultation, Normal Respiratory Effort Cardiovascular: Regular Rate, Regular Rhythm GI/Abdominal Exam: Normal Bowel Sounds, Soft, Tender (Exquisitely tender throughout without guarding or rebound. Worse in the left upper quadrant.) Extremities: Normal Inspection, Pedal Edema (Trace) Skin: Other (Icteric) - Patient Data Lab Results Last 24 hrs: Laboratory Results - last 24 hr 09/28/21 09/28/21 Range/Units 05:08 05:08 WBC 17.09 H (3.98-10.04) K/mm3 RBC 2.98 L (3.98-5.22) M/mm3 Hgb 9.5 L (11.2-15.7) gm/dl Hct 30.7 L (34.1-44.9) % MCV 103.0 H (79.4-94.8) fl MCH 31.9 (25.6-32.2) pg MCHC 30.9 L (32.2-35.5) g/dl RDW Std Deviation 75.1 H (36.4-46.3) fL Plt Count 100 L (182-369) K/mm3 MPV 10.8 (9.4-12.3) fl Neut % (Auto) 74.9 H (34.0-71.1) % Lymph % (Auto) 12.9 L (19.3-51.7) % [place] % (Auto) 9.0 (4.7-12.5) % Eos % (Auto) 1.5 (0.7-5.8) Baso % (Auto) 0.7 (0.1-1.2) % Neut # (Auto) 12.79 H (1.56-6.13) K/mm3 Lymph # (Auto) 2.21 (1.18-3.74) K/mm3 [place] # (Auto) 1.54 H (0.24-0.36) K/mm3 Eos # (Auto) 0.26 (0.04-0.36) K/mm3 Baso # (Auto) 0.12 H (0.01-0.08) K/mm3 Manual Slide Review Abnormal smear Sodium 133 L (136-145) mEq/L Potassium 4.3 (3.5-5.1) mEq/L Chloride 97 L (98-107) mEq/L Carbon Dioxide 26 (21-32) mEq/L Anion Gap 14.3 (5-15) BUN 11 (7-18) mg/dL Creatinine 0.5 L (0.55-1.02) mg/dL Est Cr Clr Drug Dosing 135.27 mL/min Estimated GFR (MDRD) > 60 (>60) mL/min BUN/Creatinine Ratio 22.0 H (14-18) Glucose 77 (70-99) mg/dL Calcium 8.4 L (8.5-10.1) mg/dL Magnesium 2.0 (1.8-2.4) mg/dL Total Bilirubin 34.3 H (0.2-1.0) mg/dL AST 177 H (15-37) U/L ALT 49 (14-59) U/L Alkaline Phosphatase 212 H (46-116) U/L Total Protein 6.4 (6.4-8.2) g/dl Albumin 3.1 L (3.4-5.0) g/dl Globulin 3.3 gm/dL Albumin/Globulin Ratio 0.9 L (1-2) Result Diagrams: 09/28/21 05:08 09/28/21 05:08 Sepsis Event Note - Evaluation Sepsis Screening Result: No Definite Risk - Focused Exam Vital Signs: Vital Signs Temp Pulse Resp BP Pulse Ox 09/28/21 07:27 98.1 F 89 16 118/68 99 09/28/21 03:36 98.2 F 89 113/62 100 09/28/21 00:03 98.4 F 92 20 109/53 L 100 - Problem List & Annotations (1) Abdominal pain SNOMED Code(s): 02559372 Code(s): R10.9 - UNSPECIFIED ABDOMINAL PAIN Status: Acute Priority: High Current Visit: Yes Qualifiers: Abdominal location: generalized Qualified Code(s): R10.84 - Generalized abdominal pain (2) Liver failure SNOMED Code(s): 66525027 Code(s): K72.90 - HEPATIC FAILURE, UNSPECIFIED WITHOUT COMA Status: Acute Current Visit: Yes Qualifiers: Liver failure chronicity: subacute Hepatic coma status: without hepatic coma Qualified Code(s): K72.00 - Acute and subacute hepatic failure without coma (3) Cirrhosis of liver SNOMED Code(s): 86586569 Code(s): K74.60 - UNSPECIFIED CIRRHOSIS OF LIVER Status: Chronic Priority: High Current Visit: Yes Qualifiers: Hepatic cirrhosis type: alcoholic cirrhosis Ascites presence: with ascites Qualified Code(s): K70.31 - Alcoholic cirrhosis of liver with ascites (4) Elevated INR SNOMED Code(s): 895725303 Code(s): R79.1 - ABNORMAL COAGULATION PROFILE Status: Chronic Priority: Medium Current Visit: Yes (5) Hyperbilirubinemia SNOMED Code(s): 26227145 Code(s): E80.6 - OTHER DISORDERS OF BILIRUBIN METABOLISM Status: Chronic Priority: High Current Visit: Yes (6) Spontaneous bacterial peritonitis SNOMED Code(s): 17498721 Code(s): K65.2 - SPONTANEOUS BACTERIAL PERITONITIS Status: Suspected Priority: High Current Visit: Yes - Problem List Review Problem List Initiated/Reviewed/Updated: Yes - My Orders Last 24 Hours: My Active Orders 09/28/21 Lunch Fluid Restriction [DIET] - Plan Plan:: Assessment:: 09/24/2021 36-year-old female with a history of severe liver cirrhosis and liver failure admitted to the floor for suspected SBP. She is on meropenem. Blood cultures are pending. Labs today show WBC of 12.9. Hemoglobin 8.4. Platelet 84,000. Neutrophils are 74.7. Slide shows thrombopenia sodium is 135. Potassium 3.5. Chloride 100. Anion gap 14.5. BUN is 9. Creatinine 0.6. GFR greater than 60. Glucose is 105. Calcium 7.8. Bilirubin is up to 27.5. AST is 108. ALT 38. Alkaline phosphatase is 187. CRP is down to 3.1. Albumin is up to 2.4. Procalcitonin from yesterday was 0.75. We will continue current treatment plans. We will recheck hemoglobin this afternoon. Patient did note some blood in her stool which is not surprising given her elevated INR and history of varicosities. Unknown length of stay at this time. 09/25/2021 36-year-old female with end-stage liver disease admitted with abdominal pain and suspected SBP. Patient is on meropenem and getting infusions of albumin. Lab work shows an increasing WBC of 15.5 and increasing CRP of 5.5. Procalcitonin was only minimally elevated at 0.75. Renal function continues to be good with a creatinine of 0.5. Patient lost 7 pounds of weight after starting Lasix yesterday. Unfortunately platelets are still low at 91,000. Hemoglobin has been stable at 9.0, up from yesterday's 8.4. Patient's long-term prognosis is very poor and we discussed that today. Her spironolactone will be increased to 100 mg daily. We will follow her potassium closely since she is on potassium supplementation. 09/26/2021 36-year-old female with end-stage liver disease with abdominal pain and suspected SBP. On CT of her abdomen at admission she did have splenomegaly which could be partly contributing to the pain she is identifying. Ascites was seen surrounding the liver and spleen and within the paracolic gutters which was new finding. She has had an 8 pound weight loss with diuresis. Lasix was switched to 40 mg p.o. in the morning and she continues on her spironolactone at 100 mg daily. She is on meropenem for suspected SBP. Last dose of albumin given yesterday. No signs of bleeding, but her hemoglobin did drop to 8.4. White count is 12.87 which is down from yesterday. CRP is also come down slightly to 4.9. 09/25's procalcitonin is pending. Bilirubin is 29.5. Renal function continues to be good with an estimated GFR of greater than 60. Patient really has not had any significant changes since admission. 09/27/2021 36-year-old female with end-stage liver disease and worsening abdominal pain admitted with suspected SBP. Currently on meropenem and white count remains elevated at 13.2, but stable. 09/28/2021 36-year-old female with alcoholic cirrhosis and increasing bilirubin of 34.3 and white count of 17. Patient states that her abdominal pain is improved compared to yesterday. Her CT of the abdomen from yesterday showed Cirrhosis of the liver, splenomegaly, and varicosities seen in the upper abdomen. Patient continues on meropenem. Symptomatically she seems to be better or at least stable. Unfortunately, white count and bilirubin has increased. Will try to reach out to gastroenterology for further ideas of management. - Plan Plan:: Spontaneous bacterial peritonitis, suspected Abdominal pain Cirrhosis of liver Obesity (BMI 30-39.9) History of alcohol abuse Hyperbilirubinemia Hypoalbuminemia Pedal edema * Given Rocephin 2 g in the EDswitched to meropenem on floor * Given 2 doses of albumin 1.5 g/kg * Lactulose as ordered * Pain medications adjusted. Dilaudid 0.5 mg every 2 hours for severe pain and oxycodone 10 mg every 4 hours as needed. * Unfortunately per general surgeon unable to obtain paracentesis. Will monitor * Blood cultures pending * Home medications as ordered * Lasix 40 mg daily * Spironolactone 100 mg daily * RENZO stockings for pedal edema * Avoid hepatotoxic medications if possible * Daily labs * Dietitian consultation * Repeat CTA of the abdomen shows no changes except fluid adjacent to the liver and spleen are not currently visible on the study. There is a mild amount of ascites seen within the pelvis which has diminished since prior exam. 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 Nicolas Siegel last night and another call is out this morning. He has not returned my call. * Pain seems to be improved, but white count is up to 17 and bilirubin is up to 34.3. GERD (gastroesophageal reflux disease) * No acute concerns * Continue home Protonix History of COVID-19 * No acute concerns History of GI bleed History of esophageal varices Elevated INR * No acute concerns * Patient is auto anticoagulated * High risk of bleeding * Pharmacological VTE prophylaxis contraindicated History of MRSA infection * No acute concerns * Follow institutional protocol Code status: Full code PCP: Lynn Olivares NP DVT prophylaxis: RENZO hose (pharmacological prophylaxis contraindicated) Disposition: Patient admitted to the floor for management of suspected SBP. Length of stay likely 4 to 5 days total. Overall patient prognosis is very poor: MELD-Na score of 30 with a 27-32% 90- day mortality risk. TAN-C ACLF score of 42 with a 40.1% 1 year mortality risk.
[2021-09-28] MEDS ORDERED: Furosemide 40 MG/4 ML VIAL IVPUSH ONE (13:00)
--- NOTE | 2021-09-28 13:16 | US ---
Portal venous ultrasound: Multiple real-time images of the main portal vein were obtained. Splenic vein was also evaluated. Comparison: No prior portal vein imaging is available. Hepatofugal flow is seen within the portal vein. Splenic varices are seen within the splenic hilum. Impression: 1. Hepatofugal flow within the portal vein and splenic varices. 2. No findings of venous thrombosis is seen. Diagnostic code #3
[2021-09-28] MEDS: methylPREDNISolone Sodium Succinate 40 MG/1 ML SDV IVPUSH SCH (15:30)
[2021-09-28] MEDS: Nicotine 7 MG/24 Hr Patch TRDERM SCH (18:09)
[2021-09-29] MEDS: HYDROmorphone 0.5 MG/0.5 ML Syringe IVPUSH PRN ×5 (00:32→20:33)
[2021-09-29] MEDS: oxyCODONE 5 MG Tab PO PRN ×5 (03:01→23:43)
[2021-09-29] MEDS: Meropenem Premix 500 MG in Premix Bag 1 BAG IV SCH ×3 (03:02→14:44)
[2021-09-29] MEDS: Pantoprazole 40 MG Tab.CR PO SCH ×2 (09:12→20:36)
[2021-09-29] MEDS: Magnesium Oxide 400 MG Tab PO SCH (09:13)
[2021-09-29] MEDS: Potassium Chloride 20 MEQ Tab.ER PO SCH ×2 (09:13→20:35)
[2021-09-29] MEDS: Thiamine 100 MG Tab PO SCH (09:13)
[2021-09-29] MEDS: Furosemide 40 MG Tab PO SCH (09:13)
[2021-09-29] MEDS: Spironolactone 100 MG Tab PO SCH (09:13)
[2021-09-29] MEDS: Folic Acid 1 MG Tab PO SCH (09:13)
[2021-09-29] MEDS: methylPREDNISolone Sodium Succinate 40 MG/1 ML SDV IVPUSH SCH (09:14)
[2021-09-29] MEDS: Multivitamin Tab PO SCH (09:14)
[2021-09-29] MEDS: Nicotine 7 MG/24 Hr Patch TRDERM SCH (09:16)
[2021-09-29] MEDS: Lactulose Soln 10 GM/15 ML 30 ML UD Cup PO SCH ×2 (09:17→20:36)
[2021-09-29] MEDS: Albumin 25% 12.5 GM/50 ML BAG IV SCH (12:33)
[2021-09-29] MEDS: Metoclopramide 10 MG/2 ML SDV IVPUSH PRN (18:08)
--- NOTE | 2021-09-29 18:12 | PCM.PN ---
- General Info Date of Service: 09/29/21 Admission Dx/Problem (Free Text): Liver failure Subjective Update: Patient states that her abdominal pain is better than yesterday. Patient told me that she had a really bad abdominal pain yesterday. She also told me that she has noticed stool streaked with blood and her urine looks brown dark. Hemoglobin has been stable, 9.6 today Called GI doctor Nicolas Siegel who has not called me back yet. - Review of Systems Systems Review Comment:: Complaining of stool streaked with blood and brown dark urine. All other systems were reviewed and are negative. - Patient Data Vitals - Most Recent: Last Vital Signs Temp 36.9 C 09/29/21 15:56 Pulse 94 09/29/21 15:56 Resp 14 09/29/21 15:56 BP 105/73 09/29/21 15:56 Pulse Ox 99 09/29/21 15:56 Weight - Most Recent: 81.42 kg I&O - Last 24 Hours: Intake & Output 09/29/21 09/29/21 09/29/21 06:59 14:59 22:59 Intake Total 648 41 Output Total 1551 Balance -903 41 Lab Results Last 24 Hours: Laboratory Results - last 24 hr 09/28/21 09/29/21 09/29/21 Range/Units 05:08 04:50 04:50 WBC 20.12 H (3.98-10.04) K/mm3 RBC 3.04 L (3.98-5.22) M/mm3 Hgb 9.6 L (11.2-15.7) gm/dl Hct 31.0 L (34.1-44.9) % MCV 102.0 H (79.4-94.8) fl MCH 31.6 (25.6-32.2) pg MCHC 31.0 L (32.2-35.5) g/dl RDW Std Deviation 73.6 H (36.4-46.3) fL Plt Count 113 L (182-369) K/mm3 MPV 10.2 (9.4-12.3) fl Neut % (Auto) 87.8 H (34.0-71.1) % Lymph % (Auto) 8.4 L (19.3-51.7) % [place] % (Auto) 2.8 L (4.7-12.5) % Eos % (Auto) 0 L (0.7-5.8) Baso % (Auto) 0.2 (0.1-1.2) % Neut # (Auto) 17.67 H (1.56-6.13) K/mm3 Lymph # (Auto) 1.69 (1.18-3.74) K/mm3 [place] # (Auto) 0.56 H (0.24-0.36) K/mm3 Eos # (Auto) 0.00 L (0.04-0.36) K/mm3 Baso # (Auto) 0.04 (0.01-0.08) K/mm3 Manual Slide Review Abnormal smear PT 25.0 H (9.7-12.0) SECONDS INR 2.33 Sodium (136-145) mEq/L Potassium (3.5-5.1) mEq/L Chloride (98-107) mEq/L Carbon Dioxide (21-32) mEq/L Anion Gap (5-15) BUN (7-18) mg/dL Creatinine (0.55-1.02) mg/dL Est Cr Clr Drug Dosing mL/min Estimated GFR (MDRD) (>60) mL/min BUN/Creatinine Ratio (14-18) Glucose (70-99) mg/dL Calcium (8.5-10.1) mg/dL Magnesium (1.8-2.4) mg/dL Total Bilirubin (0.2-1.0) mg/dL AST (15-37) U/L ALT (14-59) U/L Alkaline Phosphatase (46-116) U/L C-Reactive Protein (<1.0) mg/dL Total Protein (6.4-8.2) g/dl Albumin (3.4-5.0) g/dl Globulin gm/dL Albumin/Globulin Ratio (1-2) Procalcitonin 1.61 H ng/mL 09/29/21 Range/Units 04:50 WBC (3.98-10.04) K/mm3 RBC (3.98-5.22) M/mm3 Hgb (11.2-15.7) gm/dl Hct (34.1-44.9) % MCV (79.4-94.8) fl MCH (25.6-32.2) pg MCHC (32.2-35.5) g/dl RDW Std Deviation (36.4-46.3) fL Plt Count (182-369) K/mm3 MPV (9.4-12.3) fl Neut % (Auto) (34.0-71.1) % Lymph % (Auto) (19.3-51.7) % [place] % (Auto) (4.7-12.5) % Eos % (Auto) (0.7-5.8) Baso % (Auto) (0.1-1.2) % Neut # (Auto) (1.56-6.13) K/mm3 Lymph # (Auto) (1.18-3.74) K/mm3 [place] # (Auto) (0.24-0.36) K/mm3 Eos # (Auto) (0.04-0.36) K/mm3 Baso # (Auto) (0.01-0.08) K/mm3 Manual Slide Review PT (9.7-12.0) SECONDS INR Sodium 130 L (136-145) mEq/L Potassium 5.0 (3.5-5.1) mEq/L Chloride 94 L (98-107) mEq/L Carbon Dioxide 24 (21-32) mEq/L Anion Gap 17.0 H (5-15) BUN 13 (7-18) mg/dL Creatinine 0.7 (0.55-1.02) mg/dL Est Cr Clr Drug Dosing 96.62 mL/min Estimated GFR (MDRD) > 60 (>60) mL/min BUN/Creatinine Ratio 18.6 H (14-18) Glucose 133 H (70-99) mg/dL Calcium 9.1 (8.5-10.1) mg/dL Magnesium 2.0 (1.8-2.4) mg/dL Total Bilirubin 34.5 H (0.2-1.0) mg/dL AST 144 H (15-37) U/L ALT 48 (14-59) U/L Alkaline Phosphatase 185 H (46-116) U/L C-Reactive Protein 5.6 H* (<1.0) mg/dL Total Protein 6.5 (6.4-8.2) g/dl Albumin 3.0 L (3.4-5.0) g/dl Globulin 3.5 gm/dL Albumin/Globulin Ratio 0.9 L (1-2) Procalcitonin ng/mL Sebastian Results Last 24 Hours: Microbiology 09/22/21 18:50 Blood Culture - Final Blood - Venous Med Orders - Current: Current Medications Dicyclomine HCl (Dicyclomine 10 Mg Cap) 10 mg PO DAILY PRN PRN Reason: abdominal cramp Folic Acid (Folic Acid 1 Mg Tab) 1 mg PO DAILY [facility] Last Admin: 09/29/21 09:13 Dose: 1 mg Documented by: Furosemide (Furosemide 40 Mg Tab) 40 mg PO DAILY [facility] Last Admin: 09/29/21 09:13 Dose: 40 mg Documented by: Hydromorphone HCl (Hydromorphone 0.5 Mg/0.5 Ml Syringe) 0.5 mg IVPUSH Q2H PRN PRN Reason: Pain (severe 7-10) Last Admin: 09/29/21 14:44 Dose: 0.5 mg Documented by: Albumin Human (Flexbumin 25%) 12.5 gm in 50 mls @ 100 mls/hr IV DAILY [facility] Stop: 10/01/21 09:29 Last Admin: 09/29/21 12:33 Dose: 100 mls/hr Documented by: Meropenem/Sodium Chloride 500 (mg/ Premix) 50 mls @ 100 mls/hr IV Q6H [facility] Last Admin: 09/29/21 14:44 Dose: 100 mls/hr Documented by: Lactulose (Lactulose Soln 10 Gm/15 Ml 30 Ml Ud Cup) 15 gm PO BID [facility] Last Admin: 09/29/21 09:17 Dose: 15 gm Documented by: Magnesium Oxide (Magnesium Oxide 400 Mg Tab) 400 mg PO DAILY [facility] Last Admin: 09/29/21 09:13 Dose: 400 mg Documented by: Methylprednisolone Sodium Succinate (Methylprednisolone Sodium Succinate 40 Mg/1 Ml Sdv) 40 mg IVPUSH DAILY [facility] Stop: 10/02/21 09:01 Last Admin: 09/29/21 09:14 Dose: 40 mg Documented by: Metoclopramide HCl (Metoclopramide 10 Mg/2 Ml Sdv) 10 mg IVPUSH Q6H PRN PRN Reason: Nausea Last Admin: 09/26/21 07:54 Dose: 10 mg Documented by: Miscellaneous Information (Remove Patch Nicotine) 1 ea TRDERM DAILY [facility] Last Admin: 09/29/21 09:17 Dose: Not Given Documented by: Multivitamins/Minerals/Vitamin C (Multivitamin Tab) 1 tab PO DAILY [facility] Last Admin: 09/29/21 09:14 Dose: 1 tab Documented by: Nicotine (Nicotine 7 Mg/24 Hr Patch) 7 mg TRDERM DAILY [facility] Last Admin: 09/29/21 09:16 Dose: 7 mg Documented by: Oxycodone HCl (Oxycodone 5 Mg Tab) 10 mg PO Q4H PRN PRN Reason: Pain (moderate 4-6) Last Admin: 09/29/21 16:32 Dose: 10 mg Documented by: Pantoprazole Sodium (Pantoprazole 40 Mg Tab.Cr) 40 mg PO DAILY [facility] Last Admin: 09/29/21 09:12 Dose: 40 mg Documented by: Potassium Chloride (Potassium Chloride 20 Meq Tab.Er) 40 meq PO BID [facility] Last Admin: 09/29/21 09:13 Dose: 40 meq Documented by: Spironolactone (Spironolactone 100 Mg Tab) 100 mg PO DAILY [facility] Last Admin: 09/29/21 09:13 Dose: 100 mg Documented by: Thiamine HCl (Thiamine 100 Mg Tab) 100 mg PO DAILY [facility] Last Admin: 09/29/21 09:13 Dose: 100 mg Documented by: Discontinued Medications Diatrizoate Meglum/Diatrizoate Sod (Diatrizoate Meglumine/Diatrizoate Sodium 37% 120 Ml Bottle) 120 ml PO ONETIME ONE Stop: 09/27/21 10:32 Last Admin: 09/27/21 12:40 Dose: 45 ml Documented by: Furosemide (Furosemide 40 Mg/4 Ml Vial) 40 mg IVPUSH NOW ONE Stop: 09/24/21 09:32 Last Admin: 09/24/21 10:50 Dose: 40 mg Documented by: Furosemide (Furosemide 40 Mg/4 Ml Vial) 40 mg IVPUSH BIDDIURETIC [facility] Last Admin: 09/24/21 13:12 Dose: 40 mg Documented by: Furosemide (Furosemide 40 Mg/4 Ml Vial) 40 mg IVPUSH BID [facility] Last Admin: 09/25/21 20:54 Dose: 40 mg Documented by: Furosemide (Furosemide 40 Mg/4 Ml Vial) 40 mg IVPUSH ONETIME ONE Stop: 09/28/21 13:01 Last Admin: 09/28/21 12:52 Dose: 40 mg Documented by: Furosemide (Furosemide 40 Mg/4 Ml Vial) 40 mg IVPUSH NOW ONE Stop: 09/23/21 11:47 Last Admin: 09/23/21 12:50 Dose: 40 mg Documented by: Hydromorphone HCl (Hydromorphone 1 Mg/Ml Syringe) 1 mg IVPUSH ONETIME ONE Stop: 09/22/21 18:15 Last Admin: 09/22/21 18:23 Dose: 1 mg Documented by: Hydromorphone HCl (Hydromorphone 0.5 Mg/0.5 Ml Syringe) 0.5 mg IVPUSH ONETIME ONE Stop: 09/22/21 22:17 Last Admin: 09/22/21 23:46 Dose: 0.5 mg Documented by: Hydromorphone HCl (Hydromorphone 0.5 Mg/0.5 Ml Syringe) 0.5 mg IVPUSH Q4H PRN PRN Reason: Pain Last Admin: 09/26/21 08:08 Dose: 0.5 mg Documented by: Sodium Chloride (Normal Saline) 1,000 mls @ 125 mls/hr IV ASDIRECTED [facility] Last Admin: 09/22/21 18:23 Dose: 125 mls/hr Documented by: Ceftriaxone Sodium 2 gm/ (Sodium Chloride) 100 mls @ 200 mls/hr IV ONETIME ONE Stop: 09/22/21 18:47 Last Admin: 09/22/21 19:21 Dose: 200 mls/hr Documented by: Sodium Chloride (Normal Saline) 1,000 mls @ 75 mls/hr IV ASDIRECTED [facility] Last Admin: 09/23/21 00:26 Dose: 75 mls/hr Documented by: Albumin Human 12.5 gm/ Premix 50 mls @ 100 mls/hr IV Q1H [facility] Stop: 09/23/21 15:59 Last Admin: 09/23/21 14:43 Dose: 100 mls/hr Documented by: Albumin Human 12.5 gm/ Premix 50 mls @ 100 mls/hr IV Q1H [facility] Stop: 09/25/21 15:29 Last Admin: 09/25/21 14:00 Dose: 100 mls/hr Documented by: Albumin Human (Flexbumin 25%) Confirm Administered Dose 50 mls @ as directed .ROUTE .STK-MED ONE Stop: 09/23/21 10:51 Last Admin: 09/23/21 12:40 Dose: Not Given Documented by: Iopamidol (Iopamidol 612 Mg/Ml 100 Ml Bottle) 100 ml IVPUSH ONETIME ONE Stop: 09/27/21 10:32 Last Admin: 09/27/21 12:40 Dose: 100 ml Documented by: Iopamidol (Iopamidol 612 Mg/Ml 50 Ml Sdv) 50 ml IVPUSH ONETIME ONE Stop: 09/27/21 10:32 Last Admin: 09/27/21 12:40 Dose: 50 ml Documented by: Iopamidol (Iopamidol 612 Mg/Ml 100 Ml Bottle) 100 ml IVPUSH ONETIME ONE Stop: 09/22/21 20:15 Last Admin: 09/22/21 20:54 Dose: 100 ml Documented by: Iopamidol (Iopamidol 612 Mg/Ml 50 Ml Sdv) 50 ml IVPUSH ONETIME ONE Stop: 09/22/21 20:15 Last Admin: 09/22/21 20:54 Dose: 50 ml Documented by: Lactulose (Lactulose Soln 10 Gm/15 Ml 30 Ml Ud Cup) 15 gm PO ONETIME ONE Stop: 09/22/21 22:17 Last Admin: 09/22/21 23:46 Dose: 15 gm Documented by: Metoclopramide HCl (Metoclopramide 10 Mg/2 Ml Sdv) 10 mg IVPUSH ONETIME ONE Stop: 09/22/21 18:15 Last Admin: 09/22/21 18:23 Dose: 10 mg Documented by: Non-Formulary Medication (Oxycodone Hcl [Oxycodone Hcl]) 5 mg PO Q6H PRN PRN Reason: Pain Ondansetron HCl (Ondansetron 4 Mg/2 Ml Sdv) 4 mg IVPUSH Q6H PRN PRN Reason: Nausea Ondansetron HCl (Ondansetron 4 Mg/2 Ml Sdv) 4 mg IV Q6H PRN PRN Reason: Nausea/Vomiting Oxycodone HCl (Oxycodone 5 Mg Tab) 5 mg PO Q6H PRN PRN Reason: Pain (moderate 4-6) Last Admin: 09/23/21 09:41 Dose: 5 mg Documented by: Oxycodone HCl (Oxycodone 5 Mg Tab) 10 mg PO Q6H PRN PRN Reason: Pain (moderate 4-6) Last Admin: 09/26/21 05:41 Dose: 10 mg Documented by: Pantoprazole Sodium (Pantoprazole 40 Mg Tab.Cr) 40 mg PO ONETIME ONE Stop: 09/23/21 22:19 Pantoprazole Sodium (Pantoprazole 40 Mg Tab.Cr) 40 mg PO ONETIME ONE Stop: 09/22/21 23:46 Last Admin: 09/22/21 23:46 Dose: 40 mg Documented by: Potassium Chloride (Potassium Chloride 20 Meq Tab.Er) 20 meq PO BID [facility] Last Admin: 09/23/21 09:42 Dose: 20 meq Documented by: Potassium Chloride (Potassium Chloride 20 Meq Tab.Er) 20 meq PO ONETIME ONE Stop: 09/23/21 10:01 Last Admin: 09/23/21 12:00 Dose: 20 meq Documented by: Sodium Chloride (Sodium Chloride 0.9% 10 Ml Syringe) 10 ml FLUSH ONETIME PRN PRN Reason: IV FLUSH Stop: 09/27/21 12:00 Sodium Chloride (Sodium Chloride 0.9% 10 Ml Syringe) 10 ml FLUSH ONETIME ONE Stop: 09/22/21 20:15 Last Admin: 09/22/21 20:54 Dose: 10 ml Documented by: Spironolactone (Spironolactone 25 Mg Tab) 25 mg PO DAILY [facility] Last Admin: 09/24/21 09:33 Dose: 25 mg Documented by: - Exam Physical Findings Comments:: Physical Exam: General: No acute distress HEENT: Conjunctiva Clear, EOMI, Mucosa Moist & [place], icterus Neck: Supple, Trachea Midline, NO JVD Lungs: CTA, normal Respiratory Effort, no Wheezing Cardiovascular: Regular Rate, Regular Rhythm GI/Abdominal Exam: Normal Bowel Sounds, Soft, mild to moderate Tender LLQ, No Organomegaly, No Distention, No Abnormal Bruit, No Mass Extremities: Normal Inspection, Non-Tender, No Pedal Edema, Normal Capillary Refill Skin: Warm, Dry, Intact, jaundice Neurology: A+O x 3, no focal neurological deficits Psychiatric: Normal Mood - Patient Data Lab Results Last 24 hrs: Laboratory Results - last 24 hr 09/28/21 09/29/21 09/29/21 Range/Units 05:08 04:50 04:50 WBC 20.12 H (3.98-10.04) K/mm3 RBC 3.04 L (3.98-5.22) M/mm3 Hgb 9.6 L (11.2-15.7) gm/dl Hct 31.0 L (34.1-44.9) % MCV 102.0 H (79.4-94.8) fl MCH 31.6 (25.6-32.2) pg MCHC 31.0 L (32.2-35.5) g/dl RDW Std Deviation 73.6 H (36.4-46.3) fL Plt Count 113 L (182-369) K/mm3 MPV 10.2 (9.4-12.3) fl Neut % (Auto) 87.8 H (34.0-71.1) % Lymph % (Auto) 8.4 L (19.3-51.7) % [place] % (Auto) 2.8 L (4.7-12.5) % Eos % (Auto) 0 L (0.7-5.8) Baso % (Auto) 0.2 (0.1-1.2) % Neut # (Auto) 17.67 H (1.56-6.13) K/mm3 Lymph # (Auto) 1.69 (1.18-3.74) K/mm3 [place] # (Auto) 0.56 H (0.24-0.36) K/mm3 Eos # (Auto) 0.00 L (0.04-0.36) K/mm3 Baso # (Auto) 0.04 (0.01-0.08) K/mm3 Manual Slide Review Abnormal smear PT 25.0 H (9.7-12.0) SECONDS INR 2.33 Sodium (136-145) mEq/L Potassium (3.5-5.1) mEq/L Chloride (98-107) mEq/L Carbon Dioxide (21-32) mEq/L Anion Gap (5-15) BUN (7-18) mg/dL Creatinine (0.55-1.02) mg/dL Est Cr Clr Drug Dosing mL/min Estimated GFR (MDRD) (>60) mL/min BUN/Creatinine Ratio (14-18) Glucose (70-99) mg/dL Calcium (8.5-10.1) mg/dL Magnesium (1.8-2.4) mg/dL Total Bilirubin (0.2-1.0) mg/dL AST (15-37) U/L ALT (14-59) U/L Alkaline Phosphatase (46-116) U/L C-Reactive Protein (<1.0) mg/dL Total Protein (6.4-8.2) g/dl Albumin (3.4-5.0) g/dl Globulin gm/dL Albumin/Globulin Ratio (1-2) Procalcitonin 1.61 H ng/mL 09/29/21 Range/Units 04:50 WBC (3.98-10.04) K/mm3 RBC (3.98-5.22) M/mm3 Hgb (11.2-15.7) gm/dl Hct (34.1-44.9) % MCV (79.4-94.8) fl MCH (25.6-32.2) pg MCHC (32.2-35.5) g/dl RDW Std Deviation (36.4-46.3) fL Plt Count (182-369) K/mm3 MPV (9.4-12.3) fl Neut % (Auto) (34.0-71.1) % Lymph % (Auto) (19.3-51.7) % [place] % (Auto) (4.7-12.5) % Eos % (Auto) (0.7-5.8) Baso % (Auto) (0.1-1.2) % Neut # (Auto) (1.56-6.13) K/mm3 Lymph # (Auto) (1.18-3.74) K/mm3 [place] # (Auto) (0.24-0.36) K/mm3 Eos # (Auto) (0.04-0.36) K/mm3 Baso # (Auto) (0.01-0.08) K/mm3 Manual Slide Review PT (9.7-12.0) SECONDS INR Sodium 130 L (136-145) mEq/L Potassium 5.0 (3.5-5.1) mEq/L Chloride 94 L (98-107) mEq/L Carbon Dioxide 24 (21-32) mEq/L Anion Gap 17.0 H (5-15) BUN 13 (7-18) mg/dL Creatinine 0.7 (0.55-1.02) mg/dL Est Cr Clr Drug Dosing 96.62 mL/min Estimated GFR (MDRD) > 60 (>60) mL/min BUN/Creatinine Ratio 18.6 H (14-18) Glucose 133 H (70-99) mg/dL Calcium 9.1 (8.5-10.1) mg/dL Magnesium 2.0 (1.8-2.4) mg/dL Total Bilirubin 34.5 H (0.2-1.0) mg/dL AST 144 H (15-37) U/L ALT 48 (14-59) U/L Alkaline Phosphatase 185 H (46-116) U/L C-Reactive Protein 5.6 H* (<1.0) mg/dL Total Protein 6.5 (6.4-8.2) g/dl Albumin 3.0 L (3.4-5.0) g/dl Globulin 3.5 gm/dL Albumin/Globulin Ratio 0.9 L (1-2) Procalcitonin ng/mL Result Diagrams: 09/29/21 04:50 09/29/21 04:50 Sebastian Results Last 24 hrs: Microbiology 09/22/21 18:50 Blood Culture - Final Blood - Venous Sepsis Event Note - Evaluation Sepsis Screening Result: No Definite Risk - Focused Exam Vital Signs: Vital Signs Temp Pulse Resp BP Pulse Ox 09/29/21 15:56 36.9 C 94 14 105/73 99 09/29/21 13:07 36.6 C 89 16 112/61 98 09/29/21 08:57 36.8 C 91 16 124/64 99 - Problem List Review Problem List Initiated/Reviewed/Updated: Yes - My Orders Last 24 Hours: My Active Orders 09/29/21 11:00 Albumin 25% [Flexbumin 25%] 12.5 gm in 50 ml IV DAILY 09/29/21 Dinner 2 Gram Sodium Diet [DIET] Fluid Restriction [DIET] 09/30/21 05:00 AMMONIA VENOUS [CHEM] DAILY 10/01/21 05:00 AMMONIA VENOUS [CHEM] DAILY 10/02/21 05:00 AMMONIA VENOUS [CHEM] DAILY 10/03/21 05:00 AMMONIA VENOUS [CHEM] DAILY - Plan Plan:: Assessment:: Spontaneous bacterial peritonitis, suspected Abdominal pain Cirrhosis of liver Obesity (BMI 30-39.9) History of alcohol abuse Hyperbilirubinemia Hypoalbuminemia Pedal edema * Given 12.5g of albumin daily x 3 days * Lactulose as ordered * Pain medications adjusted. Dilaudid 0.5 mg every 2 hours for severe pain and oxycodone 10 mg every 4 hours as needed. * Unfortunately per general surgeon unable to obtain paracentesis. Will monitor * Blood cultures no growth * Home medications as ordered * Lasix 40 mg daily * Spironolactone 100 mg daily * RENZO stockings for pedal edema * Avoid hepatotoxic medications if possible * Daily labs * Dietitian consultation * Repeat CTA of the abdomen shows no changes except fluid adjacent to the liver and spleen are not currently visible on the study. There is a mild amount of ascites seen within the pelvis which has diminished since prior exam. * I tried to get hold of her manager account management in [facility] Dr. Nicolas Siegel last night and another call is out this morning. He has not returned my call. * Pain seems to be improved, but white count is up to 17 and bilirubin is up to 34.3. Alcoholic hepatitis * Dr. Bianchi spoke with Dr. Nicolas Siegel who recommended Doppler ultrasound of the portal vein which was negative for thrombosis. Dr. Siegel suggested methylprednisolone 40 mg IV x5 days for possible alcoholic heatitis. Then based on his Lille score will determine if she goes home on steroids. * GERD (gastroesophageal reflux disease) * No acute concerns * Continue home Protonix History of COVID-19 * No acute concerns History of GI bleed History of esophageal varices Elevated INR * No acute concerns * Patient is auto anticoagulated * High risk of bleeding * Pharmacological VTE prophylaxis contraindicated * pantoprazole 40mg bid History of MRSA infection * No acute concerns * Follow institutional protocol Code status: Full code PCP: Lynn Olivares NP DVT prophylaxis: RENZO hose (pharmacological prophylaxis contraindicated) Disposition: Patient admitted to the floor for management of suspected SBP. Length of stay likely 4 to 5 days total. Overall patient prognosis is very poor: MELD-Na score of 30 with a 27-32% 90- day mortality risk. Child-Azevedo score of 42 with a 40.1% 1 year mortality risk.
[2021-09-30] MEDS: HYDROmorphone 0.5 MG/0.5 ML Syringe IVPUSH PRN ×2 (02:04→08:43)
[2021-09-30] MEDS: oxyCODONE 5 MG Tab PO PRN ×3 (05:17→17:47)
[2021-09-30] MEDS: Magnesium Oxide 400 MG Tab PO SCH (08:16)
[2021-09-30] MEDS: Furosemide 40 MG Tab PO SCH (08:17)
[2021-09-30] MEDS: Spironolactone 100 MG Tab PO SCH (08:17)
[2021-09-30] MEDS: Multivitamin Tab PO SCH (08:17)
[2021-09-30] MEDS: Potassium Chloride 20 MEQ Tab.ER PO SCH ×2 (08:17→20:28)
[2021-09-30] MEDS: Lactulose Soln 10 GM/15 ML 30 ML UD Cup PO SCH ×2 (08:17→20:28)
[2021-09-30] MEDS: Folic Acid 1 MG Tab PO SCH (08:17)
[2021-09-30] MEDS: Thiamine 100 MG Tab PO SCH (08:17)
[2021-09-30] MEDS: Pantoprazole 40 MG Tab.CR PO SCH ×2 (08:17→20:28)
[2021-09-30] MEDS: Albumin 25% 12.5 GM/50 ML BAG IV SCH (08:19)
[2021-09-30] MEDS: Nicotine 7 MG/24 Hr Patch TRDERM SCH (08:20)
[2021-09-30] MEDS: methylPREDNISolone Sodium Succinate 40 MG/1 ML SDV IVPUSH SCH (08:22)
[2021-09-30] MEDS ORDERED: Morphine 2 MG/ML SYRINGE IVPUSH PRN (11:06)
--- NOTE | 2021-09-30 11:46 | PCM.PN ---
- General Info Date of Service: 09/30/21 Admission Dx/Problem (Free Text): Liver failure Subjective Update: Patient still has abdominal pain. General speaking the level of abdominal pain has not changed. Vital signs are stable and acceptable Guaiac was positive Urinalysis showed urine occult blood trace Hb 8.9, plt 115 and INR 2.23 Spoke to GI doctor Nicolas Siegel who suggested prednisolone 40 mg daily for 4 weeks, 30 mg daily x 7 days, 20 mg daily x 7 days and then 10 mg daily x 7 days if we discharge this pt. Dr. Siegel will see her in office and probably do EGD and colonoscopy for her. Dr. Cat also advised to start her on lasix, spironolactone, and low sodium diet (2g). But her Na [address] Cat agreed to stop abx. Discussed the case on morning meeting. I will keep the patient until we decide if she needs to continue or discontinue steroid on day 5. Today is day [address] eroid. - Patient Data Vitals - Most Recent: Last Vital Signs Temp 36.4 C 09/30/21 08:14 Pulse 84 09/30/21 08:14 Resp 20 09/30/21 08:14 BP 123/68 09/30/21 08:14 Pulse Ox 100 09/30/21 08:14 Weight - Most Recent: 81.692 kg I&O - Last 24 Hours: Intake & Output 09/29/21 09/30/21 09/30/21 22:59 06:59 14:59 Intake Total 1540 400 Output Total 1525 1350 Balance 15 -950 Lab Results Last 24 Hours: Laboratory Results - last 24 hr 09/29/21 09/30/21 09/30/21 Range/Units 20:00 06:08 06:08 WBC (3.98-10.04) K/mm3 RBC (3.98-5.22) M/mm3 Hgb (11.2-15.7) gm/dl Hct (34.1-44.9) % MCV (79.4-94.8) fl MCH (25.6-32.2) pg MCHC (32.2-35.5) g/dl RDW Std Deviation (36.4-46.3) fL Plt Count (182-369) K/mm3 MPV (9.4-12.3) fl Neut % (Auto) (34.0-71.1) % Lymph % (Auto) (19.3-51.7) % Kle[place] % (Auto) (4.7-12.5) % Eos % (Auto) (0.7-5.8) Baso % (Auto) (0.1-1.2) % Neut # (Auto) (1.56-6.13) K/mm3 Lymph # (Auto) (1.18-3.74) K/mm3 [place] # (Auto) (0.24-0.36) K/mm3 Eos # (Auto) (0.04-0.36) K/mm3 Baso # (Auto) (0.01-0.08) K/mm3 Manual Slide Review PT 24.0 H (9.7-12.0) SECONDS INR 2.23 Sodium (136-145) mEq/L Potassium (3.5-5.1) mEq/L Chloride (98-107) mEq/L Carbon Dioxide (21-32) mEq/L Anion Gap (5-15) BUN (7-18) mg/dL Creatinine (0.55-1.02) mg/dL Est Cr Clr Drug Dosing mL/min Estimated GFR (MDRD) (>60) mL/min BUN/Creatinine Ratio (14-18) Glucose (70-99) mg/dL Calcium (8.5-10.1) mg/dL Total Bilirubin (0.2-1.0) mg/dL AST (15-37) U/L ALT (14-59) U/L Alkaline Phosphatase (46-116) U/L Ammonia 32 (11-32) umol/L Total Protein (6.4-8.2) g/dl Albumin (3.4-5.0) g/dl Globulin gm/dL Albumin/Globulin Ratio (1-2) Urine Color Yellow (Yellow) Urine Appearance Clear (Clear) Urine pH 7.0 (5.0-8.0) Ur Specific [place] 1.015 (1.005-1.030) Urine Protein Negative (Negative) Urine Glucose (UA) Negative (Negative) Urine Ketones Trace H (Negative) Urine Occult Blood Trace-intact H (Negative) Urine Nitrite Negative (Negative) Urine Bilirubin 2+ H (Negative) Urine Urobilinogen 0.2 (0.2-1.0) Ur Leukocyte Esterase Negative (Negative) 09/30/21 09/30/21 Range/Units 06:08 06:08 WBC 19.61 H (3.98-10.04) K/mm3 RBC 2.83 L (3.98-5.22) M/mm3 Hgb 8.9 L (11.2-15.7) gm/dl Hct 29.0 L (34.1-44.9) % MCV 102.5 H (79.4-94.8) fl MCH 31.4 (25.6-32.2) pg MCHC 30.7 L (32.2-35.5) g/dl RDW Std Deviation 74.5 H (36.4-46.3) fL Plt Count 115 L (182-369) K/mm3 MPV 10.8 (9.4-12.3) fl Neut % (Auto) 83.4 H (34.0-71.1) % Lymph % (Auto) 7.1 L (19.3-51.7) % [place] % (Auto) 8.8 (4.7-12.5) % Eos % (Auto) 0 L (0.7-5.8) Baso % (Auto) 0.2 (0.1-1.2) % Neut # (Auto) 16.38 H (1.56-6.13) K/mm3 Lymph # (Auto) 1.39 (1.18-3.74) K/mm3 [place] # (Auto) 1.72 H (0.24-0.36) K/mm3 Eos # (Auto) 0.00 L (0.04-0.36) K/mm3 Baso # (Auto) 0.03 (0.01-0.08) K/mm3 Manual Slide Review Abnormal smear PT (9.7-12.0) SECONDS INR Sodium 131 L (136-145) mEq/L Potassium 4.5 (3.5-5.1) mEq/L Chloride 96 L (98-107) mEq/L Carbon Dioxide 24 (21-32) mEq/L Anion Gap 15.5 H (5-15) BUN 17 (7-18) mg/dL Creatinine 0.8 (0.55-1.02) mg/dL Est Cr Clr Drug Dosing 84.55 mL/min Estimated GFR (MDRD) > 60 (>60) mL/min BUN/Creatinine Ratio 21.3 H (14-18) Glucose 109 H (70-99) mg/dL Calcium 9.1 (8.5-10.1) mg/dL Total Bilirubin 32.2 H (0.2-1.0) mg/dL AST 130 H (15-37) U/L ALT 51 (14-59) U/L Alkaline Phosphatase 173 H (46-116) U/L Ammonia (11-32) umol/L Total Protein 6.4 (6.4-8.2) g/dl Albumin 3.0 L (3.4-5.0) g/dl Globulin 3.4 gm/dL Albumin/Globulin Ratio 0.9 L (1-2) Urine Color (Yellow) Urine Appearance (Clear) Urine pH (5.0-8.0) Ur Specific [place] (1.005-1.030) Urine Protein (Negative) Urine Glucose (UA) (Negative) Urine Ketones (Negative) Urine Occult Blood (Negative) Urine Nitrite (Negative) Urine Bilirubin (Negative) Urine Urobilinogen (0.2-1.0) Ur Leukocyte Esterase (Negative) Sebastian Results Last 24 Hours: Microbiology 09/29/21 20:21 Stool Occult Blood (SEBASTIAN) - Final Stool / Feces Med Orders - Current: Current Medications Dicyclomine HCl (Dicyclomine 10 Mg Cap) 10 mg PO DAILY PRN PRN Reason: abdominal cramp Folic Acid (Folic Acid 1 Mg Tab) 1 mg PO DAILY [facility] Last Admin: 09/30/21 08:17 Dose: 1 mg Documented by: Furosemide (Furosemide 40 Mg Tab) 40 mg PO DAILY [facility] Last Admin: 09/30/21 08:17 Dose: 40 mg Documented by: Albumin Human (Flexbumin 25%) 12.5 gm in 50 mls @ 100 mls/hr IV DAILY [facility] Stop: 10/01/21 09:29 Last Admin: 09/30/21 08:19 Dose: 100 mls/hr Documented by: Lactulose (Lactulose Soln 10 Gm/15 Ml 30 Ml Ud Cup) 15 gm PO BID [facility] Last Admin: 09/30/21 08:17 Dose: 15 gm Documented by: Magnesium Oxide (Magnesium Oxide 400 Mg Tab) 400 mg PO DAILY [facility] Last Admin: 09/30/21 08:16 Dose: 400 mg Documented by: Methylprednisolone Sodium Succinate (Methylprednisolone Sodium Succinate 40 Mg/1 Ml Sdv) 40 mg IVPUSH DAILY [facility] Stop: 10/02/21 09:01 Last Admin: 09/30/21 08:22 Dose: 40 mg Documented by: Metoclopramide HCl (Metoclopramide 10 Mg/2 Ml Sdv) 10 mg IVPUSH Q6H PRN PRN Reason: Nausea Last Admin: 09/29/21 18:08 Dose: 10 mg Documented by: Miscellaneous Information (Remove Patch Nicotine) 1 ea TRDERM DAILY [facility] Last Admin: 09/30/21 08:21 Dose: Not Given Documented by: Morphine Sulfate (Morphine 2 Mg/Ml Syringe) 2 mg IVPUSH Q4H PRN PRN Reason: Pain (severe 7-10) Stop: 10/01/21 11:06 Multivitamins/Minerals/Vitamin C (Multivitamin Tab) 1 tab PO DAILY [facility] Last Admin: 09/30/21 08:17 Dose: 1 tab Documented by: Nicotine (Nicotine 7 Mg/24 Hr Patch) 7 mg TRDERM DAILY [facility] Last Admin: 09/30/21 08:20 Dose: 7 mg Documented by: Oxycodone HCl (Oxycodone 5 Mg Tab) 10 mg PO Q4H PRN PRN Reason: Pain (moderate 4-6) Last Admin: 09/30/21 05:17 Dose: 10 mg Documented by: Pantoprazole Sodium (Pantoprazole 40 Mg Tab.Cr) 40 mg PO BID [facility] Last Admin: 09/30/21 08:17 Dose: 40 mg Documented by: Potassium Chloride (Potassium Chloride 20 Meq Tab.Er) 40 meq PO BID [facility] Last Admin: 09/30/21 08:17 Dose: 40 meq Documented by: Spironolactone (Spironolactone 100 Mg Tab) 100 mg PO DAILY [facility] Last Admin: 09/30/21 08:17 Dose: 100 mg Documented by: Thiamine HCl (Thiamine 100 Mg Tab) 100 mg PO DAILY [facility] Last Admin: 09/30/21 08:17 Dose: 100 mg Documented by: Discontinued Medications Diatrizoate Meglum/Diatrizoate Sod (Diatrizoate Meglumine/Diatrizoate Sodium 37% 120 Ml Bottle) 120 ml PO ONETIME ONE Stop: 09/27/21 10:32 Last Admin: 09/27/21 12:40 Dose: 45 ml Documented by: Furosemide (Furosemide 40 Mg/4 Ml Vial) 40 mg IVPUSH NOW ONE Stop: 09/24/21 09:32 Last Admin: 09/24/21 10:50 Dose: 40 mg Documented by: Furosemide (Furosemide 40 Mg/4 Ml Vial) 40 mg IVPUSH BIDDIURETIC [facility] Last Admin: 09/24/21 13:12 Dose: 40 mg Documented by: Furosemide (Furosemide 40 Mg/4 Ml Vial) 40 mg IVPUSH BID [facility] Last Admin: 09/25/21 20:54 Dose: 40 mg Documented by: Furosemide (Furosemide 40 Mg/4 Ml Vial) 40 mg IVPUSH ONETIME ONE Stop: 09/28/21 13:01 Last Admin: 09/28/21 12:52 Dose: 40 mg Documented by: Furosemide (Furosemide 40 Mg/4 Ml Vial) 40 mg IVPUSH NOW ONE Stop: 09/23/21 11:47 Last Admin: 09/23/21 12:50 Dose: 40 mg Documented by: Hydromorphone HCl (Hydromorphone 0.5 Mg/0.5 Ml Syringe) 0.5 mg IVPUSH Q2H PRN PRN Reason: Pain (severe 7-10) Last Admin: 09/30/21 08:43 Dose: 0.5 mg Documented by: Hydromorphone HCl (Hydromorphone 1 Mg/Ml Syringe) 1 mg IVPUSH ONETIME ONE Stop: 09/22/21 18:15 Last Admin: 09/22/21 18:23 Dose: 1 mg Documented by: Hydromorphone HCl (Hydromorphone 0.5 Mg/0.5 Ml Syringe) 0.5 mg IVPUSH ONETIME ONE Stop: 09/22/21 22:17 Last Admin: 09/22/21 23:46 Dose: 0.5 mg Documented by: Hydromorphone HCl (Hydromorphone 0.5 Mg/0.5 Ml Syringe) 0.5 mg IVPUSH Q4H PRN PRN Reason: Pain Last Admin: 09/26/21 08:08 Dose: 0.5 mg Documented by: Sodium Chloride (Normal Saline) 1,000 mls @ 125 mls/hr IV ASDIRECTED [facility] Last Admin: 09/22/21 18:23 Dose: 125 mls/hr Documented by: Ceftriaxone Sodium 2 gm/ (Sodium Chloride) 100 mls @ 200 mls/hr IV ONETIME ONE Stop: 09/22/21 18:47 Last Admin: 09/22/21 19:21 Dose: 200 mls/hr Documented by: Sodium Chloride (Normal Saline) 1,000 mls @ 75 mls/hr IV ASDIRECTED [facility] Last Admin: 09/23/21 00:26 Dose: 75 mls/hr Documented by: Meropenem/Sodium Chloride 500 (mg/ Premix) 50 mls @ 100 mls/hr IV Q6H [facility] Last Admin: 09/29/21 14:44 Dose: 100 mls/hr Documented by: Albumin Human 12.5 gm/ Premix 50 mls @ 100 mls/hr IV Q1H [facility] Stop: 09/23/21 15:59 Last Admin: 09/23/21 14:43 Dose: 100 mls/hr Documented by: Albumin Human 12.5 gm/ Premix 50 mls @ 100 mls/hr IV Q1H [facility] Stop: 09/25/21 15:29 Last Admin: 09/25/21 14:00 Dose: 100 mls/hr Documented by: Albumin Human (Flexbumin 25%) Confirm Administered Dose 50 mls @ as directed .ROUTE .STK-MED ONE Stop: 09/23/21 10:51 Last Admin: 09/23/21 12:40 Dose: Not Given Documented by: Iopamidol (Iopamidol 612 Mg/Ml 100 Ml Bottle) 100 ml IVPUSH ONETIME ONE Stop: 09/27/21 10:32 Last Admin: 09/27/21 12:40 Dose: 100 ml Documented by: Iopamidol (Iopamidol 612 Mg/Ml 50 Ml Sdv) 50 ml IVPUSH ONETIME ONE Stop: 09/27/21 10:32 Last Admin: 09/27/21 12:40 Dose: 50 ml Documented by: Iopamidol (Iopamidol 612 Mg/Ml 100 Ml Bottle) 100 ml IVPUSH ONETIME ONE Stop: 09/22/21 20:15 Last Admin: 09/22/21 20:54 Dose: 100 ml Documented by: Iopamidol (Iopamidol 612 Mg/Ml 50 Ml Sdv) 50 ml IVPUSH ONETIME ONE Stop: 09/22/21 20:15 Last Admin: 09/22/21 20:54 Dose: 50 ml Documented by: Lactulose (Lactulose Soln 10 Gm/15 Ml 30 Ml Ud Cup) 15 gm PO ONETIME ONE Stop: 09/22/21 22:17 Last Admin: 09/22/21 23:46 Dose: 15 gm Documented by: Metoclopramide HCl (Metoclopramide 10 Mg/2 Ml Sdv) 10 mg IVPUSH ONETIME ONE Stop: 09/22/21 18:15 Last Admin: 09/22/21 18:23 Dose: 10 mg Documented by: Non-Formulary Medication (Oxycodone Hcl [Oxycodone Hcl]) 5 mg PO Q6H PRN PRN Reason: Pain Ondansetron HCl (Ondansetron 4 Mg/2 Ml Sdv) 4 mg IVPUSH Q6H PRN PRN Reason: Nausea Ondansetron HCl (Ondansetron 4 Mg/2 Ml Sdv) 4 mg IV Q6H PRN PRN Reason: Nausea/Vomiting Oxycodone HCl (Oxycodone 5 Mg Tab) 5 mg PO Q6H PRN PRN Reason: Pain (moderate 4-6) Last Admin: 09/23/21 09:41 Dose: 5 mg Documented by: Oxycodone HCl (Oxycodone 5 Mg Tab) 10 mg PO Q6H PRN PRN Reason: Pain (moderate 4-6) Last Admin: 09/26/21 05:41 Dose: 10 mg Documented by: Pantoprazole Sodium (Pantoprazole 40 Mg Tab.Cr) 40 mg PO ONETIME ONE Stop: 09/23/21 22:19 Pantoprazole Sodium (Pantoprazole 40 Mg Tab.Cr) 40 mg PO ONETIME ONE Stop: 09/22/21 23:46 Last Admin: 09/22/21 23:46 Dose: 40 mg Documented by: Pantoprazole Sodium (Pantoprazole 40 Mg Tab.Cr) 40 mg PO DAILY [facility] Last Admin: 09/29/21 09:12 Dose: 40 mg Documented by: Potassium Chloride (Potassium Chloride 20 Meq Tab.Er) 20 meq PO BID [facility] Last Admin: 09/23/21 09:42 Dose: 20 meq Documented by: Potassium Chloride (Potassium Chloride 20 Meq Tab.Er) 20 meq PO ONETIME ONE Stop: 09/23/21 10:01 Last Admin: 09/23/21 12:00 Dose: 20 meq Documented by: Sodium Chloride (Sodium Chloride 0.9% 10 Ml Syringe) 10 ml FLUSH ONETIME PRN PRN Reason: IV FLUSH Stop: 09/27/21 12:00 Sodium Chloride (Sodium Chloride 0.9% 10 Ml Syringe) 10 ml FLUSH ONETIME ONE Stop: 09/22/21 20:15 Last Admin: 09/22/21 20:54 Dose: 10 ml Documented by: Spironolactone (Spironolactone 25 Mg Tab) 25 mg PO DAILY [facility] Last Admin: 09/24/21 09:33 Dose: 25 mg Documented by: - Patient Data Lab Results Last 24 hrs: Laboratory Results - last 24 hr 09/29/21 09/30/21 09/30/21 Range/Units 20:00 06:08 06:08 WBC (3.98-10.04) K/mm3 RBC (3.98-5.22) M/mm3 Hgb (11.2-15.7) gm/dl Hct (34.1-44.9) % MCV (79.4-94.8) fl MCH (25.6-32.2) pg MCHC (32.2-35.5) g/dl RDW Std Deviation (36.4-46.3) fL Plt Count (182-369) K/mm3 MPV (9.4-12.3) fl Neut % (Auto) (34.0-71.1) % Lymph % (Auto) (19.3-51.7) % [place] % (Auto) (4.7-12.5) % Eos % (Auto) (0.7-5.8) Baso % (Auto) (0.1-1.2) % Neut # (Auto) (1.56-6.13) K/mm3 Lymph # (Auto) (1.18-3.74) K/mm3 [place] # (Auto) (0.24-0.36) K/mm3 Eos # (Auto) (0.04-0.36) K/mm3 Baso # (Auto) (0.01-0.08) K/mm3 Manual Slide Review PT 24.0 H (9.7-12.0) SECONDS INR 2.23 Sodium (136-145) mEq/L Potassium (3.5-5.1) mEq/L Chloride (98-107) mEq/L Carbon Dioxide (21-32) mEq/L Anion Gap (5-15) BUN (7-18) mg/dL Creatinine (0.55-1.02) mg/dL Est Cr Clr Drug Dosing mL/min Estimated GFR (MDRD) (>60) mL/min BUN/Creatinine Ratio (14-18) Glucose (70-99) mg/dL Calcium (8.5-10.1) mg/dL Total Bilirubin (0.2-1.0) mg/dL AST (15-37) U/L ALT (14-59) U/L Alkaline Phosphatase (46-116) U/L Ammonia 32 (11-32) umol/L Total Protein (6.4-8.2) g/dl Albumin (3.4-5.0) g/dl Globulin gm/dL Albumin/Globulin Ratio (1-2) Urine Color Yellow (Yellow) Urine Appearance Clear (Clear) Urine pH 7.0 (5.0-8.0) Ur Specific [place] 1.015 (1.005-1.030) Urine Protein Negative (Negative) Urine Glucose (UA) Negative (Negative) Urine Ketones Trace H (Negative) Urine Occult Blood Trace-intact H (Negative) Urine Nitrite Negative (Negative) Urine Bilirubin 2+ H (Negative) Urine Urobilinogen 0.2 (0.2-1.0) Ur Leukocyte Esterase Negative (Negative) 09/30/21 09/30/21 Range/Units 06:08 06:08 WBC 19.61 H (3.98-10.04) K/mm3 RBC 2.83 L (3.98-5.22) M/mm3 Hgb 8.9 L (11.2-15.7) gm/dl Hct 29.0 L (34.1-44.9) % MCV 102.5 H (79.4-94.8) fl MCH 31.4 (25.6-32.2) pg MCHC 30.7 L (32.2-35.5) g/dl RDW Std Deviation 74.5 H (36.4-46.3) fL Plt Count 115 L (182-369) K/mm3 MPV 10.8 (9.4-12.3) fl Neut % (Auto) 83.4 H (34.0-71.1) % Lymph % (Auto) 7.1 L (19.3-51.7) % [place] % (Auto) 8.8 (4.7-12.5) % Eos % (Auto) 0 L (0.7-5.8) Baso % (Auto) 0.2 (0.1-1.2) % Neut # (Auto) 16.38 H (1.56-6.13) K/mm3 Lymph # (Auto) 1.39 (1.18-3.74) K/mm3 [place] # (Auto) 1.72 H (0.24-0.36) K/mm3 Eos # (Auto) 0.00 L (0.04-0.36) K/mm3 Baso # (Auto) 0.03 (0.01-0.08) K/mm3 Manual Slide Review Abnormal smear PT (9.7-12.0) SECONDS INR Sodium 131 L (136-145) mEq/L Potassium 4.5 (3.5-5.1) mEq/L Chloride 96 L (98-107) mEq/L Carbon Dioxide 24 (21-32) mEq/L Anion Gap 15.5 H (5-15) BUN 17 (7-18) mg/dL Creatinine 0.8 (0.55-1.02) mg/dL Est Cr Clr Drug Dosing 84.55 mL/min Estimated GFR (MDRD) > 60 (>60) mL/min BUN/Creatinine Ratio 21.3 H (14-18) Glucose 109 H (70-99) mg/dL Calcium 9.1 (8.5-10.1) mg/dL Total Bilirubin 32.2 H (0.2-1.0) mg/dL AST 130 H (15-37) U/L ALT 51 (14-59) U/L Alkaline Phosphatase 173 H (46-116) U/L Ammonia (11-32) umol/L Total Protein 6.4 (6.4-8.2) g/dl Albumin 3.0 L (3.4-5.0) g/dl Globulin 3.4 gm/dL Albumin/Globulin Ratio 0.9 L (1-2) Urine Color (Yellow) Urine Appearance (Clear) Urine pH (5.0-8.0) Ur Specific [place] (1.005-1.030) Urine Protein (Negative) Urine Glucose (UA) (Negative) Urine Ketones (Negative) Urine Occult Blood (Negative) Urine Nitrite (Negative) Urine Bilirubin (Negative) Urine Urobilinogen (0.2-1.0) Ur Leukocyte Esterase (Negative) Result Diagrams: 09/30/21 06:08 09/30/21 06:08 Sebastian Results Last 24 hrs: Microbiology 09/29/21 20:21 Stool Occult Blood (SEBASTIAN) - Final Stool / Feces Sepsis Event Note - Evaluation Sepsis Screening Result: No Definite Risk - Focused Exam Vital Signs: Vital Signs Temp Pulse Resp BP Pulse Ox 09/30/21 08:14 36.4 C 84 20 123/68 100 09/30/21 02:02 36.8 C 97 20 113/55 L 100 - Problem List Review Problem List Initiated/Reviewed/Updated: Yes - My Orders Last 24 Hours: My Active Orders 09/29/21 11:00 Albumin 25% [Flexbumin 25%] 12.5 gm in 50 ml IV DAILY 09/29/21 Dinner 2 Gram Sodium Diet [DIET] Fluid Restriction [DIET] 09/29/21 21:00 Pantoprazole [ProTONIX] 40 mg PO BID 09/30/21 06:08 PROCALCITONIN [REF] DAILY 09/30/21 Breakfast Clear Liquid Diet [DIET] 09/30/21 11:06 Morphine 2 mg IVPUSH Q4H PRN 10/01/21 05:00 A1C [GLYCOSYLATED HEMOGLOBIN,HGBA1C] [CHEM] Routine AMMONIA VENOUS [CHEM] DAILY CBC WITH AUTO DIFF [HEME] DAILY COMPREHENSIVE METABOLIC PN,CMP [CHEM] DAILY 10/01/21 08:25 INR,PT,PROTHROMBIN TIME [COAG] DAILY 10/02/21 05:00 AMMONIA VENOUS [CHEM] DAILY CBC WITH AUTO DIFF [HEME] DAILY COMPREHENSIVE METABOLIC PN,CMP [CHEM] DAILY 10/02/21 08:25 INR,PT,PROTHROMBIN TIME [COAG] DAILY 10/03/21 05:00 AMMONIA VENOUS [CHEM] DAILY CBC WITH AUTO DIFF [HEME] DAILY COMPREHENSIVE METABOLIC PN,CMP [CHEM] DAILY 10/03/21 08:25 INR,PT,PROTHROMBIN TIME [COAG] DAILY 10/04/21 05:00 CBC WITH AUTO DIFF [HEME] DAILY COMPREHENSIVE METABOLIC PN,CMP [CHEM] DAILY 10/04/21 08:25 INR,PT,PROTHROMBIN TIME [COAG] DAILY 10/05/21 05:00 CBC WITH AUTO DIFF [HEME] DAILY COMPREHENSIVE METABOLIC PN,CMP [CHEM] DAILY 10/05/21 08:25 INR,PT,PROTHROMBIN TIME [COAG] DAILY - Plan Plan:: Assessment:: Spontaneous bacterial peritonitis, suspected Abdominal pain Cirrhosis of liver Obesity (BMI 30-39.9) History of alcohol abuse Hyperbilirubinemia Hypoalbuminemia Pedal edema * Given 12.5g of albumin daily x 3 days * Lactulose as ordered * Pain medications adjusted. Disconitnued Dilaudid 0.5 mg every 2 hours for severe pain. Morphine 2mg Q4hrs prn and oxycodone 10 mg every 4 hours as need ed. * Spoke to general surgeon Dr. Bashir and Abel who felt patient is not a candidate for paracentesis because there is too small amount of ascites * Blood cultures no growth * Home medications as ordered * Lasix 40 mg daily * Spironolactone 100 mg daily * RENZO stockings for pedal edema * Avoid hepatotoxic medications if possible * Daily labs * Dietitian consultation * Repeat CTA of the abdomen shows no changes except fluid adjacent to the liver and spleen are not currently visible on the study. There is a mild amount of ascites seen within the pelvis which has diminished since prior exam. * Spoke to her senior contract specialist in [facility] Dr. Nicolas Siegel who will see her in office and probably do EGD and colonoscopy for her. Dr. Cat also advised to start her on lasix, spironolactone, and low sodium diet (2g).Dr. Cat agreed to stop abx. I will probably discharge this patient on low-sodium diet and not on Lasix and the spironolactone. Her potassium has been around between 4.0-5.0. I am worried patient is medical noncompliant. She may not have labs checked regularly. Alcoholic hepatitis * Dr. Bianchi spoke with Dr. Nicolas Siegel who recommended Doppler ultrasound of the portal vein which was negative for thrombosis. Dr. Siegel suggested methylprednisolone 40 mg IV x5 days for possible alcoholic hepatitis. Then based on his Lille score will determine if she goes home on steroids. If continue the steroid, Dr. Cat would suggest prednisolone 40 mg daily for 4 weeks, 30 mg daily x 7 days, 20 mg daily x 7 days and then 10 mg daily x 7 days GERD (gastroesophageal reflux disease) * No acute concerns * Continue home Protonix History of COVID-19 * No acute concerns History of GI bleed Positive Guaiac now History of esophageal varices Elevated INR * Patient is auto anticoagulated * High risk of bleeding * Pharmacological VTE prophylaxis contraindicated * pantoprazole 40mg bid * Dr. Nicolas Siegel who will see her in office and probably do EGD and colonoscopy for her. * Repeat CBC daily History of MRSA infection * No acute concerns * Follow institutional protocol Code status: Full code PCP: Lynn Olivares NP DVT prophylaxis: RENZO martinez (pharmacological prophylaxis contraindicated) Disposition: Patient admitted to the floor for management of suspected SBP. Overall patient prognosis is very poor: MELD-Na score of 30 with a 27-32% 90-d ay mortality risk. Child-Azevedo score of 42 with a 40.1% 1 year mortality risk. LOS > 96 hours due to slow response to treatment and re-assessment on day 5.
[2021-10-01] MEDS: oxyCODONE 5 MG Tab PO PRN ×5 (00:08→18:58)
[2021-10-01 08:03] LABS: HEMOGLOBIN A1C 4.1 %
[2021-10-01] MEDS: Folic Acid 1 MG Tab PO SCH (08:46)
[2021-10-01] MEDS: Pantoprazole 40 MG Tab.CR PO SCH ×2 (08:46→20:48)
[2021-10-01] MEDS: methylPREDNISolone Sodium Succinate 40 MG/1 ML SDV IVPUSH SCH (08:47)
[2021-10-01] MEDS: Furosemide 40 MG Tab PO SCH (08:47)
[2021-10-01] MEDS: Spironolactone 100 MG Tab PO SCH (08:47)
[2021-10-01] MEDS: Multivitamin Tab PO SCH (08:47)
[2021-10-01] MEDS: Potassium Chloride 20 MEQ Tab.ER PO SCH ×2 (08:47→20:47)
[2021-10-01] MEDS: Thiamine 100 MG Tab PO SCH (08:47)
[2021-10-01] MEDS: Magnesium Oxide 400 MG Tab PO SCH (08:47)
[2021-10-01] MEDS: Albumin 25% 12.5 GM/50 ML BAG IV SCH (08:48)
[2021-10-01] MEDS: Lactulose Soln 10 GM/15 ML 30 ML UD Cup PO SCH ×2 (08:48→20:48)
[2021-10-01] MEDS: Nicotine 7 MG/24 Hr Patch TRDERM SCH (08:48)
--- NOTE | 2021-10-01 10:55 | PCM.PN ---
- General Info Date of Service: 10/01/21 Admission Dx/Problem (Free Text): Liver failure Subjective Update: Patient still has abdominal pain. But as per pt, general speaking the level of abdominal pain has improved. Vital signs are stable and acceptable Guaiac was positive Urinalysis showed urine occult blood trace Hb 8.5, plt 118, INR 2.09, total bilirubin 29.3 - Review of Systems Systems Review Comment:: Complaining of abdominal pain and stool streaked with blood. All other systems were reviewed and are negative. - Patient Data Vitals - Most Recent: Last Vital Signs Temp 36.8 C 10/01/21 08:54 Pulse 94 10/01/21 08:54 Resp 14 10/01/21 08:54 BP 121/60 10/01/21 08:54 Pulse Ox 97 10/01/21 08:54 Weight - Most Recent: 79.968 kg I&O - Last 24 Hours: Intake & Output 09/30/21 10/01/21 10/01/21 22:59 06:59 14:59 Intake Total 872 420 Output Total 1450 1450 Balance -578 -1030 Lab Results Last 24 Hours: Laboratory Results - last 24 hr 09/30/21 10/01/21 10/01/21 Range/Units 06:08 06:20 06:20 WBC 19.37 H (3.98-10.04) K/mm3 RBC 2.73 L (3.98-5.22) M/mm3 Hgb 8.5 L (11.2-15.7) gm/dl Hct 28.0 L (34.1-44.9) % MCV 102.6 H (79.4-94.8) fl MCH 31.1 (25.6-32.2) pg MCHC 30.4 L (32.2-35.5) g/dl RDW Std Deviation 73.6 H (36.4-46.3) fL Plt Count 118 L (182-369) K/mm3 MPV 10.2 (9.4-12.3) fl Neut % (Auto) 79.1 H (34.0-71.1) % Lymph % (Auto) 7.0 L (19.3-51.7) % [place] % (Auto) 13.0 H (4.7-12.5) % Eos % (Auto) 0.2 L (0.7-5.8) Baso % (Auto) 0.1 (0.1-1.2) % Neut # (Auto) 15.34 H (1.56-6.13) K/mm3 Lymph # (Auto) 1.36 (1.18-3.74) K/mm3 [place] # (Auto) 2.51 H (0.24-0.36) K/mm3 Eos # (Auto) 0.03 L (0.04-0.36) K/mm3 Baso # (Auto) 0.01 (0.01-0.08) K/mm3 Manual Slide Review Abnormal smear PT (9.7-12.0) SECONDS INR Sodium (136-145) mEq/L Potassium (3.5-5.1) mEq/L Chloride (98-107) mEq/L Carbon Dioxide (21-32) mEq/L Anion Gap (5-15) BUN (7-18) mg/dL Creatinine (0.55-1.02) mg/dL Est Cr Clr Drug Dosing mL/min Estimated GFR (MDRD) (>60) mL/min BUN/Creatinine Ratio (14-18) Glucose (70-99) mg/dL Hemoglobin A1c ( - 5.6) % Calcium (8.5-10.1) mg/dL Total Bilirubin (0.2-1.0) mg/dL AST (15-37) U/L ALT (14-59) U/L Alkaline Phosphatase (46-116) U/L Ammonia 31 (11-32) umol/L Total Protein (6.4-8.2) g/dl Albumin (3.4-5.0) g/dl Globulin gm/dL Albumin/Globulin Ratio (1-2) Procalcitonin 1.43 H ng/mL 10/01/21 10/01/21 10/01/21 Range/Units 06:20 06:20 06:50 WBC (3.98-10.04) K/mm3 RBC (3.98-5.22) M/mm3 Hgb (11.2-15.7) gm/dl Hct (34.1-44.9) % MCV (79.4-94.8) fl MCH (25.6-32.2) pg MCHC (32.2-35.5) g/dl RDW Std Deviation (36.4-46.3) fL Plt Count (182-369) K/mm3 MPV (9.4-12.3) fl Neut % (Auto) (34.0-71.1) % Lymph % (Auto) (19.3-51.7) % [place] % (Auto) (4.7-12.5) % Eos % (Auto) (0.7-5.8) Baso % (Auto) (0.1-1.2) % Neut # (Auto) (1.56-6.13) K/mm3 Lymph # (Auto) (1.18-3.74) K/mm3 [place] # (Auto) (0.24-0.36) K/mm3 Eos # (Auto) (0.04-0.36) K/mm3 Baso # (Auto) (0.01-0.08) K/mm3 Manual Slide Review PT 22.6 H (9.7-12.0) SECONDS INR 2.09 Sodium 136 (136-145) mEq/L Potassium 4.3 (3.5-5.1) mEq/L Chloride 100 (98-107) mEq/L Carbon Dioxide 23 (21-32) mEq/L Anion Gap 17.3 H (5-15) BUN 18 (7-18) mg/dL Creatinine 0.7 (0.55-1.02) mg/dL Est Cr Clr Drug Dosing 96.62 mL/min Estimated GFR (MDRD) > 60 (>60) mL/min BUN/Creatinine Ratio 25.7 H (14-18) Glucose 101 H (70-99) mg/dL Hemoglobin A1c 4.1 ( - 5.6) % Calcium 8.8 (8.5-10.1) mg/dL Total Bilirubin 29.3 H (0.2-1.0) mg/dL AST 122 H (15-37) U/L ALT 59 (14-59) U/L Alkaline Phosphatase 199 H (46-116) U/L Ammonia (11-32) umol/L Total Protein 6.4 (6.4-8.2) g/dl Albumin 3.1 L (3.4-5.0) g/dl Globulin 3.3 gm/dL Albumin/Globulin Ratio 0.9 L (1-2) Procalcitonin ng/mL Med Orders - Current: Current Medications Dicyclomine HCl (Dicyclomine 10 Mg Cap) 10 mg PO DAILY PRN PRN Reason: abdominal cramp Folic Acid (Folic Acid 1 Mg Tab) 1 mg PO DAILY [facility] Last Admin: 10/01/21 08:46 Dose: 1 mg Documented by: Furosemide (Furosemide 40 Mg Tab) 40 mg PO DAILY [facility] Last Admin: 10/01/21 08:47 Dose: 40 mg Documented by: Lactulose (Lactulose Soln 10 Gm/15 Ml 30 Ml Ud Cup) 15 gm PO BID [facility] Last Admin: 10/01/21 08:48 Dose: 15 gm Documented by: Magnesium Oxide (Magnesium Oxide 400 Mg Tab) 400 mg PO DAILY [facility] Last Admin: 10/01/21 08:47 Dose: 400 mg Documented by: Methylprednisolone Sodium Succinate (Methylprednisolone Sodium Succinate 40 Mg/1 Ml Sdv) 40 mg IVPUSH DAILY [facility] Stop: 10/02/21 09:01 Last Admin: 10/01/21 08:47 Dose: 40 mg Documented by: Metoclopramide HCl (Metoclopramide 10 Mg/2 Ml Sdv) 10 mg IVPUSH Q6H PRN PRN Reason: Nausea Last Admin: 09/29/21 18:08 Dose: 10 mg Documented by: Miscellaneous Information (Remove Patch Nicotine) 1 ea TRDERM DAILY [facility] Last Admin: 10/01/21 08:48 Dose: Not Given Documented by: Morphine Sulfate (Morphine 2 Mg/Ml Syringe) 2 mg IVPUSH Q4H PRN PRN Reason: Pain (severe 7-10) Stop: 10/01/21 11:06 Multivitamins/Minerals/Vitamin C (Multivitamin Tab) 1 tab PO DAILY [facility] Last Admin: 10/01/21 08:47 Dose: 1 tab Documented by: Nicotine (Nicotine 7 Mg/24 Hr Patch) 7 mg TRDERM DAILY [facility] Last Admin: 10/01/21 08:48 Dose: Not Given Documented by: Oxycodone HCl (Oxycodone 5 Mg Tab) 10 mg PO Q4H PRN PRN Reason: Pain (moderate 4-6) Last Admin: 10/01/21 10:03 Dose: 10 mg Documented by: Pantoprazole Sodium (Pantoprazole 40 Mg Tab.Cr) 40 mg PO BID [facility] Last Admin: 10/01/21 08:46 Dose: 40 mg Documented by: Potassium Chloride (Potassium Chloride 20 Meq Tab.Er) 40 meq PO BID [facility] Last Admin: 10/01/21 08:47 Dose: 40 meq Documented by: Spironolactone (Spironolactone 100 Mg Tab) 100 mg PO DAILY [facility] Last Admin: 10/01/21 08:47 Dose: 100 mg Documented by: Thiamine HCl (Thiamine 100 Mg Tab) 100 mg PO DAILY [facility] Last Admin: 10/01/21 08:47 Dose: 100 mg Documented by: Discontinued Medications Diatrizoate Meglum/Diatrizoate Sod (Diatrizoate Meglumine/Diatrizoate Sodium 37% 120 Ml Bottle) 120 ml PO ONETIME ONE Stop: 09/27/21 10:32 Last Admin: 09/27/21 12:40 Dose: 45 ml Documented by: Furosemide (Furosemide 40 Mg/4 Ml Vial) 40 mg IVPUSH NOW ONE Stop: 09/24/21 09:32 Last Admin: 09/24/21 10:50 Dose: 40 mg Documented by: Furosemide (Furosemide 40 Mg/4 Ml Vial) 40 mg IVPUSH BIDDIURETIC [facility] Last Admin: 09/24/21 13:12 Dose: 40 mg Documented by: Furosemide (Furosemide 40 Mg/4 Ml Vial) 40 mg IVPUSH BID [facility] Last Admin: 09/25/21 20:54 Dose: 40 mg Documented by: Furosemide (Furosemide 40 Mg/4 Ml Vial) 40 mg IVPUSH ONETIME ONE Stop: 09/28/21 13:01 Last Admin: 09/28/21 12:52 Dose: 40 mg Documented by: Furosemide (Furosemide 40 Mg/4 Ml Vial) 40 mg IVPUSH NOW ONE Stop: 09/23/21 11:47 Last Admin: 09/23/21 12:50 Dose: 40 mg Documented by: Hydromorphone HCl (Hydromorphone 0.5 Mg/0.5 Ml Syringe) 0.5 mg IVPUSH Q2H PRN PRN Reason: Pain (severe 7-10) Last Admin: 09/30/21 08:43 Dose: 0.5 mg Documented by: Hydromorphone HCl (Hydromorphone 1 Mg/Ml Syringe) 1 mg IVPUSH ONETIME ONE Stop: 09/22/21 18:15 Last Admin: 09/22/21 18:23 Dose: 1 mg Documented by: Hydromorphone HCl (Hydromorphone 0.5 Mg/0.5 Ml Syringe) 0.5 mg IVPUSH ONETIME ONE Stop: 09/22/21 22:17 Last Admin: 09/22/21 23:46 Dose: 0.5 mg Documented by: Hydromorphone HCl (Hydromorphone 0.5 Mg/0.5 Ml Syringe) 0.5 mg IVPUSH Q4H PRN PRN Reason: Pain Last Admin: 09/26/21 08:08 Dose: 0.5 mg Documented by: Albumin Human (Flexbumin 25%) 12.5 gm in 50 mls @ 100 mls/hr IV DAILY [facility] Stop: 10/01/21 09:29 Last Admin: 10/01/21 08:48 Dose: 100 mls/hr Documented by: Sodium Chloride (Normal Saline) 1,000 mls @ 125 mls/hr IV ASDIRECTED [facility] Last Admin: 09/22/21 18:23 Dose: 125 mls/hr Documented by: Ceftriaxone Sodium 2 gm/ (Sodium Chloride) 100 mls @ 200 mls/hr IV ONETIME ONE Stop: 09/22/21 18:47 Last Admin: 09/22/21 19:21 Dose: 200 mls/hr Documented by: Sodium Chloride (Normal Saline) 1,000 mls @ 75 mls/hr IV ASDIRECTED [facility] Last Admin: 09/23/21 00:26 Dose: 75 mls/hr Documented by: Meropenem/Sodium Chloride 500 (mg/ Premix) 50 mls @ 100 mls/hr IV Q6H [facility] Last Admin: 09/29/21 14:44 Dose: 100 mls/hr Documented by: Albumin Human 12.5 gm/ Premix 50 mls @ 100 mls/hr IV Q1H [facility] Stop: 09/23/21 15:59 Last Admin: 09/23/21 14:43 Dose: 100 mls/hr Documented by: Albumin Human 12.5 gm/ Premix 50 mls @ 100 mls/hr IV Q1H [facility] Stop: 09/25/21 15:29 Last Admin: 09/25/21 14:00 Dose: 100 mls/hr Documented by: Albumin Human (Flexbumin 25%) Confirm Administered Dose 50 mls @ as directed .ROUTE .STK-MED ONE Stop: 09/23/21 10:51 Last Admin: 09/23/21 12:40 Dose: Not Given Documented by: Iopamidol (Iopamidol 612 Mg/Ml 100 Ml Bottle) 100 ml IVPUSH ONETIME ONE Stop: 09/27/21 10:32 Last Admin: 09/27/21 12:40 Dose: 100 ml Documented by: Iopamidol (Iopamidol 612 Mg/Ml 50 Ml Sdv) 50 ml IVPUSH ONETIME ONE Stop: 09/27/21 10:32 Last Admin: 09/27/21 12:40 Dose: 50 ml Documented by: Iopamidol (Iopamidol 612 Mg/Ml 100 Ml Bottle) 100 ml IVPUSH ONETIME ONE Stop: 09/22/21 20:15 Last Admin: 09/22/21 20:54 Dose: 100 ml Documented by: Iopamidol (Iopamidol 612 Mg/Ml 50 Ml Sdv) 50 ml IVPUSH ONETIME ONE Stop: 09/22/21 20:15 Last Admin: 09/22/21 20:54 Dose: 50 ml Documented by: Lactulose (Lactulose Soln 10 Gm/15 Ml 30 Ml Ud Cup) 15 gm PO ONETIME ONE Stop: 09/22/21 22:17 Last Admin: 09/22/21 23:46 Dose: 15 gm Documented by: Metoclopramide HCl (Metoclopramide 10 Mg/2 Ml Sdv) 10 mg IVPUSH ONETIME ONE Stop: 09/22/21 18:15 Last Admin: 09/22/21 18:23 Dose: 10 mg Documented by: Non-Formulary Medication (Oxycodone Hcl [Oxycodone Hcl]) 5 mg PO Q6H PRN PRN Reason: Pain Ondansetron HCl (Ondansetron 4 Mg/2 Ml Sdv) 4 mg IVPUSH Q6H PRN PRN Reason: Nausea Ondansetron HCl (Ondansetron 4 Mg/2 Ml Sdv) 4 mg IV Q6H PRN PRN Reason: Nausea/Vomiting Oxycodone HCl (Oxycodone 5 Mg Tab) 5 mg PO Q6H PRN PRN Reason: Pain (moderate 4-6) Last Admin: 09/23/21 09:41 Dose: 5 mg Documented by: Oxycodone HCl (Oxycodone 5 Mg Tab) 10 mg PO Q6H PRN PRN Reason: Pain (moderate 4-6) Last Admin: 09/26/21 05:41 Dose: 10 mg Documented by: Pantoprazole Sodium (Pantoprazole 40 Mg Tab.Cr) 40 mg PO ONETIME ONE Stop: 09/23/21 22:19 Pantoprazole Sodium (Pantoprazole 40 Mg Tab.Cr) 40 mg PO ONETIME ONE Stop: 09/22/21 23:46 Last Admin: 09/22/21 23:46 Dose: 40 mg Documented by: Pantoprazole Sodium (Pantoprazole 40 Mg Tab.Cr) 40 mg PO DAILY [facility] Last Admin: 09/29/21 09:12 Dose: 40 mg Documented by: Potassium Chloride (Potassium Chloride 20 Meq Tab.Er) 20 meq PO BID [facility] Last Admin: 09/23/21 09:42 Dose: 20 meq Documented by: Potassium Chloride (Potassium Chloride 20 Meq Tab.Er) 20 meq PO ONETIME ONE Stop: 09/23/21 10:01 Last Admin: 09/23/21 12:00 Dose: 20 meq Documented by: Sodium Chloride (Sodium Chloride 0.9% 10 Ml Syringe) 10 ml FLUSH ONETIME PRN PRN Reason: IV FLUSH Stop: 09/27/21 12:00 Sodium Chloride (Sodium Chloride 0.9% 10 Ml Syringe) 10 ml FLUSH ONETIME ONE Stop: 09/22/21 20:15 Last Admin: 09/22/21 20:54 Dose: 10 ml Documented by: Spironolactone (Spironolactone 25 Mg Tab) 25 mg PO DAILY [facility] Last Admin: 09/24/21 09:33 Dose: 25 mg Documented by: - Exam Physical Findings Comments:: Physical Exam: General: No acute distress HEENT: Conjunctiva Clear, EOMI, Mucosa Moist & Oval, icterus Neck: Supple, Trachea Midline, NO JVD Lungs: CTA, normal Respiratory Effort, no Wheezing Cardiovascular: Regular Rate, Regular Rhythm GI/Abdominal Exam: Normal Bowel Sounds, Soft, mildly to moderately diffuse tenderness, No Abnormal Bruit, No Mass Extremities: Normal Inspection, Non-Tender, pitting pedal Edema 1-2 +, Normal Capillary Refill Skin: Warm, Dry, Intact, jaundice Neurology: A+O x 3, no focal neurological deficits Psychiatric: Normal Mood - Patient Data Lab Results Last 24 hrs: Laboratory Results - last 24 hr 09/30/21 10/01/21 10/01/21 Range/Units 06:08 06:20 06:20 WBC 19.37 H (3.98-10.04) K/mm3 RBC 2.73 L (3.98-5.22) M/mm3 Hgb 8.5 L (11.2-15.7) gm/dl Hct 28.0 L (34.1-44.9) % MCV 102.6 H (79.4-94.8) fl MCH 31.1 (25.6-32.2) pg MCHC 30.4 L (32.2-35.5) g/dl RDW Std Deviation 73.6 H (36.4-46.3) fL Plt Count 118 L (182-369) K/mm3 MPV 10.2 (9.4-12.3) fl Neut % (Auto) 79.1 H (34.0-71.1) % Lymph % (Auto) 7.0 L (19.3-51.7) % [place] % (Auto) 13.0 H (4.7-12.5) % Eos % (Auto) 0.2 L (0.7-5.8) Baso % (Auto) 0.1 (0.1-1.2) % Neut # (Auto) 15.34 H (1.56-6.13) K/mm3 Lymph # (Auto) 1.36 (1.18-3.74) K/mm3 [place] # (Auto) 2.51 H (0.24-0.36) K/mm3 Eos # (Auto) 0.03 L (0.04-0.36) K/mm3 Baso # (Auto) 0.01 (0.01-0.08) K/mm3 Manual Slide Review Abnormal smear PT (9.7-12.0) SECONDS INR Sodium (136-145) mEq/L Potassium (3.5-5.1) mEq/L Chloride (98-107) mEq/L Carbon Dioxide (21-32) mEq/L Anion Gap (5-15) BUN (7-18) mg/dL Creatinine (0.55-1.02) mg/dL Est Cr Clr Drug Dosing mL/min Estimated GFR (MDRD) (>60) mL/min BUN/Creatinine Ratio (14-18) Glucose (70-99) mg/dL Hemoglobin A1c ( - 5.6) % Calcium (8.5-10.1) mg/dL Total Bilirubin (0.2-1.0) mg/dL AST (15-37) U/L ALT (14-59) U/L Alkaline Phosphatase (46-116) U/L Ammonia 31 (11-32) umol/L Total Protein (6.4-8.2) g/dl Albumin (3.4-5.0) g/dl Globulin gm/dL Albumin/Globulin Ratio (1-2) Procalcitonin 1.43 H ng/mL 10/01/21 10/01/21 10/01/21 Range/Units 06:20 06:20 06:50 WBC (3.98-10.04) K/mm3 RBC (3.98-5.22) M/mm3 Hgb (11.2-15.7) gm/dl Hct (34.1-44.9) % MCV (79.4-94.8) fl MCH (25.6-32.2) pg MCHC (32.2-35.5) g/dl RDW Std Deviation (36.4-46.3) fL Plt Count (182-369) K/mm3 MPV (9.4-12.3) fl Neut % (Auto) (34.0-71.1) % Lymph % (Auto) (19.3-51.7) % [place] % (Auto) (4.7-12.5) % Eos % (Auto) (0.7-5.8) Baso % (Auto) (0.1-1.2) % Neut # (Auto) (1.56-6.13) K/mm3 Lymph # (Auto) (1.18-3.74) K/mm3 [place] # (Auto) (0.24-0.36) K/mm3 Eos # (Auto) (0.04-0.36) K/mm3 Baso # (Auto) (0.01-0.08) K/mm3 Manual Slide Review PT 22.6 H (9.7-12.0) SECONDS INR 2.09 Sodium 136 (136-145) mEq/L Potassium 4.3 (3.5-5.1) mEq/L Chloride 100 (98-107) mEq/L Carbon Dioxide 23 (21-32) mEq/L Anion Gap 17.3 H (5-15) BUN 18 (7-18) mg/dL Creatinine 0.7 (0.55-1.02) mg/dL Est Cr Clr Drug Dosing 96.62 mL/min Estimated GFR (MDRD) > 60 (>60) mL/min BUN/Creatinine Ratio 25.7 H (14-18) Glucose 101 H (70-99) mg/dL Hemoglobin A1c 4.1 ( - 5.6) % Calcium 8.8 (8.5-10.1) mg/dL Total Bilirubin 29.3 H (0.2-1.0) mg/dL AST 122 H (15-37) U/L ALT 59 (14-59) U/L Alkaline Phosphatase 199 H (46-116) U/L Ammonia (11-32) umol/L Total Protein 6.4 (6.4-8.2) g/dl Albumin 3.1 L (3.4-5.0) g/dl Globulin 3.3 gm/dL Albumin/Globulin Ratio 0.9 L (1-2) Procalcitonin ng/mL Result Diagrams: 10/01/21 06:20 10/01/21 06:50 Sepsis Event Note - Evaluation Sepsis Screening Result: No Definite Risk - Focused Exam Vital Signs: Vital Signs Temp Pulse Resp BP Pulse Ox 10/01/21 08:54 36.8 C 94 14 121/60 97 10/01/21 04:17 36.2 C 93 14 113/68 99 10/01/21 00:03 36.9 C 87 16 113/59 L 98 - Problem List Review Problem List Initiated/Reviewed/Updated: Yes - My Orders Last 24 Hours: My Active Orders 09/30/21 11:06 Morphine 2 mg IVPUSH Q4H PRN 09/30/21 Dinner Regular Diet [DIET] 10/02/21 05:00 AMMONIA VENOUS [CHEM] DAILY CBC WITH AUTO DIFF [HEME] DAILY COMPREHENSIVE METABOLIC PN,CMP [CHEM] DAILY 10/02/21 08:25 INR,PT,PROTHROMBIN TIME [COAG] DAILY 10/03/21 05:00 AMMONIA VENOUS [CHEM] DAILY CBC WITH AUTO DIFF [HEME] DAILY COMPREHENSIVE METABOLIC PN,CMP [CHEM] DAILY 10/03/21 08:25 INR,PT,PROTHROMBIN TIME [COAG] DAILY 10/04/21 05:00 CBC WITH AUTO DIFF [HEME] DAILY COMPREHENSIVE METABOLIC PN,CMP [CHEM] DAILY 10/04/21 08:25 INR,PT,PROTHROMBIN TIME [COAG] DAILY 10/05/21 05:00 CBC WITH AUTO DIFF [HEME] DAILY COMPREHENSIVE METABOLIC PN,CMP [CHEM] DAILY 10/05/21 08:25 INR,PT,PROTHROMBIN TIME [COAG] DAILY - Plan Plan:: Assessment:: Spontaneous bacterial peritonitis, suspected Abdominal pain Cirrhosis of liver Obesity (BMI 30-39.9) History of alcohol abuse Hyperbilirubinemia Hypoalbuminemia Pedal edema * Given 12.5g of albumin daily x 3 days * Lactulose as ordered * Pain medications adjusted. Disconitnued Dilaudid 0.5 mg every 2 hours for severe pain. Morphine 2mg Q4hrs prn and oxycodone 10 mg every 4 hours as needed. * Spoke to general surgeon Dr. Peoples who felt patient is not a candidate for paracentesis because there is too small amount of ascites * Blood cultures no growth * Home medications as ordered * Lasix 40 mg daily * Spironolactone 100 mg daily * RENZO stockings for pedal edema * Avoid hepatotoxic medications if possible * Daily labs * Dietitian consultation * Repeat CTA of the abdomen shows no changes except fluid adjacent to the liver and spleen are not currently visible on the study. There is a mild amount of ascites seen within the pelvis which has diminished since prior exam. 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 Nicolas Siegel who will see her in office and probably do EGD and colonoscopy for her. Dr. Cat also advised to start her on lasix, spironolactone, and low sodium diet (2g).Dr. Cat agreed to stop abx. I will probably discharge this patient on low-sodium diet and not on Lasix and the spironolactone. Her potassium has been around between 4.0-5.0. I am worried patient is medical noncompliant. She may not have labs checked regularly. Alcoholic hepatitis * Dr. Bianchi spoke with Dr. Nicolas Siegel who recommended Doppler ultrasound of the portal vein which was negative for thrombosis. Dr. Jaqua suggested methylprednisolone 40 mg IV x5 days for possible alcoholic hepatitis. Then based on his Lille score will determine if she goes home on steroids. If continue the steroid, Dr. Cat would suggest prednisolone 40 mg daily for 4 weeks, 30 mg daily x 7 days, 20 mg daily x 7 days and then 10 mg daily x 7 days GERD (gastroesophageal reflux disease) * No acute concerns * Continue home Protonix History of COVID-19 * No acute concerns History of GI bleed Positive Guaiac now History of esophageal varices Elevated INR * Patient is auto anticoagulated * High risk of bleeding * Pharmacological VTE prophylaxis contraindicated * pantoprazole 40mg bid * Dr. Nicolas Siegel who will see her in office and probably do EGD and colonoscopy for her. * Repeat CBC daily History of MRSA infection * No acute concerns * Follow institutional protocol Code status: Full code PCP: Lynn Olivares NP DVT prophylaxis: RENZO martinez (pharmacological prophylaxis contraindicated) Disposition: Patient admitted to the floor for management of suspected SBP. Overall patient prognosis is very poor: MELD-Na score of 30 with a 27-32% 90- day mortality risk. Child-Azevedo score of 42 with a 40.1% 1 year mortality risk. LOS > 96 hours due to slow response to treatment and re-assessment on day 5.
[2021-10-02] MEDS: oxyCODONE 5 MG Tab PO PRN ×3 (00:27→09:13)
[2021-10-02] MEDS: Lactulose Soln 10 GM/15 ML 30 ML UD Cup PO SCH (09:10)
[2021-10-02] MEDS: methylPREDNISolone Sodium Succinate 40 MG/1 ML SDV IVPUSH SCH (09:10)
[2021-10-02] MEDS: Nicotine 7 MG/24 Hr Patch TRDERM SCH (09:11)
[2021-10-02] MEDS: Pantoprazole 40 MG Tab.CR PO SCH (09:11)
[2021-10-02] MEDS: Spironolactone 100 MG Tab PO SCH (09:12)
[2021-10-02] MEDS: Potassium Chloride 20 MEQ Tab.ER PO SCH (09:12)
[2021-10-02] MEDS: Multivitamin Tab PO SCH (09:12)
[2021-10-02] MEDS: Thiamine 100 MG Tab PO SCH (09:12)
[2021-10-02] MEDS: Folic Acid 1 MG Tab PO SCH (09:12)
[2021-10-02] MEDS: Furosemide 40 MG Tab PO SCH (09:12)
[2021-10-02] MEDS: Magnesium Oxide 400 MG Tab PO SCH (09:13)
[2021-10-02 10:00] VITALS: BP 115/59; PULSE 93
--- NOTE | 2021-10-02 13:16 | PCM.DCSUM1 ---
Discharge Summary - Hospital Course Free Text/Narrative:: Assessment:: Spontaneous bacterial peritonitis, suspected Abdominal pain Cirrhosis of liver Obesity (BMI 30-39.9) History of alcohol abuse Hyperbilirubinemia Hypoalbuminemia Pedal edema * Given 12.5g of albumin daily x 3 days * Lactulose as ordered * Pain medications adjusted. Disconitnued Dilaudid 0.5 mg every 2 hours for severe pain. Morphine 2mg Q4hrs prn and oxycodone 10 mg every 4 hours as needed. * Spoke to general surgeon Dr. Bashir and Abel who felt patient is not a candidate for paracentesis because there is too small amount of ascites * Blood cultures no growth * Home medications as ordered * Lasix 40 mg daily * Spironolactone 100 mg daily * RENZO stockings for pedal edema * Avoid hepatotoxic medications if possible * Daily labs * Dietitian consultation * Repeat CTA of the abdomen shows no changes except fluid adjacent to the liver and spleen are not currently visible on the study. There is a mild amount of ascites seen within the pelvis which has diminished since prior exam. * Spoke to her transit clerk in [facility] Dr. Nicolas Siegel who will see her in office and probably do EGD and colonoscopy for her. Dr. Cat also advised to start her on lasix, spironolactone, and low sodium diet (2g).Dr. Cat agreed to stop abx. I will probably discharge this patient on low-sodium diet and not on Lasix and the spironolactone. Her potassium has been around between 4.0-5.0. I am worried patient is medical noncompliant. She may not have labs checked regularly. Alcoholic hepatitis * Dr. Bianchi spoke with Dr. Nicolas Siegel who recommended Doppler ultrasound of the portal vein which was negative for thrombosis. Dr. Siegel suggested methylprednisolone 40 mg IV x5 days for possible alcoholic hepatitis. Then based on his Lille score will determine if she goes home on steroids. If continue the steroid, Dr. Cat would suggest prednisolone 40 mg daily for 4 weeks, 30 mg daily x 7 days, 20 mg daily x 7 days and then 10 mg daily x 7 days GERD (gastroesophageal reflux disease) * No acute concerns * Continue home Protonix History of COVID-19 * No acute concerns History of GI bleed Positive Guaiac now History of esophageal varices Elevated INR * Patient is auto anticoagulated * High risk of bleeding * Pharmacological VTE prophylaxis contraindicated * pantoprazole 40mg bid * Dr. Nicolas Siegel who will see her in office and probably do EGD and colonoscopy for her. * Repeat CBC daily History of MRSA infection * No acute concerns * Follow institutional protocol Today her hemoglobin dropped to 7.6 and platelets 95. medically she is not ready to be discharged. Patient decided to leave [facility]. I explained the risk including if she cannot complete the course of treatment and the benefits if she can complete the course of treatment. She fully understood these. She did not change her mind. I advised her to see PCP and Dr. Emory jones. She promised to do so. She told me that she has prednisolone and other meds at home. But she needs a pain pill. I prescribe oxycodone 5mg po every 6hrs prn x 10tablets for her. I advised her to call pcp or go to the ER immediately if she feels worsening or new problems occur. HPI Initial Comments: This is a 36-year-old female who is well-known to this service who presented to our ED on 09/22/2021 with generalized abdominal pain, nausea, leukocytosis, and cough. She reportedly had blood work drawn by her primary care provider and her primary care provider told her to come to the emergency room due to WBC elevation and hyperbilirubinemia. UA at that time was obtained and was negative. She does have a history of chronic alcohol abuse and states she has not had anything to drink in over 2 weeks. There have been no recent changes to her medications. She feels she is more jaundiced than normal. Of note she was transferred from our facility to [facility] on September 09 for a GI bleed. They reportedly performed an EGD and did fix some varices. She reports she has been home for about 2 weeks. She did see a doctor in [place] and plan was to perform an EGD and colonoscopy for follow-up, although this was not ever completed for multiple reasons. Denies any fever or chills. Labs from primary care office are reviewed and show a WBC of 25.83. Hemoglobin 12.1. Platelet 147,000. Neutrophils are elevated 82.2%. Smear is normal. Sodium is 135. Potassium 3.0. Chloride 100. Carbon dioxide 21. Anion gap is 17.0. BUN is 9. Creatinine 0.8. GFR greater than 60. Glucose is 116. Hemoglobin A1c is 4.0. Calcium 7.6. Total bilirubin is very high at 30.7. AST is 122. ALT 61. Alkaline phosphatase is 307. Protein is 6.6. Albumin is 1.7. Lipase is 272. Vitamin D is 43.6. Vitamin B12 is 50-57. Folate is 16.4. UA as noted prior was cloudy with a pH of 6.5 protein of 1+. Trace glucose and ketones. Trace intact occult blood. Negative nitrite. 3+ bilirubin. Negative leukocyte Estrace. 5-10 RBC. 0-5 WBC. 0-5 squamous epithelial cells. And few bacteria. In the ED temp is 37 C. Pulse 99. Respirations 14. BP 129/81. Pulse ox 100%. In the ED INR is checked and is 2.40. Lactic acid is 2.0. CRP is 3.8. And SARS-CoV-[address] of the abdomen and pelvis is obtained showing findings of cirrhosis with splenomegaly and varicosities. Ascites is seen which is an interval change from prior exam. Diffuse body wall edema is seen and other incidental findings are noted. Chest x-ray is obtained showing n othing acute. ED provider reportedly discussed findings with general surgeon in hopes to obtain a paracentesis however surgeon reportedly thought this would be difficult to drain due to small pockets of fluid. His recommendation was to start the patient on empiric therapy for SBP. Patient is ultimately admitted to the floor for management of suspected SBP. She carries a history of murmur, hypertension, recurrent bronchitis, alcoholic cirrhosis, GERD, GI bleed, hiatal hernia, recurrent UTI, endometriosis, alcohol addiction, Covid, prior MRSA. She is a full code. Her PCP is Lynn Olivares NP. Overall patient prognosis is very poor: MELD-Na score of 30 with a 27-32% 90- day mortality risk. TAN-C ACLF score of 42 with a 40.1% 1 year mortality risk. - Discharge Data Discharge Date: 10/02/21 Discharge Disposition: Against Medical Advice 07 Condition: Critical - Referral to Home Health Primary Care Physician: PCP None - Patient Summary/Data Consults: Consultations 09/23/21 08:08 Consult to Field Service Technician Poultry [CONS] Routine - Discharge Plan Home Medications: Home Meds Pantoprazole [ProTONIX] 40 mg PO DAILY 12/10/19 [History] Thiamine [Vitamin B-1] 1 tab PO DAILY 07/20/20 [History] Folic Acid 40 mg PO DAILY 01/25/21 [History] Magnesium Amino Acid Chelate [Magnesium] 200 mg PO DAILY 01/25/21 [History] Dicyclomine [Bentyl] 10 mg PO DAILY PRN 08/04/21 [History] Potassium Chloride 20 meq PO BID 09/09/21 [History] Spironolactone [Aldactone] 25 mg PO DAILY 09/15/21 [History] methylPREDNISolone [Methylprednisolone] 1 tab PO ASDIRECTED 09/15/21 [History] Multivitamin [Multi-Day Vitamins] 1 tab PO DAILY 09/22/21 [History] oxyCODONE HCl [Oxycodone HCl] 5 mg PO Q6H PRN 09/22/21 [History] Patient Handouts: Steps to Quit Smoking, Sepsis, Self Care, Adult Forms: ED Department Discharge Referrals: Lynn Olivares NP [Nurse Practitioner] - - Discharge Summary/Plan Comment DC Time >30 min.: Yes Total # of Minutes for Discharge Time: 31mins - General Info Date of Service: 10/02/21 Admission Dx/Problem (Free Text: Liver failure Subjective Update: Left AMA - Patient Data Vitals - Most Recent: Last Vital Signs Temp 36.6 C 10/02/21 09:54 Pulse 93 10/02/21 09:54 Resp 18 10/02/21 09:54 BP 115/59 L 10/02/21 09:54 Pulse Ox 100 10/02/21 09:54 Weight - Most Recent: 80.24 kg I&O - Last 24 hours: Intake & Output 10/01/21 10/02/21 10/02/21 22:59 06:59 14:59 Intake Total 400 Output Total 5700 1629 Balance -1175 -1625 Lab Results - Last 24 hrs: Laboratory Results - last 24 hr 10/02/21 10/02/21 10/02/21 Range/Units 05:30 05:30 05:30 WBC 14.61 H (3.98-10.04) K/mm3 RBC 2.45 L (3.98-5.22) M/mm3 Hgb 7.6 L (11.2-15.7) gm/dl Hct 24.8 L (34.1-44.9) % MCV 101.2 H (79.4-94.8) fl MCH 31.0 (25.6-32.2) pg MCHC 30.6 L (32.2-35.5) g/dl RDW Std Deviation 69.1 H (36.4-46.3) fL Plt Count 95 L (182-369) K/mm3 MPV 10.7 (9.4-12.3) fl Neut % (Auto) 79.0 H (34.0-71.1) % Lymph % (Auto) 8.8 L (19.3-51.7) % [place] % (Auto) 11.6 (4.7-12.5) % Eos % (Auto) 0 L (0.7-5.8) Baso % (Auto) 0.1 (0.1-1.2) % Neut # (Auto) 11.55 H (1.56-6.13) K/mm3 Lymph # (Auto) 1.29 (1.18-3.74) K/mm3 [place] # (Auto) 1.69 H (0.24-0.36) K/mm3 Eos # (Auto) 0.00 L (0.04-0.36) K/mm3 Baso # (Auto) 0.01 (0.01-0.08) K/mm3 Manual Slide Review Abnormal smear PT 25.0 H (9.7-12.0) SECONDS INR 2.33 Sodium 132 L (136-145) mEq/L Potassium 4.3 (3.5-5.1) mEq/L Chloride 97 L (98-107) mEq/L Carbon Dioxide 24 (21-32) mEq/L Anion Gap 15.3 H (5-15) BUN 17 (7-18) mg/dL Creatinine 0.7 (0.55-1.02) mg/dL Est Cr Clr Drug Dosing 96.62 mL/min Estimated GFR (MDRD) > 60 (>60) mL/min BUN/Creatinine Ratio 24.3 H (14-18) Glucose 127 H (70-99) mg/dL Calcium 8.9 (8.5-10.1) mg/dL Total Bilirubin 24.8 H (0.2-1.0) mg/dL AST 110 H (15-37) U/L ALT 66 H (14-59) U/L Alkaline Phosphatase 177 H (46-116) U/L Total Protein 5.7 L (6.4-8.2) g/dl Albumin 2.8 L (3.4-5.0) g/dl Globulin 2.9 gm/dL Albumin/Globulin Ratio 1.0 (1-2) Med Orders - Current: Current Medications Discontinued Medications Diatrizoate Meglum/Diatrizoate Sod (Diatrizoate Meglumine/Diatrizoate Sodium 37% 120 Ml Bottle) 120 ml PO ONETIME ONE Stop: 09/27/21 10:32 Last Admin: 09/27/21 12:40 Dose: 45 ml Documented by: Dicyclomine HCl (Dicyclomine 10 Mg Cap) 10 mg PO DAILY PRN PRN Reason: abdominal cramp Folic Acid (Folic Acid 1 Mg Tab) 1 mg PO DAILY [facility] Last Admin: 10/02/21 09:12 Dose: 1 mg Documented by: Furosemide (Furosemide 40 Mg/4 Ml Vial) 40 mg IVPUSH NOW ONE Stop: 09/24/21 09:32 Last Admin: 09/24/21 10:50 Dose: 40 mg Documented by: Furosemide (Furosemide 40 Mg/4 Ml Vial) 40 mg IVPUSH BIDDIURETIC [facility] Last Admin: 09/24/21 13:12 Dose: 40 mg Documented by: Furosemide (Furosemide 40 Mg/4 Ml Vial) 40 mg IVPUSH BID [facility] Last Admin: 09/25/21 20:54 Dose: 40 mg Documented by: Furosemide (Furosemide 40 Mg Tab) 40 mg PO DAILY [facility] Last Admin: 10/02/21 09:12 Dose: 40 mg Documented by: Furosemide (Furosemide 40 Mg/4 Ml Vial) 40 mg IVPUSH ONETIME ONE Stop: 09/28/21 13:01 Last Admin: 09/28/21 12:52 Dose: 40 mg Documented by: Furosemide (Furosemide 40 Mg/4 Ml Vial) 40 mg IVPUSH NOW ONE Stop: 09/23/21 11:47 Last Admin: 09/23/21 12:50 Dose: 40 mg Documented by: Hydromorphone HCl (Hydromorphone 0.5 Mg/0.5 Ml Syringe) 0.5 mg IVPUSH Q2H PRN PRN Reason: Pain (severe 7-10) Last Admin: 09/30/21 08:43 Dose: 0.5 mg Documented by: Hydromorphone HCl (Hydromorphone 1 Mg/Ml Syringe) 1 mg IVPUSH ONETIME ONE Stop: 09/22/21 18:15 Last Admin: 09/22/21 18:23 Dose: 1 mg Documented by: Hydromorphone HCl (Hydromorphone 0.5 Mg/0.5 Ml Syringe) 0.5 mg IVPUSH ONETIME ONE Stop: 09/22/21 22:17 Last Admin: 09/22/21 23:46 Dose: 0.5 mg Documented by: Hydromorphone HCl (Hydromorphone 0.5 Mg/0.5 Ml Syringe) 0.5 mg IVPUSH Q4H PRN PRN Reason: Pain Last Admin: 09/26/21 08:08 Dose: 0.5 mg Documented by: Albumin Human (Flexbumin 25%) 12.5 gm in 50 mls @ 100 mls/hr IV DAILY [facility] Stop: 10/01/21 09:29 Last Admin: 10/01/21 08:48 Dose: 100 mls/hr Documented by: Sodium Chloride (Normal Saline) 1,000 mls @ 125 mls/hr IV ASDIRECTED [facility] Last Admin: 09/22/21 18:23 Dose: 125 mls/hr Documented by: Ceftriaxone Sodium 2 gm/ (Sodium Chloride) 100 mls @ 200 mls/hr IV ONETIME ONE Stop: 09/22/21 18:47 Last Admin: 09/22/21 19:21 Dose: 200 mls/hr Documented by: Sodium Chloride (Normal Saline) 1,000 mls @ 75 mls/hr IV ASDIRECTED [facility] Last Admin: 09/23/21 00:26 Dose: 75 mls/hr Documented by: Meropenem/Sodium Chloride 500 (mg/ Premix) 50 mls @ 100 mls/hr IV Q6H [facility] Last Admin: 09/29/21 14:44 Dose: 100 mls/hr Documented by: Albumin Human 12.5 gm/ Premix 50 mls @ 100 mls/hr IV Q1H [facility] Stop: 09/23/21 15:59 Last Admin: 09/23/21 14:43 Dose: 100 mls/hr Documented by: Albumin Human 12.5 gm/ Premix 50 mls @ 100 mls/hr IV Q1H [facility] Stop: 09/25/21 15:29 Last Admin: 09/25/21 14:00 Dose: 100 mls/hr Documented by: Albumin Human (Flexbumin 25%) Confirm Administered Dose 50 mls @ as directed .ROUTE .STK-MED ONE Stop: 09/23/21 10:51 Last Admin: 09/23/21 12:40 Dose: Not Given Documented by: Iopamidol (Iopamidol 612 Mg/Ml 100 Ml Bottle) 100 ml IVPUSH ONETIME ONE Stop: 09/27/21 10:32 Last Admin: 09/27/21 12:40 Dose: 100 ml Documented by: Iopamidol (Iopamidol 612 Mg/Ml 50 Ml Sdv) 50 ml IVPUSH ONETIME ONE Stop: 09/27/21 10:32 Last Admin: 09/27/21 12:40 Dose: 50 ml Documented by: Iopamidol (Iopamidol 612 Mg/Ml 100 Ml Bottle) 100 ml IVPUSH ONETIME ONE Stop: 09/22/21 20:15 Last Admin: 09/22/21 20:54 Dose: 100 ml Documented by: Iopamidol (Iopamidol 612 Mg/Ml 50 Ml Sdv) 50 ml IVPUSH ONETIME ONE Stop: 09/22/21 20:15 Last Admin: 09/22/21 20:54 Dose: 50 ml Documented by: Lactulose (Lactulose Soln 10 Gm/15 Ml 30 Ml Ud Cup) 15 gm PO ONETIME ONE Stop: 09/22/21 22:17 Last Admin: 09/22/21 23:46 Dose: 15 gm Documented by: Lactulose (Lactulose Soln 10 Gm/15 Ml 30 Ml Ud Cup) 15 gm PO BID [facility] Last Admin: 10/02/21 09:10 Dose: 15 gm Documented by: Magnesium Oxide (Magnesium Oxide 400 Mg Tab) 400 mg PO DAILY [facility] Last Admin: 10/02/21 09:13 Dose: 400 mg Documented by: Methylprednisolone Sodium Succinate (Methylprednisolone Sodium Succinate 40 Mg/1 Ml Sdv) 40 mg IVPUSH DAILY [facility] Stop: 10/02/21 09:01 Last Admin: 10/02/21 09:10 Dose: 40 mg Documented by: Metoclopramide HCl (Metoclopramide 10 Mg/2 Ml Sdv) 10 mg IVPUSH ONETIME ONE Stop: 09/22/21 18:15 Last Admin: 09/22/21 18:23 Dose: 10 mg Documented by: Metoclopramide HCl (Metoclopramide 10 Mg/2 Ml Sdv) 10 mg IVPUSH Q6H PRN PRN Reason: Nausea Last Admin: 09/29/21 18:08 Dose: 10 mg Documented by: Miscellaneous Information (Remove Patch Nicotine) 1 ea TRDERM DAILY [facility] Last Admin: 10/02/21 09:31 Dose: 1 ea Documented by: Morphine Sulfate (Morphine 2 Mg/Ml Syringe) 2 mg IVPUSH Q4H PRN PRN Reason: Pain (severe 7-10) Stop: 10/01/21 11:06 Multivitamins/Minerals/Vitamin C (Multivitamin Tab) 1 tab PO DAILY [facility] Last Admin: 10/02/21 09:12 Dose: 1 tab Documented by: Nicotine (Nicotine 7 Mg/24 Hr Patch) 7 mg TRDERM DAILY [facility] Last Admin: 10/02/21 09:11 Dose: 7 mg Documented by: Non-Formulary Medication (Oxycodone Hcl [Oxycodone Hcl]) 5 mg PO Q6H PRN PRN Reason: Pain Ondansetron HCl (Ondansetron 4 Mg/2 Ml Sdv) 4 mg IVPUSH Q6H PRN PRN Reason: Nausea Ondansetron HCl (Ondansetron 4 Mg/2 Ml Sdv) 4 mg IV Q6H PRN PRN Reason: Nausea/Vomiting Oxycodone HCl (Oxycodone 5 Mg Tab) 10 mg PO Q4H PRN PRN Reason: Pain (moderate 4-6) Last Admin: 10/02/21 09:13 Dose: 10 mg Documented by: Oxycodone HCl (Oxycodone 5 Mg Tab) 5 mg PO Q6H PRN PRN Reason: Pain (moderate 4-6) Last Admin: 09/23/21 09:41 Dose: 5 mg Documented by: Oxycodone HCl (Oxycodone 5 Mg Tab) 10 mg PO Q6H PRN PRN Reason: Pain (moderate 4-6) Last Admin: 09/26/21 05:41 Dose: 10 mg Documented by: Pantoprazole Sodium (Pantoprazole 40 Mg Tab.Cr) 40 mg PO BID [facility] Last Admin: 10/02/21 09:11 Dose: 40 mg Documented by: Pantoprazole Sodium (Pantoprazole 40 Mg Tab.Cr) 40 mg PO ONETIME ONE Stop: 09/23/21 22:19 Pantoprazole Sodium (Pantoprazole 40 Mg Tab.Cr) 40 mg PO ONETIME ONE Stop: 09/22/21 23:46 Last Admin: 09/22/21 23:46 Dose: 40 mg Documented by: Pantoprazole Sodium (Pantoprazole 40 Mg Tab.Cr) 40 mg PO DAILY [facility] Last Admin: 09/29/21 09:12 Dose: 40 mg Documented by: Potassium Chloride (Potassium Chloride 20 Meq Tab.Er) 20 meq PO BID [facility] Last Admin: 09/23/21 09:42 Dose: 20 meq Documented by: Potassium Chloride (Potassium Chloride 20 Meq Tab.Er) 40 meq PO BID [facility] Last Admin: 10/02/21 09:12 Dose: 40 meq Documented by: Potassium Chloride (Potassium Chloride 20 Meq Tab.Er) 20 meq PO ONETIME ONE Stop: 09/23/21 10:01 Last Admin: 09/23/21 12:00 Dose: 20 meq Documented by: Sodium Chloride (Sodium Chloride 0.9% 10 Ml Syringe) 10 ml FLUSH ONETIME PRN PRN Reason: IV FLUSH Stop: 09/27/21 12:00 Sodium Chloride (Sodium Chloride 0.9% 10 Ml Syringe) 10 ml FLUSH ONETIME ONE Stop: 09/22/21 20:15 Last Admin: 09/22/21 20:54 Dose: 10 ml Documented by: Spironolactone (Spironolactone 100 Mg Tab) 100 mg PO DAILY [facility] Last Admin: 10/02/21 09:12 Dose: 100 mg Documented by: Spironolactone (Spironolactone 25 Mg Tab) 25 mg PO DAILY [facility] Last Admin: 09/24/21 09:33 Dose: 25 mg Documented by: Thiamine HCl (Thiamine 100 Mg Tab) 100 mg PO DAILY [facility] Last Admin: 10/02/21 09:12 Dose: 100 mg Documented by: *Q Meaningful Use (DIS) - VTE *Q VTE Pharmacological Contraindications *Q: High INR Value
== END 2021-10-02 12:00 | disposition left against medical advice (07) | DRG 248 ==
LOC: JD.ED 17:23 → JD.MS 22:28
PROVIDERS: ADMIT Family Medicine; ATTEND Family Medicine
DX: K65.2 Spontaneous bacterial peritonitis (principal); E66.9 Obesity, unspecified; E88.09 Other disorders of plasma-protein metabolism, not elsewhere classified; E80.6 Other disorders of bilirubin metabolism; K70.10 Alcoholic hepatitis without ascites; K21.9 Gastro-esophageal reflux disease without esophagitis; R79.89 Other specified abnormal findings of blood chemistry; I10 Essential (primary) hypertension; K44.9 Diaphragmatic hernia without obstruction or gangrene; N80.9 Endometriosis, unspecified; K70.31 Alcoholic cirrhosis of liver with ascites; R79.1 Abnormal coagulation profile; R16.1 Splenomegaly, not elsewhere classified; K72.00 Acute and subacute hepatic failure without coma; Z86.16 Personal history of COVID-19; Z86.14 Personal history of Methicillin resistant Staphylococcus aureus infection; Z87.440 Personal history of urinary (tract) infections; Z79.899 Other long term (current) drug therapy; Z20.822 Contact with and (suspected) exposure to COVID-19; Z68.30 Body mass index [BMI] 30.0-30.9, adult
CPT/HCPCS: 36415; 71045; 71045-26; 74177; 74177-26; 76705; 76705-26; 80053; 81001; 81003; 82140; 82272; 83036; 83605; 83735; 84100; 84145; 85014; 85018; 85025; 85610; 85730; 86140; 87040; 96365; 96375; 99285; 99285-25; A9270-GY; J0696; J1170; J1940; J2185; J2765; J2920; J7030; P9047; Q9963; Q9967; U0002

== ENCOUNTER 2021-10-04 12:10 | Emergency (ER) | payer BC ==
[2021-10-04 13:13] VITALS: BP 114/54; PULSE 88
[2021-10-04] MEDS ORDERED: oxyCODONE 5 MG Tab PO ONE (14:13)
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
== END 2021-10-04 16:17 | disposition home or self-care (01) ==
LOC: JD.ED 12:10
DX: K70.30 Alcoholic cirrhosis of liver without ascites (principal); D64.9 Anemia, unspecified; E80.6 Other disorders of bilirubin metabolism; I10 Essential (primary) hypertension; E66.9 Obesity, unspecified; Z68.30 Body mass index [BMI] 30.0-30.9, adult; Z88.0 Allergy status to penicillin; Z88.5 Allergy status to narcotic agent; Z79.899 Other long term (current) drug therapy; Y90.5 Blood alcohol level of 100-119 mg/100 ml
CPT/HCPCS: 36415; 80053; 82140; 83735; 85025; 85610; 85730; 99284; A9270

== ENCOUNTER 2021-10-06 14:12 | Inpatient (IN) | payer BC ==
[2021-10-06] MEDS ORDERED: Sodium Chloride 0.9% 10 ML Syringe FLUSH PRN (16:04)
[2021-10-06] MEDS ORDERED: Sodium Chloride 0.9% 1,000 ML IV ONE (16:05)
[2021-10-06] MEDS ORDERED: fentaNYL 100 MCG/2 ML SDV IVPUSH ONE (16:42)
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
--- NOTE | 2021-10-06 19:39 | US ---
Limited abdominal ultrasound: Multiple real-time images of each quadrant were obtained. Comparison: Previous portal vein ultrasound of 09/28/[address] abdomen and pelvis study of 09/27/21. Findings: No ascites is seen within the abdomen. No free fluid is seen. Impression: 1. Negative screening ultrasound for ascites. Diagnostic code #1
[2021-10-06] MEDS ORDERED: Lactulose Soln 10 GM/15 ML 30 ML UD Cup PO ONE (21:24)
[2021-10-06] MEDS ORDERED: HYDROmorphone 1 MG/ML Syringe IVPUSH ONE (21:36)
[2021-10-06] MEDS ORDERED: Potassium Chloride 20 MEQ Tab.ER PO ONE (22:34)
[2021-10-06] MEDS ORDERED: Pantoprazole 40 MG Tab.CR PO ONE (22:34)
[2021-10-07] MEDS ORDERED: Acetaminophen/oxyCODONE 325-5 MG Tab PO ONE (03:07)
[2021-10-07] MEDS ORDERED: Pantoprazole 40 MG Vial IVPUSH ONE (04:02)
[2021-10-07] MEDS ORDERED: Metoclopramide 10 MG/2 ML SDV IVPUSH ONE (08:13)
[2021-10-07] MEDS ORDERED: HYDROmorphone 0.5 MG/0.5 ML Syringe IVPUSH ONE (08:13)
[2021-10-07] MEDS ORDERED: oxyCODONE 5 MG Tab PO PRN (11:20)
[2021-10-07] MEDS ORDERED: Dicyclomine 10 MG Cap PO PRN (11:20)
[2021-10-07] MEDS ORDERED: Ondansetron 4 MG Tab.DIS PO PRN (11:22)
[2021-10-07] MEDS ORDERED: Ibuprofen 200 MG Tab PO PRN (11:22)
[2021-10-07] MEDS ORDERED: HYDROmorphone 0.5 MG/0.5 ML Syringe IVPUSH PRN (11:22)
[2021-10-07] MEDS: Furosemide 20 MG Tab PO SCH (11:56)
[2021-10-07] MEDS: Spironolactone 25 MG Tab PO SCH (11:56)
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
[2021-10-07] MEDS ORDERED: oxyCODONE 5 MG Tab PO ONE (16:14)
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
[2021-10-07] MEDS: Lactulose Soln 10 GM/15 ML 30 ML UD Cup PO SCH (20:28)
[2021-10-07] MEDS: oxyCODONE 5 MG Tab PO PRN (20:28)
[2021-10-07] MEDS: Potassium Chloride 20 MEQ Tab.ER PO SCH (20:28)
[2021-10-08] MEDS: oxyCODONE 5 MG Tab PO PRN ×6 (00:34→23:45)
--- NOTE | 2021-10-08 07:25 | PCM.PN ---
- General Info Date of Service: 10/08/21 Admission Dx/Problem (Free Text): Admission Diagnosis/Problem Admission Diagnosis/Problem Liver failure, abdominal pain Subjective Update: The patient is a 36-year-old lady who was admitted on October 07, 2021 out of concern for abdominal pain and liver failure. The patient's liver failure is chronic. Patient says that her abdominal pain is not changed. Consulting surgeon says that there is no concern with the patient's inguinal hernia patch repair. The patient says that she has been tolerating her diet. She has no other complaints. Functional Status: Reports: Pain Controlled, Tolerating Diet. Denies: New Symptoms - Review of Systems General: Reports: No Symptoms HEENT: Reports: No Symptoms Pulmonary: Reports: No Symptoms Cardiovascular: Reports: No Symptoms Gastrointestinal: Reports: Abdominal Pain Genitourinary: Reports: No Symptoms Musculoskeletal: Reports: No Symptoms Skin: Reports: No Symptoms Neurological: Reports: No Symptoms Psychiatric: Reports: No Symptoms - Patient Data Vitals - Most Recent: Last Vital Signs Temp 36.8 C 10/08/21 04:15 Pulse 96 10/08/21 04:15 Resp 14 10/08/21 04:15 BP 138/64 10/08/21 04:15 Pulse Ox 100 10/08/21 04:15 Weight - Most Recent: 76.702 kg I&O - Last 24 Hours: Intake & Output 10/07/21 10/08/21 10/08/21 22:59 06:59 14:59 Intake Total 980 400 Output Total 200 1550 Balance 780 -1150 Lab Results Last 24 Hours: Laboratory Results - last 24 hr 10/07/21 10/08/21 10/08/21 Range/Units 08:20 05:40 05:40 WBC 21.15 H (3.98-10.04) K/mm3 RBC 3.00 L (3.98-5.22) M/mm3 Hgb 9.1 L (11.2-15.7) gm/dl Hct 30.1 L (34.1-44.9) % MCV 100.3 H (79.4-94.8) fl MCH 30.3 (25.6-32.2) pg MCHC 30.2 L (32.2-35.5) g/dl RDW Std Deviation 69.6 H (36.4-46.3) fL Plt Count 111 L (182-369) K/mm3 MPV 11.5 (9.4-12.3) fl Neut % (Auto) 79.9 H (34.0-71.1) % Lymph % (Auto) 8.6 L (19.3-51.7) % Moore % (Auto) 7.8 (4.7-12.5) % Eos % (Auto) 1.1 (0.7-5.8) Baso % (Auto) 0.1 (0.1-1.2) % Neut # (Auto) 16.91 H (1.56-6.13) K/mm3 Lymph # (Auto) 1.81 (1.18-3.74) K/mm3 Moore # (Auto) 1.64 H (0.24-0.36) K/mm3 Eos # (Auto) 0.23 (0.04-0.36) K/mm3 Baso # (Auto) 0.03 (0.01-0.08) K/mm3 Manual Slide Review Abnormal smear PT 21.0 H (9.7-12.0) SECONDS INR 1.94 Sodium (136-145) mEq/L Potassium (3.5-5.1) mEq/L Chloride (98-107) mEq/L Carbon Dioxide (21-32) mEq/L Anion Gap (5-15) BUN (7-18) mg/dL Creatinine (0.55-1.02) mg/dL Est Cr Clr Drug Dosing mL/min Estimated GFR (MDRD) (>60) mL/min BUN/Creatinine Ratio (14-18) Glucose (70-99) mg/dL Calcium (8.5-10.1) mg/dL Magnesium (1.8-2.4) mg/dL Total Bilirubin (0.2-1.0) mg/dL AST (15-37) U/L ALT (14-59) U/L Alkaline Phosphatase (46-116) U/L Total Protein (6.4-8.2) g/dl Albumin (3.4-5.0) g/dl Globulin gm/dL Albumin/Globulin Ratio (1-2) SARS-CoV-2 RNA ([facility]) Negative (NEGATIVE) 10/08/21 Range/Units 05:40 WBC (3.98-10.04) K/mm3 RBC (3.98-5.22) M/mm3 Hgb (11.2-15.7) gm/dl Hct (34.1-44.9) % MCV (79.4-94.8) fl MCH (25.6-32.2) pg MCHC (32.2-35.5) g/dl RDW Std Deviation (36.4-46.3) fL Plt Count (182-369) K/mm3 MPV (9.4-12.3) fl Neut % (Auto) (34.0-71.1) % Lymph % (Auto) (19.3-51.7) % Moore % (Auto) (4.7-12.5) % Eos % (Auto) (0.7-5.8) Baso % (Auto) (0.1-1.2) % Neut # (Auto) (1.56-6.13) K/mm3 Lymph # (Auto) (1.18-3.74) K/mm3 Moore # (Auto) (0.24-0.36) K/mm3 Eos # (Auto) (0.04-0.36) K/mm3 Baso # (Auto) (0.01-0.08) K/mm3 Manual Slide Review PT (9.7-12.0) SECONDS INR Sodium 131 L (136-145) mEq/L Potassium 3.8 (3.5-5.1) mEq/L Chloride 97 L (98-107) mEq/L Carbon Dioxide 22 (21-32) mEq/L Anion Gap 15.8 H (5-15) BUN 8 (7-18) mg/dL Creatinine 0.7 (0.55-1.02) mg/dL Est Cr Clr Drug Dosing 97.96 mL/min Estimated GFR (MDRD) > 60 (>60) mL/min BUN/Creatinine Ratio 11.4 L (14-18) Glucose 96 (70-99) mg/dL Calcium 8.1 L (8.5-10.1) mg/dL Magnesium 1.9 (1.8-2.4) mg/dL Total Bilirubin 23.3 H (0.2-1.0) mg/dL AST 145 H (15-37) U/L ALT 114 H (14-59) U/L Alkaline Phosphatase 244 H (46-116) U/L Total Protein 6.2 L (6.4-8.2) g/dl Albumin 2.7 L (3.4-5.0) g/dl Globulin 3.5 gm/dL Albumin/Globulin Ratio 0.8 L (1-2) SARS-CoV-2 RNA ([place]) (NEGATIVE) Med Orders - Current: Current Medications Dicyclomine HCl (Dicyclomine 10 Mg Cap) 20 mg PO DAILY PRN PRN Reason: Cramping Last Admin: 10/07/21 14:02 Dose: 20 mg Documented by: Folic Acid (Folic Acid 1 Mg Tab) 1 mg PO DAILY [facility] Furosemide (Furosemide 20 Mg Tab) 20 mg PO DAILY [facility] Last Admin: 10/07/21 11:56 Dose: 20 mg Documented by: Hydromorphone HCl (Hydromorphone 0.5 Mg/0.5 Ml Syringe) 0.5 mg IVPUSH Q2H PRN PRN Reason: Pain (severe 7-10) Levofloxacin/Dextrose 500 mg/ (Premix) 100 mls @ 100 mls/hr IV Q24H [facility] Ibuprofen (Ibuprofen 200 Mg Tab) 200 mg PO Q6H PRN PRN Reason: Pain (mild 1-3) Lactulose (Lactulose Soln 10 Gm/15 Ml 30 Ml Ud Cup) 15 gm PO BID [facility] Last Admin: 10/07/21 20:28 Dose: 15 gm Documented by: Magnesium Oxide (Magnesium Oxide 400 Mg Tab) 200 mg PO DAILY [facility] Multivitamins/Minerals/Vitamin C (Multivitamin Tab) 1 tab PO DAILY [facility] Ondansetron HCl (Ondansetron 4 Mg Tab.Dis) 4 mg PO Q4H PRN PRN Reason: nausea, able to take PO Oxycodone HCl (Oxycodone 5 Mg Tab) 10 mg PO Q4H PRN PRN Reason: Pain Last Admin: 10/08/21 04:48 Dose: 10 mg Documented by: Pantoprazole Sodium (Pantoprazole 40 Mg Tab.Cr) 40 mg PO DAILY [facility] Potassium Chloride (Potassium Chloride 20 Meq Tab.Er) 20 meq PO BID [facility] Last Admin: 10/07/21 20:28 Dose: 20 meq Documented by: Sodium Chloride (Sodium Chloride 0.9% 10 Ml Syringe) 10 ml FLUSH ASDIRECTED PRN PRN Reason: Keep Vein Open Last Admin: 10/06/21 16:37 Dose: 10 ml Documented by: Spironolactone (Spironolactone 25 Mg Tab) 50 mg PO DAILY [facility] Last Admin: 10/07/21 11:56 Dose: 50 mg Documented by: Thiamine HCl (Thiamine 100 Mg Tab) 100 mg PO DAILY [facility] Discontinued Medications Fentanyl (Fentanyl 100 Mcg/2 Ml Sdv) 25 mcg IVPUSH ONETIME ONE Stop: 10/06/21 16:43 Last Admin: 10/06/21 17:21 Dose: 25 mcg Documented by: Hydromorphone HCl (Hydromorphone 1 Mg/Ml Syringe) 1 mg IVPUSH ONETIME ONE Stop: 10/06/21 21:37 Last Admin: 10/06/21 21:50 Dose: 1 mg Documented by: Hydromorphone HCl (Hydromorphone 0.5 Mg/0.5 Ml Syringe) 0.5 mg IVPUSH ONETIME ONE Stop: 10/07/21 08:14 Last Admin: 10/07/21 08:26 Dose: 0.5 mg Documented by: Sodium Chloride (Normal Saline) 1,000 mls @ 250 mls/hr IV ONETIME ONE Stop: 10/06/21 20:04 Last Admin: 10/06/21 16:37 Dose: 250 mls/hr Documented by: Lactulose (Lactulose Soln 10 Gm/15 Ml 30 Ml Ud Cup) 15 gm PO ONETIME ONE Stop: 10/06/21 21:25 Last Admin: 10/06/21 21:50 Dose: 15 gm Documented by: Metoclopramide HCl (Metoclopramide 10 Mg/2 Ml Sdv) 7.5 mg IVPUSH ONETIME ONE Stop: 10/07/21 08:14 Last Admin: 10/07/21 08:26 Dose: 7.5 mg Documented by: Oxycodone HCl (Oxycodone 5 Mg Tab) 5 mg PO Q6H PRN PRN Reason: Pain Last Admin: 10/07/21 11:55 Dose: 5 mg Documented by: Oxycodone HCl (Oxycodone 5 Mg Tab) 5 mg PO ONETIME ONE Stop: 10/07/21 16:15 Last Admin: 10/07/21 16:28 Dose: 5 mg Documented by: Oxycodone/Acetaminophen (Acetaminophen/Oxycodone 325-5 Mg Tab) 2 tab PO ONETIME ONE Stop: 10/07/21 03:08 Last Admin: 10/07/21 03:13 Dose: 2 tab Documented by: Pantoprazole Sodium (Pantoprazole 40 Mg Tab.Cr) 40 mg PO ONETIME ONE Stop: 10/06/21 22:35 Last Admin: 10/06/21 22:38 Dose: 40 mg Documented by: Pantoprazole Sodium (Pantoprazole 40 Mg Vial) 40 mg IVPUSH ONETIME ONE Stop: 10/07/21 04:03 Last Admin: 10/07/21 04:10 Dose: 40 mg Documented by: Potassium Chloride (Potassium Chloride 20 Meq Tab.Er) 20 meq PO ONETIME ONE Stop: 10/06/21 22:35 Last Admin: 10/06/21 22:38 Dose: 20 meq Documented by: - Exam Quality Assessment: No: Supplemental Oxygen, DVT Prophylaxis (No pharmacological DVT prophylaxis due to high INR.) General: Alert, Oriented, Cooperative, No Acute Distress HEENT: Pupils Equal, Pupils Reactive, EOMI, Mucous Membr. Moist/[place], Scleral Icterus Neck: Supple, Trachea Midline Lungs: Clear to Auscultation, Normal Respiratory Effort Cardiovascular: Regular Rate, Regular Rhythm GI/Abdominal Exam: Normal Bowel Sounds, Soft, Tender (Generalized tenderness to very light palpation). No: Guarding, Rigid, Rebound (Female) Exam: Deferred Back Exam: Normal Inspection, Full Range of Motion Extremities: Normal Inspection, Normal Range of Motion, No Pedal Edema Skin: Warm, Dry, Intact, Other (Jaundice) Neurological: No New Focal Deficit Psy/Mental Status: Alert, Normal Affect, Normal Mood - Patient Data Lab Results Last 24 hrs: Laboratory Results - last 24 hr 10/07/21 10/08/21 10/08/21 Range/Units 08:20 05:40 05:40 WBC 21.15 H (3.98-10.04) K/mm3 RBC 3.00 L (3.98-5.22) M/mm3 Hgb 9.1 L (11.2-15.7) gm/dl Hct 30.1 L (34.1-44.9) % MCV 100.3 H (79.4-94.8) fl MCH 30.3 (25.6-32.2) pg MCHC 30.2 L (32.2-35.5) g/dl RDW Std Deviation 69.6 H (36.4-46.3) fL Plt Count 111 L (182-369) K/mm3 MPV 11.5 (9.4-12.3) fl Neut % (Auto) 79.9 H (34.0-71.1) % Lymph % (Auto) 8.6 L (19.3-51.7) % Moore % (Auto) 7.8 (4.7-12.5) % Eos % (Auto) 1.1 (0.7-5.8) Baso % (Auto) 0.1 (0.1-1.2) % Neut # (Auto) 16.91 H (1.56-6.13) K/mm3 Lymph # (Auto) 1.81 (1.18-3.74) K/mm3 Moore # (Auto) 1.64 H (0.24-0.36) K/mm3 Eos # (Auto) 0.23 (0.04-0.36) K/mm3 Baso # (Auto) 0.03 (0.01-0.08) K/mm3 Manual Slide Review Abnormal smear PT 21.0 H (9.7-12.0) SECONDS INR 1.94 Sodium (136-145) mEq/L Potassium (3.5-5.1) mEq/L Chloride (98-107) mEq/L Carbon Dioxide (21-32) mEq/L Anion Gap (5-15) BUN (7-18) mg/dL Creatinine (0.55-1.02) mg/dL Est Cr Clr Drug Dosing mL/min Estimated GFR (MDRD) (>60) mL/min BUN/Creatinine Ratio (14-18) Glucose (70-99) mg/dL Calcium (8.5-10.1) mg/dL Magnesium (1.8-2.4) mg/dL Total Bilirubin (0.2-1.0) mg/dL AST (15-37) U/L ALT (14-59) U/L Alkaline Phosphatase (46-116) U/L Total Protein (6.4-8.2) g/dl Albumin (3.4-5.0) g/dl Globulin gm/dL Albumin/Globulin Ratio (1-2) SARS-CoV-2 RNA ([place]) Negative (NEGATIVE) 10/08/21 Range/Units 05:40 WBC (3.98-10.04) K/mm3 RBC (3.98-5.22) M/mm3 Hgb (11.2-15.7) gm/dl Hct (34.1-44.9) % MCV (79.4-94.8) fl MCH (25.6-32.2) pg MCHC (32.2-35.5) g/dl RDW Std Deviation (36.4-46.3) fL Plt Count (182-369) K/mm3 MPV (9.4-12.3) fl Neut % (Auto) (34.0-71.1) % Lymph % (Auto) (19.3-51.7) % Moore % (Auto) (4.7-12.5) % Eos % (Auto) (0.7-5.8) Baso % (Auto) (0.1-1.2) % Neut # (Auto) (1.56-6.13) K/mm3 Lymph # (Auto) (1.18-3.74) K/mm3 Moore # (Auto) (0.24-0.36) K/mm3 Eos # (Auto) (0.04-0.36) K/mm3 Baso # (Auto) (0.01-0.08) K/mm3 Manual Slide Review PT (9.7-12.0) SECONDS INR Sodium 131 L (136-145) mEq/L Potassium 3.8 (3.5-5.1) mEq/L Chloride 97 L (98-107) mEq/L Carbon Dioxide 22 (21-32) mEq/L Anion Gap 15.8 H (5-15) BUN 8 (7-18) mg/dL Creatinine 0.7 (0.55-1.02) mg/dL Est Cr Clr Drug Dosing 97.96 mL/min Estimated GFR (MDRD) > 60 (>60) mL/min BUN/Creatinine Ratio 11.4 L (14-18) Glucose 96 (70-99) mg/dL Calcium 8.1 L (8.5-10.1) mg/dL Magnesium 1.9 (1.8-2.4) mg/dL Total Bilirubin 23.3 H (0.2-1.0) mg/dL AST 145 H (15-37) U/L ALT 114 H (14-59) U/L Alkaline Phosphatase 244 H (46-116) U/L Total Protein 6.2 L (6.4-8.2) g/dl Albumin 2.7 L (3.4-5.0) g/dl Globulin 3.5 gm/dL Albumin/Globulin Ratio 0.8 L (1-2) SARS-CoV-2 RNA ([place]) (NEGATIVE) Result Diagrams: 10/08/21 05:40 10/08/21 05:40 Sepsis Event Note - Evaluation Sepsis Screening Result: No Definite Risk - Focused Exam Vital Signs: Vital Signs Temp Pulse Resp BP Pulse Ox 10/08/21 04:15 36.8 C 96 14 138/64 100 10/08/21 00:32 36.8 C 10/08/21 00:12 37.2 C 100 14 122/58 L 100 - Problem List & Annotations (1) Abdominal pain SNOMED Code(s): 21013057 Code(s): R10.9 - UNSPECIFIED ABDOMINAL PAIN Status: Chronic Priority: High Current Visit: Yes Qualifiers: Abdominal location: right lower quadrant Qualified Code(s): R10.31 - Right lower quadrant pain (2) Alcoholic liver disease SNOMED Code(s): 94426622 Code(s): K70.9 - ALCOHOLIC LIVER DISEASE, UNSPECIFIED Status: Chronic Priority: High Current Visit: Yes (3) Anemia SNOMED Code(s): 634031589 Code(s): D64.9 - ANEMIA, UNSPECIFIED Status: Chronic Priority: Medium Current Visit: Yes Qualifiers: Anemia type: iron deficiency Iron deficiency anemia type: inadequate dietary iron intake Qualified Code(s): D50.8 - Other iron deficiency anemias (4) Cirrhosis of liver SNOMED Code(s): 81314853 Code(s): K74.60 - UNSPECIFIED CIRRHOSIS OF LIVER Status: Chronic Priority: Medium Current Visit: Yes Qualifiers: Hepatic cirrhosis type: alcoholic cirrhosis Ascites presence: without ascites Qualified Code(s): K70.30 - Alcoholic cirrhosis of liver without ascites (5) Elevated INR SNOMED Code(s): 202159619 Code(s): R79.1 - ABNORMAL COAGULATION PROFILE Status: Chronic Priority: Medium Current Visit: Yes - Problem List Review Problem List Initiated/Reviewed/Updated: Yes - My Orders Last 24 Hours: My Active Orders 10/07/21 11:20 Dicyclomine [Bentyl] 20 mg PO DAILY PRN 10/07/21 11:22 Oxygen Therapy [RC] PRN Up ad Geetha [RC] VTE/DVT Education [RC] PER UNIT ROUTINE Vital Signs [RC] Q4HR HYDROmorphone [Dilaudid] 0.5 mg IVPUSH Q2H PRN Ibuprofen [Motrin] 200 mg PO Q6H PRN Ondansetron [Zofran ODT] 4 mg PO Q4H PRN Saline Lock Insert [OM.PC] Routine VTE Pharmacological Contraindications [AST] Per Unit Routine Resuscitation Status Routine 10/07/21 11:23 Ambulate [RC] QID 10/07/21 11:24 Sequential Compression Device [OM.PC] Per Unit Routine 10/07/21 11:26 Antiembolic Devices [RC] PER UNIT ROUTINE 10/07/21 12:00 Furosemide [Lasix] 20 mg PO DAILY Spironolactone [Aldactone] 50 mg PO DAILY 10/07/21 15:10 Consult to Physician [CONS] Routine 10/07/21 15:11 Notify Provider Consults [RC] ASDIRECTED 10/07/21 16:15 oxyCODONE 10 mg PO Q4H PRN 10/07/21 Dinner Regular Diet [DIET] 10/07/21 21:00 Lactulose [Cephulac] 15 gm PO BID Potassium Chloride [Klor-Con M20] 20 meq PO BID 10/08/21 07:30 Levofloxacin/Dextrose 5%-Water [Levaquin in D5W 500 MG/100 ML] 500 mg Premix Bag 1 bag IV Q24H 10/08/21 09:00 Folic Acid 1 mg PO DAILY Magnesium Oxide 200 mg PO DAILY Multivitamins [Tab-A-Mable] 1 tab PO DAILY Pantoprazole [ProTONIX] 40 mg PO DAILY Thiamine [Vitamin B-1] 100 mg PO DAILY - Plan Plan:: The patient is a 36-year-old lady who was admitted secondary to liver failure. The patient had also been retained in the emergency room for prolonged time due to bed availability. This is chronic for her and not necessarily the cause of her abdominal pain. I have consulted the surgeon Dr. Concepcion to evaluate the patient for possible mesh involved pain in her right inguinal area. The patient has high INR therefore DVT prophylaxis with the use of Lovenox would not be ordered. She has been ordered to have SCDs to assist with DVT prophylaxis. The patient will be kept on her regular diet as tolerated. The patient has been encouraged to ambulate. We will maintain the patient on narcotic pain medications. Repeat laboratory studies have been ordered for the morning as well as INR. The patient also has been instructed to never drink alcohol again and avoid Tylenol. The patient is also aware of her poor prognosis given her degree of liver failure. She was last calculated to have a MELD score of of 10 corresponding to a Child class C which portends a poor long-term prognosis. The patient may be appropriate for discharge with pain control in 1 to 2 days. 10/08/2021 The patient is a 36-year-old lady who was admitted secondary to uncontrollable abdominal pain and liver failure. The patient does have chronic liver failure and she does have a poor prognosis with her MELD score and her Child Class C score which leads to a likely poor prognosis for long-term survival. The patient has an increase in her white blood cell count and of elected to place the patient on Levaquin 500 mg IV on a daily basis. Repeat laboratory studies have been ordered. The patient at times has been considered to be seeking n arcotic pain medications however at this point and the patient's overall illness I would be more inclined to continue the patient on narcotic pain medications for now. The patient has been recommended to ambulate in the room. Also DVT prophylaxis with pharmacological means will not be initiated due to her high INR. The patient should be appropriate for discharge in 1 to 2 days.
[2021-10-08] MEDS: Lactulose Soln 10 GM/15 ML 30 ML UD Cup PO SCH ×2 (08:20→21:11)
[2021-10-08] MEDS: Multivitamin Tab PO SCH (08:21)
[2021-10-08] MEDS: Folic Acid 1 MG Tab PO SCH (08:21)
[2021-10-08] MEDS: Pantoprazole 40 MG Tab.CR PO SCH (08:21)
[2021-10-08] MEDS: Potassium Chloride 20 MEQ Tab.ER PO SCH ×2 (08:22→21:11)
[2021-10-08] MEDS: Thiamine 100 MG Tab PO SCH (08:22)
[2021-10-08] MEDS: Furosemide 20 MG Tab PO SCH (08:22)
[2021-10-08] MEDS: Spironolactone 25 MG Tab PO SCH (08:23)
[2021-10-08] MEDS: Magnesium Oxide 400 MG Tab PO SCH (08:23)
[2021-10-08] MEDS: Levofloxacin/Dextrose 5%-Water 500 MG in Premix Bag 1 BAG IV SCH (08:28)
[2021-10-08] MEDS: Nicotine 7 MG/24 Hr Patch TRDERM SCH (09:41)
[2021-10-09] MEDS: oxyCODONE 5 MG Tab PO PRN ×3 (04:16→12:55)
[2021-10-09] MEDS: Levofloxacin/Dextrose 5%-Water 500 MG in Premix Bag 1 BAG IV SCH (08:30)
[2021-10-09] MEDS: Thiamine 100 MG Tab PO SCH (08:31)
[2021-10-09] MEDS: Spironolactone 25 MG Tab PO SCH (08:31)
[2021-10-09] MEDS: Pantoprazole 40 MG Tab.CR PO SCH (08:31)
[2021-10-09] MEDS: Potassium Chloride 20 MEQ Tab.ER PO SCH (08:34)
[2021-10-09] MEDS: Multivitamin Tab PO SCH (08:34)
[2021-10-09] MEDS: Folic Acid 1 MG Tab PO SCH (08:34)
[2021-10-09] MEDS: Magnesium Oxide 400 MG Tab PO SCH (08:35)
[2021-10-09] MEDS: Furosemide 20 MG Tab PO SCH (08:35)
[2021-10-09] MEDS: Nicotine 7 MG/24 Hr Patch TRDERM SCH (08:36)
[2021-10-09] MEDS: Lactulose Soln 10 GM/15 ML 30 ML UD Cup PO SCH (08:36)
[2021-10-09 11:50] VITALS: BP 132/72; PULSE 99
--- NOTE | 2021-10-09 13:06 | PCM.DCSUM1 ---
Discharge Summary - Hospital Course HPI Initial Comments: - History of Present Illness Initial Comments - Free Text/Narative: The patient is a 36-year-old lady who had presented to the emergency department out of concern for abdominal pain. The patient is well-known to emergency room and hospital staff. She has hepatic failure and is chronically jaundiced with a markedly elevated bilirubin. Her primary concern had been the abdominal pain which had been going on for at least a month. She does have some tenderness in the right upper quadrant as well is in the right lower quadrant which she says radiates into her leg. The patient also expressed that she had a previous inguinal hernia repair with mesh greater than 5 years ago. The patient says that the pain is improved when she is lying flat and with medication. Patient also says the pain is worsened with motion or ambulation. She says that the pain is gotten progressively worse to the point that she is unable to function at home. She has not had any associated symptoms with this. The patient does have a previous history of GI bleed and she had to be air evacuated to tertiary care center last month. The patient says that she does have a history of anemia associated with chronic bleeding and has been taking iron. The patient has denied any fever or chills. She has had no nausea or vomiting. The patient also reports that her last alcohol beverage was last month when she was previously flown out. She has not had any bright red bleeding since then. Onset of Symptoms: Reports: Gradual Duration of Symptoms: Reports: Week(s):, Getting Worse Quality: Reports: Stabbing Severity: Moderate Improves with: Reports: Other (Hot compress, lying flat) Worsens with: Reports: Movement Associated Symptoms: Reports: No Other Symptoms Abdominal Pain Score (Numeric/FACES): 10 Assessment/Plan Comment:: The patient is a 36-year-old lady who was admitted secondary to liver failure. The patient had also been retained in the emergency room for prolonged time due to bed availability. This is chronic for her and not necessarily the cause of her abdominal pain. I have consulted the surgeon Dr. Concepcion to evaluate the patient for possible mesh involved pain in her right inguinal area. The patient has high INR therefore DVT prophylaxis with the use of Lovenox would not be ordered. She has been ordered to have SCDs to assist with DVT prophylaxis. The patient will be kept on her regular diet as tolerated. The patient has been encouraged to ambulate. We will maintain the patient on narcotic pain medications. Repeat laboratory studies have been ordered for the morning as well as INR. The patient also has been instructed to never drink alcohol again and avoid Tylenol. The patient is also aware of her poor prognosis given her degree of liver failure. She was last calculated to have a MELD score of of 10 corresponding to a Child class C which portends a poor long-term prognosis. The patient may be appropriate for discharge with pain control in 1 to 2 days. - Mortality Measure Prognosis:: Poor Diagnosis: Stroke: No - Discharge Data Discharge Date: 10/09/21 Discharge Disposition: Home, Self-Care 01 Condition: Stable - Referral to Home Health Primary Care Physician: Sigrid Slater MD - Patient Summary/Data Consults: Consultations 10/07/21 15:10 Consult to Physician [CONS] Routine Hospital Course: The patient is a 36-year-old lady who was admitted secondary to liver failure. The patient had also been retained in the emergency room for prolonged time due to bed availability. This is chronic for her and not necessarily the cause of her abdominal pain. I have consulted the surgeon Dr. Concepcion to evaluate the patient for possible mesh involved pain in her right inguinal area. The patient has high INR therefore DVT prophylaxis with the use of Lovenox would not be ordered. She has been ordered to have SCDs to assist with DVT prophylaxis. The patient will be kept on her regular diet as tolerated. The patient has been encouraged to ambulate. We will maintain the patient on narcotic pain medications. Repeat laboratory studies have been ordered for the morning as well as INR. The patient also has been instructed to never drink alcohol again and avoid Tylenol. The patient is also aware of her poor prognosis given her degree of liver failure. She was last calculated to have a MELD score of of 10 corresponding to a Child class C which portends a poor long-term prognosis. The patient may be appropriate for discharge with pain control in 1 to 2 days. 10/08/2021 The patient is a 36-year-old lady who was admitted secondary to uncontrollable abdominal pain and liver failure. The patient does have chronic liver failure and she does have a poor prognosis with her MELD score and her Child Class C score which leads to a likely poor prognosis for long-term survival. The patient has an increase in her white blood cell count and of elected to place the patient on Levaquin 500 mg IV on a daily basis. Repeat laboratory studies have been ordered. The patient at times has been considered to be seeking narcotic pain medications however at this point and the patient's overall illness I would be more inclined to continue the patient on narcotic pain medications for now. The patient has been recommended to ambulate in the room. Also DVT prophylaxis with pharmacological means will not be initiated due to her high INR. The patient should be appropriate for discharge in 1 to 2 days. 10/09/2021 36-year-old female with alcoholic hepatitis and liver failure continues to have pain but is doing much better. This morning she was cleaning the room and removing and reorganizing the patient room. Patient continues to have pain that is in her right lower quadrant that radiates to her umbilicus. Patient was discharged last week and was supposed to be on a weaning dose of prednisolone. She states that she ran out of her prednisolone. This would account for her worsening pain and her elevated white count. Ultrasound did not show any significant ascites. She continues on Lasix and spironolactone. She has a poor long-term prognosis with approximately 50% mortality over the next year. Patient was started on Levaquin without any clear indication. Patient will be discharged without antibiotics. We will restart her prednisolone at 40 mg daily for another 5 days and then she will decrease that by 10 mg every 7 days. She will need to follow-up with her primary care provider and GI. - Patient Instructions Diet: Low Sodium (2 gm) Activity: As Tolerated Driving: Do Not Drive Showering/Bathing: May Shower Other/Special Instructions: Follow up with PCP and GI. - Discharge Plan *PRESCRIPTION DRUG MONITORING PROGRAM REVIEWED*: No *COPY OF PRESCRIPTION DRUG MONITORING REPORT IN PATIENT SANAZ: No Prescriptions/Med Rec: Spironolactone [Aldactone] 50 mg PO DAILY #30 Nicotine [Habitrol] 7 mg TRDERM DAILY #30 patch prednisoLONE [Millipred] 5 mg PO DAILY #114 tablet oxyCODONE 10 mg PO Q6H PRN 24 Days tablet PRN Reason: Pain Tobacco Cessation Medication: Prescription Given Home Medications: Home Meds Pantoprazole [ProTONIX] 20 mg PO BID 12/10/19 [History] Thiamine [Vitamin B-1] 1 tab PO DAILY 07/20/20 [History] Folic Acid 40 mg PO DAILY 01/25/21 [History] Magnesium Amino Acid Chelate [Magnesium] 200 mg PO DAILY 01/25/21 [History] Potassium Chloride 20 meq PO BID 09/09/21 [History] Multivitamin [Multi-Day Vitamins] 1 tab PO DAILY 09/22/21 [History] Dicyclomine [Bentyl] 20 mg PO DAILY PRN 10/06/21 [History] Furosemide [Lasix] 20 mg PO DAILY 10/06/21 [History] Iron 1 tab PO DAILY 10/06/21 [History] Lactulose 15 gm PO BID 10/06/21 [History] Nicotine [Habitrol] 7 mg TRDERM DAILY #30 patch 10/09/21 [Rx] Remove Patch 0 ea TRDERM DAILY each 10/09/21 [Rx] Spironolactone [Aldactone] 50 mg PO DAILY #30 10/09/21 [Rx] oxyCODONE 10 mg PO Q6H PRN 24 Days tablet 10/09/21 [Rx] prednisoLONE [Millipred] 5 mg PO DAILY #114 tablet 10/09/21 [Rx] Oxygen Therapy Mode: Room Air Patient Handouts: Liver Failure, Cirrhosis, Steps to Quit Smoking Forms: ED Department Discharge Referrals: Sigrid Slater MD [Primary Care Provider] - (please call and schedule a hospital follow up appointment ) - Discharge Summary/Plan Comment DC Time >30 min.: Yes Total # of Minutes for Discharge Time: 35 minutes Total time spent includes seeing the patient, doing discharge paperwork, and arranging care. - General Info Date of Service: 10/09/21 Admission Dx/Problem (Free Text: Admission Diagnosis/Problem Admission Diagnosis/Problem Liver failure, abdominal pain Subjective Update: The patient is a 36-year-old lady who was admitted on October 07, 2021 out of concern for abdominal pain and liver failure. The patient's liver failure is chronic. Patient says that her abdominal pain is not changed. Consulting surgeon says that there is no concern with the patient's inguinal hernia patch repair. The patient says that she has been tolerating her diet. She has no other complaints. She was much more active this morning and able to clean her room. Functional Status: Reports: Pain Controlled - Review of Systems General: Reports: Fatigue HEENT: Reports: No Symptoms Pulmonary: Reports: No Symptoms Cardiovascular: Reports: No Symptoms Gastrointestinal: Reports: No Symptoms Musculoskeletal: Reports: No Symptoms - Patient Data Vitals - Most Recent: Last Vital Signs Temp 97.7 F 10/09/21 11:25 Pulse 99 10/09/21 11:25 Resp 16 10/09/21 11:25 BP 132/72 10/09/21 11:25 Pulse Ox 100 10/09/21 11:25 Weight - Most Recent: 169 lb 4.8 oz I&O - Last 24 hours: Intake & Output 10/08/21 10/09/21 10/09/21 22:59 06:59 14:59 Intake Total 1920 600 Output Total 1225 950 Balance 695 -350 Lab Results - Last 24 hrs: Laboratory Results - last 24 hr 10/09/21 10/09/21 Range/Units 06:05 06:05 WBC 23.03 H (3.98-10.04) K/mm3 RBC 2.86 L (3.98-5.22) M/mm3 Hgb 8.8 L (11.2-15.7) gm/dl Hct 28.4 L (34.1-44.9) % MCV 99.3 H (79.4-94.8) fl MCH 30.8 (25.6-32.2) pg MCHC 31.0 L (32.2-35.5) g/dl RDW Std Deviation 66.1 H (36.4-46.3) fL Plt Count 125 L (182-369) K/mm3 MPV 11.3 (9.4-12.3) fl Neut % (Auto) 81.8 H (34.0-71.1) % Lymph % (Auto) 7.9 L (19.3-51.7) % [place] % (Auto) 7.3 (4.7-12.5) % Eos % (Auto) 1.0 (0.7-5.8) Baso % (Auto) 0.2 (0.1-1.2) % Neut # (Auto) 18.84 H (1.56-6.13) K/mm3 Lymph # (Auto) 1.82 (1.18-3.74) K/mm3 [place] # (Auto) 1.67 H (0.24-0.36) K/mm3 Eos # (Auto) 0.24 (0.04-0.36) K/mm3 Baso # (Auto) 0.04 (0.01-0.08) K/mm3 Manual Slide Review Abnormal smear Sodium 129 L (136-145) mEq/L Potassium 4.5 (3.5-5.1) mEq/L Chloride 96 L (98-107) mEq/L Carbon Dioxide 20 L (21-32) mEq/L Anion Gap 17.5 H (5-15) BUN 11 (7-18) mg/dL Creatinine 0.6 (0.55-1.02) mg/dL Est Cr Clr Drug Dosing 114.29 mL/min Estimated GFR (MDRD) > 60 (>60) mL/min BUN/Creatinine Ratio 18.3 H (14-18) Glucose 117 H (70-99) mg/dL Calcium 7.9 L (8.5-10.1) mg/dL Magnesium 2.0 (1.8-2.4) mg/dL Total Bilirubin 22.5 H (0.2-1.0) mg/dL AST 150 H (15-37) U/L ALT 109 H (14-59) U/L Alkaline Phosphatase 206 H (46-116) U/L Total Protein 5.6 L (6.4-8.2) g/dl Albumin 2.3 L (3.4-5.0) g/dl Globulin 3.3 gm/dL Albumin/Globulin Ratio 0.7 L (1-2) Med Orders - Current: Current Medications Dicyclomine HCl (Dicyclomine 10 Mg Cap) 20 mg PO DAILY PRN PRN Reason: Cramping Last Admin: 10/07/21 14:02 Dose: 20 mg Documented by: Folic Acid (Folic Acid 1 Mg Tab) 1 mg PO DAILY [facility] Last Admin: 10/09/21 08:34 Dose: 1 mg Documented by: Furosemide (Furosemide 20 Mg Tab) 20 mg PO DAILY [facility] Last Admin: 10/09/21 08:35 Dose: 20 mg Documented by: Hydromorphone HCl (Hydromorphone 0.5 Mg/0.5 Ml Syringe) 0.5 mg IVPUSH Q2H PRN PRN Reason: Pain (severe 7-10) Levofloxacin/Dextrose 500 mg/ (Premix) 100 mls @ 100 mls/hr IV Q24H [facility] Last Admin: 10/09/21 08:30 Dose: 100 mls/hr Documented by: Ibuprofen (Ibuprofen 200 Mg Tab) 200 mg PO Q6H PRN PRN Reason: Pain (mild 1-3) Lactulose (Lactulose Soln 10 Gm/15 Ml 30 Ml Ud Cup) 15 gm PO BID [facility] Last Admin: 10/09/21 08:36 Dose: 15 gm Documented by: Magnesium Oxide (Magnesium Oxide 400 Mg Tab) 200 mg PO DAILY [facility] Last Admin: 10/09/21 08:35 Dose: 200 mg Documented by: Miscellaneous Information (Remove Patch) 0 ea TRDERM DAILY [facility] Last Admin: 10/09/21 08:37 Dose: 1 ea Documented by: Multivitamins/Minerals/Vitamin C (Multivitamin Tab) 1 tab PO DAILY [facility] Last Admin: 10/09/21 08:34 Dose: 1 tab Documented by: Nicotine (Nicotine 7 Mg/24 Hr Patch) 7 mg TRDERM DAILY [facility] Last Admin: 10/09/21 08:36 Dose: 7 mg Documented by: Ondansetron HCl (Ondansetron 4 Mg Tab.Dis) 4 mg PO Q4H PRN PRN Reason: nausea, able to take PO Oxycodone HCl (Oxycodone 5 Mg Tab) 10 mg PO Q4H PRN PRN Reason: Pain Last Admin: 10/09/21 12:55 Dose: 10 mg Documented by: Pantoprazole Sodium (Pantoprazole 40 Mg Tab.Cr) 40 mg PO DAILY [facility] Last Admin: 10/09/21 08:31 Dose: 40 mg Documented by: Potassium Chloride (Potassium Chloride 20 Meq Tab.Er) 20 meq PO BID [facility] Last Admin: 10/09/21 08:34 Dose: 20 meq Documented by: Sodium Chloride (Sodium Chloride 0.9% 10 Ml Syringe) 10 ml FLUSH ASDIRECTED PRN PRN Reason: Keep Vein Open Last Admin: 10/06/21 16:37 Dose: 10 ml Documented by: Spironolactone (Spironolactone 25 Mg Tab) 50 mg PO DAILY [facility] Last Admin: 10/09/21 08:31 Dose: 50 mg Documented by: Thiamine HCl (Thiamine 100 Mg Tab) 100 mg PO DAILY [facility] Last Admin: 10/09/21 08:31 Dose: 100 mg Documented by: Discontinued Medications Fentanyl (Fentanyl 100 Mcg/2 Ml Sdv) 25 mcg IVPUSH ONETIME ONE Stop: 10/06/21 16:43 Last Admin: 10/06/21 17:21 Dose: 25 mcg Documented by: Hydromorphone HCl (Hydromorphone 1 Mg/Ml Syringe) 1 mg IVPUSH ONETIME ONE Stop: 10/06/21 21:37 Last Admin: 10/06/21 21:50 Dose: 1 mg Documented by: Hydromorphone HCl (Hydromorphone 0.5 Mg/0.5 Ml Syringe) 0.5 mg IVPUSH ONETIME ONE Stop: 10/07/21 08:14 Last Admin: 10/07/21 08:26 Dose: 0.5 mg Documented by: Sodium Chloride (Normal Saline) 1,000 mls @ 250 mls/hr IV ONETIME ONE Stop: 10/06/21 20:04 Last Admin: 10/06/21 16:37 Dose: 250 mls/hr Documented by: Lactulose (Lactulose Soln 10 Gm/15 Ml 30 Ml Ud Cup) 15 gm PO ONETIME ONE Stop: 10/06/21 21:25 Last Admin: 10/06/21 21:50 Dose: 15 gm Documented by: Metoclopramide HCl (Metoclopramide 10 Mg/2 Ml Sdv) 7.5 mg IVPUSH ONETIME ONE Stop: 10/07/21 08:14 Last Admin: 10/07/21 08:26 Dose: 7.5 mg Documented by: Oxycodone HCl (Oxycodone 5 Mg Tab) 5 mg PO Q6H PRN PRN Reason: Pain Last Admin: 10/07/21 11:55 Dose: 5 mg Documented by: Oxycodone HCl (Oxycodone 5 Mg Tab) 5 mg PO ONETIME ONE Stop: 10/07/21 16:15 Last Admin: 10/07/21 16:28 Dose: 5 mg Documented by: Oxycodone/Acetaminophen (Acetaminophen/Oxycodone 325-5 Mg Tab) 2 tab PO ONETIME ONE Stop: 10/07/21 03:08 Last Admin: 10/07/21 03:13 Dose: 2 tab Documented by: Pantoprazole Sodium (Pantoprazole 40 Mg Tab.Cr) 40 mg PO ONETIME ONE Stop: 10/06/21 22:35 Last Admin: 10/06/21 22:38 Dose: 40 mg Documented by: Pantoprazole Sodium (Pantoprazole 40 Mg Vial) 40 mg IVPUSH ONETIME ONE Stop: 10/07/21 04:03 Last Admin: 10/07/21 04:10 Dose: 40 mg Documented by: Potassium Chloride (Potassium Chloride 20 Meq Tab.Er) 20 meq PO ONETIME ONE Stop: 10/06/21 22:35 Last Admin: 10/06/21 22:38 Dose: 20 meq Documented by: - Exam General: Reports: Alert, Oriented HEENT: Reports: Pupils Equal, Mucous Membr. Moist/[place], Scleral Icterus Lungs: Reports: Clear to Auscultation, Normal Respiratory Effort Cardiovascular: Reports: Regular Rate, Regular Rhythm GI/Abdominal Exam: Normal Bowel Sounds, Soft, No Distention, No Abnormal Bruit, Tender (Minimal tenderness in the right lower quadrant) Extremities: Normal Inspection, Normal Range of Motion, Non-Tender, No Pedal Edema, Normal Capillary Refill Skin: Reports: Other (Jaundice) *Q Meaningful Use (DIS) - VTE *Q VTE Pharmacological Contraindications *Q: High INR Value
--- NOTE | 2021-10-09 14:57 | PCM.EKG ---
#1 Interpretation EKG Date: 10/09/21 Time: 09:20 Rhythm: NSR (Atrial premature complexes) Rate (Beats/Min): 97 [place]: Normal P-Wave: Present QRS: Normal ST-T: Normal QT: Normal EKG Interpretation Comments: Normal EKG
== END 2021-10-09 13:58 | disposition home or self-care (01) | DRG 280 ==
LOC: JD.ED 14:12 → JD.MS 10-07 09:35
PROVIDERS: ADMIT Pediatrics; ATTEND Pediatrics
DX: K70.40 Alcoholic hepatic failure without coma (principal); K70.30 Alcoholic cirrhosis of liver without ascites; R79.1 Abnormal coagulation profile; D50.8 Other iron deficiency anemias; I10 Essential (primary) hypertension; K21.9 Gastro-esophageal reflux disease without esophagitis; K44.9 Diaphragmatic hernia without obstruction or gangrene; E66.9 Obesity, unspecified; Z90.89 Acquired absence of other organs; Z98.51 Tubal ligation status; Z98.890 Other specified postprocedural states; Z88.1 Allergy status to other antibiotic agents; Z88.0 Allergy status to penicillin; Z88.5 Allergy status to narcotic agent; Z88.8 Allergy status to other drugs, medicaments and biological substances; Z79.899 Other long term (current) drug therapy; Z79.52 Long term (current) use of systemic steroids; Z86.010 Personal history of colon polyps; Z87.442 Personal history of urinary calculi; Z87.891 Personal history of nicotine dependence; Z86.16 Personal history of COVID-19; Z20.822 Contact with and (suspected) exposure to COVID-19; K70.10 Alcoholic hepatitis without ascites
CPT/HCPCS: 36415; 76705; 76705-26; 80053; 81003; 82140; 83605; 83690; 83735; 85007; 85025; 85027; 85610; 93005; 96374; 96375; 96376; 99285-25; A9270-GY; C9113; J1170; J1956; J2765; J3010; J7030; U0002

== ENCOUNTER 2021-10-25 13:58 | Emergency (ER) | payer BC ==
[2021-10-25 14:51] VITALS: BP 126/81; PULSE 67
[2021-10-25] MEDS ORDERED: Sodium Chloride 0.9% 10 ML Syringe FLUSH PRN (16:35)
[2021-10-25] MEDS ORDERED: Lactulose Soln 10 GM/15 ML 30 ML UD Cup PO ONE (16:37)
[2021-10-25] MEDS ORDERED: Morphine 2 MG/ML SYRINGE IVPUSH ONE (16:37)
[2021-10-25] MEDS ORDERED: Furosemide 20 MG/2 ML VIAL IVPUSH ONE (16:38)
[2021-10-25] MEDS ORDERED: Levofloxacin/Dextrose 5%-Water 500 MG in Premix Bag 1 BAG IV ONE (18:24)
== END 2021-10-25 20:22 | disposition home or self-care (01) ==
LOC: JD.ED 13:58
DX: L03.116 Cellulitis of left lower limb (principal); I10 Essential (primary) hypertension; K21.9 Gastro-esophageal reflux disease without esophagitis; D64.9 Anemia, unspecified; E66.9 Obesity, unspecified; Z68.31 Body mass index [BMI] 31.0-31.9, adult; Z87.891 Personal history of nicotine dependence; Z88.0 Allergy status to penicillin; Z88.5 Allergy status to narcotic agent; Z88.8 Allergy status to other drugs, medicaments and biological substances; Z79.899 Other long term (current) drug therapy
CPT/HCPCS: 36415; 80053; 85025; 86140; 93971; 96365; 96375; 99284; A9270; J1940; J1956; J2270

== ENCOUNTER 2021-11-08 18:10 | Inpatient (IN) | payer BC ==
[2021-11-08] MEDS ORDERED: Pantoprazole 40 MG Tab.CR PO SCH (21:15)
[2021-11-08] MEDS ORDERED: Dicyclomine 10 MG Cap PO PRN (21:29)
[2021-11-08] MEDS ORDERED: Furosemide 40 MG/4 ML VIAL IVPUSH ONE (21:29)
[2021-11-08] MEDS ORDERED: LORazepam 1 MG Tab PO PRN (21:31)
[2021-11-08] MEDS: Potassium Chloride 10 MEQ Tab.ER PO SCH (22:13)
[2021-11-08] MEDS: oxyCODONE 5 MG Tab PO PRN (22:14)
[2021-11-09] MEDS: oxyCODONE 5 MG Tab PO PRN ×3 (04:36→17:17)
[2021-11-09] MEDS: Pantoprazole 40 MG Tab.CR PO SCH ×2 (06:51→15:24)
[2021-11-09] MEDS ORDERED: Iopamidol 612 MG/ML 100 ML Bottle IVPUSH ONE (08:18)
[2021-11-09] MEDS: Potassium Chloride 10 MEQ Tab.ER PO SCH (08:41)
[2021-11-09] MEDS: Nicotine 7 MG/24 Hr Patch TRDERM SCH (08:41)
[2021-11-09] MEDS: Iron Polysaccharides Complex 150 MG Cap PO SCH (08:41)
[2021-11-09] MEDS: Spironolactone 25 MG Tab PO SCH (08:42)
[2021-11-09] MEDS ORDERED: Furosemide 40 MG/4 ML VIAL IVPUSH ONE (08:44)
[2021-11-09] MEDS ORDERED: Sodium Chloride 0.9% 10 ML Syringe FLUSH ONE (09:18)
[2021-11-09] MEDS ORDERED: Sodium Chloride 0.9% 100 ML IV SCH (09:30)
[2021-11-09] MEDS: Thiamine 100 MG Tab PO SCH (10:29)
[2021-11-09] MEDS: Lactulose Soln 10 GM/15 ML 30 ML UD Cup PO SCH ×2 (10:30→21:27)
[2021-11-09] MEDS: Albumin 25% 12.5 GM in Premix Bag 1 BAG IV SCH ×2 (12:41→14:33)
[2021-11-09] MEDS: Nystatin Topical Powder 15 GM Bottle TOP SCH ×2 (14:32→21:38)
[2021-11-09] MEDS: Furosemide 40 MG/4 ML VIAL IVPUSH SCH (14:32)
[2021-11-09] MEDS: metroNIDAZOLE/Normal Saline 500 MG in Premix Bag 1 BAG IV SCH ×2 (16:12→21:25)
[2021-11-09] MEDS ORDERED: Potassium Chloride 20 MEQ Tab.ER PO SCH (21:00)
[2021-11-10] MEDS: oxyCODONE 5 MG Tab PO PRN ×4 (03:58→22:13)
[2021-11-10] MEDS: Furosemide 40 MG/4 ML VIAL IVPUSH SCH (06:13)
[2021-11-10] MEDS: metroNIDAZOLE/Normal Saline 500 MG in Premix Bag 1 BAG IV SCH ×4 (06:14→23:15)
[2021-11-10] MEDS: Pantoprazole 40 MG Tab.CR PO SCH ×2 (06:14→15:49)
[2021-11-10] MEDS ORDERED: Magnesium Sulfate/Water 2 GM in Premix Bag 1 BAG IV ONE (09:00)
[2021-11-10] MEDS: Potassium Chloride 10 MEQ in Premix Bag 1 BAG IV SCH ×4 (09:04→12:41)
[2021-11-10] MEDS: Folic Acid 1 MG Tab PO SCH (09:04)
[2021-11-10] MEDS: Thiamine 100 MG Tab PO SCH (09:04)
[2021-11-10] MEDS: Potassium Chloride 20 MEQ Tab.ER PO SCH ×2 (09:04→20:41)
[2021-11-10] MEDS: Iron Polysaccharides Complex 150 MG Cap PO SCH (09:05)
[2021-11-10] MEDS: Spironolactone 25 MG Tab PO SCH (09:05)
[2021-11-10] MEDS: Lactulose Soln 10 GM/15 ML 30 ML UD Cup PO SCH ×2 (09:06→20:41)
[2021-11-10] MEDS: Nicotine 7 MG/24 Hr Patch TRDERM SCH (09:06)
[2021-11-10] MEDS: Nystatin Topical Powder 15 GM Bottle TOP SCH ×2 (09:06→20:42)
[2021-11-10] MEDS ORDERED: Sodium Chloride 3% 300 ML IV ONE (12:00)
[2021-11-10] MEDS: Albumin 25% 12.5 GM in Premix Bag 1 BAG IV SCH ×2 (14:07→16:57)
[2021-11-10] MEDS: Furosemide 20 MG/2 ML VIAL IVPUSH SCH (15:49)
[2021-11-10] MEDS ORDERED: Metoprolol Tartrate 25 MG Tab PO ONE (16:45)
[2021-11-10] MEDS ORDERED: Sodium Chloride 3% 500 ML IV ONE (16:45)
[2021-11-10] MEDS: Metoprolol Tartrate 25 MG Tab PO SCH (20:41)
[2021-11-11] MEDS: Potassium Chloride 10 MEQ in Premix Bag 1 BAG IV SCH ×4 (00:28→03:37)
[2021-11-11] MEDS: oxyCODONE 5 MG Tab PO PRN ×4 (04:32→23:38)
[2021-11-11] MEDS: Pantoprazole 40 MG Tab.CR PO SCH ×2 (05:30→15:50)
[2021-11-11] MEDS: metroNIDAZOLE/Normal Saline 500 MG in Premix Bag 1 BAG IV SCH (05:30)
[2021-11-11] MEDS: Furosemide 20 MG/2 ML VIAL IVPUSH SCH ×2 (05:30→15:50)
[2021-11-11] MEDS ORDERED: Magnesium Sulfate/Water 4 GM in Premix Bag 1 BAG IV ONE (07:57)
[2021-11-11] MEDS ORDERED: Sodium Chloride 3% 500 ML IV SCH (08:00)
[2021-11-11] MEDS: Iron Polysaccharides Complex 150 MG Cap PO SCH (08:57)
[2021-11-11] MEDS: Folic Acid 1 MG Tab PO SCH (08:57)
[2021-11-11] MEDS: Spironolactone 100 MG Tab PO SCH (08:57)
[2021-11-11] MEDS: Thiamine 100 MG Tab PO SCH (08:57)
[2021-11-11] MEDS: Potassium Chloride 20 MEQ Tab.ER PO SCH ×2 (08:58→21:16)
[2021-11-11] MEDS: Metoprolol Tartrate 25 MG Tab PO SCH ×2 (08:58→21:16)
[2021-11-11] MEDS: Nicotine 7 MG/24 Hr Patch TRDERM SCH (08:59)
[2021-11-11] MEDS: Lactulose Soln 10 GM/15 ML 30 ML UD Cup PO SCH ×2 (09:00→21:16)
[2021-11-11] MEDS: Nystatin Topical Powder 15 GM Bottle TOP SCH ×2 (09:01→21:19)
[2021-11-11] MEDS ORDERED: Sodium Chloride 3% 500 ML IV ONE (12:45)
[2021-11-11] MEDS: metroNIDAZOLE 500 MG Tab PO SCH ×2 (15:50→21:16)
[2021-11-12] MEDS: Pantoprazole 40 MG Tab.CR PO SCH ×2 (05:41→17:28)
[2021-11-12] MEDS: Furosemide 20 MG/2 ML VIAL IVPUSH SCH ×2 (05:41→15:27)
[2021-11-12] MEDS: metroNIDAZOLE 500 MG Tab PO SCH ×3 (05:41→22:28)
[2021-11-12] MEDS: oxyCODONE 5 MG Tab PO PRN ×3 (05:41→18:14)
[2021-11-12] MEDS: Spironolactone 100 MG Tab PO SCH (08:33)
[2021-11-12] MEDS: Lactulose Soln 10 GM/15 ML 30 ML UD Cup PO SCH ×2 (08:33→22:26)
[2021-11-12] MEDS: Nicotine 7 MG/24 Hr Patch TRDERM SCH (08:33)
[2021-11-12] MEDS: Potassium Chloride 20 MEQ Tab.ER PO SCH ×2 (08:33→22:27)
[2021-11-12] MEDS: Iron Polysaccharides Complex 150 MG Cap PO SCH (08:35)
[2021-11-12] MEDS: Folic Acid 1 MG Tab PO SCH (08:35)
[2021-11-12] MEDS: Nystatin Topical Powder 15 GM Bottle TOP SCH ×2 (08:37→22:27)
[2021-11-12] MEDS: Thiamine 100 MG Tab PO SCH (08:53)
[2021-11-12] MEDS: Albumin 25% 12.5 GM in Premix Bag 1 BAG IV SCH ×3 (08:53→11:24)
[2021-11-12] MEDS: Sodium Chloride 1 GM Tab PO SCH ×3 (08:53→22:27)
[2021-11-12] MEDS: Magnesium Oxide 400 MG Tab PO SCH ×2 (08:53→22:27)
[2021-11-12] MEDS: Metoprolol Tartrate 25 MG Tab PO SCH (09:07)
[2021-11-12] MEDS: Midodrine 5 MG Tab PO SCH ×2 (12:00→17:28)
[2021-11-12] MEDS ORDERED: Midodrine 5 MG Tab PO SCH (17:00)
[2021-11-13] MEDS: oxyCODONE 5 MG Tab PO PRN ×3 (00:44→12:43)
[2021-11-13] MEDS: Furosemide 20 MG/2 ML VIAL IVPUSH SCH (06:49)
[2021-11-13] MEDS: metroNIDAZOLE 500 MG Tab PO SCH (06:49)
[2021-11-13] MEDS: Pantoprazole 40 MG Tab.CR PO SCH (06:49)
[2021-11-13] MEDS: Midodrine 5 MG Tab PO SCH ×2 (06:50→12:03)
[2021-11-13] MEDS: Magnesium Oxide 400 MG Tab PO SCH (08:53)
[2021-11-13] MEDS: Iron Polysaccharides Complex 150 MG Cap PO SCH (08:53)
[2021-11-13] MEDS: Thiamine 100 MG Tab PO SCH (08:53)
[2021-11-13] MEDS: Spironolactone 100 MG Tab PO SCH (08:53)
[2021-11-13] MEDS: Nicotine 7 MG/24 Hr Patch TRDERM SCH (08:53)
[2021-11-13] MEDS: Potassium Chloride 20 MEQ Tab.ER PO SCH (08:53)
[2021-11-13] MEDS: Sodium Chloride 1 GM Tab PO SCH (08:53)
[2021-11-13] MEDS: Folic Acid 1 MG Tab PO SCH (08:53)
[2021-11-13] MEDS: Lactulose Soln 10 GM/15 ML 30 ML UD Cup PO SCH (08:53)
[2021-11-13] MEDS: Nystatin Topical Powder 15 GM Bottle TOP SCH (09:01)
[2021-11-13 13:25] VITALS: BP 104/53; PULSE 103
== END 2021-11-13 12:50 | disposition home or self-care (01) | DRG 280 ==
LOC: JD.MS 18:10
PROVIDERS: ADMIT Family Medicine; ATTEND Pediatrics
DX: K70.30 Alcoholic cirrhosis of liver without ascites (principal); E87.1 Hypo-osmolality and hyponatremia; K76.0 Fatty (change of) liver, not elsewhere classified; D69.6 Thrombocytopenia, unspecified; K52.9 Noninfective gastroenteritis and colitis, unspecified; E87.6 Hypokalemia; E83.42 Hypomagnesemia; F32.A Depression, unspecified; F41.9 Anxiety disorder, unspecified; K21.9 Gastro-esophageal reflux disease without esophagitis; I10 Essential (primary) hypertension; K72.10 Chronic hepatic failure without coma; K76.6 Portal hypertension; I85.10 Secondary esophageal varices without bleeding; R74.8 Abnormal levels of other serum enzymes; D50.8 Other iron deficiency anemias; R79.1 Abnormal coagulation profile; Z86.16 Personal history of COVID-19; Z86.14 Personal history of Methicillin resistant Staphylococcus aureus infection; Z79.899 Other long term (current) drug therapy
CPT/HCPCS: 29580-GP; 36410; 36415; 74177; 74177-26; 76937; 80048; 80053; 81001; 82140; 82150; 82272; 82947; 83690; 83735; 83930; 83935; 84100; 84300; 84484; 85014; 85018; 85025; 85610; 85652; 85730; 86140; 97162-GP; 97530-GP; 97597-GP; A9270-GY; J1940; J3475; J3480; J3490; J7131; P9047; Q9967

== ENCOUNTER 2022-03-10 15:28 | Emergency (ER) | payer BC ==
[2022-03-10 16:37] VITALS: BP 117/78; PULSE 84
== END 2022-03-10 17:10 | disposition home or self-care (01) ==
LOC: JD.ED 15:28
DX: I70.238 Atherosclerosis of native arteries of right leg with ulceration of other part of lower leg (principal); I10 Essential (primary) hypertension; K21.9 Gastro-esophageal reflux disease without esophagitis; E66.9 Obesity, unspecified; Z68.30 Body mass index [BMI] 30.0-30.9, adult; Z88.0 Allergy status to penicillin; Z88.5 Allergy status to narcotic agent; Z88.8 Allergy status to other drugs, medicaments and biological substances; Z79.899 Other long term (current) drug therapy
CPT/HCPCS: 99283

== ENCOUNTER 2022-03-23 12:00 | Inpatient (IN) | payer BC ==
[2022-03-23] MEDS ORDERED: Sodium Chloride 0.9% 10 ML Syringe FLUSH PRN (12:47)
[2022-03-23] MEDS ORDERED: Sodium Chloride 0.9% 1,000 ML IV SCH (13:00)
[2022-03-23 14:33] LABS: ESTIMATED GFR 97 mL/min (>60)
[2022-03-23] MEDS ORDERED: Sodium Chloride 0.9% 1,000 ML IV ONE (14:35)
[2022-03-23 14:39] LABS: ACETAMINOPHEN 0 ug/mL (10-30)
[2022-03-23] MEDS: Sodium Chloride 0.9% 1,000 ML IV SCH (16:21)
[2022-03-23] MEDS: Morphine 2 MG/ML SYRINGE IVPUSH PRN ×2 (16:22→19:54)
[2022-03-24] MEDS: Morphine 2 MG/ML SYRINGE IVPUSH PRN ×7 (00:02→15:43)
[2022-03-24] MEDS: Sodium Chloride 0.9% 1,000 ML IV SCH ×2 (00:25→08:26)
[2022-03-24] MEDS ORDERED: Triamcinolone Acetonide 0.1% Crm 15 GM Tube TOP PRN (11:19)
[2022-03-24] MEDS: oxyCODONE 5 MG Tab PO PRN ×2 (12:52→19:04)
[2022-03-24] MEDS: Lactulose Soln 10 GM/15 ML 30 ML UD Cup PO SCH ×2 (14:03→20:05)
[2022-03-24] MEDS: Potassium Chloride 10 MEQ in Premix Bag 1 BAG IV SCH ×2 (16:44→18:03)
[2022-03-24] MEDS: Doxycycline 100 MG Cap PO SCH (20:05)
[2022-03-24] MEDS ORDERED: traZODone 50 MG Tab PO ONE (20:12)
[2022-03-25] MEDS: Acetaminophen/oxyCODONE 325-5 MG Tab PO PRN ×3 (00:40→13:13)
[2022-03-25] MEDS: Sodium Chloride 0.9% 1,000 ML IV SCH ×2 (01:24→09:17)
[2022-03-25] MEDS: oxyCODONE 5 MG Tab PO PRN (03:38)
[2022-03-25] MEDS ORDERED: Magnesium Sulfate/Water 2 GM in Premix Bag 1 BAG IV ONE (06:23)
[2022-03-25] MEDS: Doxycycline 100 MG Cap PO SCH (08:44)
[2022-03-25] MEDS: Lactulose Soln 10 GM/15 ML 30 ML UD Cup PO SCH (08:45)
[2022-03-25] MEDS ORDERED: Potassium Chloride 20 MEQ Tab.ER PO SCH (09:00)
[2022-03-25 11:56] VITALS: BP 111/61; PULSE 84
== END 2022-03-25 14:56 | disposition home or self-care (01) | DRG 279 ==
LOC: JD.ED 12:00 → JD.MS 15:32
PROVIDERS: ADMIT Internal Medicine; ATTEND Internal Medicine
DX: K72.90 Hepatic failure, unspecified without coma (principal); K70.30 Alcoholic cirrhosis of liver without ascites; E72.20 Disorder of urea cycle metabolism, unspecified; K76.6 Portal hypertension; I83.019 Varicose veins of right lower extremity with ulcer of unspecified site; F41.9 Anxiety disorder, unspecified; E87.1 Hypo-osmolality and hyponatremia; E66.9 Obesity, unspecified; D69.6 Thrombocytopenia, unspecified; I85.00 Esophageal varices without bleeding; K64.9 Unspecified hemorrhoids; E86.0 Dehydration; L97.929 Non-pressure chronic ulcer of unspecified part of left lower leg with unspecified severity; D64.9 Anemia, unspecified; I10 Essential (primary) hypertension; Z88.8 Allergy status to other drugs, medicaments and biological substances; Z88.1 Allergy status to other antibiotic agents; Z88.0 Allergy status to penicillin; Z79.899 Other long term (current) drug therapy; Z86.16 Personal history of COVID-19; Z90.49 Acquired absence of other specified parts of digestive tract; Z98.891 History of uterine scar from previous surgery; Z98.51 Tubal ligation status
CPT/HCPCS: 36415; 70450; 70450-26; 71045; 71045-26; 80053; 80143; 80179; 80306; 80307; 81001; 81025; 82140; 83605; 83690; 83735; 84443; 85018; 85025; 85610; 85730; 86140; 86850; 86900; 86901; 87040; 96361; 96374; 97116-GP; 97162-GP; 97530-GP; 97597-GP; 99284; 99285-25; A9270-GY; J2270; J3475; J3480; J3490; J7030

== ENCOUNTER 2022-04-24 08:52 | Inpatient (IN) | payer BC ==
[2022-04-24] MEDS ORDERED: HYDROmorphone 0.5 MG/0.5 ML Syringe IVPUSH ONE (09:40)
[2022-04-24] MEDS ORDERED: Ondansetron 4 MG/2 ML SDV IVPUSH ONE (09:40)
[2022-04-24 10:30] LABS: ESTIMATED GFR 114 mL/min (>60)
[2022-04-24] MEDS: Sodium Chloride 0.9% 10 ML Syringe FLUSH PRN ×2 (10:36→11:03)
[2022-04-24] MEDS ORDERED: Iopamidol 612 MG/ML 100 ML Bottle IVPUSH ONE (11:03)
[2022-04-24] MEDS ORDERED: Acetaminophen 325 MG Tab PO PRN (13:16)
[2022-04-24] MEDS ORDERED: Magnesium Sulfate/Water 2 GM in Premix Bag 1 BAG IV ONE (13:18)
[2022-04-24] MEDS: Pantoprazole 40 MG Tab.CR PO SCH (14:08)
[2022-04-24] MEDS: Rifaximin 550 MG Tab PO SCH ×2 (14:08→20:14)
[2022-04-24] MEDS: oxyCODONE 5 MG Tab PO PRN ×2 (14:08→20:14)
[2022-04-24] MEDS: Lactulose Soln 10 GM/15 ML 30 ML UD Cup PO SCH ×2 (14:09→20:13)
[2022-04-25] MEDS: oxyCODONE 5 MG Tab PO PRN ×4 (02:16→23:26)
[2022-04-25] MEDS: Pantoprazole 40 MG Tab.CR PO SCH (06:20)
[2022-04-25] MEDS: Lactulose Soln 10 GM/15 ML 30 ML UD Cup PO SCH ×3 (08:34→20:50)
[2022-04-25] MEDS: Rifaximin 550 MG Tab PO SCH ×2 (08:34→20:50)
[2022-04-25] MEDS ORDERED: Furosemide 40 MG Tab PO PRN (09:00)
[2022-04-25] MEDS: Ondansetron 4 MG/2 ML SDV IV PRN (09:00)
[2022-04-25] MEDS ORDERED: oxyCODONE 5 MG Tab PO PRN (09:48)
[2022-04-25] MEDS ORDERED: Promethazine 25 MG Tab PO ONE (10:00)
[2022-04-25] MEDS: Midodrine 5 MG Tab PO SCH ×2 (14:48→20:50)
[2022-04-25] MEDS: Sucralfate 1 GM Tab PO SCH ×3 (17:08→22:50)
[2022-04-25] MEDS: oxyCODONE ER 20 MG TAB.ER PO SCH (20:49)
[2022-04-25] MEDS: Spironolactone 100 MG Tab PO SCH (20:49)
[2022-04-25] MEDS: Magnesium Oxide 400 MG Tab PO SCH (20:49)
[2022-04-25] MEDS: Ferrous Sulfate 324 MG Tab.EC PO SCH (20:50)
[2022-04-25] MEDS: Potassium Chloride 20 MEQ Tab.ER PO SCH (20:50)
[2022-04-26] MEDS: Ondansetron 4 MG/2 ML SDV IV PRN (05:53)
[2022-04-26] MEDS: Pantoprazole 40 MG Tab.CR PO SCH (05:53)
[2022-04-26] MEDS: Sucralfate 1 GM Tab PO SCH ×2 (05:53→06:08)
[2022-04-26] MEDS: oxyCODONE 5 MG Tab PO PRN (05:53)
[2022-04-26 08:18] VITALS: BP 110/53; PULSE 88
[2022-04-26] MEDS: Lactulose Soln 10 GM/15 ML 30 ML UD Cup PO SCH (08:36)
[2022-04-26] MEDS: oxyCODONE ER 20 MG TAB.ER PO SCH (08:37)
[2022-04-26] MEDS: Spironolactone 100 MG Tab PO SCH (08:38)
[2022-04-26] MEDS: Rifaximin 550 MG Tab PO SCH (08:39)
[2022-04-26] MEDS: Potassium Chloride 20 MEQ Tab.ER PO SCH (08:39)
[2022-04-26] MEDS: Midodrine 5 MG Tab PO SCH (08:39)
[2022-04-26] MEDS: Magnesium Oxide 400 MG Tab PO SCH (08:40)
[2022-04-26] MEDS: Ferrous Sulfate 324 MG Tab.EC PO SCH (08:40)
[2022-04-26] MEDS ORDERED: Pantoprazole 40 MG Tab.CR PO SCH (09:00)
[2022-04-26] MEDS ORDERED: Thiamine 100 MG Tab PO SCH (09:00)
[2022-04-26] MEDS ORDERED: Calcium Carbonate/Vitamin D3 600 MG-200 Units Tab PO SCH (09:00)
[2022-04-26] MEDS ORDERED: Folic Acid 1 MG Tab PO SCH (09:00)
[2022-04-26] MEDS ORDERED: Ascorbic Acid 500 MG Tab PO SCH (09:00)
[2022-04-26] MEDS ORDERED: Sodium Chloride 1 GM Tab PO SCH (09:00)
== END 2022-04-26 10:45 | disposition home or self-care (01) | DRG 279 ==
LOC: JD.ED 08:52 → JD.MS 13:08
PROVIDERS: ADMIT Internal Medicine; ATTEND Internal Medicine
DX: K72.90 Hepatic failure, unspecified without coma (principal); K70.10 Alcoholic hepatitis without ascites; K86.1 Other chronic pancreatitis; K29.20 Alcoholic gastritis without bleeding; I10 Essential (primary) hypertension; K21.9 Gastro-esophageal reflux disease without esophagitis; E66.9 Obesity, unspecified; K70.30 Alcoholic cirrhosis of liver without ascites; D50.8 Other iron deficiency anemias; R16.0 Hepatomegaly, not elsewhere classified; F10.11 Alcohol abuse, in remission; D69.59 Other secondary thrombocytopenia; E83.42 Hypomagnesemia; Z86.16 Personal history of COVID-19; Z86.14 Personal history of Methicillin resistant Staphylococcus aureus infection; Z90.49 Acquired absence of other specified parts of digestive tract; Z68.30 Body mass index [BMI] 30.0-30.9, adult; Z87.19 Personal history of other diseases of the digestive system; Z86.010 Personal history of colon polyps; Z87.440 Personal history of urinary (tract) infections; Z79.899 Other long term (current) drug therapy; Z87.442 Personal history of urinary calculi; Z90.721 Acquired absence of ovaries, unilateral; Z90.89 Acquired absence of other organs; Z98.51 Tubal ligation status; Z98.890 Other specified postprocedural states; Z87.81 Personal history of (healed) traumatic fracture
CPT/HCPCS: 36415; 70450; 70450-26; 71045; 71045-26; 74177; 74177-26; 80053; 80306; 80307; 81001; 82140; 83735; 84484; 84703; 85025; 85027; 85610; 85730; 86140; 87641; 93005; 93010; 96374; 96375; 97162-GP; 99284; 99285-25; A9270-GY; J1170; J2405; J3475; J3490; J8597; Q9967

== ENCOUNTER 2022-05-10 12:13 | Emergency (ER) | payer BC ==
[2022-05-10] MEDS ORDERED: Sodium Chloride 0.9% 10 ML Syringe FLUSH PRN (15:33)
[2022-05-10] MEDS ORDERED: HYDROmorphone 0.5 MG/0.5 ML Syringe IVPUSH ONE (16:06)
[2022-05-10] MEDS ORDERED: Lactulose Soln 10 GM/15 ML 30 ML UD Cup PO ONE (16:07)
[2022-05-10 17:01] LABS: ESTIMATED GFR 124 mL/min (>60)
[2022-05-10] MEDS ORDERED: Pantoprazole 40 MG in Sodium Chloride 0.9% 100 ML IV ONE (17:06)
[2022-05-10] MEDS ORDERED: Sucralfate Suspension 1 GM/10 ML Cup PO ONE (17:06)
[2022-05-10] MEDS ORDERED: Pantoprazole 40 MG Vial IV ONE (17:30)
[2022-05-10] MEDS ORDERED: oxyCODONE 5 MG Tab PO ONE (17:41)
[2022-05-10 18:46] VITALS: BP 117/67; PULSE 85
== END 2022-05-10 18:45 | disposition home or self-care (01) ==
LOC: JD.ED 12:13
DX: R10.13 Epigastric pain (principal); I10 Essential (primary) hypertension; E66.9 Obesity, unspecified; Z68.30 Body mass index [BMI] 30.0-30.9, adult; Z88.8 Allergy status to other drugs, medicaments and biological substances; Z88.0 Allergy status to penicillin; Z88.5 Allergy status to narcotic agent; Z79.899 Other long term (current) drug therapy; Z86.16 Personal history of COVID-19; Z90.49 Acquired absence of other specified parts of digestive tract
CPT/HCPCS: 36415; 71045; 80053; 80307; 82140; 83605; 83690; 83735; 84484; 85025; 85610; 85730; 86140; 96374; 96375; 99284; A9270; C9113; J1170; J3490

== ENCOUNTER 2022-05-31 15:55 | Emergency (ER) | payer BC ==
[2022-05-31] MEDS ORDERED: Ondansetron 4 MG/2 ML SDV IVPUSH ONE (16:46)
[2022-05-31] MEDS ORDERED: HYDROmorphone 0.5 MG/0.5 ML Syringe IVPUSH ONE ×2 (16:46→18:16)
[2022-05-31] MEDS: Sodium Chloride 0.9% 10 ML Syringe FLUSH PRN ×2 (17:43→18:31)
[2022-05-31 18:01] LABS: ESTIMATED GFR 124 mL/min (>60)
[2022-05-31] MEDS ORDERED: Iopamidol 612 MG/ML 100 ML Bottle IVPUSH ONE (18:03)
[2022-05-31] MEDS ORDERED: Magnesium Sulfate/Water 2 GM/50 ML BAG IV ONE (18:16)
[2022-05-31] MEDS ORDERED: oxyCODONE 5 MG Tab PO ONE (20:23)
[2022-05-31 21:22] VITALS: BP 107/57; PULSE 90
== END 2022-05-31 21:18 | disposition home or self-care (01) ==
LOC: JD.ED 15:55
DX: M54.50 Low back pain, unspecified (principal); R10.13 Epigastric pain; I10 Essential (primary) hypertension; K21.9 Gastro-esophageal reflux disease without esophagitis; E66.9 Obesity, unspecified; Z88.0 Allergy status to penicillin; Z88.8 Allergy status to other drugs, medicaments and biological substances; Z88.5 Allergy status to narcotic agent; Z79.899 Other long term (current) drug therapy; Z68.25 Body mass index [BMI] 25.0-25.9, adult
CPT/HCPCS: 36415; 74177; 80053; 80307; 81001; 82140; 83690; 83735; 85025; 86140; 96365; 96366; 96375; 96376; 99284; A9270; J1170; J2405; J3475; J3490; Q9967

== ENCOUNTER 2022-06-29 17:24 | Emergency (ER) | payer BC ==
[2022-06-29] MEDS ORDERED: Morphine 4 MG/ML Syringe IVPUSH ONE (18:18)
[2022-06-29 18:43] VITALS: BP 105/58; PULSE 87
== END 2022-06-29 21:00 | disposition home or self-care (01) ==
LOC: JD.ED 17:24
DX: K92.2 Gastrointestinal hemorrhage, unspecified (principal); I10 Essential (primary) hypertension; E66.9 Obesity, unspecified; Z68.24 Body mass index [BMI] 24.0-24.9, adult; Z88.8 Allergy status to other drugs, medicaments and biological substances; Z88.1 Allergy status to other antibiotic agents; Z88.0 Allergy status to penicillin; Z88.5 Allergy status to narcotic agent; Z79.899 Other long term (current) drug therapy; Z86.16 Personal history of COVID-19; Z90.49 Acquired absence of other specified parts of digestive tract
CPT/HCPCS: 36415; 80053; 83690; 85025; 85610; 96374; 99284; J2270; 99283

== ENCOUNTER 2022-07-12 19:15 | Emergency (ER) | payer BC ==
[2022-07-12] MEDS ORDERED: Ondansetron 4 MG Tab.DIS PO ONE (19:16)
[2022-07-12] MEDS ORDERED: HYDROmorphone 1 MG/ML Syringe IV ONE (19:16)
[2022-07-12] MEDS ORDERED: Morphine 10 MG/ML SDV IM ONE (19:16)
[2022-07-13] MEDS ORDERED: HYDROmorphone 1 MG/ML Syringe ONE (00:13)
[2022-07-13] MEDS ORDERED: Ondansetron 4 MG Tab.DIS ONE (00:13)
[2022-07-13 01:01] LABS: ESTIMATED GFR 114 mL/min (>60)
[2022-07-13] MEDS ORDERED: Morphine 4 MG/ML Syringe ONE (01:15)
[2022-07-13 11:58] VITALS: BP 135/76; PULSE 107
== END 2022-07-13 02:32 | disposition home or self-care (01) ==
LOC: JD.ED 19:15
DX: F11.23 Opioid dependence with withdrawal (principal); Z88.0 Allergy status to penicillin
CPT/HCPCS: 36415; 80053; 83690; 84703; 85025; 96372; 99284; A9270; J1170; J2270

== ENCOUNTER 2022-08-23 04:25 | Emergency (ER) | payer BC ==
[2022-08-23] MEDS ORDERED: Sodium Chloride 0.9% 10 ML Syringe FLUSH PRN ×2 (04:48→05:16)
[2022-08-23] MEDS ORDERED: Acetaminophen 325 MG Tab PO ONE (04:50)
[2022-08-23] MEDS ORDERED: Sodium Chloride 0.9% 1,000 ML IV SCH ×3 (05:00→09:30)
[2022-08-23 05:46] LABS: ESTIMATED GFR 118 mL/min (>60)
[2022-08-23 05:54] LABS: CORONAVIRUS COVID-19 NAA NEGATIVE (NEGATIVE)
[2022-08-23] MEDS ORDERED: Ketorolac 30 MG/ML SDV IVPUSH ONE (06:49)
[2022-08-23 13:59] VITALS: BP 110/55; PULSE 87
== END 2022-08-23 13:00 | disposition home or self-care (01) ==
LOC: JD.ED 04:25
DX: K70.30 Alcoholic cirrhosis of liver without ascites (principal); A49.3 Mycoplasma infection, unspecified site; I10 Essential (primary) hypertension; K21.9 Gastro-esophageal reflux disease without esophagitis; D64.9 Anemia, unspecified; E66.9 Obesity, unspecified; Z88.8 Allergy status to other drugs, medicaments and biological substances; Z88.0 Allergy status to penicillin; Z79.899 Other long term (current) drug therapy; Z20.822 Contact with and (suspected) exposure to COVID-19
CPT/HCPCS: 0241U; 36415; 71045; 74176; 80053; 80307; 81001; 83605; 85025; 86140; 86738; 87040; 87077; 87154; 87186; 96374; 99285; A9270; J1885; J3490; J7030

== ENCOUNTER 2022-11-14 10:09 | Emergency (ER) | payer BC | END 2022-11-14 10:54 | disposition critical access hospital (66) | LOC: JD.ED 10:09 | DX: Z53.21 Procedure and treatment not carried out due to patient leaving prior to being seen by health care provider (principal) ==

== ENCOUNTER 2022-11-27 05:01 | Emergency (ER) | payer BC ==
[2022-11-27 07:51] VITALS: BP 124/67; PULSE 89
== END 2022-11-27 07:51 | disposition home or self-care (01) ==
LOC: JD.ED 05:01
DX: F11.10 Opioid abuse, uncomplicated (principal); Z76.0 Encounter for issue of repeat prescription; F17.210 Nicotine dependence, cigarettes, uncomplicated; K21.9 Gastro-esophageal reflux disease without esophagitis; Z86.16 Personal history of COVID-19; Z88.0 Allergy status to penicillin; Z88.5 Allergy status to narcotic agent; Z88.8 Allergy status to other drugs, medicaments and biological substances; Z79.899 Other long term (current) drug therapy
CPT/HCPCS: 99281; A9270; 99282

== ENCOUNTER 2023-01-22 19:15 | Emergency (ER) | payer BC ==
[2023-01-22] MEDS ORDERED: Lactated Ringers 1,000 ML IV SCH (20:00)
[2023-01-22] MEDS: Morphine 2 MG/ML SYRINGE IVPUSH ONE ×2 (20:35→21:29)
[2023-01-22] MEDS ORDERED: Ondansetron 4 MG/2 ML SDV IVPUSH ONE ×2 (21:24→22:44)
[2023-01-22] MEDS ORDERED: Lactated Ringers 1,000 ML IV ONE (21:35)
[2023-01-22] MEDS ORDERED: Iopamidol 612 MG/ML 100 ML Bottle IVPUSH ONE (22:42)
[2023-01-22] MEDS ORDERED: Morphine 2 MG/ML SYRINGE IVPUSH ONE (22:43)
[2023-01-22] MEDS ORDERED: oxyCODONE 5 MG Tab PO ONE (23:51)
[2023-01-23 00:38] VITALS: BP 111/65; PULSE 84
== END 2023-01-23 00:20 | disposition home or self-care (01) ==
LOC: JD.ED 19:15
DX: K62.89 Other specified diseases of anus and rectum (principal); K21.9 Gastro-esophageal reflux disease without esophagitis; E66.9 Obesity, unspecified; Z68.30 Body mass index [BMI] 30.0-30.9, adult; Z90.49 Acquired absence of other specified parts of digestive tract; Z98.890 Other specified postprocedural states; Z86.16 Personal history of COVID-19; Z88.8 Allergy status to other drugs, medicaments and biological substances; Z88.0 Allergy status to penicillin; Z88.5 Allergy status to narcotic agent; Z79.899 Other long term (current) drug therapy
CPT/HCPCS: 36415; 74177; 80053; 80307; 81001; 82140; 85025; 85610; 85730; 96361; 96374; 96375; 96376; 99284; A9270; J2270; J2405; J7120; Q9967

== ENCOUNTER 2023-02-06 07:45 | Emergency (ER) | payer BC ==
[2023-02-06 07:53] VITALS: BP 131/91; PULSE 84
[2023-02-06] MEDS ORDERED: oxyCODONE 5 MG Tab PO ONE (08:30)
== END 2023-02-06 09:42 | disposition home or self-care (01) ==
LOC: JD.ED 07:45
DX: S40.022A Contusion of left upper arm, initial encounter (principal); I11.9 Hypertensive heart disease without heart failure; K21.9 Gastro-esophageal reflux disease without esophagitis; E66.9 Obesity, unspecified; Z68.30 Body mass index [BMI] 30.0-30.9, adult; Z88.0 Allergy status to penicillin; Z88.5 Allergy status to narcotic agent; Z88.8 Allergy status to other drugs, medicaments and biological substances; Z79.899 Other long term (current) drug therapy; W18.09XA Striking against other object with subsequent fall, initial encounter
CPT/HCPCS: 36415; 73060; 80307; 99283; A9270

== ENCOUNTER 2023-03-16 22:33 | Emergency (ER) | payer BC ==
[2023-03-16 22:57] VITALS: BP 145/87; PULSE 74
== END 2023-03-17 01:03 | disposition left against medical advice (07) ==
LOC: JD.ED 22:33
DX: S30.0XXA Contusion of lower back and pelvis, initial encounter (principal); S40.011A Contusion of right shoulder, initial encounter; K21.9 Gastro-esophageal reflux disease without esophagitis; I11.9 Hypertensive heart disease without heart failure; E66.9 Obesity, unspecified; Z88.0 Allergy status to penicillin; Z88.5 Allergy status to narcotic agent; Z88.8 Allergy status to other drugs, medicaments and biological substances; Z79.899 Other long term (current) drug therapy; Z68.28 Body mass index [BMI] 28.0-28.9, adult; Z86.16 Personal history of COVID-19; Y04.0XXA Assault by unarmed brawl or fight, initial encounter
CPT/HCPCS: 99283; 99284

== ENCOUNTER 2023-04-09 20:12 | Emergency (ER) | payer BC ==
[2023-04-09 20:45] VITALS: BP 143/88; PULSE 79
== END 2023-04-09 21:39 | disposition left against medical advice (07) ==
LOC: JD.ED 20:12
DX: Z53.21 Procedure and treatment not carried out due to patient leaving prior to being seen by health care provider (principal)

== ENCOUNTER 2023-04-28 19:41 | Emergency (ER) | payer BC ==
[2023-04-29 00:41] VITALS: BP 137/102; PULSE 91
== END 2023-04-28 20:17 ==
LOC: JD.ED 19:41
DX: Z53.21 Procedure and treatment not carried out due to patient leaving prior to being seen by health care provider (principal)

== ENCOUNTER 2023-06-25 13:35 | Emergency (ER) | payer BC ==
[2023-06-25] MEDS ORDERED: HYDROmorphone 1 MG/ML Syringe IM ONE (15:39)
[2023-06-25] MEDS ORDERED: Ondansetron 4 MG/2 ML SDV IVPUSH ONE (15:39)
[2023-06-25] MEDS ORDERED: Ondansetron 4 MG Tab.DIS PO ONE (15:43)
[2023-06-25 16:00] LABS: BASOPHILS PERCENT AUTO 0.4 % (0.0-1.0); EOSINOPHILS PERCENT AUTO 0.2 % (0.0-6.0); HEMATOCRIT 44.5 % (37.0-47.0); HEMOGLOBIN 15.4 gm/dl (12.0-16.0); IMMATURE GRAN ABSOLUTE AUTO 0.02 K/mm3 (0.00-0.05); IMMATURE GRAN PERCENT AUTO 0.4 % (0.0-0.4); LYMPHOCYTES ABSOLUTE AUTO 0.8 K/mm3 (1.0-4.8); LYMPHOCYTES PERCENT AUTO 14.9 % (24.0-44.0); MEAN CORPUSCULAR HEMOGLOBIN 30.1 pg (28.0-32.0); MEAN CORPUSCULAR HGB CONC 34.6 g/dl (32.0-36.0); MEAN CORPUSCULAR VOLUME 86.9 fl (83.0-99.0); MEAN PLATELET VOLUME 11.4 fl (9.4-12.3); MONOCYTES ABSOLUTE AUTO 0.2 K/mm3 (0.0-0.8); NEUTROPHILS ABSOLUTE AUTO 4.4 K/mm3 (1.8-7.7); NEUTROPHILS PERCENT AUTO 81.1 % (41.0-71.0); PLATELET COUNT,PLT 85 K/mm3 (150-400); RED BLOOD CELL COUNT 5.12 M/mm3 (4.10-5.30); WHITE BLOOD CELL COUNT,WBC 5.37 K/mm3 (3.9-11.3)
[2023-06-25 16:23] LABS: A/G RATIO 0.8 (1-2); ALBUMIN 3.2 g/dl (3.4-5.0); ANION GAP 16.3 (5-15); BILIRUBIN TOTAL 1.5 mg/dL (0.2-1.0); CALCIUM 8.6 mg/dL (8.5-10.1); CREATININE 0.5 mg/dL (0.55-1.02); EST CRCL DRUG DOSING (CG) 131.74 mL/min; POTASSIUM,K 3.3 mEq/L (3.5-5.1)
[2023-06-25 16:33] LABS: SLIDE REVIEW ABNORMAL SMEAR
[2023-06-25 20:18] VITALS: BP 124/75; PULSE 76
== END 2023-06-25 19:30 | disposition home or self-care (01) ==
LOC: JD.ED 13:35
DX: N95.0 Postmenopausal bleeding (principal); I10 Essential (primary) hypertension; E66.9 Obesity, unspecified; Z86.16 Personal history of COVID-19; Z79.899 Other long term (current) drug therapy; Z88.0 Allergy status to penicillin; Z88.1 Allergy status to other antibiotic agents; Z88.5 Allergy status to narcotic agent; Z88.8 Allergy status to other drugs, medicaments and biological substances
CPT/HCPCS: 36415; 73130; 76830; 80053; 84702; 85025; 96372; 99284; A9270; J1170

== ENCOUNTER 2023-07-19 18:27 | Emergency (ER) | payer BC, MEDICAID ==
[2023-07-19 19:02] VITALS: BP 126/96; PULSE 83
[2023-07-19 20:07] LABS: BASOPHILS ABSOLUTE AUTO 0.1 K/mm3 (0.0-0.2); BASOPHILS PERCENT AUTO 1.1 % (0.0-1.0); EOSINOPHILS ABSOLUTE AUTO 0.5 K/mm3 (0.0-0.4); EOSINOPHILS PERCENT AUTO 9.7 % (0.0-6.0); HEMATOCRIT 38.4 % (37.0-47.0); IMMATURE GRAN ABSOLUTE AUTO 0.01 K/mm3 (0.00-0.05); IMMATURE GRAN PERCENT AUTO 0.2 % (0.0-0.4); LYMPHOCYTES ABSOLUTE AUTO 2.4 K/mm3 (1.0-4.8); LYMPHOCYTES PERCENT AUTO 44.1 % (24.0-44.0); MEAN CORPUSCULAR HEMOGLOBIN 29.7 pg (28.0-32.0); MEAN CORPUSCULAR HGB CONC 33.9 g/dl (32.0-36.0); MEAN CORPUSCULAR VOLUME 87.9 fl (83.0-99.0); MEAN PLATELET VOLUME 10.6 fl (9.4-12.3); MONOCYTES ABSOLUTE AUTO 0.5 K/mm3 (0.0-0.8); NEUTROPHILS PERCENT AUTO 35.9 % (41.0-71.0); PLATELET COUNT,PLT 99 K/mm3 (150-400); RED BLOOD CELL COUNT 4.37 M/mm3 (4.10-5.30); WHITE BLOOD CELL COUNT,WBC 5.46 K/mm3 (3.9-11.3)
[2023-07-19 20:25] LABS: INR 1.26; PROTHROMBIN TIME 13.3 SECONDS (9.7-12.0)
[2023-07-19 20:34] LABS: BILIRUBIN DIRECT 0.8 mg/dl (0.0-0.2)
[2023-07-19 20:43] LABS: A/G RATIO 0.9 (1-2); BILIRUBIN TOTAL 1.7 mg/dL (0.2-1.0); BUN/CREATININE RATIO 15.7 (14-18); CALCIUM 8.8 mg/dL (8.5-10.1); CREATININE 0.7 mg/dL (0.55-1.02); EST CRCL DRUG DOSING (CG) 98.05 mL/min; PROTEIN TOTAL,TP 6.3 g/dl (6.4-8.2)
== END 2023-07-19 22:30 | disposition home or self-care (01) ==
LOC: JD.ED 18:27
DX: T24.201A Burn of second degree of unspecified site of right lower limb, except ankle and foot, initial encounter (principal); K72.10 Chronic hepatic failure without coma; E72.20 Disorder of urea cycle metabolism, unspecified; E66.9 Obesity, unspecified; I10 Essential (primary) hypertension; K21.9 Gastro-esophageal reflux disease without esophagitis; Z86.16 Personal history of COVID-19; Z79.899 Other long term (current) drug therapy; Z88.0 Allergy status to penicillin; Z88.5 Allergy status to narcotic agent; Z88.8 Allergy status to other drugs, medicaments and biological substances; Z88.1 Allergy status to other antibiotic agents; Z68.29 Body mass index [BMI] 29.0-29.9, adult; X08.8XXA Exposure to other specified smoke, fire and flames, initial encounter
CPT/HCPCS: 36415; 76705; 76705-26; 80053; 82140; 82248; 85025; 85610; 99283; 99284

== ENCOUNTER 2023-08-31 18:57 | Emergency (ER) | payer BC, MEDICAID ==
[2023-08-31 19:43] VITALS: PULSE 75
[2023-08-31 20:40] LABS: APPEARANCE,URINE CLEAR (Clear); BILIRUBIN,URINE 1+ (Negative); COLOR,URINE YELLOW (Yellow); GLUCOSE,URINE NEGATIVE (Negative); KETONES,URINE NEGATIVE (Negative); LEUKOCYTE ESTERASE,URINE NEGATIVE (Negative); NITRITE,URINE NEGATIVE (Negative); OCCULT BLOOD,URINE NEGATIVE (Negative); PROTEIN,URINE NEGATIVE (Negative); UROBILINOGEN,URINE >=8.0 (0.2-1.0)
[2023-08-31 23:13] VITALS: BP 123/75
== END 2023-08-31 23:10 | disposition home or self-care (01) ==
LOC: JD.ED 18:57
DX: R10.32 Left lower quadrant pain (principal); F17.210 Nicotine dependence, cigarettes, uncomplicated; Z88.8 Allergy status to other drugs, medicaments and biological substances; Z88.0 Allergy status to penicillin; Z88.5 Allergy status to narcotic agent; Z79.899 Other long term (current) drug therapy; Z86.16 Personal history of COVID-19
CPT/HCPCS: 81003; 93971-26-LT; 93971-LT; 99284

== ENCOUNTER 2023-09-28 03:36 | Emergency (ER) | payer BC, MEDICAID ==
[2023-09-28] MEDS ORDERED: cefTRIAXone 1 GM in Sodium Chloride 0.9% 100 ML IV ONE (03:53)
[2023-09-28] MEDS ORDERED: HYDROmorphone 0.5 MG/0.5 ML Syringe IVPUSH ONE (03:54)
[2023-09-28] MEDS ORDERED: Dextrose 5%-0.9% NaCl 1,000 ML IV SCH (04:00)
[2023-09-28] MEDS ORDERED: Ketorolac 30 MG/ML SDV IVPUSH SCH (04:00)
[2023-09-28] MEDS ORDERED: Ondansetron 4 MG/2 ML SDV IVPUSH ONE (04:07)
[2023-09-28 04:34] LABS: A/G RATIO 0.8 (1-2); ALANINE AMINOTRANSFERASE,ALT 22 U/L (14-59); ALBUMIN 3.4 g/dl (3.4-5.0); ALKALINE PHOSPHATASE 200 U/L (46-116); BILIRUBIN TOTAL 3.4 mg/dL (0.2-1.0); BLOOD UREA NITROGEN,BUN 7 mg/dL (7-18); BUN/CREATININE RATIO 11.7 (14-18); C-REACTIVE PROTEIN <0.2 mg/dL (<1.0); CARBON DIOXIDE,CO2 19 mEq/L (21-32); CHLORIDE,CL 105 mEq/L (98-107); CREATININE 0.6 mg/dL (0.55-1.02); ESTIMATED GFR 118 mL/min (>60); GLUCOSE RANDOM 107 mg/dL (70-99); PROTEIN TOTAL,TP 7.6 g/dl (6.4-8.2); SODIUM,NA 137 mEq/L (136-145)
[2023-09-28 04:34] LABS: CORONAVIRUS COVID-19 NAA NEGATIVE (NEGATIVE); INFLUENZA A NAA NEGATIVE (NEGATIVE); RESPIRATORY SYNCYTIAL VIR NAA NEGATIVE (NEGATIVE)
[2023-09-28 04:36] LABS: ASPARTATE AMNIOTRANSFERASE,AST 68 U/L (15-37)
[2023-09-28 05:25] LABS: BASOPHILS ABSOLUTE AUTO 0.1 K/mm3 (0.0-0.2); BASOPHILS PERCENT AUTO 1.8 % (0.0-1.0); EOSINOPHILS PERCENT AUTO 0.4 % (0.0-6.0); HEMATOCRIT 42.2 % (37.0-47.0); HEMOGLOBIN 14.2 gm/dl (12.0-16.0); IMMATURE GRAN ABSOLUTE AUTO 0.01 K/mm3 (0.00-0.05); IMMATURE GRAN PERCENT AUTO 0.4 % (0.0-0.4); LYMPHOCYTES ABSOLUTE AUTO 0.4 K/mm3 (1.0-4.8); LYMPHOCYTES PERCENT AUTO 15.5 % (24.0-44.0); MEAN CORPUSCULAR HEMOGLOBIN 29.6 pg (28.0-32.0); MEAN CORPUSCULAR HGB CONC 33.6 g/dl (32.0-36.0); MEAN CORPUSCULAR VOLUME 87.9 fl (83.0-99.0); MEAN PLATELET VOLUME 11.1 fl (9.4-12.3); MONOCYTES ABSOLUTE AUTO 0.3 K/mm3 (0.0-0.8); MONOCYTES PERCENT AUTO 10.8 % (0.0-8.0); NEUTROPHILS PERCENT AUTO 71.1 % (41.0-71.0); PLATELET COUNT,PLT 79 K/mm3 (150-400); WHITE BLOOD CELL COUNT,WBC 2.77 K/mm3 (3.9-11.3)
[2023-09-28 05:29] VITALS: BP 125/89; PULSE 80
== END 2023-09-28 05:31 | disposition home or self-care (01) ==
LOC: JD.ED 03:36
DX: J06.9 Acute upper respiratory infection, unspecified (principal); K04.7 Periapical abscess without sinus; D69.6 Thrombocytopenia, unspecified; K70.30 Alcoholic cirrhosis of liver without ascites; D70.8 Other neutropenia; I10 Essential (primary) hypertension; Z20.822 Contact with and (suspected) exposure to COVID-19; Z86.16 Personal history of COVID-19; Z79.899 Other long term (current) drug therapy; Z88.0 Allergy status to penicillin; Z88.1 Allergy status to other antibiotic agents; Z88.5 Allergy status to narcotic agent; Z88.8 Allergy status to other drugs, medicaments and biological substances
CPT/HCPCS: 0241U; 36415; 71045; 80053; 85025; 86140; 96365; 96375; 99284; J0696; J1170; J1885; J2405; J3490; J7042

== ENCOUNTER 2023-10-03 11:06 | Emergency (ER) | payer BC, MEDICAID ==
[2023-10-03 11:17] VITALS: BP 117/77; PULSE 80
[2023-10-03 12:35] LABS: CORONAVIRUS COVID-19 NAA NEGATIVE (NEGATIVE); INFLUENZA A NAA NEGATIVE (NEGATIVE); RESPIRATORY SYNCYTIAL VIR NAA NEGATIVE (NEGATIVE)
== END 2023-10-03 13:18 | disposition home or self-care (01) ==
LOC: JD.ED 11:06
DX: F11.23 Opioid dependence with withdrawal (principal); Z20.822 Contact with and (suspected) exposure to COVID-19; Z86.16 Personal history of COVID-19; Z88.0 Allergy status to penicillin; Z88.8 Allergy status to other drugs, medicaments and biological substances; Z88.6 Allergy status to analgesic agent
CPT/HCPCS: 0241U; 99283

== ENCOUNTER 2023-10-06 08:02 | Emergency (ER) | payer BC, MEDICAID ==
[2023-10-06 08:10] VITALS: BP 138/94; PULSE 67
== END 2023-10-06 08:50 | disposition home or self-care (01) ==
LOC: JD.ED 08:02
DX: K08.89 Other specified disorders of teeth and supporting structures (principal); K04.7 Periapical abscess without sinus; Z79.891 Long term (current) use of opiate analgesic; Z86.16 Personal history of COVID-19; Z88.0 Allergy status to penicillin; Z88.5 Allergy status to narcotic agent; Z88.8 Allergy status to other drugs, medicaments and biological substances
CPT/HCPCS: 99282